=== PATIENT | female | born 1965 | race Caucasian/White ===

== ENCOUNTER 2017-11-09 10:00 | Outpatient (CLI) | payer MEDICARE, MEDICAID, SELFPAY | END 2017-11-09 10:01 | PROVIDERS: PCP Nurse Practitioner; Visit Provider Psychiatry & Neurology Neurology | DX: G43.009 Migraine without aura, not intractable, without status migrainosus (principal); G40.319 Generalized idiopathic epilepsy and epileptic syndromes, intractable, without status epilepticus; E11.9 Type 2 diabetes mellitus without complications; Z79.84 Long term (current) use of oral hypoglycemic drugs | CPT/HCPCS: 99214 ==

== ENCOUNTER → 2018-01-11 10:35 | Outpatient (BNVA) | payer MEDICARE, MEDICAID, SELFPAY | PROVIDERS: PCP Nurse Practitioner; Visit Provider Psychiatry & Neurology Neurology | DX: G43.009 Migraine without aura, not intractable, without status migrainosus (principal); G40.319 Generalized idiopathic epilepsy and epileptic syndromes, intractable, without status epilepticus; F44.5 Conversion disorder with seizures or convulsions; E11.9 Type 2 diabetes mellitus without complications; Z79.84 Long term (current) use of oral hypoglycemic drugs | CPT/HCPCS: 99214 ==

== ENCOUNTER 2018-01-16 16:22 | Emergency (ER) | payer MEDICARE, MEDICAID, SELFPAY ==
[2018-01-16] VITALS (18 sets, daily range): BP systolic 123–146; BP diastolic 73–89; PULSE 63–76; RESP 12–24; TEMP 36.4; O2SAT 96–100
--- NOTE | 2018-01-16 16:34 | ED.GENADUL_ITS ---
Discharge Plan Disposition Patient Disposition: HOME Condition: Stable Discharge Details Chief Complaint: Dizzy/Sync Clinical Impression: Dehydration Reason For Visit: ALCON Primary Care Provider: Ariane Fontanez ED Provider: Roverto Ulrich Home Meds and New Rx's Prescriptions: No Action docusate sodium [Colace] 100 mg capsule 100 mg PO TID RF: 0 polyethylene glycol 3350 [Miralax] 17 gram powder in packet 17 gm PO DAILY RF: 0 Atorvastatin Calcium 10 MG tablet 10 mg PO DAILY RF: 0 metformin 500 MG tablet 500 mg PO BID RF: 0 nabumetone 750 MG tablet 750 mg PO BID RF: 0 omeprazole 40 MG capsule,delayed release(DR/EC) 40 mg PO DAILY RF: 0 levothyroxine 100 MCG tablet 100 mcg PO DAILY RF: 0 doxepin 100 MG capsule 100 mg PO DAILY RF: 0 folic acid 1 MG tablet 1 mg PO DAILY RF: 0 conjugated estrogens [Premarin] 0.3 MG tablet 0.3 mg PO DAILY RF: 0 pramipexole [Mirapex ER] 0.375 MG tablet extended release 24 hr 0.375 mg PO DAILY RF: 0 lancets 1 EACH misc 1 ea Miscellaneous DIRECTED RF: 0 lamotrigine 150 MG tablet 150 mg PO BID Qty: 60 RF: 11 risperidone 1 MG tablet 1 mg PO DAILY RF: 0 prochlorperazine maleate 10 MG tablet 10 mg PO Q8H PRN Qty: 30 RF: 0 Discharge Instructions Instructions: Dehydration (ED) Discharge Data Discharge Physician: Roverto Ulrich Medical Decision Making 52 yo female with hx of seizures, psychogenic seizures, tbi, t2dm comes in with 2 weeks of feeling numbness of her entire head. Denies unilateral face, arm or leg weakness and has no sensation changes in the arms or legs. She has NIH of 0 here and symptoms are not typical of tia/cva so doubt this at this time. Saw neurology last week for similar symptoms and felt likely psychogenic at that time. Will check for electrolyte abnormalities and monitor. lab work unremarkable, does have some evidence of dehydration and is unsure if she has been drinking fluids. Will have her f/u with pcp within a week and return precautions given. Still no focal findings on neuro exam Differential Diagnosis migraines, psychogenic numbness, electrolyte abnormality ECG Data Attestation: I personally reviewed and interpreted this ECG (s) as follows: Prior ECG tracings: not available for review Interpretation: sinus rhythm, normal axis, rate of 64, pr 152, no acute st t wave ischemic findings HPI General Mode of arrival: EMS . Date/Time Provider Initiated Documentation: 01/16/18 16:34 . Limitations to Documentation: no limitations . Information obtained by: patient . History of Present Illness 52 year old F presents to the emergency department with the chief complaint of head numbness, described as moderate, with intensity rated at 4. and is localized to the head. Patient reports no radiation. Patient started experiencing this week(s) (2) and it has been constant. No relieving factors improve symptom(s), No exacerbating factors reported . Patient notes no other symptoms.. Patient did receive the following treatments prior to arrival, none Related Data Home Medications Medication Instructions Recorded Confirmed Atorvastatin Calcium 10 mg PO DAILY tab-cap 03/01/17 01/16/18 conjugated estrogens [Premarin] 0.3 mg PO DAILY tab-cap 03/01/17 01/16/18 doxepin 100 mg PO DAILY tab-cap 03/01/17 01/16/18 folic acid 1 mg PO DAILY 03/01/17 01/16/18 lancets ea 03/01/17 01/11/18 levothyroxine 100 mcg PO DAILY tab-cap 03/01/17 01/16/18 metformin 500 mg PO BID tab-cap 03/01/17 01/16/18 nabumetone 750 mg PO BID tab-cap 03/01/17 01/16/18 omeprazole 40 mg PO DAILY tab-cap 03/01/17 01/16/18 pramipexole [Mirapex Er] 0.375 mg PO DAILY tab-cap 03/01/17 01/11/18 lamotrigine 150 mg PO BID #60 tab-cap 04/06/17 01/16/18 risperidone 1 mg PO DAILY tab-cap 10/10/17 01/16/18 prochlorperazine maleate 10 mg PO Q8H PRN #30 tab-cap 11/09/17 01/16/18 docusate sodium 100 mg capsule 100 mg PO TID cap 01/11/18 01/16/18 polyethylene glycol 3350 17 gram 17 gm PO DAILY 01/11/18 01/16/18 oral powder packet Previous Rx's Medication Instructions Recorded lamotrigine 150 mg PO BID #60 tab-cap 04/06/17 prochlorperazine maleate 10 mg PO Q8H PRN #30 tab-cap 11/09/17 Allergies Allergy/AdvReac Type Severity Reaction Status Date / Time acetaminophen [From Vicodin] Allergy Unknown MENTAL Unverified 01/16/18 16:54 ISSUES codeine Allergy Unknown MENTAL Unverified 01/16/18 16:54 ISSUES hydrocodone bitartrate Allergy Unknown MENTAL Unverified 01/16/18 16:54 [From Vicodin] ISSUES Review of Systems Review of Systems All systems reviewed & are unremarkable except as noted in HPI and below Constitutional Denies chills, Denies fever(s) and Denies weakness Eyes Denies loss of vision ENT Denies change in voice Cardiovascular Denies chest pain and Denies dyspnea Respiratory Denies dyspnea Gastrointestinal Denies abdominal pain, Denies nausea and Denies vomiting Genitourinary Denies dysuria Musculoskeletal Denies joint swelling Integumentary/Breasts Denies rash Neurologic Denies loss of vision and Denies weakness Psychiatric Denies depression Endocrine Denies cold intolerance and Denies heat intolerance Allergic/Immunologic Denies urticaria PFSH Family History Father Brain cancer History of seizures as a child Mother Parkinsons Brother Epilepsy Social History household members: spouse and other details: MARY JO lives independently: No number of children: 0 current occupational status: disabled Smoking/Tobacco Use Status: Former Tobacco Use substance use type: does not use Exam Const General: no acute distress Orientation: alert HENMT Head: normal to inspection Ears: external ears normal General nose exam: external nose normal Mouth: moist mucous membranes Eyes General: appearance normal, both eyes and all related structures Neck Neck: normal visual inspection Resp Effort & Inspection: normal respiratory effort and able to speak in complete sentences Cardio Rate: regular rate Skin General skin exam: no rashes or lesions noted Neuro General: alert and oriented x3 Cranial Nerves: CN's II-XI intact bilaterally Cognition: normal cognition Speech: speech normal Gait: normal gait Motor: muscle tone normal throughout Sensory Exam: no sensory deficits noted Pupils: Normal pupillary reactivity/response: bilateral Extrem General: normal to inspection Psych Mental Status: mental status grossly normal
[2018-01-16 17:26] LABS: HCT 36.5 % (36.0-46.0); HGB 11.5 g/dL (12.0-15.5); Mean Corp. HGB Concentration 31.5 g/dL (32.0-36.0); Mean Corpuscular Hemoglobin 25.7 pg (27.0-33.0); Mean Corpuscular Volume 81.7 fL (80-95); Mean Platelet Volume 9.9 fL (8.0-11.0); Platelet Count 352 x1000/uL (130-400); RBC 4.47 m/cumm (4.00-5.20); RBC Distribution Width 17.2 % (11.7-14.6); White Blood Cell Count 6.24 k/cumm (4.4-10.8)
[2018-01-16 17:46] LABS: ALT 20 U/L (12-78); AST 15 U/L (15-37); Albumin 3.5 g/dL (3.4-5.0); Alkaline Phosphatase 115 U/L (46-116); Anion Gap 10.5 mmol/L (3-11); BUN 19 mg/dL (7-18); Bilirubin, Total 0.3 mg/dL (0.2-1.0); CO2 25.5 mmol/L (21.0-32.0); CREATININE 1.26 mg/dL (0.55-1.02); Calcium 9.1 mg/dL (8.5-10.1); Chloride 103 mmol/L (98-107); Estimated GFR 44.25 (mL/min/1.73m2); Glucose 108 mg/dL (70-100); Potassium 3.6 mmol/L (3.5-5.1); Sodium 139 mmol/L (136-145); Total Protein 7.9 g/dL (6.4-8.2)
--- NOTE | 2018-01-17 10:17 | CMPROGNOTE_ITS ---
Care Management Progress Note 01/17-Dr. Ulrich requested assistance with a PCP (Ariane Fontanez NP, [place]) this week for hand numbness. This [employer] reached out to Celina this morning and she has already scheduled an appt to see Ariane on Monday, 01/19. Celina has this CM's contact information if further assistance is needed.
== END 2018-01-16 18:04 | disposition home or self-care (01) ==
PROVIDERS: Emergency Provider Emergency Medicine; PCP Nurse Practitioner
DX: E86.0 Dehydration (principal); E11.9 Type 2 diabetes mellitus without complications; Z79.84 Long term (current) use of oral hypoglycemic drugs
CPT/HCPCS: 36415; 80053; 85027; 93005; 99284; 93010

== ENCOUNTER → 2018-02-26 10:20 | Outpatient (BNVA) | payer MEDICARE, MEDICAID, SELFPAY | PROVIDERS: PCP Nurse Practitioner; Visit Provider Psychiatry & Neurology Neurology | DX: G43.009 Migraine without aura, not intractable, without status migrainosus (principal); G40.319 Generalized idiopathic epilepsy and epileptic syndromes, intractable, without status epilepticus; F44.5 Conversion disorder with seizures or convulsions; E11.9 Type 2 diabetes mellitus without complications | CPT/HCPCS: 99214 ==

== ENCOUNTER → 2018-04-16 07:45 | Outpatient (BNVA) | payer MEDICARE, MEDICAID, SELFPAY | PROVIDERS: PCP Nurse Practitioner; Visit Provider Psychiatry & Neurology Neurology | DX: G43.009 Migraine without aura, not intractable, without status migrainosus (principal); G40.319 Generalized idiopathic epilepsy and epileptic syndromes, intractable, without status epilepticus; F44.5 Conversion disorder with seizures or convulsions; E11.9 Type 2 diabetes mellitus without complications | CPT/HCPCS: 99214 ==

== ENCOUNTER 2018-04-24 02:13 | Outpatient (CLI) | payer MEDICARE, MEDICAID, SELFPAY ==
--- NOTE | 2018-05-01 09:02 | PDOC.EEG_ITS ---
EEG: [facility] Department of Neurology LONG-TERM AMBULATORY EEG REPORT Date of Recordin04/24/18 at 13:32:36 to 04/27/18 at 07:29:14 Interpreting Physician: Dr. Jen Koch PCP/Referring Provider: Ariane Fontanez NP Reason for study: Ms. Coronel is a 52 year-old woman with a known history of generalized epilepsy disorder with more recent self-reported staring spells. Current Medications: Atorvastatin Calcium 10 mg PO DAILY tab-cap 03/01/17 conjugated estrogens [Premarin] 0.3 mg PO DAILY tab-cap 03/01/17 doxepin 100 mg PO DAILY tab-cap 03/01/17 folic acid 1 mg PO DAILY 03/01/17 lancets ea 03/01/17 levothyroxine 100 mcg PO DAILY tab-cap 03/01/17 nabumetone 750 mg PO BID tab-cap 03/01/17 omeprazole 40 mg PO DAILY tab-cap 03/01/17 pramipexole [Mirapex Er] 0.375 mg PO DAILY tab-cap 03/01/17 lamotrigine 150 mg PO BID #60 tab-cap 04/06/17 docusate sodium 100 mg capsule 100 mg PO TID cap 01/11/18 gabapentin 100 mg capsule 100 mg PO TID #90 cap 04/16/18 risperidone 1 mg tablet 1 mg PO .1 AM 2HS tab-cap 04/16/18 METHODS: An 18-channel digitized electroencephalogram was recorded in the ambulatory setting with video. The 10/20 international system of electrode placement was used and bipolar and referential electrode montages were recorded. In addition to EEG the patient was monitored for EKG and by video. Activation procedures of photic stimulation and hyperventilation were performed if applicable. The duration of the recording was ~64.5 hours. DESCRIPTION OF EEG: Waking background activity: During maximal wakefulness an 8-Hz posterior background rhythm was present which was well-modulated, symmetrical, reactive to eye opening, and of moderate voltage. Faster frequencies were present in the bilateral anterior head regions. There was a normal anterior-posterior voltage gradient. Drowsy and sleeping background activity: During drowsiness, there was attenuation of the posterior dominant background rhythm and vertex waves. Normal stage II and III sleep was present with symmetrical sleep spindles, K- complexes, and vertex waves with slowing of the background rhythm to delta/theta frequencies. REM sleep manifested by rapid lateral eye movements and faster background rhythms was recorded. Arousal was unremarkable. Interictal abnormalities: There were occasional, high frequency, generalized 1-4 second bursts of ~3 Hz spike-waves. There were generally frontally- predominant, but at times also demonstrated a posterior +/- right hemisphere predominance as well. These occasionally manifested by fragments of either a single generalized spike or a single generalized delta slow wave. Ictal findings: Event #1 on 04/24/18 at 17:13:00 -Clinical manifestations: Chest pain. -EEG findings: Preceding, there were frequent bursts of high-amplitude, generalized sharply-contoured delta activity. There were no obvious spike-wave discharges. Event #2 on 04/24/18 at 19:43:44 and 19:55:43 -Clinical manifestations: Chest pain. -EEG findings: No epileptiform or other abnormalities seen. Event #3 on 04/25/18 at 04:58:42 -Clinical manifestations: Chest pain. -EEG findings: She awakens from sleep at 04:57:54. No epileptiform or other abnormalities seen. Event #4 on 04/25/18 at 06:20 (per event diary, no button push) -Clinical manifestations: Left arm pain. -EEG findings: No epileptiform or other abnormalities seen. Event #5 on 04/25/18 at 13:51:26 -Clinical manifestations: No symptoms recorded in event diary. -EEG findings: Several bursts of typical interictal activity as described above. Event #6 on 04/25/18 at 20:38:24 -Clinical manifestations: Pain in arm and chest. -EEG findings: A single burst of typical interictal activity about 4 minutes p rior, otherwise no abnormalities. Event #7 on 04/26/18 at 01:15:09 -Clinical manifestations: No symptoms recorded in event diary. -EEG findings: No epileptiform or other abnormalities seen. Event #8 on 04/26/18 at 10:32:58 -Clinical manifestations: No symptoms recorded in event diary. -EEG findings: A single burst of typical interictal activity about 6 minutes prior, otherwise no abnormalities. Event #9 on 04/26/18 at 17:53:36 and 17:53:42 -Clinical manifestations: No symptoms recorded in event diary. -EEG findings: Several burst of generalized delta with a single 2 second burst of right-hemisphere predominant spike-waves in between the button pushes. Activating Procedures: Photic stimulation was aborted early x2 due to left face numbness. There was no posterior driving response. Hyperventilation was also aborted early due to chest pain. There was no slowing. EKG: EKG revealed normal sinus rhythm. INTERPRETATION: This long-term EEG is abnormal due to: #1. Occasional, high frequency, generalized 1-4 second bursts of ~3 Hz spike- waves #2. Mild slowing of the dominant background rhythm. #3. Multiple events captured as above, none of which consistently correlated with epileptiform activity. PRIOR EEG: -Ambulatory EEG (1999) x72 hours - normal. Described one event of going into a spell. -EEG (2005) - mild encephalopathy. -Video EEG (2005) - multiple subjective events consistent with psychogenic nonepileptic seizures. No description was provided. She had a single gener alized tonic-clonic seizure with focal sharps prior to the onset and, thus, was given a diagnosis of a primary generalized epilepsy based on these findings. -EEG (2006) - moderate encephalopathy. -Video EEG (2007) - she had a single event consistent with a psychogenic nonepileptic seizure and interictally she had noted bilateral independent posterior temporal sharp and slow waves that became more generalized in sleep. CLINICAL CORRELATION: This recording represents the interictal expression of a primary generalized epilepsy and indicates the patient is at increased risk for seizures. The background slowing is suggestive of a mild diffuse cerebral encephalopathy of broad differential including toxic-metabolic etiology. None of the events captured appeared to consistently correlate with epileptiform activity. Further, her complaint of staring spell was not captured. However, she may be experiencing some symptoms or awareness from her interictal activity which she is unable to verbalize well. Clinical correlation is advised. Jen Koch MD
== END 2018-04-24 02:33 ==
PROVIDERS: PCP Nurse Practitioner; Visit Provider Psychiatry & Neurology Neurology
DX: G40.824 Epileptic spasms, intractable, without status epilepticus (principal); R41.89 Other symptoms and signs involving cognitive functions and awareness; R94.01 Abnormal electroencephalogram [EEG]
CPT/HCPCS: 95951; 95953

== ENCOUNTER → 2018-05-10 11:22 | Outpatient (BNVA) | payer MEDICARE, MEDICAID, SELFPAY | PROVIDERS: PCP Nurse Practitioner; Visit Provider Psychiatry & Neurology Neurology | DX: G43.009 Migraine without aura, not intractable, without status migrainosus (principal); G40.319 Generalized idiopathic epilepsy and epileptic syndromes, intractable, without status epilepticus; F44.5 Conversion disorder with seizures or convulsions; E11.9 Type 2 diabetes mellitus without complications; R51 Headache | CPT/HCPCS: 99214; J1885; 96372 ==

== ENCOUNTER → 2018-05-30 09:14 | Outpatient (BNVA) | payer MEDICARE, MEDICAID, SELFPAY | PROVIDERS: PCP Nurse Practitioner; Visit Provider Psychiatry & Neurology Neurology | DX: G43.009 Migraine without aura, not intractable, without status migrainosus (principal); G40.319 Generalized idiopathic epilepsy and epileptic syndromes, intractable, without status epilepticus; F44.5 Conversion disorder with seizures or convulsions; E11.9 Type 2 diabetes mellitus without complications | CPT/HCPCS: 99214 ==

== ENCOUNTER → 2018-07-10 11:48 | Outpatient (BNVA) | payer MEDICARE, MEDICAID, SELFPAY | PROVIDERS: PCP Nurse Practitioner; Visit Provider Psychiatry & Neurology Neurology | DX: G43.009 Migraine without aura, not intractable, without status migrainosus (principal); G40.319 Generalized idiopathic epilepsy and epileptic syndromes, intractable, without status epilepticus; F44.5 Conversion disorder with seizures or convulsions; E11.9 Type 2 diabetes mellitus without complications | CPT/HCPCS: 99213 ==

== ENCOUNTER → 2018-09-03 11:02 | Outpatient (BNVA) | payer MEDICARE, MEDICAID, SELFPAY | PROVIDERS: PCP Nurse Practitioner; Visit Provider Psychiatry & Neurology Neurology | DX: G40.319 Generalized idiopathic epilepsy and epileptic syndromes, intractable, without status epilepticus (principal); G43.009 Migraine without aura, not intractable, without status migrainosus; F44.5 Conversion disorder with seizures or convulsions | CPT/HCPCS: 99213 ==

== ENCOUNTER → 2018-11-07 12:52 | Outpatient (BNVA) | payer MEDICARE, MEDICAID, SELFPAY | PROVIDERS: PCP Nurse Practitioner; Visit Provider Psychiatry & Neurology Neurology | DX: G43.009 Migraine without aura, not intractable, without status migrainosus (principal); G40.319 Generalized idiopathic epilepsy and epileptic syndromes, intractable, without status epilepticus; I10 Essential (primary) hypertension | CPT/HCPCS: 99213 ==

== ENCOUNTER → 2019-02-05 10:10 | Outpatient (BNVA) | payer MEDICARE, MEDICAID, SELFPAY | PROVIDERS: PCP Nurse Practitioner; Referring Provider Nurse Practitioner; Visit Provider Psychiatry & Neurology Neurology | DX: G43.009 Migraine without aura, not intractable, without status migrainosus (principal); I10 Essential (primary) hypertension | CPT/HCPCS: 99213 ==

== ENCOUNTER → 2019-02-28 10:08 | Outpatient (BNVA) | payer MEDICARE, MEDICAID, SELFPAY | PROVIDERS: PCP Nurse Practitioner; Referring Provider Nurse Practitioner; Visit Provider Psychiatry & Neurology Neurology | DX: G43.009 Migraine without aura, not intractable, without status migrainosus (principal); I10 Essential (primary) hypertension; G40.319 Generalized idiopathic epilepsy and epileptic syndromes, intractable, without status epilepticus | CPT/HCPCS: 99213 ==

== ENCOUNTER → 2019-04-02 08:36 | Outpatient (BNVA) | payer MEDICARE, MEDICAID, SELFPAY | PROVIDERS: PCP Nurse Practitioner; Referring Provider Nurse Practitioner; Visit Provider Psychiatry & Neurology Neurology | DX: G43.009 Migraine without aura, not intractable, without status migrainosus (principal); G40.319 Generalized idiopathic epilepsy and epileptic syndromes, intractable, without status epilepticus; F44.5 Conversion disorder with seizures or convulsions; Z87.820 Personal history of traumatic brain injury | CPT/HCPCS: 99213 ==

== ENCOUNTER → 2019-05-13 07:58 | Outpatient (BNVA) | payer MEDICARE, MEDICAID, SELFPAY | PROVIDERS: PCP Nurse Practitioner; Referring Provider Nurse Practitioner; Visit Provider Psychiatry & Neurology Neurology | DX: G43.009 Migraine without aura, not intractable, without status migrainosus (principal); G40.319 Generalized idiopathic epilepsy and epileptic syndromes, intractable, without status epilepticus | CPT/HCPCS: 99214 ==

== ENCOUNTER → 2019-09-02 14:25 | Outpatient (BNVA) | payer MEDICARE, MEDICAID, SELFPAY | PROVIDERS: PCP Nurse Practitioner; Referring Provider Nurse Practitioner; Visit Provider Psychiatry & Neurology Neurology | DX: G40.319 Generalized idiopathic epilepsy and epileptic syndromes, intractable, without status epilepticus (principal); G43.009 Migraine without aura, not intractable, without status migrainosus; G47.00 Insomnia, unspecified; I10 Essential (primary) hypertension | CPT/HCPCS: 99214 ==

== ENCOUNTER 2019-09-23 02:32 | Outpatient (CLI) | payer MEDICARE, MEDICAID, SELFPAY ==
--- NOTE | 2019-09-26 08:51 | PDOC.EEG ---
Neurology EEG EEG: [facility] Department of Neurology LONG-TERM AMBULATORY EEG REPORT Date of Recordin09/23/19 at 10:43:48 to 09/24/19 at 13:05:49 Interpreting Physician: Dr. Jen Koch PCP/Referring Provider: Ariane Fontanez NP Reason for study: Ms. Coronel is a 54 year-old woman with known epileptic and non-epileptic seizures, with recent increase in seizure activity. Current Medications: Home Medications Medication Instructions Recorded Confirmed Type Atorvastatin Calcium 10 mg PO DAILY tab-cap 03/01/17 09/02/19 History doxepin 100 mg PO DAILY tab-cap 03/01/17 09/02/19 History folic acid 1 mg PO DAILY 03/01/17 09/02/19 History lancets ea 03/01/17 09/02/19 History levothyroxine 100 mcg PO DAILY tab-cap 03/01/17 09/02/19 History omeprazole 40 mg PO DAILY tab-cap 03/01/17 09/02/19 History risperidone 2 mg tablet 2 mg PO QHS tab 05/30/18 09/02/19 History metformin 500 mg tablet 500 mg PO DAILY tab 07/10/18 09/02/19 History risperidone 1 mg tablet 1 mg PO .AM tab 07/10/18 09/02/19 History armodafinil 150 mg tablet 150 mg PO QAM 11/07/18 09/02/19 History rizatriptan 10 mg tablet 10 mg PO ONCE PRN #12 tab 02/05/19 09/02/19 Rx prochlorperazine maleate 5 mg 5 mg PO ONCE PRN tab 04/02/19 09/02/19 History tablet acetaminophen 650 mg 650 mg PO ONCE PRN tab 05/13/19 09/02/19 History tablet,extended release lamotrigine 150 mg tablet 150 mg PO BID #180 tab-cap 06/03/19 09/02/19 Rx ramelteon 8 mg tablet 8 mg PO QHS 09/02/19 09/02/19 History METHODS: An 18-channel digitized electroencephalogram was recorded in the ambulatory setting with video. The 10/20 international system of electrode placement was used and bipolar and referential electrode montages were recorded. In addition to EEG the patient was monitored for EKG and by video. Activation procedures of photic stimulation and hyperventilation were performed if applicable. The duration of the recording was 26 hours. DESCRIPTION OF EEG: Waking background activity: During maximal wakefulness an 8-Hz posterior background rhythm was present which was well-modulated, symmetrical, reactive to eye opening, and of moderate voltage. Faster frequencies were present in the bilateral anterior head regions. There was a normal anterior-posterior voltage gradient. Drowsy and sleeping background activity: During drowsiness, there was attenuation of the posterior dominant background rhythm and vertex waves. Normal stage II and III sleep was present with symmetrical sleep spindles, K-complexes, and vertex waves with slowing of the background rhythm to delta/theta frequencies. REM sleep manifested by rapid lateral eye movements and faster background rhythms was recorded. Arousal was unremarkable. Interictal abnormalities: Overall, mild generalized, non-rhythmic slowing seen throughout the study. There were frequent bursts of high-amplitude, 3 Hz generalized spike waves that occurred either singly (mainly when asleep) or in bursts up to 3 seconds in duration. These occasionally had a right-sided predominance and even rarely, appeared to have a right hemisphere onset. There were occasional focal, moderate-amplitude, independent spike-waves at Fp2, O2, T3, C3/P3, T4, ?Fp1, and ?O1. Ictal findings: Event #1 on 09/23/19 at 18:36:25 -Clinical manifestations: Right chest pain x25 minutes while sitting. -EEG findings: No change from baseline EEG. Event #2 on 09/23/19 at 21:26:28 -Clinical manifestations: Front of head felt funny all night. While sitting. -EEG findings: No change from baseline EEG. Event #3 on 09/24/19 at 08:56:13 -Clinical manifestations: Right chest pain x5-10 minutes while sitting. -EEG findings: No change from baseline EEG. Event #4 on 09/24/19 at 11:57:41 -Clinical manifestations: No reported clinical symptoms. -EEG findings: No change from baseline EEG. Activating Procedures: Photic stimulation was not performed per patient request. Hyperventilation was performed with moderate effort and produced mild physiological slowing of the background. During HV, she developed chest pain which resolved after 5minutes. EKG: EKG revealed normal sinus rhythm. INTERPRETATION: This long-term EEG is abnormal due to: #1. Frequent bursts of 3 Hz generalized spike waves that occurred either singly or in bursts up to 3 seconds in duration. These occasionally had a right-sided predominance and even rarely, appeared to have a right hemisphere onset. #2. Occasional multi-focal independent spike-waves at Fp2, O2, T3, C3/P3, T4, ?Fp1, and ?O1. #3. Mild generalized slowing and slowing of the PDR. #4. No typical events were captured. PRIOR EEG: -Ambulatory EEG (1999) x72 hours - normal. Described one event of going into a spell. -EEG (2005) - mild encephalopathy. -Video EEG (2005) - multiple subjective events consistent with psychogenic nonepileptic seizures. No description was provided. She had a single generalized tonic-clonic seizure with focal sharps prior to the onset and, thus, was given a diagnosis of a primary generalized epilepsy based on these findings. -EEG (2006) - moderate encephalopathy. -Video EEG (2007) - she had a single event consistent with a psychogenic nonepileptic seizure and interictally she had noted bilateral independent posterior temporal sharp and slow waves that became more generalized in sleep. -Amb EEG (Apr 2018 x64 hours): Occasional bursts of 3 Hz generalized spike waves lasting 1-4 seconds; 9 events captured with descriptions of chest and arm pain. One occurred at the same time as her interictal discharges, otherwise none had any other correlation. CLINICAL CORRELATION: This EEG has features of both focal and generalized features which is different than what was seen on previous EEGs. I was able to re-review her 2019 EEG which actually showed similar findings as today with both focal and generalized features. It is possible the focal features may be fragments of generalized discharges. It is also possible that her generalized discharges could be of focal onset with rapid spread. Finally, it's also possible she truly has both. The interictal activity does seem slightly more frequent compared to the 2019 study. No typical events or overt seizures were recorded. The background slowing is suggestive of a mild diffuse cerebral encephalopathy which is stable compared to previous EEG findings and consistent with patient's known developmental delay. Clinical correlation is advised. Jen Koch MD
== END 2019-09-23 02:52 ==
PROVIDERS: PCP Nurse Practitioner; Visit Provider Psychiatry & Neurology Neurology
DX: R41.89 Other symptoms and signs involving cognitive functions and awareness (principal); R94.01 Abnormal electroencephalogram [EEG]; G40.909 Epilepsy, unspecified, not intractable, without status epilepticus
CPT/HCPCS: 95714

== ENCOUNTER → 2019-09-26 14:38 | Outpatient (BNVA) | payer MEDICARE, MEDICAID, SELFPAY | PROVIDERS: PCP Nurse Practitioner; Referring Provider Nurse Practitioner; Visit Provider Psychiatry & Neurology Neurology | DX: G40.319 Generalized idiopathic epilepsy and epileptic syndromes, intractable, without status epilepticus (principal); G43.009 Migraine without aura, not intractable, without status migrainosus; I10 Essential (primary) hypertension | CPT/HCPCS: 99214 ==

== ENCOUNTER → 2020-01-07 14:48 | Outpatient (BNVA) | payer MEDICARE, MEDICAID, SELFPAY | PROVIDERS: PCP Nurse Practitioner; Referring Provider Nurse Practitioner; Visit Provider Psychiatry & Neurology Neurology | DX: G43.009 Migraine without aura, not intractable, without status migrainosus (principal); G40.319 Generalized idiopathic epilepsy and epileptic syndromes, intractable, without status epilepticus; G47.00 Insomnia, unspecified | CPT/HCPCS: 99213 ==

== ENCOUNTER → 2020-02-24 08:29 | Outpatient (BNVA) | payer MEDICARE, MEDICAID, SELFPAY | PROVIDERS: PCP Nurse Practitioner; Referring Provider Nurse Practitioner; Visit Provider Psychiatry & Neurology Neurology | DX: G43.009 Migraine without aura, not intractable, without status migrainosus (principal); G40.319 Generalized idiopathic epilepsy and epileptic syndromes, intractable, without status epilepticus; G47.00 Insomnia, unspecified | CPT/HCPCS: 99213; 99441 ==

== ENCOUNTER → 2020-04-27 10:44 | Outpatient (BNVA) | payer MEDICARE, MEDICAID, SELFPAY | PROVIDERS: PCP Nurse Practitioner; Referring Provider Nurse Practitioner; Visit Provider Psychiatry & Neurology Neurology | DX: G43.009 Migraine without aura, not intractable, without status migrainosus (principal); G40.319 Generalized idiopathic epilepsy and epileptic syndromes, intractable, without status epilepticus | CPT/HCPCS: 99214 ==

== ENCOUNTER → 2020-06-30 09:24 | Outpatient (BNVA) | payer MEDICARE, MEDICAID, SELFPAY | PROVIDERS: PCP Nurse Practitioner; Referring Provider Nurse Practitioner; Visit Provider Psychiatry & Neurology Neurology | DX: G43.009 Migraine without aura, not intractable, without status migrainosus (principal); G40.319 Generalized idiopathic epilepsy and epileptic syndromes, intractable, without status epilepticus | CPT/HCPCS: 99213 ==

== ENCOUNTER → 2020-08-31 12:56 | Outpatient (BNVA) | payer MEDICARE, MEDICAID, SELFPAY | PROVIDERS: PCP Nurse Practitioner; Referring Provider Nurse Practitioner; Visit Provider Psychiatry & Neurology Neurology | DX: G40.319 Generalized idiopathic epilepsy and epileptic syndromes, intractable, without status epilepticus (principal); F44.5 Conversion disorder with seizures or convulsions; G43.009 Migraine without aura, not intractable, without status migrainosus | CPT/HCPCS: 99214 ==

== ENCOUNTER → 2020-11-16 11:16 | Outpatient (BNVA) | payer MEDICARE, MEDICAID, SELFPAY | PROVIDERS: PCP Nurse Practitioner; Referring Provider Nurse Practitioner; Visit Provider Psychiatry & Neurology Neurology | DX: G40.309 Generalized idiopathic epilepsy and epileptic syndromes, not intractable, without status epilepticus (principal); G43.009 Migraine without aura, not intractable, without status migrainosus; G40.319 Generalized idiopathic epilepsy and epileptic syndromes, intractable, without status epilepticus | CPT/HCPCS: 99213 ==

== ENCOUNTER → 2021-01-05 11:08 | Outpatient (BNVA) | payer MEDICARE, MEDICAID, SELFPAY | PROVIDERS: PCP Nurse Practitioner; Referring Provider Nurse Practitioner; Visit Provider Psychiatry & Neurology Neurology | DX: G43.009 Migraine without aura, not intractable, without status migrainosus (principal); G40.319 Generalized idiopathic epilepsy and epileptic syndromes, intractable, without status epilepticus; R10.9 Unspecified abdominal pain; I10 Essential (primary) hypertension | CPT/HCPCS: 99213 ==

== ENCOUNTER → 2021-04-08 12:18 | Outpatient (BNVA) | payer MEDICARE, MEDICAID, SELFPAY | PROVIDERS: PCP Nurse Practitioner; Referring Provider Nurse Practitioner; Visit Provider Psychiatry & Neurology Neurology | DX: G43.009 Migraine without aura, not intractable, without status migrainosus (principal); G40.319 Generalized idiopathic epilepsy and epileptic syndromes, intractable, without status epilepticus; M54.50 Low back pain, unspecified | CPT/HCPCS: 99213 ==

== ENCOUNTER → 2021-07-12 09:39 | Outpatient (BNVA) | payer MEDICARE, MEDICAID, SELFPAY | PROVIDERS: PCP Nurse Practitioner; Referring Provider Nurse Practitioner; Visit Provider Psychiatry & Neurology Neurology | DX: G40.309 Generalized idiopathic epilepsy and epileptic syndromes, not intractable, without status epilepticus (principal); G43.009 Migraine without aura, not intractable, without status migrainosus; M54.50 Low back pain, unspecified | CPT/HCPCS: 99214 ==

== ENCOUNTER → 2021-08-19 09:31 | Outpatient (BNVA) | payer MEDICARE, MEDICAID, SELFPAY | PROVIDERS: PCP Nurse Practitioner; Referring Provider Nurse Practitioner; Visit Provider Psychiatry & Neurology Neurology | DX: G40.319 Generalized idiopathic epilepsy and epileptic syndromes, intractable, without status epilepticus (principal); G43.009 Migraine without aura, not intractable, without status migrainosus | CPT/HCPCS: 99214 ==

== ENCOUNTER → 2021-11-18 12:14 | Outpatient (BNVA) | payer MEDICARE, MEDICAID, SELFPAY | PROVIDERS: PCP Nurse Practitioner; Referring Provider Nurse Practitioner; Visit Provider Psychiatry & Neurology Neurology | DX: G47.33 Obstructive sleep apnea (adult) (pediatric) (principal); I10 Essential (primary) hypertension; G43.009 Migraine without aura, not intractable, without status migrainosus; G40.319 Generalized idiopathic epilepsy and epileptic syndromes, intractable, without status epilepticus | CPT/HCPCS: 99214 ==

== ENCOUNTER → 2022-01-31 09:55 | Outpatient (BNVA) | payer MEDICARE, MEDICAID, SELFPAY | PROVIDERS: PCP Nurse Practitioner; Referring Provider Nurse Practitioner; Visit Provider Psychiatry & Neurology Neurology | DX: G43.709 Chronic migraine without aura, not intractable, without status migrainosus (principal); G40.319 Generalized idiopathic epilepsy and epileptic syndromes, intractable, without status epilepticus; I10 Essential (primary) hypertension | CPT/HCPCS: 99214 ==

== ENCOUNTER → 2022-05-10 08:19 | Outpatient (BNVA) | payer MEDICARE, MEDICAID, SELFPAY | PROVIDERS: PCP Nurse Practitioner; Referring Provider Nurse Practitioner; Visit Provider Psychiatry & Neurology Neurology | DX: G40.309 Generalized idiopathic epilepsy and epileptic syndromes, not intractable, without status epilepticus (principal); G43.709 Chronic migraine without aura, not intractable, without status migrainosus; F32.A Depression, unspecified; G47.00 Insomnia, unspecified; G47.33 Obstructive sleep apnea (adult) (pediatric); I10 Essential (primary) hypertension | CPT/HCPCS: 99214 ==

== ENCOUNTER 2022-07-18 15:08 | Outpatient (CLI) | payer MEDICARE, MEDICAID, SELFPAY ==
--- NOTE | 2022-07-18 15:11 | DI.RAD_ITS ---
Exam(s) XR KNEE LT 3V AP,LAT,TOBI EXAM: XR KNEE LT 3V AP,LAT,TOBI CLINICAL HISTORY: L TKR pain. TECHNIQUE: 2D digital imaging was performed of the left knee. Three images were obtained. Merchant ,lateral and AP views were obtained. COMPARISON: No exams were available for comparison FINDINGS: BONES: No acute fracture is present. No bony destructive lesion is seen. JOINTS: There are postsurgical changes of a left total knee replacement. No lucencies are seen in or about the orthopedic hardware to suggest loosening or infection. No joint effusion is seen. SOFT TISSUE: Normal. IMPRESSION: Left total knee replacement. DATA REPOSITORY: RADIATION DOSE DELIVERED:
== END 2022-07-18 15:09 | disposition home or self-care (01) ==
LOC: DIORS 15:09
PROVIDERS: PCP Nurse Practitioner; Referring Provider Nurse Practitioner; Visit Provider Student in an Organized Health Care Education/Training Program
DX: M17.11 Unilateral primary osteoarthritis, right knee; M25.761 Osteophyte, right knee; Z96.652 Presence of left artificial knee joint; T84.84XA Pain due to internal orthopedic prosthetic devices, implants and grafts, initial encounter
CPT/HCPCS: 20610; 73562; 99213; J1040

== ENCOUNTER 2022-07-27 01:13 | Outpatient (CLI) | payer MEDICARE, MEDICAID, SELFPAY ==
--- NOTE | 2022-07-27 06:45 | DI.NM_ITS ---
Exam(s) NM BONE SCAN 3 PHASE EXAM: NM BONE SCAN 3 PHASE CLINICAL HISTORY: PAINful total knee, ?LOOSENING,[id number],[id number]. TECHNIQUE: Injected Dose: 25 mCi Tc-99m MDP Perfusion, blood pool and delayed images were performed of the knees. Delayed images were also perfo rmed of the whole body. COMPARISON: CR XR KNEE LT 3V AP,LAT,TOBI from 07/18/2022 FINDINGS: Perfusion: Hyperemia around the left knee Blood Pool: Abnormal increased activity around the left knee prosthesis. Delayed: Markedly increased activity surrounding the left knee prosthesis which is suspicious for loo sening. Whole body images show no other areas of suspicious activity. IMPRESSION: 1. Abnormal labeling surrounding the left knee prosthesis which could indicate loosening however infe ction could also be considered. DATA REPOSITORY:
[2022-07-27 09:06] LABS: C-Reactive Protein 1.65 mg/dL (0.0-0.3)
[2022-07-27 09:07] LABS: ESR 46 mm/hr (0-30)
== END 2022-07-27 01:33 ==
LOC: DI 01:13
PROVIDERS: PCP Nurse Practitioner; Visit Provider Student in an Organized Health Care Education/Training Program
DX: T84.84XA Pain due to internal orthopedic prosthetic devices, implants and grafts, initial encounter (principal); Z96.652 Presence of left artificial knee joint; R93.7 Abnormal findings on diagnostic imaging of other parts of musculoskeletal system
CPT/HCPCS: 85652; 78315; 86140

== ENCOUNTER → 2022-07-29 09:04 | Outpatient (BNVA) | payer MEDICARE, MEDICAID, SELFPAY | PROVIDERS: PCP Nurse Practitioner; Referring Provider Nurse Practitioner; Visit Provider Student in an Organized Health Care Education/Training Program | DX: Z47.1 Aftercare following joint replacement surgery (principal); T84.84XA Pain due to internal orthopedic prosthetic devices, implants and grafts, initial encounter; Z96.652 Presence of left artificial knee joint; R93.7 Abnormal findings on diagnostic imaging of other parts of musculoskeletal system | CPT/HCPCS: 20610 ==

== ENCOUNTER → 2022-08-09 09:36 | Outpatient (BNVA) | payer MEDICARE, MEDICAID, SELFPAY | PROVIDERS: PCP Nurse Practitioner; Visit Provider Psychiatry & Neurology Neurology | DX: G40.319 Generalized idiopathic epilepsy and epileptic syndromes, intractable, without status epilepticus (principal); G43.709 Chronic migraine without aura, not intractable, without status migrainosus; F39 Unspecified mood [affective] disorder; G47.00 Insomnia, unspecified; G20 Parkinson's disease; I10 Essential (primary) hypertension | CPT/HCPCS: 99214 ==

== ENCOUNTER 2022-08-17 10:13 | Inpatient (IN) | payer MEDICARE, MEDICAID, SELFPAY ==
[2022-08-17] VITALS (10 sets, daily range): BP systolic 110–147; BP diastolic 66–76; PULSE 62–76; RESP 13–24; TEMP 36.1–36.6; O2SAT 93–100; BMI 42.5
--- NOTE | 2022-08-17 | DI.RAD_ITS ---
Exam(s) XR KNEE LT 2V AP,LAT EXAM: XR KNEE LT 2V AP,LAT CLINICAL HISTORY: s/p revision L TKA. TECHNIQUE: 2D digital imaging was performed. Three views. Portable. COMPARISON: CR XR KNEE LT 3V AP,LAT,TOBI from 07/18/2022 FINDINGS: The patient is status post revision of the previously noted total knee prosthesis. The alignment fran ears satisfactory. There is some residual postsurgical air in the soft tissues. DATA REPOSITORY: RADIATION DOSE DELIVERED:
[2022-08-17] MEDS: Acetaminophen 500 MG TAB 1000 MG PO ×2 (10:56→20:29)
[2022-08-17] MEDS: Celecoxib 200 MG CAP 400 MG PO (10:57)
[2022-08-17] MEDS: Gabapentin 300 MG CAP PO ×2 (10:57→22:20)
[2022-08-17] MEDS: Lactated Ringers 1,000 ML 80 ML IV (11:06)
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
[2022-08-17] MEDS: ceFAZolin 2 GM/50 ML BAG IVPB (13:37)
--- NOTE | 2022-08-17 14:09 | W.ANESNERVE ---
Nerve Block Single Injection Procedure Date and Time Date Performed: 08/17/22 Procedure Start: 12:55 Location Where Procedure Performed Procedure Location: Day Surgery Unit Reason Performed: Postoperative Analgesia Requesting Provider: Franc Chapin Timeout Performed Timeout Performed: Yes Monitoring Used ECG, Blood Pressure and SpO2 Sterility Sterility: Hand Hygiene, Surgical Cap, Surgical Mask, Sterile Gloves and Chlorhexidine Sedation Given During Procedure Sedation Given (Indicate Dose Given): No Sedation given Patient Mental Status Patient Mental Status: Awake Nerve Block 1st Nerve Block: Laterality: Left Block Type: Adductor Canal Ultrasound Image Saved?: Yes Needle / Catheter Used: 100mm SonoPlex II Local Anesthetic Bolus (Indicate Dose Given): Lidocaine used for local infiltration of skin, Injected in 3-5ml increments after negative blood aspiration and Bupivacaine 0.25% Dose:: 15 ml Additives (Indicate Dose Given): Normal Saline (for hydrodissection) Ultrasound: Sterile probe cover and gel used Nerve Stimulator: Supplement to Ultrasound use and No twitch or parasthesia noted < 0.5 mA Paresthesia: None Procedure Tolerated: No Complications and Patient tolerated well Procedure Outcome: Successful Performed By: Patricio Stuart
--- NOTE | 2022-08-17 17:08 | W.PM.OP ---
Date of service: 08/17/22 Time of Service: 17:08 Operative Note Operative Note DATE OF PROCEDURE: 08/17/22 PRE-OP DIAGNOSIS: Loose Left Knee Replacement, Left Knee Arthrofibrosis POST-OP DIAGNOSIS: same PROCEDURE: Right Total Knee Replacement SURGEON: Franc Chapin DIRECTOR OF EXTENSION WORK: Paulo Yi ANESTHESIA TYPE: Spinal Refer to Anesthesia Record ESTIMATED BLOOD LOSS: 350 PATHOLOGY: none sent COMPLICATIONS: None Patient was transported to: PACU Patient's condition: stable Implants: TIBIA: - Depuy Attune Cementless Stem [id number] - Depuy Attune Partially Coated Sleeve, 39mm - Depuy Attune Revision Tibial Component, Size 4 FEMUR: - Depuy Attune Cementless Stem, [id number] - Depuy Attune Revision Femoral Component, Size 5 - Depuy Attune Posterior Augments, 4mm Laterally and 8mm Medially Depuy Attune CRS Poly, 5x12mm Indications: I have seen Celina in clinic for symptoms a painful and stiff knee replacement. Infection had been ruled out. She was having significant limitations in daily function and desired better function and less pain. I discussed the technical details of a revision knee replacement. I explained the risks of the procedure to include, but not limited to, bleeding, infection, pain, recurrent stiffness, fracture, damage to nerves and vessels, damage to muscles and tendons, loosening, need for repeat procedure, blood clot and cardiopulmonary demise. Despite these risks, Celina elected to proceed. Findings: There is dense synovitis and adhesions seen throughout the knee. This made exposure quite challenging. Even with a complete synovectomy there is continued density throughout the knee with adhesions between the quadriceps and the femur and overlying soft tissues. The tibia was completely loose with no cement adherent to the tibial tray. The femur had some signs of loosening over the distal aspect. A revision knee replacement was performed. Procedure Description: Celina was greeted in the preoperative holding area where the correct side was identified and marked. The consent was reviewed with the patient and signed. The history and physical was updated. All questions were answered. Preoperative mediacations were administered: Acetaminophen 1000mg, Celebrex 400mg, and Gabapentin 300mg. An adductor canal block was then administered by the anesthesia team in the PACU. Celina was taken back to the operating room. A spinal anesthestic was then administered. The patient was placed into the supine position on the operating room table. A nonsterile tourniquet was placed high onto the leg but only used for cementing. Posts were placed for positioning during the procedure. All bony prominences were well padded. Prophylactic antibiotics in the form of Cefazolin were administered. 1g of Tranxemic Acid was given intravenously within 30 minutes of incision. The left leg was then prepped with Chloraprep and draped in a standard fashion with impervious stockinette. A second prep with Chloraprep was performed prior to application of Iodine impregnated skin protection. A timeout to confirm correct identity, side and site, procedure, allergies, anesthesia, and medical concerns was performed. With the knee in some flexion, incision was made overlying the knee utilizing the previous incision. Full thickness skin flaps were raised once the extensor mechanism was encountered. These were raised medially and laterally. Any bleeding was controlled with electrocautery. There is significant adhesions between the extensor mechanism and the overlying skin and soft tissues. These flaps were fully released for visualization of the muscle manipulation of the soft tissues. Once the extensor mechanism was fully exposed, a medial parapatellar arthrotomy was performed in a flexed position. All bleeding from the arthrotomy and the geniculate arteries was coagulated. There were dense adhesions between the extensor mechanism and the retinaculum and the femur. Motion was still challenging even with the arthrotomy. I then performed a complete synovectomy utilizing 2 Loren and 2 Connor clamps. This was taken throughout the entirety of the knee. I then utilized a robison elevator and electrocautery to free up any adhesions from the quadriceps and the femur. The medial periosteal tissues were then released around the medial side of the knee towards the mid coronal plane. Once again there was dense adhesions and further synovectomy was performed in this area. The distal aspect of the deep patellar ligament was adherent to the proximal tibia and the implant as well with bony overgrowth. This was released as well as portion of the IT band from around the lateral tibial plateau and implant for better visualization. Additional soft tissue was removed from the periphery of the femoral component as well. I then remove the polyethylene with a rongeur. One-sided chisels were utilized to free up the attachment between the femoral component and the cement mantle. There is seem to be no significant adhesion over the distal aspect the femur and the posterior aspect. A bone tamp was then used to remove the femoral component. There was some bone loss over the lateral aspect of the medial?distal femur. Excess cement was then removed from the bony cut surface. Attention was then turned to the tibia. Utilizing a chisel I then began to free of the cement interface. However, there is no significant fusion between the cement and the tibia and the tibial component was grossly mobile. The tibia now subluxed forward the tibial component was removed. Utilizing a straight osteotome I created a cruciate margin and cement removed the cement with a rongeur. All excess cement was removed. Areas of bony overgrowth posteriorly and laterally and anteriorly were also removed with a rongeur. Any cement remnants were removed. I then began to prepare the revision component. Utilizing reamers on hand control the tibia was reamed for sleeve with 80 mm stem. This was stable at 14 mm. I then prepped for the sleeve. This was broached up to a size 39 mm sleeve where there is good axial and rotational control. A size 4 tibial tray was then assembled onto the sleeve and stem components and rotation was set and locked. Attention was then turned to the femur. Once again with reamers this was reamed for a 110 mm stem. This was taken to a 16mm size stem. A size 5 mm femur was then attached and stem. The gaps were assessed and there showed to be full extension at 12 mm. At 12 mm in flexion there was good stability. The rotation was then held and pinned in the place. Utilizing the femoral guide the posterior cuts were assessed. This suggested an 8 mm augment we need to medially and a 4 mm augment laterally due to increasing femoral size and also increasing the external rotation. These cuts were then performed. The posterior chamfer cut was also made followed by the anterior clean a couple of the femur as well as the anterior chamfer. The notch cutting guide was secured and the notch for the revision femoral component was also cut. The components were then trialed. This showed good balance of the collateral ligaments except for some opening in flexion about the medial side of the knee does not appear to be unstable and this was accepted. The femur was removed and the tibia was prepared and set on the back table. The cut surfaces were thoroughly irrigated with the pulse lavage. The tourniquet was inflated to 250 mmHg it stayed until fascial closure. The final components, except for the polyethylene were opened on the back table. The periosteal and capsular tissues, especially posteriorly, around the knee were then systematically injected with a periarticular cocktail consisting of 246mg of Ropivacaine, 0.5mg of Epinephrine, 0.08mg of Clonidine, and 30mg of Ketorolac, diluted to 100cc.. The knee was once again irrigated with a pulse lavage and dried. On the back table, with the implants opened and assembled, the cement was mixed. 2 batches of medium viscosity cement were prepared with vacuum assistance. After the cement was ready a small amount was placed on to the back side of the tibial component at the keel but not on to any cementless surfaces. Cement was also placed throughout the entire backside of the femoral component. Cement was manual pressurized and impregnated into the cut surface of the tibia. The tibial component was then inserted into the cut surface and impacted into position making sure to line up the sleeve on insertion. Excess cement was removed and the component was reimpacted. Again, excess cement was removed and our attention was then turned to the femur. The femoral cut surface was once again dried and cement was manually impacted into the cut surface. The femoral component was lined and impacted. Excess cement was removed. It was ensured to be down against the cut surface. The trial polyethylene was then inserted and the leg was brought out into full extension for the duration of the cement curing process, approximately 18min. During this process attention was turned to the gutters of the knee and for all interfaces for any excess cement. While the cement was hardening, the knee was irrigated with Surgiphor chlorhexadine solution. This was allowed to sit in the knee for 3 minutes and then it was thoroughly irrigated with saline. After the cement had finally cured, approximately 18min, the clamp was removed from the patella and the knee was taken through range of motion. A size 12mm polyethylene component provided the best range of motion and stability with less than 2mm gapping with medial and lateral stress and full extension without significant hyperextension. The patella was tracking with a no-thumbs technique. The trial poly was removed and once again the knee was checked for any loose, excess, or errant cement. The poly component was then inserted after cleaning and drying the tibial tray. The capsule was then reapproximated with a No. 2 Fiberwire at multiple locations. The capsule was finally closed with a No. 2 Stratafix, barbed suture. The tourniquet was then released and the arthrotomy appeared watertight without significant bleeding. Deep tissues were then reapproximated with 0 Vicryl and 2-0 Monocryl. The skin was closed with a running 3-0 Monocryl in a subcuticular fashion. This was reinforced with skin glue. A Mepilex silver dressing was applied along with a [id number] JANINE wrap. A CryoCuff was applied. Celina was transferred to the hospital bed without difficulty an suffering no apparent complication. Celina has a gaurded prognosis. Physical therapy will start today and without restrictions, weight-bearing as tolerated. Aspirin 81mg BID will be used for DVT prophylaxis.
--- NOTE | 2022-08-17 18:04 | PT.INNT ---
PT Notes Still in PACU. Okay to be seen tomorrow morning per Dr. Chapin.
--- NOTE | 2022-08-17 18:33 | W.ANESPOSTOP ---
Postoperative Evaluation Date, Time and Location Date Performed: 08/17/22 Time Performed: 17:40 Patient Location: PACU Vital Signs Most Recent Imported Vital Signs: Most Recent Vital Signs Temp Pulse Resp BP Pulse Ox 36.3 C L 67 19 136/71 96 08/17/22 17:40 08/17/22 17:40 08/17/22 17:40 08/17/22 17:40 08/17/22 17:40 Pain Score Most Recent Pain Score: Most Recent Pain Score Pain Level 0 08/17/22 17:40 Assessment Mental Status: Awake (Alert & Oriented to Patient Baseline) Airway and Respiratory Function: Patent airway with normal (patient baseline) respiratory exam Cardiovascular Function: Hemodynamically Stable Hydration Status: Adequately Hydrated Nausea & Vomiting: No Nausea or Vomiting Pain: Pt. Denies Any Pain Peripheral Nerve Block: Regional nerve block not resolved at time of post operative discharge
[2022-08-17] MEDS: lamoTRIgine 100 MG TAB 150 MG PO (20:28)
[2022-08-17] MEDS: Aspirin E.C. 81 MG TABEC PO (20:29)
[2022-08-17] MEDS: ceFAZolin 1 GM/50 ML BAG IVPB (20:30)
[2022-08-17] MEDS: risperiDONE 1 MG TAB 2 MG PO (22:19)
[2022-08-17] MEDS: Doxepin 50 MG CAP 100 MG PO (22:19)
[2022-08-17] MEDS: Pramipexole 0.25 MG TAB 0.375 MG PO (22:20)
[2022-08-17] MEDS: Atorvastatin 10 MG TAB PO (22:21)
[2022-08-18 03:20] VITALS: BP 118/65; PULSE 74; RESP 19; TEMP 36.2; O2SAT 95
[2022-08-18] MEDS: oxyCODONE 5 MG TAB PO ×4 (04:14→20:10)
[2022-08-18] MEDS: ceFAZolin 1 GM/50 ML BAG IVPB ×2 (04:15→11:24)
[2022-08-18] MEDS: Levothyroxine 100 MCG TAB PO (05:32)
[2022-08-18 07:28] VITALS: BP 105/70; PULSE 69; RESP 16; TEMP 35.9; O2SAT 94
[2022-08-18] MEDS: Folic Acid 1 MG TAB PO (07:44)
[2022-08-18] MEDS: metFORMIN 500 MG TAB PO (07:44)
[2022-08-18] MEDS: Cholecalciferol (Vitamin D3) 400 UNIT TAB PO (07:44)
[2022-08-18] MEDS: Aspirin E.C. 81 MG TABEC PO ×2 (07:44→20:11)
[2022-08-18] MEDS: acetaZOLAMIDE 250 MG TAB PO (07:44)
[2022-08-18] MEDS: Omeprazole 20 MG CAPCR 40 MG PO (07:44)
[2022-08-18] MEDS: Dexamethasone 4 MG TAB PO (07:44)
[2022-08-18] MEDS: Multivitamin TAB 1 TAB PO (07:45)
[2022-08-18] MEDS: lamoTRIgine 100 MG TAB 150 MG PO ×2 (07:45→20:11)
[2022-08-18] MEDS: Acetaminophen 500 MG TAB 1000 MG PO ×2 (07:45→20:12)
[2022-08-18] MEDS: Citalopram 20 MG TAB 40 MG PO (07:45)
[2022-08-18] MEDS: Insulin Aspart 300 UNITS/3 ML PEN SC ×2 (07:54→17:56)
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
[2022-08-18 10:58] VITALS: BP 107/72; PULSE 79; RESP 14; TEMP 35.9; O2SAT 96
[2022-08-18] MEDS: HYDROmorphone 2 MG/ML SYR 0.5 MG IVP (14:29)
[2022-08-18 14:58] VITALS: BP 102/72; PULSE 80; RESP 14; TEMP 36.6; O2SAT 89
--- NOTE | 2022-08-18 15:30 | PGE_ITS ---
Date of Service Date of service: 08/18/22 Time of Service: 12:40 Assessment and Plan Assessment and plan (1) Loose left total knee arthroplasty: Status: Acute (2) Painful total knee replacement, left: Status: Acute Assessment and plan: Celina is postop day #1 status post revision arthroplasty of the left knee for a loose and painful knee replacement with arthrofibrosis. She seems to be doing well without acute complications. She does have some amatory dysfunction from her longstanding issues with the knee as well as her seizure history and parkinsonism. Her pain seems to be controlled although she is having pain. She has no acute complications. At this point she may weight-bear as tolerated. We should continue physical therapy. Given her ambulatory dysfunction, pain concerns, multiple medical comorbidities, and complexity of surgery, long-term facility discharge is likely the best option. We will await further recommendations by physical therapy and work on placement. Continue with aspirin for DVT prophylaxis. Mobilize with nursing. Subjective Subjective Interval history since last seen: Celina reports to be doing well. She does have pain about the left knee but was able to mobilize with physical therapy. She complains of some pain anteriorly into the thigh in addition to the whole knee. She felt somewhat unstable on the left knee and that she cannot trust it. She was able to ambulate with physical therapy although they did mention episodes of buckling about the left knee. She has responded well to pain medications without significant nausea. She denies chest pain or shortness of breath. Exam Narrative Exam Narrative: female evaluation of the left leg shows clean dry and intact dressing. She is able to weakly perform straight leg raise although with some pain. Range of motion is approximately 10 to 75 degrees but she is reluctant to allow much more motion that due to pain. Ankle dorsiflexion and plantarflexion are intact. Sensation intact to light touch of the deep and superficial peroneal nerve and tibial nerve. Objective Last Vital Signs Temp 36.6 C 08/18/22 14:58 Pulse 80 08/18/22 14:58 Resp 14 08/18/22 14:58 BP 102/72 08/18/22 14:58 Pulse Ox 89 L 08/18/22 14:58 Time Spent with Patient Time Spent with Patient: 25-34 minutes Time was spent: obtaining and/or [facility], ordering medications,tests, procedures and counseling the patient
--- NOTE | 2022-08-18 17:12 | PTTR_ITS ---
Date of service: 08/18/22 Time of Service: 16:33 PT Notes Visit Reasons: Loose Left TKA Physical Therapy Inpatient Treatment Note Date: 08/18/2022 Precautions: Fall. Standard.? WBAT on the L LE with AD.? Seizure precautions in place. Subjective: Reports 6/10 pain in the L knee but is agreeable to getting out of bed this afternoon. Objective: General Observation: Supine in bed.? Cryocuff to left knee.? JANINE wraps to left LE.? TEDS to right leg and foot.? IV access through right UE. Mental Status: Alert and oriented as to person, place, time, and purpose. Speech sometimes not fully intelligible. Pain: 6/10 in L knee Vital Signs: WNL throughout Bed Mobility/Transfers: Supine to sit stand by assist Sit to stand contact guard assist, cues provided for using B hands to push off from edge of bed/wheelchair armrests Stand to sit contact guard assist, cues provided for using B hands to push off from edge of bed/wheelchair armrests Gait: Instructed patient with level surface ambulation of 100 feet requiring contact- guard assist.? Step to gait pattern.? Kelly decreased. Stride much improved. THERA EX: LAQ x 10 Ankle pumps x 10 Quads sets with 5 sh x 10 Balance: Static Sitting: Normal Dynamic Sitting: Normal Static Standing: Fair Dynamic Standing: Fair Assessment: Not as shaky as she was this morning. Performed better this afternoon with less pain report. Agreeable this time to sit on bedside chair for supper, patient was provided with a better fitting bedside recliner, chair alarm activated. Understands the importance of not putting any pillow under the left knee to avoid any issues with knee flexion contracture. Agreeable with the possibility of going to a SNF if needed. Plan of Care/Treatment Plan: 1-2x/day, 7 days/week x 1 week. Plan of care has been reviewed with the CHIP MIXING MACHINE OPERATOR providing the service under Physical Therapy direction. Premedicate for pain.? Ensure adequate rest as patient is seizure-prone. Initiate Physical Therapy intervention for pain management as needed, strengthening, bed mobility, transfers, gait, stairs, balance training, and use of assistive device. DISCHARGE RECOMMENDATIONS: [] ? Home with no services [] [] ? Home with services [specify] [] ? Home with outpatient PT [] [] ? SNF for continued rehabilitation [] [] ? [facility] Care [] [] ? SNF versus LTC based on ability to participate and progress [] [X]? PT vs SNF based on progress towards goals TREATMENT CODE/TIME: 51036 x 32 minutes beginning at 16:33 PM.
[2022-08-18 19:38] VITALS: BP 110/63; PULSE 79; RESP 20; TEMP 36.5; O2SAT 92
[2022-08-18] MEDS: Gabapentin 300 MG CAP PO (20:10)
[2022-08-18] MEDS: Zolpidem 5 MG TAB PO (20:10)
[2022-08-18] MEDS: Pramipexole 0.25 MG TAB 0.375 MG PO (20:11)
[2022-08-18] MEDS: Atorvastatin 10 MG TAB PO (20:12)
[2022-08-18] MEDS: Doxepin 50 MG CAP 100 MG PO (20:12)
[2022-08-18] MEDS: risperiDONE 1 MG TAB 2 MG PO (20:12)
[2022-08-18 22:59] VITALS: BP 125/69; PULSE 82; RESP 18; TEMP 36.6; O2SAT 92
[2022-08-19 03:25] VITALS: BP 115/67; PULSE 81; RESP 18; TEMP 36.7; O2SAT 90
[2022-08-19] MEDS: oxyCODONE 5 MG TAB PO ×2 (05:56→20:30)
[2022-08-19] MEDS: Levothyroxine 100 MCG TAB PO (05:56)
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
[2022-08-19] MEDS: acetaZOLAMIDE 250 MG TAB PO (07:51)
[2022-08-19] MEDS: Omeprazole 20 MG CAPCR 40 MG PO (07:51)
[2022-08-19] MEDS: Citalopram 20 MG TAB 40 MG PO (07:51)
[2022-08-19] MEDS: lamoTRIgine 100 MG TAB 150 MG PO ×2 (07:51→20:22)
[2022-08-19] MEDS: Multivitamin TAB 1 TAB PO (07:51)
[2022-08-19] MEDS: Acetaminophen 500 MG TAB 1000 MG PO ×3 (07:52→20:21)
[2022-08-19] MEDS: Dexamethasone 4 MG TAB PO (07:52)
[2022-08-19] MEDS: Folic Acid 1 MG TAB PO (07:52)
[2022-08-19] MEDS: Aspirin E.C. 81 MG TABEC PO ×2 (07:52→20:21)
[2022-08-19] MEDS: metFORMIN 500 MG TAB PO (07:52)
[2022-08-19] MEDS: Cholecalciferol (Vitamin D3) 400 UNIT TAB PO (07:52)
[2022-08-19] MEDS: Insulin Aspart 300 UNITS/3 ML PEN SC ×2 (07:58→11:48)
[2022-08-19 08:00] VITALS: BP 114/65; PULSE 87; RESP 18; TEMP 37.1; O2SAT 92
[2022-08-19 11:15] VITALS: BP 114/69; PULSE 59; RESP 18; TEMP 37.1; O2SAT 92
[2022-08-19] MEDS: Meclizine 12.5 MG TAB PO (11:45)
--- NOTE | 2022-08-19 13:21 | PGE_ITS ---
Date of Service Date of service: 08/19/22 Time of Service: 13:21 Assessment and Plan Assessment and plan (1) Loose left total knee arthroplasty: Status: Acute Assessment and plan: Celina is postop day #2 and she is mostly sleeping today. She had a spell of dizziness which was treated with meclizine and does not seem to complain of dizziness anymore at this time. I spoke with physical therapy and they are going to try to work with her later today and hopefully she is more able to participate with physical therapy this evening. Care management is still waiting for approval for a custodial facility for discharge as well. Hopefully, she will continue to be able to participate with physical therapy and transfer to a custodial facility soon. This case was discussed with Dr. Roman will be checking in with her over the weekend. Subjective Subjective Interval history since last seen: Celina is a 57-year-old female postop day #2 from a revision left total knee replacement performed on 08/17/2022. Today she was complaining of lightheadedness/dizziness when she tried to work with physical therapy this morning, and was given a one-time dose of meclizine. Since then she has been sleeping a lot and I am unable to wake her for much of a history today. She states that her knee is painful but is able to handle the pain with her current medication. She does not complain of dizziness. Exam Extrem Other: Brief limited exam of the left knee shows that the dressing is intact without signs of drainage around the incision. Due to her position and desire to sleep full range of motion is not examined. Gentle passive motion is intact in a limited fashion with minimal pain response. Objective Last Vital Signs Temp 98.8 F 08/19/22 11:15 Pulse 59 L 08/19/22 11:15 Resp 18 08/19/22 11:15 BP 114/69 08/19/22 11:15 Pulse Ox 92 08/19/22 11:15 Time Spent with Patient Time Spent with Patient: <25 minutes Time was spent: preparing to see the patient(eg.review tests), obtaining and/or reviewing separately otained hiistory, ordering medications,tests, procedures, referring, communicating with other health director of healthcare systems, indepentently interpreting results, counseling the patient and care coordination
--- NOTE | 2022-08-19 14:05 | PTTR_ITS ---
PT Notes Visit Reasons: Loose Left TKA Physical Therapy Inpatient Treatment Note Date: 08/19/2022 Precautions: Fall. Standard.? WBAT on the L LE with AD.? Seizure precautions in place. Subjective: Very drowsy. Reports 9/10 pain in the L kne, doubtful about being able to stand up.? Complained of increased pain in the L knee when she attempted to stand up from chair. Appeared very hesitant about moving. Reported being considerably dizzy with standing up. Nurse Amee aware. Symptoms appeared to be worse during another attempt at mobilization in the afternoon. Unable to stay awake through out morning and afternoon short sessions. Speech very hard to understand today. Nurse Amee aware. Objective: General Observation: Supine in bed.? Cryocuff to left knee.? JANINE wraps to left LE.? TEDS to right leg and foot.? IV access through right UE. Mental Status: Signifincantly drowsy. Speech more unintelligible today. Pain: 9/10 in L knee Vital Signs: BP in am 89/62 mmHg, in pm 111/65 O2 sat 93%, HR 85 bpm Bed Mobility/Transfers: Sit to stand moderate assist of 2 Stand to sit moderate assist of 2 Gait: Unable both in the morning and afternoon THERA EX: Unable to participate due to significant change in alertness level today Balance: Static Sitting: Fair Dynamic Sitting: Fair Static Standing: Poor Dynamic Standing: Poor Assessment: Considerable decline in ability to move due to change in level of alertness, dizziness, and pain level today. Orthopedic surgeon notified. Nurse made aware. Intake of Meclizine added to drowsiness. Attempted sit to stand several times this moriningg and in the afternoon but patient appeared to be more shaky and unstable, flopped abruptly onto chair once or twice. Deferred further treatment for safety reasons. Plan of Care/Treatment Plan: 1-2x/day, 7 days/week x 1 week. Plan of care has been reviewed with the [employer] providing the service under Physical Therapy direction. Premedicate for pain.? Ensure adequate rest as patient is seizure-prone. Initiate Physical Therapy intervention for pain management as needed, st rengthening, bed mobility, transfers, gait, stairs, balance training, and use of assistive device. DISCHARGE RECOMMENDATIONS: [] ? Home with no services [] [] ? Home with services [specify] [] ? Home with outpatient PT [] [X] ? SNF for continued rehabilitatio. Patient will benefit from [facility] facility placement for continued skilled physical therapy services in order to progress mobility level, strength, and balance in preparation for a safe discharge to home. [] ? Advanced Practice Provider Care [] [] ? SNF versus LTC based on ability to participate and progress [] TREATMENT CODE/TIME: Session 1--65683 x 20 minutes beginning at 9:25 AM. Session 2--[id number] x 24 minutes beginning at 13:40 PM.
--- NOTE | 2022-08-19 14:56 | PDOC.CMPRO ---
Date of service: 08/19/22 Time of Service: 14:56 Care Management Progress Note Progress Note Text Progress Note Text: S/O: Celina would like to discharge to SNF for STR, prior to returning home where she lives with her caregiver and . Anticipate, she will continue to work with PT through the weekend then discharge to SNF vs home with VNA services based on PT assessment. Jerad is reviewing. A: 57 year old female admitted to [facility] on 08/17/22 s/p left TK arthroplasty. P: Anticipate, Celina will discharge to SNF for STR vs home with [facility] PT, per PT recommendations. SNF referrals are pending at [place], [place], [facility], [facility], [facility], [facility], [place] and [place]. Jerad is reviewing. She will follow up with community providers and her discharge plan of care as prescribed.
[2022-08-19 19:35] VITALS: BP 127/71; PULSE 76; RESP 18; TEMP 36.3; O2SAT 93
[2022-08-19] MEDS: Normal Saline Flush 10 ML SYR (20:14)
[2022-08-19] MEDS: Atorvastatin 10 MG TAB PO (22:40)
[2022-08-19] MEDS: Doxepin 50 MG CAP 100 MG PO (22:40)
[2022-08-19] MEDS: Gabapentin 300 MG CAP PO (22:41)
[2022-08-19] MEDS: Pramipexole 0.25 MG TAB 0.375 MG PO (22:49)
[2022-08-19 22:50] VITALS: BP 121/63; PULSE 78; RESP 18; TEMP 36.1; O2SAT 92
[2022-08-19] MEDS: risperiDONE 1 MG TAB 2 MG PO (22:50)
[2022-08-20 03:10] VITALS: BP 105/65; PULSE 66; RESP 18; TEMP 36; O2SAT 96
[2022-08-20 05:50] VITALS: BP 101/63; PULSE 64; RESP 18; TEMP 36.1; O2SAT 95
[2022-08-20] MEDS: Levothyroxine 100 MCG TAB PO (06:00)
[2022-08-20] MEDS: acetaZOLAMIDE 250 MG TAB PO (08:26)
[2022-08-20] MEDS: metFORMIN 500 MG TAB PO (08:26)
[2022-08-20] MEDS: Multivitamin TAB 1 TAB PO (08:26)
[2022-08-20] MEDS: Acetaminophen 500 MG TAB 1000 MG PO ×3 (08:26→20:01)
[2022-08-20] MEDS: Aspirin E.C. 81 MG TABEC PO ×2 (08:26→20:00)
[2022-08-20] MEDS: Folic Acid 1 MG TAB PO (08:26)
[2022-08-20] MEDS: Cholecalciferol (Vitamin D3) 400 UNIT TAB PO (08:26)
[2022-08-20] MEDS: lamoTRIgine 100 MG TAB 150 MG PO ×2 (08:26→20:01)
[2022-08-20] MEDS: Citalopram 20 MG TAB 40 MG PO (08:26)
[2022-08-20] MEDS: Omeprazole 20 MG CAPCR 40 MG PO (08:27)
[2022-08-20] MEDS: HYDROmorphone 2 MG/ML SYR 0.5 MG IVP (09:08)
--- NOTE | 2022-08-20 09:34 | PT.INTREAT ---
PT Notes Visit Reasons: Loose Left TKA Inpatient Physical Therapy Treatment Note [facility] Date: 08/20/22 PRECAUTIONS:WBAT L LE SUBJECTIVE: Pt reports that she is experiencing a lot of discomfort today. OBJECTIVE: Sit-stand: Minx2 Stand-sit: CGAx2 GAIT Assistive Device: FWW Weight bearing: WBAT L LE Assist: CGAx2 Distance: Marching place and static standing to fatigue approx 2 min THEREX: SLR x 10 with assist, Q.S. x 5, seated hip abd x 10, heel slides x 10, ankle pumps x 10. Tried to assist with heel slides for ROM purposes to pt's tolerance. ASSESSMENT: Pt's speech was still difficult to understand and her alertness is still not 100%. Pt tolerated today's session physically better than yesterday. PLAN: Cont as per PT POC. 10:10-10:30 (2) TP TREATMENT CODE/TIME: []
--- NOTE | 2022-08-20 09:39 | PGE_ITS ---
Date of Service Date of service: 08/20/22 Time of Service: 09:45 Assessment and Plan Assessment and plan (1) Loose left total knee arthroplasty: Status: Acute Assessment and plan: 57-year-old female postop day #3 status post revision left total knee arthroplasty for loose and painful replacement with arthrofibrosis Subjectively okay. States she has mild bilateral knee pain with the left knee a little more painful than her baseline. Feels like medications are working. Mental status appears improved, more alert and awake, and similar to reported baseline. Objectively no overt signs of a problem including blood clot or infection. Appropriately answers questions and participates in a limited exam. Out of bed to chair. Dressing clean dry and intact. Tolerates passive short arc motion about the knee. Demonstrates active range of motion of all extremities. Grossly neurovascular intact left lower extremity. Able to weakly maintain straight leg raise, activate quadriceps, and perform knee extension. Foot and ankle range of motion and strength preserved. In addition to previous notes and plan, continue to focus on physical therapy rehabilitation and monitor mental status with plan for discharge/placement as soon as appropriate. Objective Last Vital Signs Temp 97.0 F L 08/20/22 05:50 Pulse 64 08/20/22 05:50 Resp 18 08/20/22 05:50 BP 101/63 08/20/22 05:50 Pulse Ox 95 08/20/22 05:50 Time Spent with Patient Time Spent with Patient: <25 minutes Time was spent: preparing to see the patient(eg.review tests), obtaining and/or reviewing separately otained hiistory, referring, communicating with other health progressive care unit registered nurse, indepentently interpreting results, counseling the patient and care coordination
[2022-08-20 11:15] VITALS: BP 132/74; PULSE 75; RESP 20; TEMP 36.3; O2SAT 92
[2022-08-20] MEDS: oxyCODONE 5 MG TAB PO ×2 (12:35→19:59)
[2022-08-20] MEDS: Insulin Aspart 300 UNITS/3 ML PEN SC ×2 (12:36→18:20)
--- NOTE | 2022-08-20 14:51 | RESPIRATORY ---
Pt has a home unit in which she uses at night, its an [id number] Auto-Set with settings of CPAP of 10cm H2O. The DME is unknown by patient and she uses an AirFit N30i size small with no Oxygen bleed-in.
[2022-08-20 15:44] VITALS: BP 121/79; PULSE 74; RESP 21; TEMP 36.3; O2SAT 94
[2022-08-20 19:11] VITALS: BP 122/72; PULSE 72; RESP 20; TEMP 36.5; O2SAT 94
[2022-08-20] MEDS: Doxepin 50 MG CAP 100 MG PO (21:35)
[2022-08-20] MEDS: Gabapentin 300 MG CAP PO (21:35)
[2022-08-20] MEDS: Atorvastatin 10 MG TAB PO (21:36)
[2022-08-20] MEDS: risperiDONE 1 MG TAB 2 MG PO (21:36)
[2022-08-20] MEDS: Pramipexole 0.25 MG TAB 0.375 MG PO (21:36)
[2022-08-21] VITALS (7 sets, daily range): BP systolic 109–143; BP diastolic 61–78; PULSE 69–79; RESP 15–22; TEMP 35.5–37; O2SAT 92–95
[2022-08-21] MEDS: Levothyroxine 100 MCG TAB PO (05:54)
[2022-08-21] MEDS: Cholecalciferol (Vitamin D3) 400 UNIT TAB PO (08:15)
[2022-08-21] MEDS: acetaZOLAMIDE 250 MG TAB PO (08:15)
[2022-08-21] MEDS: metFORMIN 500 MG TAB PO (08:16)
[2022-08-21] MEDS: Omeprazole 20 MG CAPCR 40 MG PO (08:16)
[2022-08-21] MEDS: Multivitamin TAB 1 TAB PO (08:16)
[2022-08-21] MEDS: lamoTRIgine 100 MG TAB 150 MG PO ×2 (08:16→20:44)
[2022-08-21] MEDS: Aspirin E.C. 81 MG TABEC PO ×2 (08:16→20:46)
[2022-08-21] MEDS: Folic Acid 1 MG TAB PO (08:16)
[2022-08-21] MEDS: Citalopram 20 MG TAB 40 MG PO (08:16)
[2022-08-21] MEDS: Acetaminophen 500 MG TAB 1000 MG PO ×3 (08:16→20:44)
[2022-08-21] MEDS: Insulin Aspart 300 UNITS/3 ML PEN SC ×2 (08:17→17:14)
--- NOTE | 2022-08-21 09:48 | PT.INTREAT ---
PT Notes Visit Reasons: Loose Left TKA Inpatient Physical Therapy Treatment Note [facility] Date: 08/21/22 PRECAUTIONS:WBAT L LE SUBJECTIVE: Pt reports pain in involved LE. OBJECTIVE: Sit-stand: CGAx2 Stand-sit: CGA GAIT Assistive Device: FWW Weight bearing: WBAT L LE Assist: CGAx1 with w/c follow Distance: Approx 50ft THEREX: LAQ x 10, SLR with assist x 5, Q.S. x 10, hip abd seated x 10, and heel slides x 10. Pt received AAROM into knee flexion while seated achieving approx 60 degrees. ASSESSMENT: Pt was more alert and oriented today and very motivated during her session. PLAN: Cont as per Pt POC. TREATMENT CODE/TIME: 9:15-9:45 (30) JUAN FRANCISCO HOOD
--- NOTE | 2022-08-21 14:06 | W.PM.PROGNOT ---
Date of Service Date of service: 08/21/22 Time of Service: 14:14 Assessment and Plan Assessment and plan (1) Loose left total knee arthroplasty: Status: Acute Assessment and plan: 57-year-old female postop day #4 status post revision left total knee arthroplasty for loose and painful replacement with arthrofibrosis Subjectively more awake, feels motivated, and happy with her progress. Denies any headache, chest pain, shortness of breath, nausea, or vomiting. She has left knee pain after weightbearing and transfers, which resolves with repositioning and resting slightly bent over pillow. Appropriately answers questions and participates in exam at what seems to be patient's baseline. Nursing staff reports improved alertness and better tolerance of weightbearing for transfers. Left knee dressing clean dry intact. Demonstrates good straight leg raise, strong foot and ankle range of motion, sensation grossly intact throughout. Moderate generalized knee edema and resolving ecchymosis under Ming bandage. Knee range of motion limited?maybe 5 degrees short of full extension, flexion about 60 degrees with PT, tolerates less flexion with me due to discomfort after recent transfer. Continue to focus on physical therapy rehabilitation, early range of motion progress limited by swelling, discomfort, and likely challenged by pre-existing stiffness. Discharge pending placement. Objective Last Vital Signs Temp 95.9 F L 08/21/22 11:35 Pulse 70 08/21/22 11:35 Resp 19 08/21/22 11:35 BP 143/73 H 08/21/22 11:35 Pulse Ox 95 08/21/22 11:35 Time Spent with Patient Time Spent with Patient: <25 minutes Time was spent: preparing to see the patient(eg.review tests), obtaining and/or reviewing separately otained hiistory, ordering medications,tests, procedures, referring, communicating with other health career resource specialist and counseling the patient
[2022-08-21] MEDS: oxyCODONE 5 MG TAB PO (14:18)
[2022-08-21] MEDS: Normal Saline Flush 10 ML SYR IVP (20:46)
[2022-08-21] MEDS: Doxepin 50 MG CAP 100 MG PO (22:24)
[2022-08-21] MEDS: risperiDONE 1 MG TAB 2 MG PO (22:24)
[2022-08-21] MEDS: Pramipexole 0.25 MG TAB 0.375 MG PO (22:24)
[2022-08-21] MEDS: Atorvastatin 10 MG TAB PO (22:26)
[2022-08-21] MEDS: Gabapentin 300 MG CAP PO (22:27)
[2022-08-22 03:26] VITALS: BP 106/63; RESP 15; TEMP 37; O2SAT 92
[2022-08-22] MEDS: Levothyroxine 100 MCG TAB PO (06:00)
[2022-08-22 07:47] VITALS: BP 132/79; PULSE 67; RESP 18; TEMP 36.5; O2SAT 94
[2022-08-22] MEDS: oxyCODONE 5 MG TAB PO ×2 (08:33→11:57)
[2022-08-22] MEDS: metFORMIN 500 MG TAB PO (08:33)
[2022-08-22] MEDS: acetaZOLAMIDE 250 MG TAB PO (08:33)
[2022-08-22] MEDS: Multivitamin TAB 1 TAB PO (08:34)
[2022-08-22] MEDS: Docusate Sodium 100 MG CAP PO (08:35)
[2022-08-22] MEDS: Citalopram 20 MG TAB 40 MG PO (08:35)
[2022-08-22] MEDS: Acetaminophen 500 MG TAB 1000 MG PO ×2 (08:36→13:35)
[2022-08-22] MEDS: lamoTRIgine 100 MG TAB 150 MG PO (08:36)
[2022-08-22] MEDS: Cholecalciferol (Vitamin D3) 400 UNIT TAB PO (08:36)
[2022-08-22] MEDS: Aspirin E.C. 81 MG TABEC PO (08:36)
[2022-08-22] MEDS: Folic Acid 1 MG TAB PO (08:36)
[2022-08-22] MEDS: Omeprazole 20 MG CAPCR 40 MG PO (08:36)
[2022-08-22] MEDS: Polyethylene Glycol 3350 17 GM PACKET PO (08:44)
[2022-08-22] MEDS: Normal Saline Flush 10 ML SYR IVP (08:44)
[2022-08-22 11:13] VITALS: BP 125/79; PULSE 71; RESP 18; TEMP 36.5; O2SAT 95
[2022-08-22] MEDS: Insulin Aspart 300 UNITS/3 ML PEN SC (11:58)
--- NOTE | 2022-08-22 14:24 | PHA.REVIEW2 ---
Pharmacy Admission Review - Admission Clinical Review (Last Reviewed 08/19/22 @ 06:46 by Franc Chapin MD) Loose left total knee arthroplasty (Acute) Painful total knee replacement, left (Acute) codeine Adverse Reaction (Unknown, Verified 08/17/22 10:44) MENTAL ISSUES hydrocodone bitartrate [From Vicodin] Adverse Reaction (Unknown, Verified 08/17/22 10:44) MENTAL ISSUES Resuscitation Status Full Code Height 5 ft 1 in Weight 102.172 kg - Renal Dosing Medications needing adjustments: Reviewed List of meds needing interventions: eCrCl 53 ml/min, current orders ok - Anticoagulation DVT Prophylaxis: Reviewed Medications: Aspirin (ASA BID -- ortho post-op) - Opiate Usage Evaluate Pain Scale/Pains Meds: Reviewed (hydromorphone IVP prn) Scheduled Bowel Reg ordered if on Opiates?: Yes (prn orders, dosed /) - Relevant Labs Electrolytes, C-Reactive P, ESR: Reviewed - DM Control DM Control: Finger Stick Blood Glucose 172 Finger Stick Blood Glucose 172 Finger Stick Blood Glucose 172 Finger Stick Blood Glucose 137 Finger Stick Blood Glucose 137 Finger Stick Blood Glucose 137 DM Control: Reviewed (aspart per SS (NIDDM)) - Cardiac Review BP, HR, EF%: Reviewed - Qtc Review QTc: N/A - IV to PO Switch IV Medications: Reviewed - Home Meds Home Med List reviewed: Reviewed
[2022-08-22 15:04] VITALS: BP 129/77; PULSE 74; RESP 18; TEMP 36.6; O2SAT 99
--- NOTE | 2022-08-22 15:18 | PDOC.CMDIS ---
Date of service: 08/22/22 Time of Service: 15:18 LACE Index Scoring Tool Questions: Length of Stay (in days): 4 - 6 Was the patient admitted via the E.D.?: No E.D. Visits: 0 Answers: Total Score: 4 Risk of Readmission: Low Risk Care Management Discharge Plan Reason for Hospitalization: Loose Left TKA Discharge Plan: Celina returned home with new orders for HH PT, OT. She was transported home via private vehicle by family. She will follow up with Ortho, her PCP, and her discharge plan of care. Patient/Family Education Needs: Review discharge instructions and limitations, discussion of self care needs including ask me three. Services Needed at Discharge: Home Health Care Services MH Services (Omit if N/A) Current MH Services: [employer]
--- NOTE | 2022-08-22 15:51 | PT.INTREAT ---
Date of service: 08/22/22 Time of Service: 09:44 PT Notes Visit Reasons: Loose Left TKA Inpatient Physical Therapy Treatment Note [facility] Date: 08/22/22 PRECAUTIONS: Fall, standard, activity as tolerated SUBJECTIVE: Patient agreeable to therapy, states she is doing better today than yesterday, states this is as good a time as any for therapy. Sitting up in recliner. OBJECTIVE: PAIN: significant BED MOBILITY/TRANSFERS Sit-stand: contact guard Stand-sit: contact guard Bed-Chair: contact guard Chair-bed: contact guard GAIT Assistive Device: FWW Weight bearing:full Assist: contact guard Distance: 80 feet Deviation: extremely short, shuffling steps, festinating gait pattern. Complains of significant pain which worsens with each step. THEREX: HEP established which includes the following: Access Code: [email or web address] URL: [email or web address] Date: 08/22/2022 Prepared by: Ann May Exercises - Standing Terminal Knee Extension with Resistance? - 1 x daily - 7 x weekly - 3 sets - 10 reps - Seated Knee Extension Stretch with Chair? - 1 x daily - 7 x weekly - 3 sets - 10 reps - Supine Quadricep Sets? - 1 x daily - 7 x weekly - 3 sets - 10 reps - Seated Knee Flexion Stretch? - 1 x daily - 7 x weekly - 3 sets - 10 reps - Seated Long Arc Quad? - 1 x daily - 7 x weekly - 3 sets - 10 reps - Seated Heel Slide? - 1 x daily - 7 x weekly - 3 sets - 10 reps Exercises reviewed with patient who demonstrates good understanding of each movement. MANUAL: hands on stretching techniques applied to patient tolerance into knee flexion and extension with traction ASSESSMENT: Patient tolerates therapy well in both the morning and the afternoon PLAN: continue increasing ROM and strength per plan of care TREATMENT CODE/TIME: mornin Gait 15 minutes, 34220 Manual 10 minutes beginning at 9:44. Afternoon 92972 Ther Ex 15 minutes, [id number] Manual 10 minutes beginning at 15:20.
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
== END 2022-08-22 16:14 | disposition home health service (06) | DRG 467 ==
LOC: PDS 10:14 → MS 17:56
PROVIDERS: Admitting Provider Student in an Organized Health Care Education/Training Program; PCP Nurse Practitioner; Visit Provider Student in an Organized Health Care Education/Training Program
PROC: 0SPD0JZ Removal of Synthetic Substitute from Left Knee Joint, Open Approach (ICD-10-PCS; CPT 27487; principal; 2022-08-17 13:30)
DX: T84.84XA Pain due to internal orthopedic prosthetic devices, implants and grafts, initial encounter (principal); Z68.41 Body mass index [BMI] 40.0-44.9, adult; T84.033A Mechanical loosening of internal left knee prosthetic joint, initial encounter; Z96.652 Presence of left artificial knee joint; G20 Parkinson's disease; M54.50 Low back pain, unspecified; G47.00 Insomnia, unspecified; F32.A Depression, unspecified; K21.9 Gastro-esophageal reflux disease without esophagitis; E78.5 Hyperlipidemia, unspecified; I10 Essential (primary) hypertension; G47.33 Obstructive sleep apnea (adult) (pediatric); M17.0 Bilateral primary osteoarthritis of knee; Z87.891 Personal history of nicotine dependence; H49.03 Third [oculomotor] nerve palsy, bilateral; H49.13 Fourth [trochlear] nerve palsy, bilateral; G51.0 Bell's palsy; R32 Unspecified urinary incontinence; G25.81 Restless legs syndrome; G89.29 Other chronic pain; F25.0 Schizoaffective disorder, bipolar type; E11.9 Type 2 diabetes mellitus without complications; G40.909 Epilepsy, unspecified, not intractable, without status epilepticus; E66.9 Obesity, unspecified; M24.662 Ankylosis, left knee
CPT/HCPCS: 27447; 76942; 97110; 97116; 97140; 97162; 97530; 73560; J0690; J1100; J1170; J2001; J2370; J2405; J2704; J3490; J8540

== ENCOUNTER 2022-09-01 12:25 | Outpatient (CLI) | payer MEDICARE, MEDICAID, SELFPAY ==
--- NOTE | 2022-09-01 11:07 | DI.RAD_ITS ---
Exam(s) XR KNEE LT 2V AP,LAT EXAM: XR KNEE LT 2V AP,LAT CLINICAL HISTORY: 1st post op revision L TKA. TECHNIQUE: 2D digital imaging was performed. COMPARISON: CR XR KNEE LT 3V AP,LAT,TOBI from 07/18/2022 CR XR KNEE LT 2V AP,LAT from 08/17/2022 FINDINGS: Two views There is satisfactory position alignment of the components of the recently revised left knee prosthes is Appearances stable-unchanged from 08/17/2022. There are 2 air bubbles seen in the anterior soft tiss ues above patella level appearing to be in the region of the quadriceps. IMPRESSION: Satisfactory stable position of the recently revised prosthesis (08/17/2022). Some mild soft tissue gas is noted anteriorly. DATA REPOSITORY: RADIATION DOSE DELIVERED:
== END 2022-09-01 12:26 | disposition home or self-care (01) ==
LOC: DIORS 12:25
PROVIDERS: PCP Nurse Practitioner; Referring Provider Nurse Practitioner; Visit Provider Physician Assistant
DX: Z96.652 Presence of left artificial knee joint (principal); Z47.1 Aftercare following joint replacement surgery; T84.033D Mechanical loosening of internal left knee prosthetic joint, subsequent encounter; T84.84XD Pain due to internal orthopedic prosthetic devices, implants and grafts, subsequent encounter
CPT/HCPCS: 73560

== ENCOUNTER → 2022-10-03 14:09 | Outpatient (BNVA) | payer MEDICARE, MEDICAID, SELFPAY | PROVIDERS: PCP Nurse Practitioner; Referring Provider Nurse Practitioner; Visit Provider Student in an Organized Health Care Education/Training Program | DX: Z47.1 Aftercare following joint replacement surgery (principal); T84.82XA Fibrosis due to internal orthopedic prosthetic devices, implants and grafts, initial encounter; Z96.652 Presence of left artificial knee joint ==

== ENCOUNTER 2022-10-12 11:05 | Day surgery (SDC) | payer MEDICARE, MEDICAID, SELFPAY ==
--- NOTE | 2022-10-12 11:32 | NUR.NOTE ---
1134: Kelly Jiménez CRNA in to speak to pt. about sips of coffee with cream and sugar she had at 1030. OSWALDO explained for pt safety she would need to be cancelled today and rescheduled another time. Pt. tearful, stating her knee hurts. [facility] called for pt. office called by day surgery and will call pt. tomorrow with reschedule date. business card given to pt. with note saying office will call her tomorrow with new date and phone number for pt. to call on monday if she has not heard from office. Cordless phone provided for pt. to call mother in law. Lunch provided. Pt. waiting for [facility]. 1225: Pt. taken via wheelchair by this nurse to RCT ride, pt. had personal belongings ( purse, bag with medication, walker and phone) with her.
== END 2022-10-12 11:06 | disposition home or self-care (01) ==
LOC: SUR 11:06
PROVIDERS: PCP Nurse Practitioner; Visit Provider Student in an Organized Health Care Education/Training Program
DX: Z53.09 Procedure and treatment not carried out because of other contraindication (principal)

== ENCOUNTER 2022-10-14 11:08 | Day surgery (SDC) | payer MEDICARE, MEDICAID, SELFPAY ==
[2022-10-14 11:36] VITALS: BP 132/65; PULSE 69; RESP 16; TEMP 35.9; O2SAT 99
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
[2022-10-14] MEDS: Lactated Ringers 1,000 ML 80 ML IV (12:18)
--- NOTE | 2022-10-14 12:33 | W.PM.DSUDISC ---
Date of service: 10/14/22 Time of Service: 12:34 Discharge Plan Disposition Patient Disposition: Home Condition: Good Discharge Details Reason For Visit: Left Knee Arthrofibrosis Attending Provider: Franc Chapin Primary Care Provider: Ariane Fontanez Home Meds and New Rx's Prescriptions: Continued zolpidem 5 mg tablet 2.5 - 5 mg PO QHS PRN Patient Comments: pt. states she took her meds based on how they are set up in her pill box risperidone 2 mg tablet 4 mg PO DAILY Rx Instructions: take in the evening buspirone 10 mg tablet 10 mg PO QHS amitriptyline 50 mg tablet 25 mg PO QHS lamotrigine 150 mg tablet 150 mg PO BID Qty: 180 3RF rizatriptan 10 mg tablet 10 mg PO ONCE PRN (Reason: migraine headache) Qty: 12 3RF Rx Instructions: take at onset of headache; ok to take second in 1 hour; no more than 2 in a 24 hour period levothyroxine 100 MCG tablet 100 mcg PO DAILY (DME) lancets 33 gauge misc 1 ea Miscellaneous DIRECTED folic acid 1 mg tablet 1 mg PO DAILY multivitamin Tablet 1 tab PO DAILY cholecalciferol (vitamin D3) 10 mcg (400 unit) capsule 10 mcg PO DAILY metformin 500 mg tablet 500 mg PO BID omeprazole 40 MG capsule,delayed release(DR/EC) 40 mg PO DAILY Qty: 30 0RF atorvastatin 10 mg tablet 10 mg PO DAILY Patient Comments: TAKE ONE TABLET BY MOUTH ONCE DAILY AT BEDTIME topiramate 100 mg tablet 100 mg PO BID Patient Comments: TAKE ONE TABLET BY MOUTH TWICE DAILY aspirin 81 mg Tablet PO acetaminophen 500 mg tablet 1,000 mg PO Q8H PRN (Reason: pain) Qty: 90 3RF Changed nabumetone 750 mg tablet 750 mg PO BID Qty: 60 2RF Rx Instructions: 750 mg orally; oxycodone 5 mg tablet 5 mg PO Q6H PRN MDD 20mg PRN (Reason: pain) Qty: 16 0RF Rx Instructions: Take one tablet up to every 12 hours as needed Discharge Instructions Additional Instructions: Knee Manipulation Discharge Instructions Activity: You should begin moving as soon as possible. You may work on flexion but also equally maintain extension. You may bear weight as tolerated, using crutches/walker only for support/comfort. You should apply ice to help with swelling and elevate when possible (especially in the first few days). Dressings: The bandaids may come down after 24 hours. You may shower and get the wound wet at that time. Medications: - Rarely does this require any stronger pain medications, but there was more Oxycodone called in. - Recommend to take up to 1000mg of Acetaminophen (Tylenol) every 8 hours and 750mg of Nabumatone twice a day. Follow-up: 10 days Referrals: Franc Chapin MD [ [facility] STAFF PHYSICIAN] - Equipment/Supplies: Walker Activity:: Activity as Tolerated Remove Dressings/Wound Care:: 24 hours Shower/Bathe:: 24 hours Diet:: As Tolerated Discharge Orders Discharge Orders: Discharge Order (Routine); Ordered 10/14/22 Ordered By: Franc Chapin DS: Diagnosis Discharge Diagnosis (1) Arthrofibrosis of total knee arthroplasty: Status: Acute
[2022-10-14] MEDS: Bupivacaine 0.25% Pres-Free 30 ML VIAL (12:43)
[2022-10-14 13:00] VITALS: BP 142/84; PULSE 82; RESP 16; TEMP 36.3; O2SAT 92
[2022-10-14 13:07] VITALS: BMI 42.0
--- NOTE | 2022-10-14 13:07 | W.ANESPOSTOP ---
Postoperative Evaluation Date, Time and Location Date Performed: 10/14/22 Time Performed: 13:08 Patient Location: Day Surgery Unit Vital Signs Most Recent Imported Vital Signs: Most Recent Vital Signs Temp Pulse Resp BP Pulse Ox 36.3 C L 82 16 142/84 H 92 10/14/22 13:00 10/14/22 13:00 10/14/22 13:00 10/14/22 13:00 10/14/22 13:00 Pain Score Most Recent Pain Score: Most Recent Pain Score Pain Level 4 10/14/22 13:00 Assessment Mental Status: Awake (Alert & Oriented to Patient Baseline) Airway and Respiratory Function: Patent airway with normal (patient baseline) respiratory exam Cardiovascular Function: Hemodynamically Stable Hydration Status: Adequately Hydrated Nausea & Vomiting: No Nausea or Vomiting Pain: Pain is tolerable per patient Peripheral Nerve Block: Patient did not receive a nerve block Postoperative Comments:: RN working on deep breathing with the patient, otherwise stable. Did express should not be discharged under 93%.
[2022-10-14 13:13] VITALS: PULSE 79; RESP 18; O2SAT 97
[2022-10-14] MEDS: Acetaminophen 325 MG TAB 650 MG PO (13:35)
[2022-10-14 13:44] VITALS: BP 145/87; PULSE 70; RESP 18; TEMP 36.3; O2SAT 97
--- NOTE | 2022-10-14 21:49 | ROE_ITS ---
Date of service: 10/14/22 Time of Service: 12:45 Operative Note Operative Note DATE OF PROCEDURE: 10/14/22 PRE-OP DIAGNOSIS: Left Knee Arthrofibrosis s/p Revision Knee Arthroplasty POST-OP DIAGNOSIS: same PROCEDURE: Left Knee Manipulation Under Anesthesia SURGEON: Franc Chapin ANESTHESIA TYPE: General:No Airway Refer to Anesthesia Record ESTIMATED BLOOD LOSS: 0 PATHOLOGY: none sent TOURNIQUET TIME: 0 COMPLICATIONS: None Patient was transported to: PACU Patient's condition: stable Indications: Celina is a 57 year old female who is s/p revision knee replacement. Despite diligent work with physical therapy there has been continued stiffness, partiallyi attibuted to her years of stifness prior to this most recent surgery. To assist with mobility, I offered a manipulation under anesthesia. I discussed the risks of the procedure to include bleeding, pain, recurrent stiffness, fracture. Despite these risks, she elects to proceed. Findings: Preoperative flexion = 70 Postoperative flexion = 95 Preoperative extension = 25 Postoperative extension = 15 Procedure Description: The patient was greeted in the preoperative holding area. Identity was confirmed and the correct side was identified and marked. The consent was reviewed the patient and signed. History and physical was updated. Celina was taken back to the operating room. The left side was identified as the correct side. A timeout was performed for safe surgery. A general anesthetic was administered. The knee was then prepped with ChloraPrep and an intra-articular injection of 10 cc of 0.5% bupivacaine was administered. Once a muscle relaxant was fully on board, manipulation was performed. Pre- manipulation range of motion was noted. A gentle manipulation was performed first into flexion using a very small lever arm and adding gentle and progressive pressure to the tibia. There is audible and palpable crepitus with improvement in range of motion. This was cycled and repeated multiple times. The leg was then brought into extension and gentle anterior posterior pressure was applied with a supported hand behind the proximal tibia and knee. This was brought back into flexion was once again manipulated with gentle and progressive pressure. Final range of motion numbers were recorded. A Band-Aid was applied to the injection site. She was awake from anesthesia and taken to the PACU in stable condition.
== END 2022-10-14 14:25 | disposition home or self-care (01) ==
PROVIDERS: PCP Nurse Practitioner; Visit Provider Student in an Organized Health Care Education/Training Program
PROC: (CPT 27570; principal; 2022-10-14 13:00)
DX: T84.82XA Fibrosis due to internal orthopedic prosthetic devices, implants and grafts, initial encounter (principal); Z96.652 Presence of left artificial knee joint; K21.9 Gastro-esophageal reflux disease without esophagitis; G40.319 Generalized idiopathic epilepsy and epileptic syndromes, intractable, without status epilepticus; G20 Parkinson's disease
CPT/HCPCS: 27570; J2001

== ENCOUNTER → 2022-10-27 14:28 | Outpatient (BNVA) | payer MEDICARE, MEDICAID, SELFPAY | PROVIDERS: PCP Nurse Practitioner; Referring Provider Nurse Practitioner | DX: Z47.1 Aftercare following joint replacement surgery (principal); T84.82XA Fibrosis due to internal orthopedic prosthetic devices, implants and grafts, initial encounter; Z96.652 Presence of left artificial knee joint ==

== ENCOUNTER → 2022-11-15 08:25 | Outpatient (BNVA) | payer MEDICARE, MEDICAID, SELFPAY | PROVIDERS: PCP Nurse Practitioner; Referring Provider Nurse Practitioner; Visit Provider Psychiatry & Neurology Neurology | DX: G40.319 Generalized idiopathic epilepsy and epileptic syndromes, intractable, without status epilepticus (principal); G43.009 Migraine without aura, not intractable, without status migrainosus; F39 Unspecified mood [affective] disorder; G47.00 Insomnia, unspecified; G47.33 Obstructive sleep apnea (adult) (pediatric); G20 Parkinson's disease | CPT/HCPCS: 99214 ==

== ENCOUNTER 2022-11-28 11:56 | Outpatient (CLI) | payer MEDICARE, MEDICAID, SELFPAY ==
--- NOTE | 2022-11-28 09:30 | DI.RAD_ITS ---
Exam(s) XR STANDING ALIGNMENT EXAM: XR STANDING ALIGNMENT CLINICAL HISTORY: eval R knee pain, OA, preTKA planning. TECHNIQUE: 2D digital imaging was performed. Standing AP views were performed from the pelvis throu gh the ankles. COMPARISON: CR XR KNEE LT 2V AP,LAT from 08/17/2022 CR XR KNEE LT 2V AP,LAT from 09/01/2022 FINDINGS: BONES: No acute fracture is present. No bony destructive lesion is seen. Leg length discrepancy: The right femoral head projects proximally 10 millimeters superior to the lef t. JOINTS: Knees: Left knee prosthesis. Moderate narrowing of the medial femoral tibial joint space of the right knee with mild varus angulation. Ankles: Prominent medial downsloping of the talus bilaterally The hip joints are unremarkable. SOFT TISSUE: Normal. IMPRESSION: Moderate degenerative changes medial femoral tibial joint space right knee.. 1 cm leg length discrepancy. DATA REPOSITORY: RADIATION DOSE DELIVERED:
== END 2022-11-28 11:57 | disposition home or self-care (01) ==
LOC: DIORS 11:58
PROVIDERS: PCP Nurse Practitioner; Referring Provider Nurse Practitioner; Visit Provider Student in an Organized Health Care Education/Training Program
DX: Z47.1 Aftercare following joint replacement surgery; T84.82XA Fibrosis due to internal orthopedic prosthetic devices, implants and grafts, initial encounter; Z96.652 Presence of left artificial knee joint
CPT/HCPCS: 77073

== ENCOUNTER → 2022-12-20 08:53 | Outpatient (BNVA) | payer MEDICARE, MEDICAID, SELFPAY | PROVIDERS: PCP Nurse Practitioner; Visit Provider Psychiatry & Neurology Neurology | DX: G43.009 Migraine without aura, not intractable, without status migrainosus (principal); F39 Unspecified mood [affective] disorder; G20.C Parkinsonism, unspecified | CPT/HCPCS: 99214 ==

== ENCOUNTER 2023-01-16 03:23 | Outpatient (CLI) | payer MEDICARE, MEDICAID, SELFPAY | END 2023-01-16 03:24 | disposition home or self-care (01) | LOC: LBO 03:23 | PROVIDERS: PCP Nurse Practitioner; Visit Provider Student in an Organized Health Care Education/Training Program | DX: Z01.818 Encounter for other preprocedural examination (principal); M17.11 Unilateral primary osteoarthritis, right knee ==

== ENCOUNTER 2023-02-01 11:20 | Day surgery (SDC) | payer MEDICARE, MEDICAID, SELFPAY | END 2023-02-01 11:21 | disposition home or self-care (01) | LOC: DSU 02-20 11:20 | PROVIDERS: Visit Provider Student in an Organized Health Care Education/Training Program | DX: M17.11 Unilateral primary osteoarthritis, right knee (principal); Z53.09 Procedure and treatment not carried out because of other contraindication ==

== ENCOUNTER 2023-03-09 12:42 | Outpatient (CLI) | payer MEDICARE, MEDICAID, SELFPAY ==
[2023-03-09 10:47] LABS: Abs Immature Grans 0.02 10^3/uL (0.0-0.06); Absolute Basophil Count 0.06 10^3/uL (0.0-0.2); Absolute Eosinophil Count 0.22 10^3/uL (0.0-0.7); Absolute Lymphocyte Count 2.41 10^3/uL (1.2-3.4); Absolute Monocyte Count 0.63 10^3/uL (0.1-0.8); Absolute Neutrophil Count 2.78 10^3/uL (1.2-6.7); Eosinophils % 3.6; HCT 37.4 % (36.0-46.0); HGB 11.6 g/dL (11.2-15.7); Immature Grans % 0.3; Lymphocytes % 39.4; MCH 25.5 pg (27.0-33.0); MCV 82 fL (80-95); MPV 10.3 fL (8.0-11.0); Monocytes % 10.3; Neutrophils % 45.4; Platelet Count 335 10^3/uL (130-400); RBC 4.55 10^6/uL (3.93-5.22); RDW 16.4 % (11.7-14.6); RDW-SD 49.1 fL; WBC 6.12 10^3/uL (4.4-10.8)
[2023-03-09 10:48] LABS: ESR 55 mm/hr (0-30)
[2023-03-09 11:01] LABS: C-Reactive Protein 0.45 mg/dL (0.0-0.3)
[2023-03-09 11:05] LABS: Anion Gap 14.6 mmol/L (3-11); BUN 19 mg/dL (7-18); CO2 21.4 mmol/L (21.0-32.0); CREATININE 1.3 mg/dL (0.55-1.02); Calcium 9.4 mg/dL (8.5-10.1); Chloride 104 mmol/L (98-107); Estimated GFR 47.37 (mL/min/1.73m2); Glucose 106 mg/dL (74-106); Potassium 3.5 mmol/L (3.5-5.1); Sodium 140 mmol/L (136-145)
== END 2023-03-09 12:43 | disposition home or self-care (01) ==
LOC: LBO 12:42
PROVIDERS: Physician Assistant; Visit Provider Student in an Organized Health Care Education/Training Program
DX: Z96.652 Presence of left artificial knee joint; M17.11 Unilateral primary osteoarthritis, right knee; Z01.818 Encounter for other preprocedural examination
CPT/HCPCS: 36415; 80048; 85027; 85652; 99213; 73560; 85025; 86140

== ENCOUNTER 2023-03-09 13:52 | Outpatient (CLI) | payer MEDICARE, MEDICAID, SELFPAY ==
--- NOTE | 2023-03-09 09:45 | DI.RAD_ITS ---
Exam(s) XR KNEE LT 2V AP,LAT EXAM: XR KNEE LT 2V AP,LAT CLINICAL HISTORY: knee pain s/p TKR. TECHNIQUE: 2D digital imaging was performed. Two images were obtained. AP and lateral views were ob tained. COMPARISON: CR XR KNEE LT 2V AP,LAT from 09/01/2022 CR XR STANDING ALIGNMENT from 11/28/2022 FINDINGS: BONES: There are stable post operative changes of a left total knee replacement present. No fracture or dislocation. JOINTS: The orthopedic hardware is in good position. No evidence of hardware loosening. SOFT TISSUE: Normal. IMPRESSION: Stable postoperative changes. DATA REPOSITORY: RADIATION DOSE DELIVERED:
== END 2023-03-09 13:53 | disposition home or self-care (01) ==
LOC: DIORS 13:52
PROVIDERS: Visit Provider Physician Assistant
DX: T84.84XA Pain due to internal orthopedic prosthetic devices, implants and grafts, initial encounter (principal); Z96.652 Presence of left artificial knee joint; Z47.1 Aftercare following joint replacement surgery
CPT/HCPCS: 99213; 73560

== ENCOUNTER 2023-03-22 06:56 | Inpatient (IN) | payer MEDICARE, MEDICAID, SELFPAY ==
[2023-03-22] VITALS (20 sets, daily range): BP systolic 95–193; BP diastolic 40–85; PULSE 57–76; RESP 16–22; TEMP 35.3–36.6; O2SAT 91–100; BMI 42.5
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
[2023-03-22] MEDS: Acetaminophen 500 MG TAB 1000 MG PO ×3 (07:56→19:06)
[2023-03-22] MEDS: Gabapentin 300 MG CAP PO ×2 (07:56→21:04)
[2023-03-22] MEDS: Celecoxib 200 MG CAP 400 MG PO (07:56)
[2023-03-22] MEDS: Lactated Ringers 1,000 ML 80 ML IV ×2 (07:57→10:55)
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
--- NOTE | 2023-03-22 08:46 | W.ANESNERVE ---
Nerve Block Single Injection Procedure Date and Time Date Performed: 03/22/23 Procedure Start: 08:33 Location Where Procedure Performed Procedure Location: Day Surgery Unit Reason Performed: Postoperative Analgesia Requesting Provider: Franc Chapin Timeout Performed Timeout Performed: Yes Monitoring Used ECG, Blood Pressure, SpO2 and See EMR for corresponding vital signs Sterility Sterility: Hand Hygiene, Surgical Cap, Surgical Mask, Sterile Gloves, Eye Protection and Chlorhexidine Sedation Given During Procedure Sedation Given (Indicate Dose Given): Versed IV Dose:: 2mg IVP Patient Mental Status Patient Mental Status: Sedate with meaningful communication Nerve Block 1st Nerve Block: Laterality: Right Block Type: Adductor Canal Ultrasound Image Saved?: Yes Needle / Catheter Used: 100mm SonoPlex II Local Anesthetic Bolus (Indicate Dose Given): Lidocaine used for local infiltration of skin, Injected in 3-5ml increments after negative blood aspiration and Ropivacaine 0.5% Dose:: 0.5%/25cc (125mg) Additives (Indicate Dose Given): Epinephrine to make 1:200,000 (5mcg/ml) Dose:: 125mcg (1:200,000) Ultrasound: Sterile probe cover and gel used Nerve Stimulator: Not Used Paresthesia: None Procedure Tolerated: No Complications and Patient tolerated well Procedure Outcome: Successful Performed By: Roverto Wilburn
[2023-03-22] MEDS: ceFAZolin 2 GM/50 ML BAG IVPB (09:48)
--- NOTE | 2023-03-22 11:42 | W.BRIEF ---
Date of service: 03/22/23 Time of Service: 09:45 Brief Operative Note Procedure/Pre & Post Op Diagnoses/Criminology Teacher: Operation Date: 03/22/23 09:40 Actual Procedures p Knee Total Arthroplasty, Cementless CR(Right) - Franc Chapin MD Pre-Op Diagnosis: osteoarthritis right knee Post-Op Diagnosis: osteoarthritis right knee Case Staff Physician Criminology Teacher: Paulo Yi Estimated Blood Loss Output, Estimated Blood Loss 150 Amount Specimen/Culture Specimen(s): None Culture(s): None Complications Complications: None
--- NOTE | 2023-03-22 13:20 | W.ANESPOSTOP ---
Postoperative Evaluation Date, Time and Location Date Performed: 03/22/23 Time Performed: 13:20 Patient Location: PACU Vital Signs Most Recent Imported Vital Signs: Most Recent Vital Signs Temp Pulse Resp BP Pulse Ox 36.5 C 61 17 123/59 L 100 03/22/23 13:05 03/22/23 13:05 03/22/23 13:05 03/22/23 13:05 03/22/23 13:05 Pain Score Most Recent Pain Score: Most Recent Pain Score Pain Level 0 03/22/23 13:05 Assessment Mental Status: Awake (Alert & Oriented to Patient Baseline) Airway and Respiratory Function: Patent airway with normal (patient baseline) respiratory exam Cardiovascular Function: Hemodynamically Stable Hydration Status: Adequately Hydrated Nausea & Vomiting: No Nausea or Vomiting Pain: Pt. Denies Any Pain Peripheral Nerve Block: Regional nerve block not resolved at time of post operative discharge
--- NOTE | 2023-03-22 14:03 | W.PM.OP ---
Date of service: 03/22/23 Time of Service: 09:45 Operative Note Operative Note DATE OF PROCEDURE: 03/22/23 PRE-OP DIAGNOSIS: Right knee Osteoarthritis POST-OP DIAGNOSIS: same PROCEDURE: Right Total Knee Replacement SURGEON: Franc Chapin [employer] SUPERVISOR: Gladys Yi ANESTHESIA TYPE: Spinal Refer to Anesthesia Record ESTIMATED BLOOD LOSS: 150 PATHOLOGY: none sent TOURNIQUET TIME: 0 COMPLICATIONS: None Patient was transported to: PACU Patient's condition: stable Implants: 1. Depuy Attune Cementless Cruciate Retaining Femoral Component, Size 4 2. Depuy Attune Cementless Fixed Bearing Tibial Component, Size 3 3. Depuy Attune 4x8 CR/FB Poly 4. Depuy Attune Patellar Component, Size 35 Indications: I have seen Celina in clinic for symptoms of knee arthritis, confirmed with radiographic findings. Celina has exhausted nonoperative methods and was having significant limitations in daily function and desired better function and less pain. I discussed the technical details of a knee replacement. I explained the risks of the procedure to include, but not limited to, bleeding, infection, pain, stiffness, fracture, damage to nerves and vessels, damage to muscles and tendons, loosening, need for repeat procedure, blood clot and cardiopulmonary demise. Despite these risks, she elected to proceed. Findings: There was notable arthritis throughout the knee involving the medial compartment Procedure Description: Celina was greeted in the preoperative holding area where the correct side was identified and marked. The consent was reviewed with the patient and signed. The history and physical was updated. All questions were answered. Preoperative medications were administered: Acetaminophen 1000mg, Celebrex 400mg, and Gabapentin 300mg. An adductor canal block was then administered by the anesthesia team in the PACU. Celina was taken back to the operating room. A spinal anesthestic was then administered. The patient was placed into the supine position on the operating room table. A nonsterile tourniquet was placed high onto the leg but only used for cementing. Posts were placed for positioning during the procedure. All bony prominences were well padded. Prophylactic antibiotics in the form of Cefazolin were administered. 1g of Tranxemic Acid was given intravenously within 30 minutes of incision. The right leg was then prepped with Chloraprep and draped in a standard fashion with impervious stockinette. A second prep with Chloraprep was performed prior to application of Iodine impregnated skin protection. A timeout to confirm correct identity, side and site, procedure, allergies, anesthesia, and medical concerns was performed. With the knee in some flexion, a midline incision was made overlying the knee. Full thickness skin flaps were raised once the extensor mechanism was encountered. These were raised medially and laterally. Any bleeding was controlled with electrocautery. Once the extensor mechanism was fully exposed, a medial parapatellar arthrotomy was performed in a flexed position. All bleeding from the arthrotomy and the geniculate arteries was coagulated. A medial subperiosteal peel was performed with electrocautery to the midcoronal plane. The fat pad was removed while keeping the patellar tendon protected. The anterior distal femur synovium was removed for later visualization. The ACL and PCL were resected and the anterior horn of the lateral meniscus was transected. The knee was then flexed with the patella everted. Using a step drill, and based on preoperative templating, the femoral canal was entered. This was done with a step drill without any difficulty. The intramedullary distal femoral cut guide was inserted, set to a 5 degree valgus cut and 9mm cut thickness. The distal femoral cut guide was then held in position and pinned. With the soft tissues protected, the distal cut was performed. This was passed over a few times to ensure a planar cut. I then turned attention to the tibia. The extramedullary guide was placed onto the leg. The distal aspect was slid medial to adjust for position of center of ankle and stay in line with shaft of the tibia. Approximately 3-5 degrees of posterior slope was kept in the proximal cutting guide. The center of the guide was aligned with the PCL. The stylus was used to assess cut thickness. The medial side, most involved side, was set for a 4mm cut. This was then held in position and pinned into place with 2 additional pins and a cross pin for stability. The medial and lateral collateral ligaments were protected and the cut was performed. With this completed, it was assessed and noted to be of appropriate dimensions. The guide was removed. A spacer block was inserted and the knee was brought into extension. The 8mm spacer block provided full extension, without hyperextension and with stability of both the medial and lateral collateral ligaments was assessed. The pins from the femur and the tibia were then removed. The distal femur was then sized. The anterior stylus was placed onto the lateral ridge of the anterior femur. This indicated a size 4 femur. The external rotation of the guide was adjusted to 3 degrees to match the epicondylar axis, perpendicular to Franklin?s line. The 4-in-1 cutting guide was the placed. The posterior medial femur cut was evaluated and appeared of good thickness. The spacer block was inserted underneath the cutting guide and stability was confirmed in 90 degrees of flexion. An pola wing was used to confirm appropriate position of the anterior cut to avoid notching. This cutting guide was ensured to be flush on the cut surface and then pinned into place with headed pins. While protecting the soft tissues, quad tendon, and collateral ligaments, the anterior and posterior cuts were performed with a saw. The central two pins were removed and the posterior and anterior chamfers were cut next. The notch-cutting guide was placed. This was pinned to lateralize the femoral component as much as possible while keeping it flush on the cut surface. This was then pinned into position. A reciprocating saw was used to make the notch cut. A rasp smoothed the cut surfaces. The medial and lateral menisci were removed. A trial femoral component was then inserted, impacted down to the cut surfaces, and the lug holes were drilled. A provisional trial tibial component was placed and the knee was brought through range of motion. There was noted to be excellent extension and flexion. There was no significant instability. The patella was tracking without thumbs. A size 8mm polyethylene component provided the best range of motion and stability with less than 2mm gapping with medial and lateral stress and full extension without significant hyperextension. The tibial cut surface was fully exposed. The tibia was then sized as a 4. The tibia had been previously marked during trialing to correspond to the center of the tibial component to help with rotation. The trial was aligned to this gladys, approximately rotated to the medial 1/3rd of the tibial tubercle. The trial was pinned into place. The tibia was prepared with a reamer and a keel punch and lug holes. The knee was then brought into extension and the patella was measured as 25mm. Using the patellar clamp and cut guide, this was resected to a flat surface with at least 13mm of thickness remaining. The size 35 patella fit the best. This was oriented and then clamped into position. The lugs were drilled. The trial components were removed. The final components were opened on the back table. The periosteal and capsular tissues, especially posteriorly, around the knee were then systematically injected with a periarticular cocktail consisting of 246mg of Ropivacaine, 0.5mg of Epinephrine, 0.08mg of Clonidine, and 30mg of Ketorolac, diluted to 100cc. On the back table, with the implants opened, the cement was mixed. One batch of high viscosity cement was prepared with vacuum assistance. After the cement was ready a small amount was placed on the cut surface of the patella and the patellar button was clamped into position and held. While the cement was hardening, the cementless knee components were placed. Starting with the tibial component, the tibia was subluxed anteriorly and the lug holes of the component were lined up. The tibia was then impacted with an impactor and mallet until the tibial component was in contact with the tibia. The final polyethylene component was inserted. Then, the femoral component was inserted. The lug holes were aligned and the component was impacted into position. The knee was irrigated with Irrisept Chlorhexadine solution. This was allowed to sit in the knee for 3 minutes and then it was irrigated out with saline. After the cement had finally cured, approximately 15min, the clamp was removed from the patella and the knee was taken through range of motion. The patella was tracking with a no-thumbs technique. The capsule was then reapproximated with a No. 1 Vicryl at multiple locations. The capsule was finally closed with a No. 2 Stratafix, barbed suture. The second dosing of 1g TXA was started. Deep tissues were then reapproximated with 0 Vicryl and 2-0 Vicryl. The skin was closed with a running 3-0 Monocryl in a subcuticular fashion. This was reinforced with skin glue. A Mepilex silver dressing was applied along with a [id number] JANINE wrap. A CryoCuff was applied. Celina was transferred to the hospital bed without difficulty an suffering no apparent complication. Celina has a good prognosis. Physical therapy will start today and without restrictions, weight-bearing as tolerated. Aspirin 81mg BID will be used for DVT prophylaxis.
--- NOTE | 2023-03-22 14:07 | NUR.NOTE ---
Pt arrived on unit on 13:13 via bed from PACU. SDS brought her belongings up to room. Pt made a phone call already on her personal phone. She is not having any pain, but she still has tingling in her legs and toes, anesthesia is aware.Nursing Note:
--- NOTE | 2023-03-22 14:23 | NUR.NOTE ---
Pt has started feeling her right leg now, no pain. Left leg still has tinglingursing Note:
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
[2023-03-22 15:25] LABS: Source Nasal/Nares
[2023-03-22] MEDS: Multivitamin TAB 1 TAB PO (15:34)
[2023-03-22] MEDS: Folic Acid 1 MG TAB PO (15:34)
[2023-03-22] MEDS: Aspirin E.C. 81 MG TABEC PO ×2 (15:34→19:05)
[2023-03-22] MEDS: metFORMIN 500 MG TAB PO (15:34)
[2023-03-22] MEDS: Dexamethasone 4 MG TAB PO (15:34)
[2023-03-22 16:03] LABS: COVID-19 PCR Negative (Negative)
[2023-03-22] MEDS: Insulin Aspart 300 UNITS/3 ML PEN SC (17:30)
[2023-03-22] MEDS: ceFAZolin 1 GM/50 ML BAG IVPB (17:43)
[2023-03-22] MEDS: lamoTRIgine 100 MG TAB 150 MG PO (19:05)
[2023-03-22] MEDS: Topiramate 100 MG TAB PO (19:05)
[2023-03-22] MEDS: Atorvastatin 10 MG TAB PO (19:06)
[2023-03-22] MEDS: Amitriptyline 50 MG TAB PO (21:04)
[2023-03-22] MEDS: busPIRone 5 MG TAB 10 MG PO (21:04)
[2023-03-23] VITALS (7 sets, daily range): BP systolic 97–179; BP diastolic 62–80; PULSE 66–80; RESP 16–18; TEMP 35.9–37.6; O2SAT 91–98
[2023-03-23] MEDS: ceFAZolin 1 GM/50 ML BAG IVPB ×2 (01:20→10:00)
[2023-03-23] MEDS: Levothyroxine 100 MCG TAB PO (05:14)
[2023-03-23] MEDS: Dexamethasone 4 MG TAB PO (07:52)
[2023-03-23] MEDS: Aspirin E.C. 81 MG TABEC PO ×2 (07:52→19:42)
[2023-03-23] MEDS: Multivitamin TAB 1 TAB PO (07:52)
[2023-03-23] MEDS: Topiramate 100 MG TAB PO ×2 (07:53→19:41)
[2023-03-23] MEDS: Acetaminophen 500 MG TAB 1000 MG PO ×3 (07:53→19:42)
[2023-03-23] MEDS: Cholecalciferol (Vitamin D3) 400 UNIT TAB PO (07:53)
[2023-03-23] MEDS: lamoTRIgine 100 MG TAB 150 MG PO ×2 (07:53→19:41)
[2023-03-23] MEDS: Folic Acid 1 MG TAB PO (07:53)
[2023-03-23] MEDS: metFORMIN 500 MG TAB PO (07:53)
--- NOTE | 2023-03-23 08:34 | W.PM.PROGNOT ---
Date of Service Date of service: 03/23/23 Time of Service: 08:34 Assessment and Plan Assessment and plan (1) History of total right knee replacement: Status: Acute Assessment and plan: Celina is postop day #1 status post right knee replacement. She is doing well. Her pain seems to be well-controlled. She is able to mobilize with physical therapy. She does so with some caution and is hesitant to move significantly on her own. Plan for custodial facility discharge. (2) Parkinsonism: Status: Acute Subjective Subjective Interval history since last seen: No acute concerns. Able to mobilize. Pain controlled. No chest pain or shortness of breath. Exam Extrem Other: RLE dressing c/d/i. +ADF/APF/EHL/FHL. SILT DP/SP/Tib. Objective Last Vital Signs Temp 36.6 C 03/23/23 08:27 Pulse 72 03/23/23 08:27 Resp 16 03/23/23 08:27 BP 113/70 03/23/23 08:27 Pulse Ox 97 03/23/23 08:27 Laboratory Results - last 24 hr 03/22/23 15:20 COVID-19 Source Nasal/Nares SARS-CoV-2 (PCR) Negative Time Spent with Patient Time Spent with Patient: <25 minutes Time was spent: obtaining and/or reviewing separately otained hiistory and counseling the patient
[2023-03-23] MEDS: oxyCODONE 5 MG TAB PO ×5 (08:56→22:23)
--- NOTE | 2023-03-23 10:34 | PTTR_ITS ---
Date of service: 03/23/23 Time of Service: 10:05 PT Notes Visit Reasons: R TKR Inpatient Physical Therapy Treatment Note [facility] Date: 03/23/2023 PRECAUTIONS: Fall, standard, activity as tolerated. WBAT RLE with AD. SUBJECTIVE: Patient reports significant pain, 5/10 at rest despite having received pain medication about an hour ago and having CryoCuff in place. Worsens with activity. OBJECTIVE: Patient sitting up in bedside recliner with footrest up. IV in place RUE. CryoCuff in place. Agreeable to therapy. ? PAIN: 5/10 at rest. 9/10 post therapy. QUENTIN Navarro notified. AFTERNOON: Patient reports 9/10 pain before therapy, although demonstrates less frequent s/s of pain during therapy. VITALS: monitored by nursing staff. ? ? BED MOBILITY/TRANSFERS? Rolling L/R: not assessed Supine-sit: not assessed ? Sit-supine: not assessed ? Sit-stand: CGA ? Stand-sit: CGA ? Bed-Chair: CGA ? Chair-bed: CGA ? Therapeutic Exercises ([id number]): Direct one-on-one instruction in therapeutic exercises to develop strength, endurance, range of motion and flexibility. ? Exercises: * seated heel slides - coaching provided that pain is normal and does not mean there is anything wrong with the knee. Breath coaching provided to reduce pain-anxiety spiral. * seated ankle pumps * seated toe curls Ambulation ? Assistive Device: FWW? Weight bearing: WBAT RLE with AD Assist: CGA with wheelchair follow ? Distance:? 40 feet, 50 feet?AFTERNOON: 200 feet with 2 seated rests at 40 and 90 feet.? Deviation: Step-to gait pattern. Kelly decreased. Step height decreased. Step length decreased. Verbal cues provided for limb advancement strategies, breathing techniques to reduce fall risk and minimize pain report. ? Provided skilled instruction in proper exercise performance Provided skilled manual cues to facilitate proper muscle recruitment and/or form. ASSESSMENT:? Patient c/o extreme pain throughout therapy, complaints do not appear to match s/s of pain. PLAN: Continue to premedicate for pain, continue global strengthening per plan of care until patient is medically cleared for discharge and obtains safe discharge plan. TREATMENT CODE/TIME: 28 minutes beginning at 10:05 and 18 minutes beginning at 14:25 for a total of 46 minutes today.
[2023-03-23] MEDS: Insulin Aspart 300 UNITS/3 ML PEN SC ×2 (12:27→17:10)
--- NOTE | 2023-03-23 13:32 | PHA.REVIEW2 ---
Pharmacy Admission Review Admission Clinical Review Admission Pharmacy Review: codeine Adverse Reaction (Unknown, Verified 03/21/23 11:20) MENTAL ISSUES hydrocodone bitartrate [From Vicodin] Adverse Reaction (Unknown, Verified 03/21/23 11:20) MENTAL ISSUES Resuscitation Status Full Code Height 5 ft 1 in Weight 107.501 kg Pharmacy Admission Review Renal Dosing Medications needing adjustments: Reviewed (CrCl 52.73 mL/min) Anticoagulation DVT Prophylaxis: Reviewed (TEDs and SCDS) Opiate Usage Evaluate Pain Scale/Pains Meds: Reviewed (Oxycodone PRN) Scheduled Bowel Reg ordered if on Opiates?: No (PRN Miralax/docusate) Relevant Labs Electrolytes, C-Reactive P, ESR: N/A (No labs currently) Cardiac Review Cardiac Review: Blood Pressure 143/79 Blood Pressure 113/70 Blood Pressure 97/63 BP, HR, EF%: Reviewed (BP 143/79, HR WNL, Ox 91) QTc Review QTc: N/A (No EKG in patients file) IV to PO Switch IV Medications: Reviewed (Has PRN order for IVP ondansetron which has not been administered. Could consider switching to PO) Home Meds Home Med List reviewed: Intervened Relevent Home Meds Not ordered & why?: Reached out to provider about following home meds: Amitriptyline: order was put in for 25mg HS, home med list is 50mg HS. Order was changed to 50mg Prochlorperazine: order was put in but patient had not picked up since October, order was canceled Rizatriptan: order was put in but patient had not picked up since May, order was canceled Zolpidem: order was put in and it was listed on home med list but no record of patient having ever picked up (verified with [facility]), order was canceled Provider aware that patient has not picked up nabumetone recently, but wanted them to continue therapy while inpatient Current Meds Current Medication Order Review: Reviewed
--- NOTE | 2023-03-23 15:56 | NUR.NOTE ---
Attempted to reassess pain after giving APAP and 10mg oxycodone, pt refused to answer. Nursing Note:
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
[2023-03-23] MEDS: Atorvastatin 10 MG TAB PO (19:42)
[2023-03-23] MEDS: Gabapentin 300 MG CAP PO (22:23)
[2023-03-23] MEDS: busPIRone 5 MG TAB 10 MG PO (22:23)
[2023-03-23] MEDS: Amitriptyline 50 MG TAB PO (22:24)
[2023-03-23] MEDS: risperiDONE 1 MG TAB 4 MG PO (22:24)
[2023-03-24] VITALS (7 sets, daily range): BP systolic 105–177; BP diastolic 69–80; PULSE 75–98; RESP 18–20; TEMP 36.4–37.8; O2SAT 93–95
[2023-03-24] MEDS: Levothyroxine 100 MCG TAB PO (06:19)
[2023-03-24] MEDS: oxyCODONE 5 MG TAB PO ×4 (06:24→23:28)
[2023-03-24] MEDS: Aspirin E.C. 81 MG TABEC PO ×2 (08:20→19:36)
[2023-03-24] MEDS: Cholecalciferol (Vitamin D3) 400 UNIT TAB PO (08:20)
[2023-03-24] MEDS: metFORMIN 500 MG TAB PO (08:21)
[2023-03-24] MEDS: Topiramate 100 MG TAB PO ×2 (08:21→19:35)
[2023-03-24] MEDS: Acetaminophen 500 MG TAB 1000 MG PO ×3 (08:21→19:36)
[2023-03-24] MEDS: Multivitamin TAB 1 TAB PO (08:21)
[2023-03-24] MEDS: Folic Acid 1 MG TAB PO (08:21)
[2023-03-24] MEDS: lamoTRIgine 100 MG TAB 150 MG PO ×2 (08:22→19:35)
--- NOTE | 2023-03-24 10:17 | PDOC.CMPRO ---
Date of service: 03/24/23 Time of Service: 10:18 Care Management Progress Note Progress Note Text Progress Note Text: S/O: Celina was sitting up in her chair when CM met with her. Celina was offered a short term rehab bed at [facility], with a planned admission scheduled for 03/25/23. DICK discussed this with Celina, and she is happy to be going to [facility]; it is the closest facility to her home. Celina stated that she was going to inform her family/friends. CM received a call from Kaity, Celina's mother in law; Celina stated that it is ok for DICK to update Kaity on her discharge plan. CM coordinated [facility] w/c van transportation for Monday at 11:30am (van 98) at the main entrance. CM will continue to follow. A: Celina is a 57 year old female admitted to [facility] on 03/22/23 for R total knee replacement. P: Celina will transfer to [facility] on 03/25/23. She will transport via [facility] w/c [employer], coordinated by DICK. She will follow up with her PCP and discharge plan of care. She is happy with her discharge plan. CM will continue to follow.
[2023-03-24] MEDS: Insulin Aspart 300 UNITS/3 ML PEN SC (12:24)
--- NOTE | 2023-03-24 13:46 | PTTR_ITS ---
Date of service: 03/24/23 Time of Service: 10:00 PT Notes Visit Reasons: R TKR Inpatient Physical Therapy Treatment Note [facility] Date: 03/24/2023 PRECAUTIONS: Fall, standard, activity as tolerated. WBAT RLE with AD. AFTERNOON: Airborne precautions pending lab results. SUBJECTIVE: Patient appears to be asleep when this clinician enters, wakes easily. Reports 10/10 pain in knee, despite receiving 10 mg oxycodone 45 minutes before therapy. OBJECTIVE: Supine in bed, agreeable to therapy. AFTERNOON: reports headache, knee pain, fever. Refuses therapy. RN supports holding therapy. ? PAIN: reports 10/10. Continues to report pain throughout session. VITALS: ? Pre-Treatment: [] ? Post-Treatment: BP 105/76, SaO2 93%, HR 78 bpm. Patient c/o dizziness. RN Laxmi and RN Myla alerted. ? BED MOBILITY/TRANSFERS? Rolling L/R: independent, requires extra time Supine-sit: independent, requires extra time ? Sit-supine: independent, requires extra time ? Sit-stand: independent, requires extra time ? Stand-sit: independent, requires extra time ? Bed-Chair: modified independent with fww, requires extra time ? Chair-bed: modified independent with fww, requires extra time Provided skilled cues and instruction on performance and technique throughout. ? Therapeutic Exercises ([id number]): Direct one-on-one instruction in therapeutic exercises to develop strength, endurance, range of motion and flexibility. ? Exercises: * seated heel slides * ankle pumps * toe curls Ambulation ? Assistive Device: fww ? Weight bearing: full Assist: SBA, wheelchair follow ? Distance:? 15 feet, seated rest, 30 feet, seated rest, 5 feet ? Deviation: extreme slow renato, much slower than yesterday. Shuffling, asymmetric gait pattern. C/o pain, feeling too hot, then reports dizziness and asks to ride the wheelchair back to her room. ? Provided skilled instruction in proper exercise performance Provided skilled manual cues to facilitate proper muscle recruitment and/or form. ASSESSMENT:? Patient demonstrates lower than average pain tolerance. Requires much encouragement to continue to mobilize her affected leg. PLAN: Continue global strengthening and specific knee mobilization and strengthening per plan of care until patient achieves safe discharge plan. TREATMENT CODE/TIME: 36 minutes beginning at 10:00
--- NOTE | 2023-03-24 14:34 | W.PM.PROGNOT ---
Date of Service Date of service: 03/24/23 Time of Service: 13:55 Assessment and Plan Assessment and plan (1) Diabetes mellitus: Status: Chronic Assessment and plan: Stable. Continue with Metformin and QAC sugar check (2) History of total right knee replacement: Status: Acute Assessment and plan: Doing well. Making some progress with pain and mobility. Still not independent with transfers and ambulation and would benefit from SNF. (3) Parkinsonism: Status: Acute Assessment and plan: Stable Subjective Subjective Interval history since last seen: Celina has done well. She is having some pain this afternoon but she did not have pain meds for a while now. No acute issues. Exam Narrative Exam Narrative: Sitting up in the chair. RLE dressing c/d/i. JANINE wrap removed. +ADF/APF/EHL/FHL. Some swelling about the leg and ecchymosis early seen around the knee. Objective Last Vital Signs Temp 36.7 C 03/24/23 07:38 Pulse 78 03/24/23 10:36 Resp 18 03/24/23 07:38 BP 105/71 03/24/23 10:36 Pulse Ox 95 03/24/23 07:38 Time Spent with Patient Time Spent with Patient: <25 minutes Time was spent: preparing to see the patient(eg.review tests), obtaining and/or reviewing separately otained hiistory and counseling the patient
[2023-03-24 16:08] LABS: Source Nasal/Nares
[2023-03-24 16:42] LABS: COVID-19 PCR Negative (Negative)
[2023-03-24] MEDS: Amitriptyline 50 MG TAB PO (19:35)
[2023-03-24] MEDS: Atorvastatin 10 MG TAB PO (19:36)
[2023-03-24] MEDS: risperiDONE 1 MG TAB 4 MG PO (19:36)
[2023-03-24] MEDS: Gabapentin 300 MG CAP PO (19:36)
[2023-03-24] MEDS: busPIRone 5 MG TAB 10 MG PO (19:36)
[2023-03-25 03:31] VITALS: BP 126/68; PULSE 88; RESP 19; TEMP 37; O2SAT 92
[2023-03-25] MEDS: Levothyroxine 100 MCG TAB PO (06:09)
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
[2023-03-25 08:28] VITALS: BP 146/77; PULSE 86; RESP 18; TEMP 36.6; O2SAT 96
[2023-03-25] MEDS: Insulin Aspart 300 UNITS/3 ML PEN SC (09:00)
[2023-03-25] MEDS: Folic Acid 1 MG TAB PO (09:01)
[2023-03-25] MEDS: metFORMIN 500 MG TAB PO (09:01)
[2023-03-25] MEDS: Polyethylene Glycol 3350 17 GM PACKET PO (09:01)
[2023-03-25] MEDS: lamoTRIgine 100 MG TAB 150 MG PO (09:01)
[2023-03-25] MEDS: Cholecalciferol (Vitamin D3) 400 UNIT TAB PO (09:01)
[2023-03-25] MEDS: Aspirin E.C. 81 MG TABEC PO (09:01)
[2023-03-25] MEDS: Docusate Sodium 100 MG CAP PO (09:01)
[2023-03-25] MEDS: Multivitamin TAB 1 TAB PO (09:01)
[2023-03-25] MEDS: Topiramate 100 MG TAB PO (09:01)
[2023-03-25] MEDS: Normal Saline Flush 10 ML SYR (09:02)
[2023-03-25] MEDS: Acetaminophen 500 MG TAB 1000 MG PO (09:02)
--- NOTE | 2023-03-25 10:35 | PDOC.CMDIS ---
LACE Index Scoring Tool Questions: Length of Stay (in days): 3 Was the patient admitted via the E.D.?: No Comorbidities: Diabetes w/o Complication E.D. Visits: 0 Answers: Total Score: 4 Risk of Readmission: Low Risk Care Management Discharge Plan Reason for Hospitalization: R Knee replacement Discharge Plan: Celina will transfer to [facility] for short term rehab, she will transport via [facility] w/c van, coordinated by CM. DC summary faxed upon discharge. Patient/Family Education Needs: Review discharge instructions, discuss Ask Me Three. Services Needed at Discharge: [facility] Facility and Transportation SDOH Health Related Social Needs: Health related social needs inadequate housing Health related social needs details unemployed and disabled and lives in [place], [place] with her and caregiver (Sabrina Health related social needs: inadequate housing(Z59.1) Health related social needs details: unemployed and disabled and lives in [place], [place] with her and caregiver (Sabrina Referrals and interventions: SNF, transport [facility], [facility] MH Services (Omit if N/A) Current MH Services: Internal [facility]
[2023-03-25] MEDS: oxyCODONE 5 MG TAB PO (11:09)
== END 2023-03-25 11:22 | disposition skilled nursing facility (03) | DRG 469 ==
LOC: PDS 06:56 → MS 13:19
PROVIDERS: Admitting Provider Student in an Organized Health Care Education/Training Program; Visit Provider Student in an Organized Health Care Education/Training Program
PROC: 0SRC0JA Replacement of Right Knee Joint with Synthetic Substitute, Uncemented, Open Approach (ICD-10-PCS; CPT 27447; principal; 2023-03-22 09:30)
DX: M17.11 Unilateral primary osteoarthritis, right knee (principal); G40.319 Generalized idiopathic epilepsy and epileptic syndromes, intractable, without status epilepticus; Z96.652 Presence of left artificial knee joint; G47.00 Insomnia, unspecified; E11.9 Type 2 diabetes mellitus without complications; G47.30 Sleep apnea, unspecified; K21.9 Gastro-esophageal reflux disease without esophagitis; E03.9 Hypothyroidism, unspecified; I10 Essential (primary) hypertension; F20.9 Schizophrenia, unspecified; F32.A Depression, unspecified; E78.5 Hyperlipidemia, unspecified; M54.50 Low back pain, unspecified; G43.009 Migraine without aura, not intractable, without status migrainosus; G20.C Parkinsonism, unspecified; R62.59 Other lack of expected normal physiological development in childhood; Z79.84 Long term (current) use of oral hypoglycemic drugs
CPT/HCPCS: 27447; 76942; 87635; 97110; 97162; 97530; C1776; J0171; J0690; J1100; J1815; J1885; J2001; J2250; J2371; J2401; J2405; J2704; J3490; J8540

== ENCOUNTER 2023-04-17 11:37 | Outpatient (CLI) | payer SELFPAY ==
--- NOTE | 2023-04-17 10:15 | DI.RAD_ITS ---
Exam(s) XR STANDING ALIGNMENT XR KNEE RT 1V EXAM: XR STANDING ALIGNMENT and XR knee RT 1 V CLINICAL HISTORY: s/p right TKA. TECHNIQUE: 2D digital imaging was performed. Five images were obtained. COMPARISON: CR XR STANDING ALIGNMENT from 11/28/2022 CR XR KNEE LT 2V AP,LAT from 03/09/2023 FINDINGS: BONES: The hips are well maintained. There is a stable old left knee replacement. Since the prior e xamination the patient has undergone a right total knee replacement. The orthopedic hardware appears in good position. No suspicious lucencies are seen around the orthopedic hardware. The ankles are well maintained.There is no significant leg length discrepancy. SOFT TISSUE: Normal. IMPRESSION: Stable bilateral total knee replacements. DATA REPOSITORY: RADIATION DOSE DELIVERED:
== END 2023-04-17 11:38 | disposition home or self-care (01) ==
LOC: DIORS 11:38
PROVIDERS: Visit Provider Student in an Organized Health Care Education/Training Program
DX: Z96.651 Presence of right artificial knee joint (principal); Z47.1 Aftercare following joint replacement surgery
CPT/HCPCS: 73560; 77073

== ENCOUNTER → 2023-05-09 09:22 | Outpatient (BNVA) | payer MEDICARE, MEDICAID, SELFPAY | PROVIDERS: Visit Provider Psychiatry & Neurology Neurology | DX: G43.009 Migraine without aura, not intractable, without status migrainosus (principal); G40.319 Generalized idiopathic epilepsy and epileptic syndromes, intractable, without status epilepticus; G20.C Parkinsonism, unspecified; G40.309 Generalized idiopathic epilepsy and epileptic syndromes, not intractable, without status epilepticus | CPT/HCPCS: 99213 ==

== ENCOUNTER → 2023-05-15 10:09 | Outpatient (BNVA) | payer MEDICARE, MEDICAID, SELFPAY | PROVIDERS: Visit Provider Student in an Organized Health Care Education/Training Program | DX: Z47.1 Aftercare following joint replacement surgery (principal); Z96.651 Presence of right artificial knee joint ==

== ENCOUNTER 2023-06-28 11:05 | Observation (INO) | payer MEDICARE, MEDICAID, SELFPAY ==
[2023-06-28] VITALS (19 sets, daily range): BP systolic 112–153; BP diastolic 62–95; PULSE 63–82; RESP 16–25; TEMP 36.2–37; O2SAT 92–98
--- NOTE | 2023-06-28 10:45 | RT.EKG_ITS ---
APPROVED REPORT Exam: Resting ECG Reason for Exam: Seizure Patient Location: E HR:77 bpm ECG Measurements Heart Rate 77 AXIS OH 163 P 45 QRSd 100 QRS -13 QT 390 T 68 QTc 442 Conclusion Sinus rhythm...normal P axis, V-rate 60- 99 Normal sinus rhythm at a rate of 77 with interventricular conduction delay and a QRS of 100 ms. Norm al axis. QTc and OH within normal limits. Low voltage limb leads. No prior for comparison.
--- NOTE | 2023-06-28 11:15 | DI.RAD_ITS ---
Exam(s) XR CHEST 2V PA LATERAL EXAM: XR CHEST 2V PA LATERAL CLINICAL HISTORY: weakness. TECHNIQUE: 2D digital imaging was performed. COMPARISON: No exams were available for comparison FINDINGS: 2 views: There is cardiomegaly. Mediastinum not widened. Mild increased markings in both lung thompson noted p robably exaggerated by portable technique. There are no confluent infiltrates. Platelike atelectasi s is noted in the right lung base. No obvious pleural effusions. IMPRESSION: Cardiomegaly. Platelike atelectasis in the right lung base.Recommend nonportable PA and lateral view s when clinically possible DATA REPOSITORY: RADIATION DOSE DELIVERED:
--- NOTE | 2023-06-28 11:15 | DI.CT_ITS ---
Exam(s) CT BRAIN NECK CTA EXAM: CT BRAIN NECK CTA CLINICAL HISTORY: confusion, slurred speech, seizure. TECHNIQUE: Imaging Protocol: Axial CT angiography was performed with multi-slice acquisition and mu lti-planar and/or 3D reconstructions. CONTRAST MATERIAL: Intravenous: Omnipaque 350 Contrast volume:structured data in ml COMPARISON: CT CT CERVICAL SPINE WO from 06/28/2023 FINDINGS: CTA Neck W: Aortic arch anatomy: The aortic arch anatomy is conventional and there is no significant stenosis at the origin of the great vessels off of the aortic arch. No intimal flap evident. Anterior circulation: Both common carotid arteries ascend with normal luminal diameters. At the level the carotid bulbs and proximal internal carotid arteries there is minimal plaque without hemodynamically significant stenosis evident. Posterior circulation: The right vertebral artery is dominant and ascends with normal luminal diameter of 3.3 mm. No intral uminal filling defect nor dissection and at the skull base the dominant right vertebral artery is a s ole contributor to the formation of the basilar artery. The left vertebral artery is a very thin vessel with 1 mm diameter. It is opacified to the skull bas e but does not contribute to the formation of the basilar artery. CTA Brain W: Anterior circulation: Both internal carotid arteries are patent in the skull base-carotid canals as well as within the cave rnous sinuses. The supraclinoid aspects of the ICAs are patent. Both A1 segments are patent as are the anterior cer ebral arteries and there is no evidence of aneurysm at the level of the anterior communicating artery . Both middle cerebral arteries are patent with no evidence of significant stenosis nor intraluminal th rombus. There also no aneurysms of these vessels. Posterior circulation: The basilar artery ascends as a thin vessel with 2 mm lumen diameter. Distally gives off superior ce rebellar arteries. P1 segments are thin and there are posterior communicating arteries on both sides of the [id number] which and significant flow into the posterior cerebral arteries on both side s.. There is no evidence of aneurysm at the tip of the basilar artery nor elsewhere in the [id number]-lv-[id number] is. CT BRAIN: There is no evidence of intracranial hemorrhage, mass effect, or shift of midline structures. There are no extra-axial fluid collections. Ventricles are not enlarged or shifted. There are no ring enh ancing lesions in the brain and no abnormal meningeal enhancement. IMPRESSION: 1. Patent carotid arteries in the neck. No hemodynamically significant stenosis. 2. Dominant right vertebral artery. The left vertebral artery is a thin vessel throughout its lengt h which ends at the skull base and does not contribute to the formation of the basilar artery. 3. Patent intracranial arteries. Basilar artery is a thin vessel. This appears to be developmental and indeed there are bilateral posterior communicating arteries on both sides the [id number] ad ding to the circulation of the bilateral posterior cerebral arteries. 4. No acute intracranial findings. No ring-enhancing lesions in brain and no abnormal meningeal enha ncement. 5. Clinically indicated follow-up MRI can be performed. Called by myself to ER provider. RADIATION DOSE DELIVERED: Total DLP DATA REPOSITORY: All CT scans at this facility are submitted to the National Radiology Data Registry (NRDR) Dose Index Registry (DIR) with the [employer] ([employer]). RADIATION OPTIMIZATION: All CT scans at this facility use at least one of these dose optimization te chniques: automated exposure control; mA and/or kV adjustment per patient size (includes targeted exa ms where dose is matched to clinical indication); or iterative reconstruction.
--- NOTE | 2023-06-28 11:15 | DI.CT_ITS ---
Exam(s) CT CERVICAL SPINE WO EXAM: CT CERVICAL SPINE WO CLINICAL HISTORY: pain post fall, confusion. TECHNIQUE: Imaging Protocol: Axial computed tomography images with coronal and sagittal reformatted images were created and reviewed COMPARISON: No exams were available for comparison FINDINGS: CERVICAL SPINE: There is no evidence of acute fracture. No listhesis. No significant prevertebral soft tissue swell ing. There is multilevel moderate disc space narrowing at all levels, most prominent at C3-4 level Mild facet arthropathy evident but no facet joint malalignment. No significant osseous lesions evident. IMPRESSION: No evidence of cervical spine fracture, malalignment, nor acute compromise of the cervical spinal can al. Multilevel chronic degenerative disc disease. Right vertebral artery is noted to be dominant. Left vertebral artery a thin vessel with 1 mm diamet er RADIATION DOSE DELIVERED: Total DLP DATA REPOSITORY: All CT scans at this facility are submitted to the National Radiology Data Registry (NRDR) Dose Index Registry (DIR) with the [employer] ([employer]). RADIATION OPTIMIZATION: All CT scans at this facility use at least one of these dose optimization te chniques: automated exposure control; mA and/or kV adjustment per patient size (includes targeted exa ms where dose is matched to clinical indication); or iterative reconstruction.
[2023-06-28 11:28] LABS: Abs Immature Grans 0.01 10^3/uL (0.0-0.06); Absolute Basophil Count 0.05 10^3/uL (0.0-0.2); Absolute Eosinophil Count 0.25 10^3/uL (0.0-0.7); Absolute Lymphocyte Count 1.71 10^3/uL (1.2-3.4); Absolute Monocyte Count 0.36 10^3/uL (0.1-0.8); Absolute Neutrophil Count 3.39 10^3/uL (1.2-6.7); BE (Venous) 6 mmol/L (-2-3); Basophils % 0.9; Eosinophils % 4.3; HCO3 (Venous) 31 mmol/L (23-28); HGB 12.3 g/dL (11.2-15.7); Immature Grans % 0.2; Lymphocytes % 29.6; MCH 27.2 pg (27.0-33.0); MCHC 31.5 % (32.0-36.0); MCV 86 fL (80-95); MPV 10.4 fL (8.0-11.0); Monocytes % 6.2; Neutrophils % 58.8; O2 Sat (Venous) 68 %; Platelet Count 369 10^3/uL (130-400); RBC 4.52 10^6/uL (3.93-5.22); RDW 14.7 % (11.7-14.6); RDW-SD 46.5 fL; TCO2 (Venous) 29 mmol/L (24-29); WBC 5.77 10^3/uL (4.4-10.8); pCO2 (Venous) 54 mmHg (41-51); pH (Venous) 7.37 (7.31-7.41); pO2 (Venous) 36 mmHg
[2023-06-28 11:29] LABS: Lactate 1.1 mmol/L (0.6-1.4)
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
[2023-06-28 11:49] LABS: Ammonia 14 umol/L (11-32)
[2023-06-28 11:55] LABS: Bilirubin Negative (Negative); Blood Negative (Negative); Clarity Clear (Clear); Glucose Negative (Negative); Ketones Negative (Negative); Leukocyte Esterase Negative (Negative); Nitrite Negative (Negative); Urobilinogen 0.2 mg/dL (Up to 0.2)
[2023-06-28 11:58] LABS: ALT 23 U/L (14-59); AST 19 U/L (15-37); Albumin 3.8 g/dL (3.4-5.0); Alkaline Phosphatase 133 U/L (46-116); Anion Gap 7.9 mmol/L (3-11); BUN 20 mg/dL (7-18); Bilirubin, Total 0.6 mg/dL (0.2-1.0); CO2 31.1 mmol/L (21.0-32.0); CREATININE 1.2 mg/dL (0.55-1.02); Calcium 9.5 mg/dL (8.5-10.1); Chloride 102 mmol/L (98-107); Creatine Kinase 232 U/L (26-192); Estimated GFR 51.82 (mL/min/1.73m2); Glucose 123 mg/dL (74-106); Magnesium 1.9 mg/dL (1.8-2.4); Potassium 4.3 mmol/L (3.5-5.1); Sodium 141 mmol/L (136-145); TSH (W/Ref FT4) 2.13 uIU/mL (0.36-3.74); Total Protein 8.6 g/dL (6.4-8.2); Troponin I < 50 ng/L (< or =60)
[2023-06-28 12:00] LABS: ETHANOL BLOOD < 3.0 mg/dL (<10)
[2023-06-28 12:06] LABS: Procalcitonin < 0.1 ng/mL
[2023-06-28 12:07] LABS: *AMPHETAMINES SCREEN URINE Negative (Negative); *BARBITURATES SCREEN URINE Negative (Negative); *BENZODIAZEPINES SCREEN URINE Negative (Negative); Cannabinoids THC Negative (Negative); Cocaine Screen,Urine Negative (Negative); METHADONE URINE SCREEN Negative (Negative); OPIATES URINE SCREEN Negative (Negative)
[2023-06-28 12:08] LABS: Tricyclic Antidepressants Positive (Negative)
[2023-06-28] MEDS: levETIRAcetam 1,000 MG in Normal Saline 100 ML 400 MG IVPB (12:22)
[2023-06-28] MEDS: Omnipaque 350 MG/ML 500 ML BTL-Imaging package IJ (12:23)
[2023-06-28] MEDS: Normal Saline - Diluent 50 ML VIAL IJ (12:24)
[2023-06-28 12:58] LABS: COVID-19 PCR Negative (Negative); Influenza A PCR Negative (Negative); Influenza B PCR Negative (Negative); RSV PCR Negative (Negative)
[2023-06-28 13:13] LABS: Source Nasopharynx
[2023-06-28] MEDS: ACETAMINOPHEN 1,000 MG/100 ML BTL 400 MG IVPB (13:49)
[2023-06-28 14:34] LABS: Troponin I < 50 ng/L (< or =60)
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
--- NOTE | 2023-06-28 16:15 | DI.MRI_ITS ---
Exam(s) MR BRAIN WO EXAM: MR BRAIN WO CLINICAL HISTORY: speech change TECHNIQUE: Multiplanar multisequence MRI of the brain was performed. COMPARISON: No exams were available for comparison FINDINGS: CEREBRAL PARENCHYMA: There is no evidence of intracranial hemorrhage, mass effect, or shift of midline structures. There are no extra-axial fluid collections. Ventricles are not enlarged or shifted. There is no significant focal signal abnormality in the cerebellar hemispheres nor within the carlito, m idbrain, and thalami. There is no abnormal signal abnormality in the periventricular white matter. There is no significant focal signal abnormality evident on diffusion imaging to suggest acute ischem ic event. PITUITARY GLAND: No mass nor parasellar abnormality. No obvious abnormality in the cavernous sinuses. FLOW VOIDS: The expected flow void are noted. No evidence of obvious aneurysm nor obvious vascular ma lformation. Posterior communicating arteries are noted on both sides of the [id number]. PARANASAL SINUSES: The visualized paranasal sinuses appear unremarkable. No obvious finding ORBITS: No obvious findings. IMPRESSION: No significant acute intracranial findings on this noninfused MRI scan of the brain. DATA REPOSITORY:
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
[2023-06-28] MEDS: Enoxaparin 40 MG/0.4 ML SYR SC (18:03)
[2023-06-28] MEDS: Acetaminophen 500 MG TAB 1000 MG PO (20:00)
[2023-06-28] MEDS: Amitriptyline 25 MG TAB 50 MG PO (20:01)
[2023-06-28] MEDS: risperiDONE 1 MG TAB 4 MG PO (20:02)
[2023-06-28] MEDS: Atorvastatin 10 MG TAB PO (20:03)
[2023-06-28] MEDS: Topiramate 100 MG TAB PO (20:04)
[2023-06-28] MEDS: busPIRone 5 MG TAB 10 MG PO (20:04)
[2023-06-28] MEDS: lamoTRIgine 100 MG TAB 150 MG PO (20:05)
[2023-06-28] MEDS: Normal Saline Flush 10 ML SYR IVP (20:06)
[2023-06-29] VITALS (7 sets, daily range): BP systolic 116–151; BP diastolic 58–79; PULSE 65–90; RESP 15–20; TEMP 35.7–36.7; O2SAT 93–95
[2023-06-29] MEDS: Acetaminophen 500 MG TAB 1000 MG PO ×3 (05:13→14:34)
[2023-06-29] MEDS: Levothyroxine 100 MCG TAB PO (05:57)
[2023-06-29 06:59] LABS: Abs Immature Grans 0.01 10^3/uL (0.0-0.06); Absolute Basophil Count 0.05 10^3/uL (0.0-0.2); Absolute Eosinophil Count 0.22 10^3/uL (0.0-0.7); Eosinophils % 4.3; HCT 34.9 % (36.0-46.0); HGB 10.9 g/dL (11.2-15.7); Immature Grans % 0.2; Lymphocytes % 39.4; MCH 26.9 pg (27.0-33.0); MCHC 31.2 % (32.0-36.0); MCV 86 fL (80-95); MPV 10.4 fL (8.0-11.0); Monocytes % 9.8; Neutrophils % 45.3; Platelet Count 337 10^3/uL (130-400); RBC 4.05 10^6/uL (3.93-5.22); RDW 14.9 % (11.7-14.6); RDW-SD 47.4 fL; WBC 5.08 10^3/uL (4.4-10.8)
[2023-06-29 07:23] LABS: ALT 21 U/L (14-59); AST 9 U/L (15-37); Albumin 3.3 g/dL (3.4-5.0); Alkaline Phosphatase 112 U/L (46-116); Anion Gap 7.4 mmol/L (3-11); BUN 24 mg/dL (7-18); Bilirubin, Total 0.5 mg/dL (0.2-1.0); CO2 30.6 mmol/L (21.0-32.0); CREATININE 1.2 mg/dL (0.55-1.02); Calcium 9.8 mg/dL (8.5-10.1); Chloride 103 mmol/L (98-107); Creatine Kinase 103 U/L (26-192); Estimated GFR 51.82 (mL/min/1.73m2); Glucose 134 mg/dL (74-106); Potassium 4.3 mmol/L (3.5-5.1); Sodium 141 mmol/L (136-145); Total Protein 7.4 g/dL (6.4-8.2)
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
[2023-06-29] MEDS: lamoTRIgine 100 MG TAB 150 MG PO ×2 (09:12→23:06)
[2023-06-29] MEDS: Normal Saline Flush 10 ML SYR IVP (09:12)
[2023-06-29] MEDS: Cholecalciferol (Vitamin D3) 400 UNIT TAB PO (09:14)
[2023-06-29] MEDS: Topiramate 100 MG TAB PO ×2 (09:15→23:05)
[2023-06-29] MEDS: Folic Acid 1 MG TAB PO (09:15)
[2023-06-29] MEDS: Multivitamin TAB 1 TAB PO (09:15)
[2023-06-29] MEDS: Rizatriptan 10 MG TAB PO (12:20)
--- NOTE | 2023-06-29 14:15 | PGE_ITS ---
Date of Service Date of service: 06/29/23 Time of Service: 14:15 Assessment and Plan Assessment and plan (1) Generalized idiopathic epilepsy and epileptic syndromes, intractable, without status epilepticus: Status: Acute Assessment and plan: Lamictall and Topomax have been resumed. Per CM HELLEN is in the process of switching her pharmacies from [facility] to [facility]. Patient had not picked up her meds since January even though she had an Rx for 90 days supply sent to [facility] in April. I will treate her migraine headache w/ imitrex and give her an antiemetic and laxatives. This may delay her discharge today as it is mid afternoon now. I will dc her patten as she should be able to void on her own. continue current antiseizure meds. Dr. Koch's neurology consultation apppreciated. MRI last night did not show any acute pathology. (2) Pseudoseizures: Status: Chronic (3) Migraine without aura and without status migrainosus, not intractable: Status: Acute (4) Parkinsonism: Status: Acute Qualifiers: Parkinsonism type: secondary Parkinsonism Secondary Parkinsonism type: neuroleptic-induced Qualified Code(s): G21.11 - Neuroleptic induced parkinsonism; T43.505A - Adverse effect of unspecified antipsychotics and neuroleptics, initial encounter (5) Constipation: Status: Acute Assessment and plan: will give stool softeners and laxatives. Qualifiers: Constipation type: slow transit constipation Qualified Code(s): K59.01 - Slow transit constipation Subjective Subjective Interval history since last seen: When asked how she is doing, she says terrible. She has a migraine headache (which she often gets) and nausea, although she has not had any vomiting. No abdominal pains. she has not had a BM. Exam Narrative Exam Narrative: Celina is sitting up in her chair, she does not appear to be in acute distress, watching TV, OCCASIONAL BABYSITTER is making her be for her while she sits in the chair Speech is more dysarthric at the moment but otherwise no focal CN deficits and no focal motor deficits Lungs: clear Heart: RRR (review of telemetry w/ ICU nurses this morning, patient rhythm re mained sinus overnight w/ rates of 60's to 90's, I will dc her telemetry) Abdomen: nondistended, soft, normal bowel sounds, nontender to deep palpation Patten catheter draining clear yellow urine Objective Last Vital Signs Temp 36.2 C L 06/29/23 11:43 Pulse 65 06/29/23 11:43 Resp 16 06/29/23 11:43 BP 126/72 06/29/23 11:43 Pulse Ox 94 06/29/23 11:43 Laboratory Results - last 24 hr 06/28/23 06/29/23 14:08 06:40 WBC 5.08 RBC 4.05 Hgb 10.9 L Hct 34.9 L MCV 86 MCH 26.9 L MCHC 31.2 L RDW 14.9 H Plt Count 337 MPV 10.4 Immature Gran % 0.2 Neutrophils % 45.3 Lymphocytes % 39.4 Monocytes % 9.8 Eosinophils % 4.3 Basophils % 1.0 Nucleated RBC % 0.0 Absolute Neutrophils 2.30 Absolute Lymphocytes 2.00 Absolute Monocytes 0.50 Absolute Eosinophils 0.22 Absolute Basophils 0.05 Sodium 141 Potassium 4.3 Chloride 103 Carbon Dioxide 30.6 Anion Gap 7.4 BUN 24 H Creatinine 1.2 H Est GFR (CKD-EPI 2020) 51.82 Glucose 134 H Calcium 9.8 Total Bilirubin 0.5 AST 9 L ALT 21 Alkaline Phosphatase 112 Creatine Kinase 103 Troponin I < 50 Total Protein 7.4 Albumin 3.3 L Time Spent with Patient Time Spent with Patient: 25-34 minutes Time was spent: preparing to see the patient(eg.review tests), ordering medications,tests, procedures, referring, communicating with other health customer care associate, indepentently interpreting results, counseling the patient and care coordination
[2023-06-29] MEDS: SUMAtriptan 6 MG/0.5 ML VIAL SC (14:32)
[2023-06-29] MEDS: Prochlorperazine 10 MG/2 ML VIAL 5 MG IVP (14:33)
--- NOTE | 2023-06-29 14:42 | PT.INTREAT ---
PT Notes Visit Reasons: Alteration in mental status, seizures Date: 06/29/2023 PRECAUTIONS: Fall. Standard. Activity as tolerated. SUBJECTIVE: Pt in recliner when approached for therapy this afternoon, pt reports she is having headache, nurse aware andis getting ready for med administration, pt agreed to participating with session. OBJECTIVE: ? IV line on the right antecubital, patten catheter? Therapeutic Activities 26669x: Direct one-on-one instruction in dynamic activities to improve functional performance. ?? BED MOBILITY/TRANSFERS? Rolling L/R: not performed Supine-sit: ?not performed ? Sit-supine: ? not performed? Sit-stand: ?CGA? Stand-sit: ??CGA ? Bed-Chair:? ?not performed ? Chair-bed: not performed Provided skilled cues and instruction on performance and technique throughout. Gait Training [id number]: Direct one-on-one instruction and skilled instruction in: Employing an assistive device Modified weight-bearing status Movement sequencing Turning and movement with proper form Provided verbal cues for equipment management and technique Provided instruction in gait pattern Patient education regarding pacing and breathing techniques to maximize activity tolerance? GAIT? Assistive Device: ?? ?FWW ? Weight bearing: FWB Assist: ? CGA? Distance:?? ?50', 100' ? Deviation: ? WBOS, Stoop forward posture, low step height, short step length, fast renato speed ? ASSESSMENT:?Pt provide with WC follow to allow for seated rest break in between distance. pt setup in recliner post session, PLAN: Continue with balance training, global strengthening and general conditioning for improved safety, mobility and activity tolerance until pt is ready for DC. TREATMENT CODE/TIME: [id number] 19mins (2:15-2:34pm)
[2023-06-29] MEDS: Senna TAB 1 TAB PO ×2 (15:07→23:05)
[2023-06-29] MEDS: Polyethylene Glycol 3350 17 GM PACKET PO (15:07)
--- NOTE | 2023-06-29 16:18 | CHAPLAIN ---
Kassandra was sitting up in a chair. She was soft spoken and sometimes difficult to hear. Kassandra said she didn't have family. She was looking to speak to a nurse to ask for an aspirin. I explained my role and offered support. The AUTOMOTIVE GLASS TECHNICIAN came in to see what Kassandra wanted.
[2023-06-29] MEDS: Enoxaparin 40 MG/0.4 ML SYR SC (18:00)
--- NOTE | 2023-06-29 21:12 | PDOC.EEG_ITS ---
Neurology EEG EEG: [facility] Department of Neurology INPATIENT EEG REPORT Date of Recordin06/29/23 Interpreting Physician: Dr. Jen Koch Reason for study: Ms. Coronel is admitted with likely breakthrough seizure. Current Medications: Current Medications Acetaminophen (Acetaminophen 500 Mg Tab) 1,000 mg PO Q6H PRN PRN PRN Reason: knee pain Last Admin: 06/29/23 09:20 Dose: 1,000 mg Al Hydrox/Mg Hydrox/Simethicone (Mylanta Suspension 30 Ml Cup) 30 ml PO Q2H PRN PRN Amitriptyline HCl (Amitriptyline 25 Mg Tab) 50 mg PO HS [facility] Last Admin: 06/28/23 20:01 Dose: 50 mg Atorvastatin Calcium (Atorvastatin 10 Mg Tab) 10 mg PO HS [facility] Last Admin: 06/28/23 20:03 Dose: 10 mg Buspirone HCl (Buspirone 5 Mg Tab) 10 mg PO HS [facility] Last Admin: 06/28/23 20:04 Dose: 10 mg Cholecalciferol (Cholecalciferol (Vitamin D3) 400 Unit Tab) 1 unit PO DAILY [facility] Last Admin: 06/29/23 09:14 Dose: 1 unit Dextrose (Glucose Oral Gel 15 Gm/37.5 Gm Tube) 0 gm PO DIRECTED PRN Dextrose/Water (Dextrose 50%-Water 25 Gm/50 Ml Syr) 0 gm IVP DIRECTED PRN Docusate Sodium (Docusate Sodium 100 Mg Cap) 100 mg PO TID [facility] Enoxaparin Sodium (Enoxaparin 40 Mg/0.4 Ml Syr) 40 mg SC Q24H [facility] Last Admin: 06/29/23 18:00 Dose: 40 mg Folic Acid (Folic Acid 1 Mg Tab) 1 mg PO DAILY [facility] Last Admin: 06/29/23 09:15 Dose: 1 mg Acetaminophen (Ofirmev) 1,000 mg in 100 mls @ 400 mls/hr IVPB Q8H PRN PRN Last Infusion: 06/28/23 14:00 Dose: Infused IV Miscellaneous Supplies (Iv Access) 1 each IV DIRECTED [facility] Insulin Aspart (Insulin Aspart 300 Units/3 Ml Pen) 0 units SC 0800,1200,1700,2200 [facility]; Protocol Last Admin: 06/29/23 17:09 Dose: Not Given Lamotrigine (Lamotrigine 100 Mg Tab) 150 mg PO BID [facility] Last Admin: 06/29/23 09:12 Dose: 150 mg Levothyroxine Sodium (Levothyroxine 100 Mcg Tab) 100 mcg PO DAILY@0600 [facility] Last Admin: 06/29/23 05:57 Dose: 100 mcg Magnesium Hydroxide (Milk Of Magnesia 30 Ml Cup) 30 ml PO DAILY PRN PRN Multivitamins (Multivitamin Tab) 1 tab PO DAILY [facility] Last Admin: 06/29/23 09:15 Dose: 1 tab Nabumetone (Nabumetone 750 Mg Tab) 750 mg PO BID [facility] Last Admin: 06/29/23 09:15 Dose: 750 mg Polyethylene Glycol (Polyethylene Glycol 3350 17 Gm Packet) 17 gm PO BID PRN PRN PRN Reason: Constipation Risperidone (Risperidone 1 Mg Tab) 4 mg PO HS [facility] Last Admin: 06/28/23 20:02 Dose: 4 mg Rizatriptan Benzoate (Rizatriptan 10 Mg Tab) 10 mg PO ONCE PRN PRN Reason: migraine headache Last Admin: 06/29/23 12:20 Dose: 10 mg Sennosides (Senna Tab) 1 tab PO HS [facility] Sodium Chloride (Normal Saline Flush 10 Ml Syr) 0 ml IVP PRN PRN Sodium Chloride (Normal Saline Flush 10 Ml Syr) 0 ml IVP BID [facility] Last Admin: 06/29/23 09:12 Dose: 10 ml Sodium Chloride (Normal Saline 10 Ml Vial) 0 ml IJ DIRECTED PRN Topiramate (Topiramate 100 Mg Tab) 100 mg PO BID [facility] Last Admin: 06/29/23 09:15 Dose: 100 mg METHODS: A 21 channel digitized electroencephalogram was performed in the [facility] Med/Surg Floor or ICU. The 10/20 international system of electrode placement was used and bipolar and referential electrode montages were recorded. In addition to EEG the patient was monitored for EKG and lateral/vertical eye movements. Activation procedures of photic stimulation and hyperventilation were performed if applicable. Video was used during activation procedures and during events where applicable. The duration of the recording was 30 minutes. DESCRIPTION OF EEG: The patient was noted to be awake, drowsy, and asleep during the recording. During maximal wakefulness a 7-8-Hz posterior background rhythm was present which was well-modulated, symmetrical, reactive to eye opening, and of moderate voltage. With eye opening the background activity changed to a low voltage mixture of alpha, beta, and occasional theta range frequencies. Faster frequencies were present in the bilateral anterior head regions. There was a normal anterior-posterior voltage gradient. During drowsiness, there was attenuation of the posterior dominant background rhythm and vertex waves. Stage II sleep was present with symmetrical sleep spindles, K-complexes, and vertex wa ves. During sleep, there were occasional bursts of high-amplitude generalized spike- waves. At times these were quite disorganized and not fully formed, but at other times were occurring in runs of 3Hz up to 3 seconds in duration. Activating Procedures: Photic stimulation was performed which produced no driving response at various flash frequencies. Hyperventilation was not performed. EKG: EKG revealed normal sinus rhythm. INTERPRETATION: This EEG is abnormal due: #1. Occasional bursts of high-amplitude generalized spike-waves, during sleep. #2. Mild slowing of the posterior dominant rhythm. PRIOR EEG: -Ambulatory EEG (1999) x72 hours - normal. Described one event of going into a spell. -EEG (2005) - mild encephalopathy. -MRI brain (04/19/05) - normal. -Video EEG (2005) - multiple subjective events consistent with psychogenic nonepileptic seizures. No description was provided. She had a single generalized tonic-clonic seizure with focal sharps prior to the onset and, thus, was given a diagnosis of a primary generalized epilepsy based on these findings. -EEG (2006) - moderate encephalopathy. -Video EEG (2007) - she had a single event consistent with a psychogenic nonepileptic seizure and interictally she had noted bilateral independent posterior temporal sharp and slow waves that became more generalized in sleep. -Amb EEG (Apr 2018 x64 hours): Occasional bursts of 3 Hz generalized spike waves lasting 1-4 seconds; 9 events captured with descriptions of chest and arm pain. One occurred at the same time as her interictal discharges, otherwise none had any other correlation. -Amb EEG (09/23/19-09/24/19): Mild encephalopathy. Frequent 3 Hz generalized spike wave bursts lasting 1-3 seconds; as well as multi-focal independent spike-waves at Fp2, O2, T3, C3/P3, T4, ?Fp1, and ?O1. 2 events CLINICAL CORRELATION: This EEG is consistent with the patient's pervious EEGs demonstrating the expression of a primary generalized epilepsy as well as mild slowing suggestive of a mild diffuse cerebral encephalopathy of broad differential including toxic- metabolic etiology. Jen Koch MD Date of service: 06/29/23
[2023-06-29] MEDS: Amitriptyline 25 MG TAB 50 MG PO (23:03)
[2023-06-29] MEDS: Docusate Sodium 100 MG CAP PO (23:04)
[2023-06-29] MEDS: busPIRone 5 MG TAB 10 MG PO (23:04)
[2023-06-29] MEDS: Atorvastatin 10 MG TAB PO (23:05)
[2023-06-29] MEDS: risperiDONE 1 MG TAB 4 MG PO (23:06)
[2023-06-30] MEDS: Normal Saline Flush 10 ML SYR IVP ×2 (01:49→09:15)
[2023-06-30] MEDS: Levothyroxine 100 MCG TAB PO (06:07)
[2023-06-30 07:52] VITALS: BP 112/64; PULSE 62; RESP 16; TEMP 36; O2SAT 90
[2023-06-30] MEDS: Multivitamin TAB 1 TAB PO (09:12)
[2023-06-30] MEDS: Docusate Sodium 100 MG CAP PO ×2 (09:12→14:36)
[2023-06-30] MEDS: Topiramate 100 MG TAB PO (09:12)
[2023-06-30] MEDS: lamoTRIgine 100 MG TAB 150 MG PO (09:13)
[2023-06-30] MEDS: Folic Acid 1 MG TAB PO (09:13)
[2023-06-30] MEDS: Cholecalciferol (Vitamin D3) 400 UNIT TAB PO (09:13)
--- NOTE | 2023-06-30 09:58 | PT.INTREAT ---
PT Notes Visit Reasons: Alteration in mental status, seizures Date: 06/30/2023 PRECAUTIONS: Fall. Standard. Activity as tolerated. SUBJECTIVE: Pt in recliner when approached for therapy this morning, pt reports still having headache, pt agreed to participating with session. OBJECTIVE: ? IV line on the right antecubital ? Therapeutic Activities [id number]: Direct one-on-one instruction in dynamic activities to improve functional performance. ?? BED MOBILITY/TRANSFERS? Rolling L/R: not performed Supine-sit: ?not performed ? Sit-supine: ? not performed? Sit-stand: ?CGA? Stand-sit: ??CGA ? Bed-Chair:? ?SBA ? Chair-bed: SBA Provided skilled cues and instruction on performance and technique throughout. Gait Training 84403: Direct one-on-one instruction and skilled instruction in: Employing an assistive device Modified weight-bearing status Movement sequencing Turning and movement with proper form Provided verbal cues for equipment management and technique Provided instruction in gait pattern Patient education regarding pacing and breathing techniques to maximize activity tolerance? GAIT? Assistive Device: ?? ?FWW ? Weight bearing: FWB Assist: ? SBA? Distance:?? ?50', 100' ? Deviation: ? WBOS, Stoop forward posture, low step height, short step length, fast renato speed ? ASSESSMENT:?Pt provide with WC follow to allow for seated rest break in between distance. pt setup in recliner post session. PLAN: Continue with balance training, global strengthening and general conditioning for improved safety, mobility and activity tolerance until pt is ready for DC. TREATMENT CODE/TIME: [id number] 25mins (9:30-9:55am)
[2023-06-30 11:20] VITALS: BP 107/71; PULSE 69; RESP 15; TEMP 35.9; O2SAT 93
--- NOTE | 2023-06-30 11:37 | CMDISCH_ITS ---
Date of service: 06/30/23 Time of Service: 11:37 LACE Index Scoring Tool Questions: Length of Stay (in days): 2 Was the patient admitted via the E.D.?: Yes Comorbidities: Diabetes w/o Complication E.D. Visits: 0 Answers: Total Score: 6 Risk of Readmission: Low Risk Care Management Discharge Plan Reason for Hospitalization: Alteration in mental status. seizures Discharge Plan: Celina will return home today with new orders for HH RN, PT. She will transport via [facility] private vehicle when ready. CM informed GEOSPATIAL SPECIALIST via phone that Celina is returning home, for services to be resumed. She will follow up with her PCP and discharge plan of care. Patient/Family Education Needs: Review discharge instructions and limitations, discussion of self care needs including ask me three. Services Needed at Discharge: Home Health Care Services (new HH RN, PT) and Transportation ([facility] private vehicle) SDOH Health Related Social Needs: Health related social needs risk of homeless, transpo insecurity Health related social needs details unemployed and dis abled and lives in [place], [place] with her and caregiver (Sabrina Health related social needs: housing instability, housed, with risk of homelessness(Z59.811) and transportation insecurity(Z59.82)
[2023-06-30] MEDS: Milk of Magnesia 30 ML CUP PO (14:35)
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
[2023-06-30 15:14] VITALS: BP 112/67; PULSE 69; RESP 15; TEMP 36.5; O2SAT 92
--- NOTE | 2023-06-30 16:03 | PTTR_ITS ---
PT Notes Visit Reasons: Alteration in mental status, seizures Physical Therapy Inpatient Treatment Note Date: 06/29/2022 Precautions: Fall. Standard. Activity as tolerated. Subjective: Denied headache, chest pain, and lightheadedness throughout session. Hopeful that she can have a bowel movement so she could go home. Objective: General Observation: Seated on bedside chair. No lines. Mental Status: Alert and oriented as to person, place, time, and purpose. Able to pay attention, focus, and respond appropriately. Pain: None reported Vital Signs: After walking 250 feet BP 149/84 mmHg, HR 83 bpm, O2 saturation 97% on RA Bed Mobility/Transfers: Minimal cueing provided for use of B hands as needed for support, movement sequence, Ad management, and and posture to reduce fall risk and minimize pain report Supine to sit with stand by assist with HOB at about 45 degrees Sit to stand with minimal assist Stand to sit with minimal assist Gait: Instructed patient with level surface ambulation of 250 feet requiring stand by assist using FWW. Step-to gait pattern. Kelly decreased. Step height decreased. Step length decreased. L foot Df decreased. Verbal cues provided for limb advancement strategies, AD management, and posture to reduce fall risk. Balance: Static Sitting: Normal Dynamic Sitting: Normal Static Standing: Fair Dynamic Standing: Fair Assessment: Kassandra now at baseline mobility level and may benefit from HH PT services to ensure a smooth transition back to home. Gait pattern much stable. No LOB. No SOB. DISCHARGE RECOMMENDATIONS: Minimal Home with no services [] [X] Home with HH PT services. Patient will benefit from home health PT services in order to progress mobility level using FWW, assess home safety, identify additional equipment needs, and establish a functional maintenance program that will increase ability of patient to remain at home. [] Home with outpatient PT [] [] SNF for continued rehabilitation [] [] Driver License Reviewing Officer Care [] [] SNF versus LTC based on ability to participate and progress [] TREATMENT CODE/TIME: 06355 x 20 minutes for 1 unit (15:20-15:40).
[2023-07-03 22:23] LABS: Topiramate <1.0 mcg/mL
== END 2023-06-30 16:42 | disposition home or self-care (01) ==
LOC: ER 13:50 → MS 16:23
PROVIDERS: Admitting Provider Internal Medicine; Emergency Provider Physician Assistant; PCP Family Medicine; Visit Provider Internal Medicine
DX: G40.319 Generalized idiopathic epilepsy and epileptic syndromes, intractable, without status epilepticus (principal); G21.11 Neuroleptic induced parkinsonism; T43.505A Adverse effect of unspecified antipsychotics and neuroleptics, initial encounter; K59.01 Slow transit constipation; F81.9 Developmental disorder of scholastic skills, unspecified; F32.A Depression, unspecified; F20.9 Schizophrenia, unspecified; I10 Essential (primary) hypertension; E78.5 Hyperlipidemia, unspecified; E03.9 Hypothyroidism, unspecified; G47.33 Obstructive sleep apnea (adult) (pediatric); K21.9 Gastro-esophageal reflux disease without esophagitis; E11.9 Type 2 diabetes mellitus without complications; Z96.653 Presence of artificial knee joint, bilateral; M54.50 Low back pain, unspecified; G47.00 Insomnia, unspecified; G43.009 Migraine without aura, not intractable, without status migrainosus; R01.1 Cardiac murmur, unspecified; Z91.148 Patient's other noncompliance with medication regimen for other reason; R47.1 Dysarthria and anarthria
CPT/HCPCS: 00123; 36415; 36416; 51702; 70496; 70498; 80053; 80307; 82550; 82805; 82962; 84145; 87040; 87637; 93005; 95819; 96365; 96372; 96375; 97116; 97162; 97530; 99223; 99285; J1650; 70551; 71046; 72125; 80201; 80320; 81003; 82140; 83605; 83735; 84443; 84484; 85025; 93010; 99222; 99231; 99239; G0378; J0131; J0780; J1815; J1953; J3030; J3490

== ENCOUNTER → 2023-06-29 06:57 | Outpatient (BNVA) | payer MEDICARE, MEDICAID, SELFPAY | PROVIDERS: PCP Family Medicine; Referring Provider Family Medicine; Visit Provider Psychiatry & Neurology Neurology ==

== ENCOUNTER → 2023-06-30 06:54 | Outpatient (BNVA) | payer MEDICARE, MEDICAID, SELFPAY | PROVIDERS: PCP Family Medicine; Referring Provider Family Medicine; Visit Provider Psychiatry & Neurology Neurology ==

== ENCOUNTER 2023-07-16 18:10 | Emergency (ER) | payer MEDICARE, MEDICAID, SELFPAY ==
[2023-07-16 18:07] VITALS: BP 142/62; PULSE 67; RESP 18; TEMP 36.6; O2SAT 96
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
--- NOTE | 2023-07-16 21:22 | W.TELEPSYCH ---
Date of service: 07/16/23 Time of Service: 21:22 Summary Note PSYCHIATRY CONSULT NOTE: INITIAL EVALUATION Name:?Kassandra Coronel :?1965 Location of the patient:?[facility] ED Consulting Array Clinician:?Lyndsay Olson Location of the clinician:?[employer] [employer], [place] SUMMARY 58-year-old female, with history of cognitive impairment, schizoaffective disorder, history of suicide attempt(s), poor self-care, history of psychiatric hospitalization, with no current excessive drug use, no history of violent behavior, arrived via EMS alerted by friend for suicidal ideation, psychosis, depression. Patient describes worsening mood and command auditory hallucinations to kill herself by slitting her throat. She also reports a decline in activities of daily living and recurrent falls at home. Patient is at elevated risk of danger to self, danger due to grave disability/poor self-care. Patient presently meets criteria for inpatient psychiatric hospitalization. Working Diagnoses:?F25.0 Schizoaffective disorder; bipolar type; G3184 Mild cognitive impairment; so stated Rule Out Diagnoses:? CPT Codes:?28255 - Psychiatric Diagnostic Evaluation with Medical Services PLAN Disposition:?Voluntary admission when medically stable. Re-consult psychiatry/screening if patient requests discharge. ? Observation level ? Psychiatric 1:1 needed??Continue psych 1:1 Work-up:? Pharmacological:? Continue risperidone 4 mg at bedtime Continue lamotrigine 150 mg twice daily Continue amitriptyline 50 mg at bedtime Continue topiramate 100 mg twice daily Discontinue buspirone 10 mg at bedtime Is patient psychotic? - Yes; Were antipsychotic medications started? - Yes Informed consent: Discussed risks and benefits of the above recommended psychiatric medications with patient, who demonstrated understanding and gave express informed consent to take the above medications as documented. Follow up needed while in the hospital??Q24h Other:? Dementia/Delirium: AVOID BENZODIAZEPINES, ANTICHOLINERGICS, ANTIHISTAMINES, AND OTHER SEDATING MEDICATIONS, which may PRECIPITATE and worsen delirium Please obtain baseline EKG to monitor for QTc prolongation, cardiac arrhythmias, and torsades de pointes. Would maintain potassium above 4.0 and magnesium above 2.0 If questions arise about the psychiatric care of this patient, please call the [facility]?to request a follow-up consult. ?Please do not contact me individually through the EMR chat as I am not?regularly logged on to?this system. The psychiatrist for the follow-up visit may be a different psychiatrist Discussed plan with onsite teamsite developer:?Yes - emergency medicine physician Dr. Erwin Black HISTORY Requested by:?Emergency medicine colleagues, Sources of information:?Patient, medical record History of Present Illness:? 58-year-old female, living alone, single, on disability, with history of cognitive impairment, schizoaffective disorder, history of suicide attempt(s), poor self-care, history of psychiatric hospitalization, with no current excessive drug use, no history of violent behavior, arrived via EMS alerted by friend for suicidal ideation, psychosis, depression. UDS negative, Alcohol undetectable. In the hospital, patient has been in behavioral control with no reported issues. Patient is a 58 year old female who resides in an apartment in [place] alone. She has a past psychiatric history significant for schizoaffective disorder, bipolar type, prior inpatient psychiatric hospitalizations, prior suicide attempt by intentional overdose, no history of non-suicidal self-injurious behavior, and no prior chemical dependency concerns. She has a past medical history significant for seizure disorder, Parkinson's disease, type II diabetes mellitus, recurrent falls at home, and hypertension. Patient presented to the emergency room via EMS after friend called 911 concerned the patient was going to slit her throat with the intent to . Psychiatry was consulted for evaluation and disposition. On psychiatric interview, patient reports she was having command auditory hallucinations to slit her throat in an attempt to end her life. She denies command auditory hallucinations to harm others. She describes the visual hallucinations as red ants all over her room and reports the visual hallucinations are distressing to her. She describes paranoia about people being out to harm her, that people are constantly watching her and reports that is the main reason she does not go outside. She describes worsening depressive symptoms, including profound sadness, hopelessness, worthlessness, and perceived sense of burdensomeness to others.. Collateral Contacted No-- patient meets criteria for inpatient hospitalization. PSYCHIATRIC REVIEW OF SYSTEMS (symptoms in past two weeks) Pertinent Positives:?depressed mood/hopelessness/insomnia/auditory hallucinations/visual hallucinations/command hallucinations/anxiety Pertinent Negatives:?no anhedonia/no irritability/no aggressive behavior/no agitation/no panic attacks/no impulsivity PSYCHIATRIC HISTORY Past Psychiatric Diagnoses/Problems:?cognitive impairment, schizoaffective disorder Psychiatric Treatment:?Hospitalizations:?psychiatric hospitalization, last hospitalized in 2013 ???Other Past treatment:?therapy, medication management ???Current treatment:?medication management, therapy, follows with outpatient psychiatrist last saw provider on Monday07/12/23 Dr. Payne and follows with therapist. Drug/Alcohol History ???Current excessive drug/alcohol use:?none ???Past excessive drug/alcohol use:?none ???Drug/alcohol use comment:?Treatment:?none ???Withdrawal symptoms:?none ???UDS results:?UDS negative ???BAL results:?undetectable ???Active withdrawal Protocol:? Stressors:?exacerbation of mental illness Trauma:?none Family Psychiatric History:?unknown HEALTH HISTORY Medical Problems:? Is patient linked with PCP??yes Psychiatric and other clinically relevant medications:?risperidone 4 mg at bedtime; lamotrigine 150 mg twice daily amitriptyline 50 mg at bedtime topiramate 100 mg twice daily buspirone 10 mg at bedtime Allergies/Adverse Medication Reactions:?codeine, hydrocodone, Vicodin Physical Findings:?no clinically significant abnormal lab values DEMOGRAPHICS/SOCIAL HISTORY Gender:?female Living Situation:?living alone Relationship Status:?single Education:?high school/GED Employment:?on disability Social Support Network:?supportive social network of family or friends Legal History:?none Special Considerations:?none RISK EVALUATION Suicidality/self-injury:?Yes prior suicide attempt(s) over 6 months ago, suicidal ideation Primary Suicide Screening (PSS-3) 1. In the past two weeks, have you felt down, depressed, or hopeless??YES 2. In the past two weeks, have you had thoughts of killing yourself??YES 3. In your lifetime, have you ever attempted to kill yourself??YES 3a. Within the past 6 months??NO ESS-6 Secondary Screen ( If #2 is yes or #3a is yes within the past 6 months, then complete secondary screen) 1. Positive on PSS-3 questions 2 & 3 ? active suicidal ideation with a past attempt??YES 2. Have you been thinking about how you might kill yourself??YES 3. Have you had some intention of acting on your thoughts??YES 4. Lifetime psychiatric hospitalization??YES 5. Has drinking or substance abuse ever been a problem for you??NO 6. Current irritability, agitation, or aggression??NO PSS-3/ESS-6 Secondary Screen Scoring:?Severe PSS-3/ESS-6 Scoring Interpretation Legend PSS-3 screen incomplete [Blank PSS-3 questions #2 OR #3a] PSS-3 screen unable to assess [Unable to Assess responses on PSS-3 questions #2 AND #3a] Mild [No current attempt AND No suicide plan or intent AND Score (0-2)] Moderate [No current attempt AND Active suicidal ideation with plan or intent (not both) OR Score (3-4)] Severe [Current attempt OR Suicide plan and intent OR Score (5-6)] HI/Violence/Property Destruction:?no history of violent/aggressive behavior Access to Firearms:?none Grave disability/Poor self-care:?yes poor self-care decline in activities of daily living Psychosis:?Yes Protective Factors:? High Utilization Criteria:?None Signs of Secondary Gain:?None MENTAL STATUS EXAM Appearance and Attire:?dressed in hospital attire Psychomotor agitation:?calm kinetics Attitude and behavior:?calm, cooperative Speech:?spontaneous, fluent, normal volume Mood:? Dysthymic Affect:?blunted and restricted Thought Process:?some loosening of associations, concrete in thought processes Thought content:?paranoid Perception:?did appear at times to be responding to internal stimuli Intelligence:? Low average Abstraction:? Poor reasoning Language:? No abnormality Orientation:? Oriented x 4 Sensorium:? Normal Knowledge:? Appropriate for education and socioeconomic status Memory:? Impaired to Executive function Insight:?poor insight Judgment:?poor judgment SUMMARY RISK ASSESSMENT Current Suicide Risk Elevated??PSS-3/ESS-6 Scoring: Severe? Current Violence Risk Elevated??No Issues with ability to care for self.?Yes, decline in activities of daily living SAFE-T Risk Factors Suicidal Behavior:? ? History of prior suicide attempts ??Aborted suicide attempt ? History of prior SI ??Self-injurious behavior Current/Past Psychiatric Disorders:? ?Mood disorders ? Psychotic Disorders ? History of inpatient hospitalization ??ADHD ??TBI ??PTSD ??Cluster B personality disorders ??Conduct disorders ??Medical comorbidity ??Recent onset of illness Current/Past Substance Use:? ??Active ETOH/Opiates/Other Substance abuse ??History of ETOH/Opiates/Other Substance abuse ??Active withdrawal or risk of withdrawal from ETOH/Opiate Zamudio Symptoms:? ??Anhedonia ??Impulsivity ? Hopelessness ? Anxiety/Panic ? Global insomnia (difficulty falling asleep, maintaining sleep, or falling back to sleep) ? Command Hallucinations Family History Risk Factors:? ??Suicide Attempts ??Psychiatric disorders requiring hospitalization ??Suicidal Behavior Precipitants/Stressors/Interpersonal/Triggers:? ??Events leading to humiliation, shame, or despair ??Family turmoil/chaos ??Chronic physical pain or other acute medical problems ??Perceived burden on others ??Ongoing medical illness ??History of physical or sexual abuse ??Legal problems ??Intoxication ??Social isolation ??Inadequate social support Treatment:? ? Medication management ? Therapy ??Satisfied with current treatment ??Recent discharge from a psychiatric hospital ??Recent change in provider or treatment ??Access to firearms/ammunition Protective Factors Internal:? ??Ability to cope with stress ??Identifies reasons for living ??Frustration tolerance ??Religion beliefs ??Fear of or the actual act of killing self External:? ??Cultural factors against suicide ??Beloved pets ??Engaged in work or school ??Spiritual and/or moral attitudes against suicide ? Supportive social network of family or friends ??Responsibility to children/others ??Positive therapeutic relationships Lyndsay Olson DO
--- NOTE | 2023-07-16 21:30 | DI.CT_ITS ---
Exam(s) CT HEAD WO EXAM: CT HEAD WO CLINICAL HISTORY: multiple falls at home. TECHNIQUE: Imaging Protocol: Axial computed tomography images with coronal and sagittal reformatted images were created and reviewed COMPARISON: CT CT BRAIN NECK CTA from 06/28/2023 FINDINGS: There are no skull fractures. There is no fluid in the visualized paranasal sinuses. There is no evidence of intracranial hemorrhage, mass effect, or shift of midline structures. There are no extra-axial fluid collections. The ventricles are not enlarged or shifted and there is no blo od within the ventricular system nor within the basal cisterns. IMPRESSION: No acute intracranial findings on this noninfused CT scan of the brain. RADIATION DOSE DELIVERED: 778.31mGy.cm Total DLP DATA REPOSITORY: All CT scans at this facility are submitted to the National Radiology Data Registry (NRDR) Dose Index Registry (DIR) with the [employer] (ACR). RADIATION OPTIMIZATION: All CT scans at this facility use at least one of these dose optimization te chniques: automated exposure control; mA and/or kV adjustment per patient size (includes targeted exa ms where dose is matched to clinical indication); or iterative reconstruction.
--- NOTE | 2023-07-16 21:30 | RT.EKG_ITS ---
APPROVED REPORT Exam: Resting ECG Reason for Exam: QT check Patient Location: E HR:69 bpm ECG Measurements Heart Rate 69 AXIS OR 163 P 33 QRSd 103 QRS -22 QT 401 T 71 QTc 426 Conclusion Sinus rhythm...normal P axis, V-rate 60- 99 Atrial premature complex...SV complex w/ short R-R interval Physician: no stemi
[2023-07-16 22:28] LABS: Abs Immature Grans 0.01 10^3/uL (0.0-0.06); Absolute Basophil Count 0.05 10^3/uL (0.0-0.2); Absolute Eosinophil Count 0.22 10^3/uL (0.0-0.7); Absolute Neutrophil Count 2.75 10^3/uL (1.2-6.7); Basophils % 0.8; Eosinophils % 3.5; HCT 35.4 % (36.0-46.0); HGB 11.5 g/dL (11.2-15.7); Immature Grans % 0.2; Lymphocytes % 43.3; MCH 27.4 pg (27.0-33.0); MCHC 32.5 % (32.0-36.0); MCV 85 fL (80-95); MPV 9.9 fL (8.0-11.0); Neutrophils % 44.2; Platelet Count 333 10^3/uL (130-400); RBC 4.19 10^6/uL (3.93-5.22); RDW 15.4 % (11.7-14.6); RDW-SD 47.4 fL; WBC 6.23 10^3/uL (4.4-10.8)
[2023-07-16 22:44] LABS: ALT 16 U/L (14-59); AST 11 U/L (15-37); Albumin 3.5 g/dL (3.4-5.0); Alkaline Phosphatase 104 U/L (46-116); Anion Gap 9.7 mmol/L (3-11); BUN 23 mg/dL (7-18); Bilirubin, Direct 0.1 mg/dL (0.0-0.2); Bilirubin, Total 0.4 mg/dL (0.2-1.0); CO2 28.3 mmol/L (21.0-32.0); CREATININE 1.3 mg/dL (0.55-1.02); Calcium 10.1 mg/dL (8.5-10.1); Chloride 105 mmol/L (98-107); Estimated GFR 47.08 (mL/min/1.73m2); Glucose 124 mg/dL (74-106); Potassium 3.5 mmol/L (3.5-5.1); Sodium 143 mmol/L (136-145); Total Protein 7.6 g/dL (6.4-8.2)
[2023-07-16 22:47] LABS: Ammonia 22 umol/L (11-32)
--- NOTE | 2023-07-16 22:48 | ED.PROG_ITS ---
Date of service: 07/16/23 Time of Service: 22:48 Medical Decision Making This patient was signed out to me. Please see previous notes for H&P and initial eval. In brief, 58yo F with hx of bipolar and schizophrenia, presenting with SI and AH, voluntary, medically cleared, home meds ordered, pending suellen- psych placement. Likely meets involuntary criteria should she no longer be willing to remain on an voluntary basis. Overnight no acute events. Signed out to oncoming physician; plan remains as above. Quality:SDOH Health Related Social Needs: Health related social needs risk of homeless, transpo insecurity Health related social needs details unemployed and dis abled and lives in [place], [place] with her and caregiver (Sabrina Sign Out Sign Out Data: Sign Out Comment: Patient voluntary until tries to leave. In-patient bed search for suellen/med psych. Polypharmacy, SI, Depression, ?Parkinsonian dementia onset PT/OT tomorrow ?Neuro consult Home meds reconciled and ordered routine. Last updated by Erwin Black PA at 07/16/23 22:38 Discharge Plan Discharge Details Chief Complaint: PsychEval Clinical Impression: Suicidal ideation, Depression, Polypharmacy Primary Care Provider: Catherine Cintron ED Provider: Ree Hansen Home Meds and New Rx's Prescriptions: No Action buspirone 10 mg tablet 10 mg PO QHS lamotrigine 150 mg tablet 150 mg PO BID Qty: 180 3RF rizatriptan 10 mg tablet 10 mg PO ONCE PRN (Reason: migraine headache) Qty: 12 3RF Rx Instructions: take at onset of headache; ok to take second in 1 hour; no more than 2 in a 24 hour period levothyroxine 100 MCG tablet 100 mcg PO DAILY (DME) lancets 33 gauge misc 1 ea Miscellaneous DIRECTED folic acid 1 mg tablet 1 mg PO DAILY multivitamin Tablet 1 tab PO DAILY cholecalciferol (vitamin D3) 10 mcg (400 unit) capsule 10 mcg PO DAILY metformin 500 mg tablet 500 mg PO DAILY atorvastatin 10 mg tablet 10 mg PO DAILY Patient Comments: TAKE ONE TABLET BY MOUTH ONCE DAILY AT BEDTIME amitriptyline 25 mg tablet 50 mg PO HS Patient Comments: 03/21/23 risperidone 4 mg tablet 4 mg PO HS acetaminophen 500 mg Tablet 1,000 mg PO TID Qty: 0 0RF polyethylene glycol 3350 17 gram Powder In Packet 17 g PO BID PRN PRN (Reason: Constipation) Qty: 0 0RF nabumetone 750 mg tablet 750 mg PO BID Qty: 60 2RF Rx Instructions: 750 mg orally; topiramate 100 mg tablet 100 mg PO BID Qty: 180 3RF
[2023-07-16] MEDS: risperiDONE 1 MG TAB 2 MG PO (22:53)
--- NOTE | 2023-07-16 22:53 | DI.VRAD_ITS ---
PROCEDURE INFORMATION: Exam: CT Head Without Contrast Exam date and time: 07/16/2023 10:19 PM Age: 58 years old Clinical indication: Other: Multiple falls at home TECHNIQUE: Imaging protocol: Computed tomography of the head without contrast. Radiation optimization: All CT scans at this facility use at least one of these dose optimization techniques: automated exposure control; mA and/or kV adjustment per patient size (includes targeted exams where dose is matched to clinical indication); or iterative reconstruction. COMPARISON: MR BRAIN WO 06/28/2023 3:52 PM FINDINGS: Brain: Normal. No hemorrhage. Unremarkable white matter. No mass effect. Cerebral ventricles: No ventriculomegaly. Paranasal sinuses: Visualized sinuses are unremarkable. No fluid levels. Mastoid air cells: Visualized mastoid air cells are well aerated. Orbital cavities: Post bilateral cataract surgery. Bones/joints: Unremarkable. No acute fracture. Soft tissues: Unremarkable. IMPRESSION: No intracranial posttraumatic changes. Dictated and Authenticated by: Agapito Kaur MD. Ordering:JOYCE Hood MD
--- NOTE | 2023-07-16 22:54 | PDOC.MHCN ---
Date of service: 07/16/23 Time of Service: 19:15 PHQ-9 Over the last 2 weeks, how often have you been bothered by any of the following problems? 1. Little interest or pleasure in doing things: several days 2. Feeling down, depressed, or hopeless: nearly every day 3. Trouble falling or staying asleep, or sleeping too much: nearly every day 4. Feeling tired or having little energy: nearly every day 5. Poor appetite or overeating: not at all 6. Feeling bad about yourself - or that you are a failure or have let yourself and your family down: several days 7. Trouble concentrating on things, such as reading the newspaper or watching television: nearly every day 8. Moving or speaking so slowly that other people could have noticed? - Or the opposite - being so fidgety or restless that you have been moving around a lot more than usual: nearly every day 9. Thoughts that you would be better off or of hurting yourself in some way: nearly every day Total score: 20 Source: Developed by Drs. Franck Lagos, Leora Cramer, Hector Palmer and colleagues, with an educational terence from [employer]. Suicide Severity Rate CSSRS Have you wished you were or wished you could go to sleep and not wake up?: Yes Have you actually had any thoughts of killing yourself?: Yes CSSRS2 Have you been thinking about how you might do this?: Yes Have you had these thoughts and had some intention of acting on them?: Yes Have you started to work out or worked out the details of how to kill yourself? 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 Intent: yes, has intent. Plan: yes,has a plan. History of suicide attempt: yes,history of suicide attempt reported. Details of previous suicide attempt: Reported during assessment 4 months ago, reported to MD different time frame. Risk: Does risk to harm exist?: yes. Access to means: No. Risk: High Risk Duty to warn indicated: No Asssessment/Mental Status Appearance: Disheveled Attitude: Cooperative Behavior: Psychomotor retardation Speech: Soft, Slow and Slurred Affect: Flat Mood: Depressed Thought process: Blocking Hallucinations: yes, Visual Delusions: No evidence Attention: Wandering Perception: Not impaired Orientation: Disoriented in Time Memory: Impaired in: (Poor historian ) Remote Insight: Fair Judgement: Fair (Client came in acknowledging needing support for MH showing fair Judgment ) Neurovegetative Symptoms Sleep: Increase Appetitie: No change Interests: Decrease Energy: Decrease Libido: Not applicable Substance Use: Do you use nicotine?: No Have you used substances in the last 7 days?: No Additional Issues: Medical Concerns: Yes Voluntarily presenting for services: Yes Impression Client is a 58- year-old female presenting at [facility] for crisis assessment via [facility] due to reports of suicidal ideation and visual hallucinations. Client presents orientated to person and place, disorientated to time. Client presents disheveled, thought blocking, cooperative, Speech rate and rhythm slow and slurred. Client reported SI being a 10.5 when asked on a Likert scale 0/10. Client endorsing depressive symptoms scoring a 20. Ct reported having visual hallucinations floating knifes and curtains reported trigger SI thoughts. Client identified feeling that ct cannot be safe at home. Client reported recent attempt via OD, however reported different timeframe with provider. Collateral was completed with Dr. Black, concerns with mental status, Dr. Black indicated possible onset of parkinsonian dementia.? Telepsych met with client it was reported belief of possible parkinsonian dementia, reported per records questions an element of polypharmacy. Client pursing voluntary placement at [facility], it was stated EE will be pursued if client tries to leave. Plan/Disposition Recommended Disposition: Hospitalization (Referral submitted to [facility]) facilities contacted. Plan: client awaiting voluntary placement at [facility], reported EE will be pursued if client is to try to leave. Person reported agreement to plan: Yes Facilities contacted if Applicable Other: Other ([facility]/ [facility]) accepted Information Sent to Accepting Facility: Referral (Referral submitted) Reports/communication Outcome discussed with: ED/Personnel
[2023-07-16] MEDS: Acetaminophen 500 MG TAB (22:55)
[2023-07-16 23:12] LABS: COVID-19 PCR Negative (Negative); Influenza A PCR Negative (Negative); Influenza B PCR Negative (Negative); RSV PCR Negative (Negative)
[2023-07-16 23:17] LABS: Source Nasopharynx
[2023-07-16 23:38] LABS: Bilirubin Negative (Negative); Blood Negative (Negative); Glucose Negative (Negative); Ketones Negative (Negative); Leukocyte Esterase Trace (Negative); Nitrite Negative (Negative); Specific Gravity >= 1.030 (1.005-1.025); Urobilinogen 0.2 mg/dL (Up to 0.2); pH 5.5 (5-8)
[2023-07-16 23:46] LABS: Bacteria Few HPF (Negative); Clarity Sl Cloudy (Clear); Crystals Negative HPF (Negative); Epithelial Cells Many HPF (Negative); Mucus Negative (Negative); RBC 0-2 HPF (0-2)
[2023-07-16 23:47] LABS: C & S Indicated? No/Sq. Contamination; Casts 0-2 Hyaline LPF (Negative)
[2023-07-17] MEDS: Acetaminophen 500 MG TAB 1000 MG PO ×3 (08:20→19:39)
[2023-07-17] MEDS: metFORMIN 500 MG TAB PO (08:21)
[2023-07-17] MEDS: Cholecalciferol (Vitamin D3) 400 UNIT TAB PO (08:21)
[2023-07-17] MEDS: Levothyroxine 100 MCG TAB PO (08:22)
[2023-07-17] MEDS: Topiramate 100 MG TAB PO ×2 (08:22→19:39)
[2023-07-17] MEDS: Multivitamin TAB 1 TAB PO (08:22)
[2023-07-17] MEDS: risperiDONE 1 MG TAB 2 MG PO ×2 (08:23→19:39)
[2023-07-17] MEDS: Folic Acid 1 MG TAB PO (08:23)
[2023-07-17] MEDS: lamoTRIgine 100 MG TAB 150 MG PO (08:24)
[2023-07-17 10:42] VITALS: BP 138/78; PULSE 65; RESP 18; TEMP 36.2; O2SAT 95
--- NOTE | 2023-07-17 13:22 | PDOC.CMPRO ---
Date of service: 07/17/23 Time of Service: 13:23 Care Management Progress Note Progress Note Text Progress Note Text: CM met with staff in the ED to huddle regarding Celina's plan of care. Per report, Celina presented to the ED after experiencing intrusive thoughts that tell her to end her life by cutting her throat with a knife. Celina is a [employer] client, and is well known to [facility]. She has an active safety plan which includes deep breathing and calling supports, as well as NK when she has these intrusive thoughts. She is currently living alone in [facility]. PT consult was recommended by provider; she was evaluated and found to be at her baseline mobility. MD and psychiatric consult agree that she is a low to moderate risk, as risks have previously been mitigated at her home (she only has butter knives in her home). Per [facility], she remains voluntary and is seeking inpatient psychiatric treatment. She reports not hearing voices today, but recalling what the voices were telling her to do yesterday. Referrals were sent to [facility] and [facility], both geriatric psychiatric facilities; she is being reviewed by both, and has a potential bed offer at [facility] for tomorrow, 07/18/23. CM will continue to follow.
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
--- NOTE | 2023-07-17 17:09 | ED.PROG_ITS ---
Date of service: 07/17/23 Time of Service: 17:09 Medical Decision Making Care was signed out by Dr. Hansen at start of the shift. Patient notably medically cleared. Plan at signout was to await for psychiatric treatment placement. Quality:SDOH Health Related Social Needs: Health related social needs risk of homeless, transpo insecurity Health related social needs details unemployed and dis abled and lives in [place], [place] with her and caregiver (Sabrina Sign Out Sign Out Data: Sign Out Comment: Patient voluntary until tries to leave. In-patient bed search for suellen/med psych. Polypharmacy, SI, Depression, ?Parkinsonian dementia onset PT/OT tomorrow ?Neuro consult Home meds reconciled and ordered routine. Last updated by Erwin Black PA at 07/16/23 22:38 Sign Out Comment: Depression, medically cleared, home meds in, TP saw. Pending suellen psych placement. Voluntary but likely meets EE criteria. PT/OT today. Last updated by Ree Hansen MD at 07/17/23 06:18 Discharge Plan Discharge Details Chief Complaint: PsychEval Clinical Impression: Suicidal ideation, Depression, Polypharmacy Primary Care Provider: Catherine Cintron ED Provider: Nigel Rubin Home Meds and New Rx's Prescriptions: No Action buspirone 10 mg tablet 10 mg PO QHS lamotrigine 150 mg tablet 150 mg PO BID Qty: 180 3RF rizatriptan 10 mg tablet 10 mg PO ONCE PRN (Reason: migraine headache) Qty: 12 3RF Rx Instructions: take at onset of headache; ok to take second in 1 hour; no more than 2 in a 24 hour period levothyroxine 100 MCG tablet 100 mcg PO DAILY (DME) lancets 33 gauge misc 1 ea Miscellaneous DIRECTED folic acid 1 mg tablet 1 mg PO DAILY multivitamin Tablet 1 tab PO DAILY cholecalciferol (vitamin D3) 10 mcg (400 unit) capsule 10 mcg PO DAILY metformin 500 mg tablet 500 mg PO DAILY atorvastatin 10 mg tablet 10 mg PO DAILY Patient Comments: TAKE ONE TABLET BY MOUTH ONCE DAILY AT BEDTIME amitriptyline 25 mg tablet 50 mg PO HS Patient Comments: 03/21/23 risperidone 4 mg tablet 4 mg PO HS acetaminophen 500 mg Tablet 1,000 mg PO TID Qty: 0 0RF polyethylene glycol 3350 17 gram Powder In Packet 17 g PO BID PRN PRN (Reason: Constipation) Qty: 0 0RF nabumetone 750 mg tablet 750 mg PO BID Qty: 60 2RF Rx Instructions: 750 mg orally; topiramate 100 mg tablet 100 mg PO BID Qty: 180 3RF
--- NOTE | 2023-07-17 18:03 | CMSP_ITS ---
Date of service: 07/17/23 Time of Service: 18:03 Care Management Safety Plan Status Status: Voluntary Reason for Wait Reason for Wait: Inpatient Admission Safety Plan Safety Plan: VOLUNTARY FOR INPATIENT PSYCHIATRIC STABILIZATION.? Patient is appropriate in all interactions since arriving at [facility]; Pt has demonstrated appropriate coping and communication skills, has articulated his or her needs and concerns and is fully engaged during staff interactions. Safety plan has been established with patient, and care team, to adhere to patient goals, identify restrictions based on behavioral status, address nutrition, and determine allowed personal belongings, tools for hygiene and personal care. Determine level of activity including ambulation, level of supervision, visitors, and determine privileges based on behaviors and level of engagement by pt. SAFETY PLAN: 1. Will remain on suicide precautions, in paper clothes 2. Will remain in Zone B under direct supervision of one-on-one staff at all times provided by [employer]; VIOLETA, HOME ECONOMICS EXTENSION WORKER working manager. 3. May have paper cups, plates, finger foods as well as a cardboard spoon with which to eat meals. 4. Follow [facility] Management of the Admitted Behavioral Health Patient policy. 5. Shower available in Zone B without restriction. 6. Personal belongings-soft items permitted at RN discretion. 7. Visitors- at RN discretion. 8. Activities: soft cart items approved per RN discretion. 9.? Bathroom available in Zone B without restriction. 10. Phone: incoming/outgoing calls limited to [facility] cordless phone at RN dis cretion. Due to VOLUNTARY status, if patient wishes to leave [facility], staff will contact [facility] Crisis Screener ([phone]) and Marketing Secretary ([phone]) as soon as possible. In the event of elopement, notify [facility] Police ([phone]). Patient is currently voluntarily at [facility] and seeking inpatient admission when a bed becomes available. [facility] Frontline Income Tax Advisor will continue seeking placement. Please contact the Marketing Secretary ([phone]) and [facility] Income Tax Advisor ([phone]) for any needed changes in the Safety Plan. Safety plan has been provided to interdepartmental care team.
--- NOTE | 2023-07-17 18:03 | PDOC.CMSAFE ---
Date of service: 07/17/23 Time of Service: 18:03 Care Management Safety Plan Status Status: Voluntary Reason for Wait Reason for Wait: Inpatient Admission Safety Plan Safety Plan: VOLUNTARY FOR INPATIENT PSYCHIATRIC STABILIZATION.? Patient is appropriate in all interactions since arriving at [facility]; Pt has demonstrated appropriate coping and communication skills, has articulated his or her needs and concerns and is fully engaged during staff interactions. Safety plan has been established with patient, and care team, to adhere to patient goals, identify restrictions based on behavioral status, address nutrition, and determine allowed personal belongings, tools for hygiene and personal care. Determine level of activity including ambulation, level of supervision, visitors, and determine privileges based on behaviors and level of engagement by pt. SAFETY PLAN: 1. Will remain on suicide precautions, in paper clothes 2. Will remain in Zone B under direct supervision of one-on-one staff at all times provided by [employer]; VIOLETA, PLATER HELPER vacuum filter operator. 3. May have paper cups, plates, finger foods as well as a cardboard spoon with which to eat meals. 4. Follow [facility] Management of the Admitted Behavioral Health Patient policy. 5. Shower available in Zone B without restriction. 6. Personal belongings-soft items permitted at RN discretion. 7. Visitors- at RN discretion. 8. Activities: soft cart items approved per RN discretion. 9.? Bathroom available in Zone B without restriction. 10. Phone: incoming/outgoing calls limited to [facility] cordless phone at RN discretion. Due to VOLUNTARY status, if patient wishes to leave [facility], staff will contact [facility] Crisis Screener ([phone]) and Ball Maker ([phone]) as soon as possible. In the event of elopement, notify [facility] Police ([phone]). Patient is currently voluntarily at [facility] and seeking inpatient admission when a bed becomes available. [facility] Frontline Wharf Worker will continue seeking placement. Please contact the Ball Maker ([phone]) and [facility] Wharf Worker ([phone]) for any needed changes in the Safety Plan. Safety plan has been provided to interdepartmental care team.
[2023-07-17] MEDS: Amitriptyline 50 MG TAB PO (19:38)
[2023-07-17] MEDS: Atorvastatin 10 MG TAB PO (19:38)
--- NOTE | 2023-07-17 23:30 | ED.PROG_ITS ---
Date of service: 07/17/23 Time of Service: 23:30 Medical Decision Making This patient was signed out to me. Please see previous notes for H&P and initial eval. In brief, 58yo F with hx of bipolar and schizophrenia, presenting with SI and AH, voluntary, medically cleared, home meds ordered, pending suellen- psych placement. Likely meets involuntary criteria should she no longer be willing to remain on an voluntary basis. Overnight appeared to be sleeping. No behavioral events. Did not wake for assessment. Signed out to oncoming physician; plan remains as above. Quality:SDOH Health Related Social Needs: Health related social needs risk of homeless, transpo insecurity Health related social needs details unemployed and dis abled and lives in [place], [place] with her and caregiver (Sabrina Sign Out Sign Out Data: Sign Out Comment: Patient voluntary until tries to leave. In-patient bed search for suellen/med psych. Polypharmacy, SI, Depression, ?Parkinsonian dementia onset PT/OT tomorrow ?Neuro consult Home meds reconciled and ordered routine. Last updated by Erwin Black PA at 07/16/23 22:38 Sign Out Comment: Depression, medically cleared, home meds in, TP saw. Pending suellen psych placement. Voluntary but likely meets EE criteria. PT/OT today. Last updated by Ree Hansen MD at 07/17/23 06:18 Sign Out Comment: Patient here voluntarily awaiting psychiatric treatment facility placement. Last updated by Nigel Rubin MD at 07/17/23 17:37 Sign Out Comment: voluntary psych, awaiting placement; no issues today Last updated by Mark Menezes MD at 07/17/23 22:58 Discharge Plan Discharge Details Chief Complaint: PsychEval Clinical Impression: Suicidal ideation, Depression, Polypharmacy Primary Care Provider: Catherine Cintron ED Provider: Ree Hansen Home Meds and New Rx's Prescriptions: No Action buspirone 10 mg tablet 10 mg PO QHS lamotrigine 150 mg tablet 150 mg PO BID Qty: 180 3RF rizatriptan 10 mg tablet 10 mg PO ONCE PRN (Reason: migraine headache) Qty: 12 3RF Rx Instructions: take at onset of headache; ok to take second in 1 hour; no more than 2 in a 24 hour period levothyroxine 100 MCG tablet 100 mcg PO DAILY (DME) lancets 33 gauge misc 1 ea Miscellaneous DIRECTED folic acid 1 mg tablet 1 mg PO DAILY multivitamin Tablet 1 tab PO DAILY cholecalciferol (vitamin D3) 10 mcg (400 unit) capsule 10 mcg PO DAILY metformin 500 mg tablet 500 mg PO DAILY atorvastatin 10 mg tablet 10 mg PO DAILY Patient Comments: TAKE ONE TABLET BY MOUTH ONCE DAILY AT BEDTIME amitriptyline 25 mg tablet 50 mg PO HS Patient Comments: 03/21/23 risperidone 4 mg tablet 4 mg PO HS acetaminophen 500 mg Tablet 1,000 mg PO TID Qty: 0 0RF polyethylene glycol 3350 17 gram Powder In Packet 17 g PO BID PRN PRN (Reason: Constipation) Qty: 0 0RF nabumetone 750 mg tablet 750 mg PO BID Qty: 60 2RF Rx Instructions: 750 mg orally; topiramate 100 mg tablet 100 mg PO BID Qty: 180 3RF
[2023-07-18] MEDS: Levothyroxine 100 MCG TAB PO (06:42)
[2023-07-18 07:09] VITALS: BP 122/79; PULSE 65; RESP 18; TEMP 35.8; O2SAT 96
[2023-07-18] MEDS: Acetaminophen 500 MG TAB 1000 MG PO ×2 (10:34→20:00)
[2023-07-18] MEDS: Cholecalciferol (Vitamin D3) 400 UNIT TAB PO (10:35)
[2023-07-18] MEDS: Folic Acid 1 MG TAB PO (10:36)
[2023-07-18] MEDS: lamoTRIgine 100 MG TAB 150 MG PO ×2 (10:37→20:02)
[2023-07-18] MEDS: Multivitamin TAB 1 TAB PO (10:38)
[2023-07-18] MEDS: metFORMIN 500 MG TAB PO (10:38)
[2023-07-18] MEDS: Topiramate 100 MG TAB PO ×2 (10:40→20:02)
[2023-07-18] MEDS: risperiDONE 1 MG TAB 2 MG PO ×2 (10:40→20:02)
--- NOTE | 2023-07-18 19:03 | CMSP_ITS ---
Date of service: 07/18/23 Time of Service: 19:03 Care Management Safety Plan Status Status: Voluntary Reason for Wait Reason for Wait: Inpatient Admission Safety Plan Safety Plan: VOLUNTARY FOR INPATIENT PSYCHIATRIC STABILIZATION.? Patient is appropriate in all interactions since arriving at [facility]; Pt has demonstrated appropriate coping and communication skills, has articulated his or her needs and concerns and is fully engaged during staff interactions. Safety plan has been established with patient, and care team, to adhere to patient goals, identify restrictions based on behavioral status, address nutrition, and determine allowed personal belongings, tools for hygiene and personal care. Determine level of activity including ambulation, level of supervision, visitors, and determine privileges based on behaviors and level of engagement by pt. SAFETY PLAN: 1. Will remain on suicide precautions, in paper clothes 2. Will remain in Zone B under direct supervision of one-on-one staff at all times provided by [employer]; VIOLETA, FINISHING TUNNEL OPERATOR sandblaster supervisor. 3. May have paper cups, plates, finger foods as well as a cardboard spoon with which to eat meals. 4. Follow [facility] Management of the Admitted Behavioral Health Patient policy. 5. Shower available in Zone B without restriction. 6. Personal belongings-soft items permitted at RN discretion. 7. Visitors- at RN discretion. 8. Activities: soft cart items approved per RN discretion. 9.? Bathroom available in Zone B without restriction. 10. Phone: incoming/outgoing calls limited to [facility] cordless phone at RN disc retion. Due to VOLUNTARY status, if patient wishes to leave [facility], staff will contact [facility] Crisis Screener ([phone]) and Sound Effects Supervisor ([phone]) as soon as possible. In the event of elopement, notify [facility] Police ([phone]). Patient is currently voluntarily at [facility] and seeking inpatient admission when a bed becomes available. [facility] Frontline Review Assistant will continue seeking placement. Please contact the Sound Effects Supervisor ([phone]) and [facility] Review Assistant ([phone]) for any needed changes in the Safety Plan. Safety plan has been provided to interdepartmental care team.
--- NOTE | 2023-07-18 19:03 | PDOC.CMSAFE ---
Date of service: 07/18/23 Time of Service: 19:03 Care Management Safety Plan Status Status: Voluntary Reason for Wait Reason for Wait: Inpatient Admission Safety Plan Safety Plan: VOLUNTARY FOR INPATIENT PSYCHIATRIC STABILIZATION.? Patient is appropriate in all interactions since arriving at [facility]; Pt has demonstrated appropriate coping and communication skills, has articulated his or her needs and concerns and is fully engaged during staff interactions. Safety plan has been established with patient, and care team, to adhere to patient goals, identify restrictions based on behavioral status, address nutrition, and determine allowed personal belongings, tools for hygiene and personal care. Determine level of activity including ambulation, level of supervision, visitors, and determine privileges based on behaviors and level of engagement by pt. SAFETY PLAN: 1. Will remain on suicide precautions, in paper clothes 2. Will remain in Zone B under direct supervision of one-on-one staff at all times provided by [employer]; VIOLETA, AUTOMOTIVE UPHOLSTERER call or contact centre coach. 3. May have paper cups, plates, finger foods as well as a cardboard spoon with which to eat meals. 4. Follow [facility] Management of the Admitted Behavioral Health Patient policy. 5. Shower available in Zone B without restriction. 6. Personal belongings-soft items permitted at RN discretion. 7. Visitors- at RN discretion. 8. Activities: soft cart items approved per RN discretion. 9.? Bathroom available in Zone B without restriction. 10. Phone: incoming/outgoing calls limited to [facility] cordless phone at RN discretion. Due to VOLUNTARY status, if patient wishes to leave [facility], staff will contact [facility] Crisis Screener ([phone]) and [employer] Hazmat Tanker Driver ([phone]) as soon as possible. In the event of elopement, notify [facility] Police ([phone]). Patient is currently voluntarily at [facility] and seeking inpatient admission when a bed becomes available. [facility] Frontline Gravity Meter Operator will continue seeking placement. Please contact the [employer] Hazmat Tanker Driver ([phone]) and [facility] Gravity Meter Operator ([phone]) for any needed changes in the Safety Plan. Safety plan has been provided to interdepartmental care team.
--- NOTE | 2023-07-18 19:04 | PDOC.CMPRO ---
Date of service: 07/18/23 Time of Service: 19:04 Care Management Progress Note Progress Note Text Progress Note Text: CM met with staff to huddled regarding Celina's plan of care. Per KEESHA Cardona, [facility] psychiatric facility is considering Celina for admission today, although they requested clarification on her insurance coverage. CM reviewed insurance coverage; she has MCR A&B as well as JULY. CM faxed demographics to [facility] as requested. She is still being reviewed at [facility]. No bed offer was made today by either facility. No changes to her safety plan at this time. CM will continue to follow.
[2023-07-18] MEDS: Amitriptyline 50 MG TAB PO (20:01)
[2023-07-18] MEDS: Atorvastatin 10 MG TAB PO (20:01)
--- NOTE | 2023-07-18 20:37 | PDOC.MHPN2 ---
Date of service: 07/17/23 Time of Service: 12:05 Mental Health Emergency Note Release [facility] release signed:: Yes Reason for Visit Per ESC Ariel's note from 07/16/23: Client presenting to [facility] for crisis assessment due to reporting suicidal ideation and depression and visual hallucination which client identifies as a trigger. client is a established at [facility] and enrolled in [employer]. This sign writer hand meets with the client in person at [facility] for re-assessment while awaiting for voluntary inpatient treatment. In the last 2 weeks has the pt presented for ES prior to today?: No Client Information Client is: [employer] Well Housed: Yes Additional Issues: Assaultive/Threatening Behavior: No Medical Concerns: No Client engaged in active self harm w/weapon: No Threatening to run away: No Child reported abuse/neglect: No Voluntarily presenting for services: Yes Domestic violence is a concern: No Extreme Psychosis or extreme behavior is present: No Impression Per report of ESC Ariel's note from last evening 07/16/23: Client is a 58- year-old female presenting at [facility] for crisis assessment via [facility] due to reports of suicidal ideation and visual hallucinations. Client presents orientated to person and place, disorientated to time. Client presents disheveled, thought blocking, cooperative, Speech rate and rhythm slow and slurred. Client reported SI being a 10.5 when asked on a Likert scale 0/10. Client endorsing depressive symptoms scoring a 20. Ct reported having visual hallucinations floating knifes and curtains reported trigger SI thoughts. Client identified feeling that ct cannot be safe at home. Today the client is sitting up in her hospital bed eating lunch when this sign writer hand arrived in person. The client reports to this sign writer hand that she is doing ok this afternoon. The client reports that she was brought to the hospital last night due to seeing floating knives in the curtains, which resulted in suicidal ideations. The client reports that she is still seeing the knives, however they are at a distance and denies suicidal ideations. The client reports that both her mood and appetite are good and reports that she did not sleep very well last night waking up frequently. Although the client seems to be improving the client is still awaiting at [facility] on voluntary status pending admission to an inpatient facility. Plan/Disposition Recommended Disposition: Hospitalization (Referrals have been faxed to [facility] and [facility]) No. Plan: Awaiting voluntary placement referral to Geriatric psych i.e., [facility]/ [facility]. Angel at [facility] reports possible admission for tomorrow and JOHN is reviewing the referral. Person reported agreement to plan: Yes Reports/communication Outcome discussed with: ED/Personnel (Verbal passover given to ED provider Dr. Rubin and charge nurse Ninoska)
--- NOTE | 2023-07-18 23:00 | ED.PROG_ITS ---
Date of service: 07/18/23 Time of Service: 23:00 Medical Decision Making Patient pending voluntary psychiatric placement for depression. No issues during shift. Quality:SDOH Health Related Social Needs: Health related social needs risk of homeless, transpo insecurity Health related social needs details unemployed and dis abled and lives in [place], [place] with her and caregiver (Sabrina Sign Out Sign Out Data: Sign Out Comment: Patient voluntary until tries to leave. In-patient bed search for [facility]/med psych. Polypharmacy, SI, Depression, ?Parkinsonian dementia onset PT/OT tomorrow ?Neuro consult Home meds reconciled and ordered routine. Last updated by Erwin Black PA at 07/16/23 22:38 Sign Out Comment: Depression, medically cleared, home meds in, TP saw. Pending [facility] psych placement. Voluntary but likely meets EE criteria. PT/OT today. Last updated by Ree Hansen MD at 07/17/23 06:18 Sign Out Comment: Patient here voluntarily awaiting psychiatric treatment facility placement. Last updated by Nigel Rubin MD at 07/17/23 17:37 Sign Out Comment: voluntary psych, awaiting placement; no issues today Last updated by Mark Menezes MD at 07/17/23 22:58 Sign Out Comment: Awaiting placement. No issues overnight. Last updated by Ree Hansen MD at 07/18/23 06:02 Sign Out Comment: Awaiting placement, patient stable, voluntary psychiatric admission. Last updated by Eriwn Templeton DO at 07/18/23 16:51 Sign Out Comment: pending Voluntary psych placement stable, medically cleared no issues during shift would likely need EE if she wants to leave Last updated by Jud Padron MD at 07/18/23 22:28 Discharge Plan Discharge Details Chief Complaint: PsychEval Clinical Impression: Suicidal ideation, Depression, Polypharmacy Primary Care Provider: Catherine Cintron ED Provider: Jud Padron Home Meds and New Rx's Prescriptions: No Action buspirone 10 mg tablet 10 mg PO QHS lamotrigine 150 mg tablet 150 mg PO BID Qty: 180 3RF rizatriptan 10 mg tablet 10 mg PO ONCE PRN (Reason: migraine headache) Qty: 12 3RF Rx Instructions: take at onset of headache; ok to take second in 1 hour; no more than 2 in a 24 hour period levothyroxine 100 MCG tablet 100 mcg PO DAILY (DME) lancets 33 gauge misc 1 ea Miscellaneous DIRECTED folic acid 1 mg tablet 1 mg PO DAILY multivitamin Tablet 1 tab PO DAILY cholecalciferol (vitamin D3) 10 mcg (400 unit) capsule 10 mcg PO DAILY metformin 500 mg tablet 500 mg PO DAILY atorvastatin 10 mg tablet 10 mg PO DAILY Patient Comments: TAKE ONE TABLET BY MOUTH ONCE DAILY AT BEDTIME amitriptyline 25 mg tablet 50 mg PO HS Patient Comments: 03/21/23 risperidone 4 mg tablet 4 mg PO HS acetaminophen 500 mg Tablet 1,000 mg PO TID Qty: 0 0RF polyethylene glycol 3350 17 gram Powder In Packet 17 g PO BID PRN PRN (Reason: Constipation) Qty: 0 0RF nabumetone 750 mg tablet 750 mg PO BID Qty: 60 2RF Rx Instructions: 750 mg orally; topiramate 100 mg tablet 100 mg PO BID Qty: 180 3RF
[2023-07-19 05:45] VITALS: BP 156/74; PULSE 79; RESP 18; TEMP 36; O2SAT 95
--- NOTE | 2023-07-19 06:14 | W.EDPROG ---
Date of service: 07/19/23 Time of Service: 06:14 Medical Decision Making Patient awoke this morning complaining of tingling on her face and feeling like she was going to have a seizure. She is on seizure medications. She has not been witnessed to have a seizure while here. Her screening laboratory studies and head CT on initial arrival were reviewed and are unremarkable. Neurologically she is nonfocal and is minimally cooperative with exam. Vital signs are normal. Will continue to monitor at this time, no change in current management pending psychiatric admission. Exam Narrative Exam Narrative: Const: Obese female in NAD. VS per triage. HEENT: NC/AT. Eyes: Normal conjunctiva and sclera. Neck: Supple. Trachea midline. Lungs: Normal respiratory effort. Lungs are clear. Cor: RRR with murmur. Good radial pulses. Neuro: A+O x 3. Speech is soft, patient mumbling. Cranial nerves II - XII grossly intact. No gross motor or sensory deficit. Extremely poor effort with exam, no attempt to smile or move lower extremities, symmetric weak handgrips. Sign Out Sign Out Data: Sign Out Comment: Patient voluntary until tries to leave. In-patient bed search for [facility]/med psych. Polypharmacy, SI, Depression, ?Parkinsonian dementia onset PT/OT tomorrow ?Neuro consult Home meds reconciled and ordered routine. Last updated by Erwin Black PA at 07/16/23 22:38 Sign Out Comment: Depression, medically cleared, home meds in, TP saw. Pending [facility] psych placement. Voluntary but likely meets EE criteria. PT/OT today. Last updated by Ree Hansen MD at 07/17/23 06:18 Sign Out Comment: Patient here voluntarily awaiting psychiatric treatment facility placement. Last updated by Nigel Rubin MD at 07/17/23 17:37 Sign Out Comment: voluntary psych, awaiting placement; no issues today Last updated by Mark Menezes MD at 07/17/23 22:58 Sign Out Comment: Awaiting placement. No issues overnight. Last updated by Ree Hansen MD at 07/18/23 06:02 Sign Out Comment: Awaiting placement, patient stable, voluntary psychiatric admission. Last updated by Erwin Templeton DO at 07/18/23 16:51 Sign Out Comment: pending Voluntary psych placement stable, medically cleared no issues during shift would likely need EE if she wants to leave Last updated by Jud Padron MD at 07/18/23 22:28 Discharge Plan Discharge Details Chief Complaint: PsychEval Clinical Impression: Suicidal ideation, Depression, Polypharmacy Primary Care Provider: Catherine Cintron ED Provider: Franck Scott [place] Meds and New Rx's Prescriptions: No Action buspirone 10 mg tablet 10 mg PO QHS lamotrigine 150 mg tablet 150 mg PO BID Qty: 180 3RF rizatriptan 10 mg tablet 10 mg PO ONCE PRN (Reason: migraine headache) Qty: 12 3RF Rx Instructions: take at onset of headache; ok to take second in 1 hour; no more than 2 in a 24 hour period levothyroxine 100 MCG tablet 100 mcg PO DAILY (DME) lancets 33 gauge misc 1 ea Miscellaneous DIRECTED folic acid 1 mg tablet 1 mg PO DAILY multivitamin Tablet 1 tab PO DAILY cholecalciferol (vitamin D3) 10 mcg (400 unit) capsule 10 mcg PO DAILY metformin 500 mg tablet 500 mg PO DAILY atorvastatin 10 mg tablet 10 mg PO DAILY Patient Comments: TAKE ONE TABLET BY MOUTH ONCE DAILY AT BEDTIME amitriptyline 25 mg tablet 50 mg PO HS Patient Comments: 03/21/23 risperidone 4 mg tablet 4 mg PO HS acetaminophen 500 mg Tablet 1,000 mg PO TID Qty: 0 0RF polyethylene glycol 3350 17 gram Powder In Packet 17 g PO BID PRN PRN (Reason: Constipation) Qty: 0 0RF nabumetone 750 mg tablet 750 mg PO BID Qty: 60 2RF Rx Instructions: 750 mg orally; topiramate 100 mg tablet 100 mg PO BID Qty: 180 3RF
[2023-07-19] MEDS: Levothyroxine 100 MCG TAB PO (06:18)
[2023-07-19] MEDS: Acetaminophen 500 MG TAB 1000 MG PO (08:11)
[2023-07-19] MEDS: Cholecalciferol (Vitamin D3) 400 UNIT TAB PO (08:12)
[2023-07-19] MEDS: metFORMIN 500 MG TAB PO (08:12)
[2023-07-19] MEDS: lamoTRIgine 100 MG TAB 150 MG PO (08:12)
[2023-07-19] MEDS: Folic Acid 1 MG TAB PO (08:12)
[2023-07-19] MEDS: risperiDONE 1 MG TAB 2 MG PO (08:13)
[2023-07-19] MEDS: Multivitamin TAB 1 TAB PO (08:13)
[2023-07-19] MEDS: Topiramate 100 MG TAB PO (08:14)
--- NOTE | 2023-07-19 12:28 | ED.PROG_ITS ---
Date of service: 07/19/23 Time of Service: 12:28 Medical Decision Making Patient was reassessed, she is back to her normal baseline. She feels well and would like to go home. She was seen by mental health, they agree on assessment patient is well and stable for discharge. They coordinated with family, all pa rties agree. Patient has been safety plan. Patient will be discharged home with continued outpatient resources. I have extensively reviewed the treatment plan and discharge instructions with the patient. I have addressed all patient concerns at this time. The patient was made aware of what symptoms to monitor for that would warrant a return to the emergency department. Discussed the plan with the patient, they demonstrate verbal understanding and agreement with our assessment and plan at this time. The documentation in this chart was dictated using [employer] dictation software. Please excuse any dictation errors. Quality:SDOH Health Related Social Needs: Health related social needs risk of homeless, transpo insecurity Health related social needs details unemployed and dis abled and lives in [place], [place] with her and caregiver (Sabrina Sign Out Sign Out Data: Sign Out Comment: Patient voluntary until tries to leave. In-patient bed search for [facility]/med psych. Polypharmacy, SI, Depression, ?Parkinsonian dementia onset PT/OT tomorrow ?Neuro consult Home meds reconciled and ordered routine. Last updated by Erwin Black PA at 07/16/23 22:38 Sign Out Comment: Depression, medically cleared, home meds in, TP saw. Pending [facility] psych placement. Voluntary but likely meets EE criteria. PT/OT today. Last updated by Ree Hansen MD at 07/17/23 06:18 Sign Out Comment: Patient here voluntarily awaiting psychiatric treatment facility placement. Last updated by Nigel Rubin MD at 07/17/23 17:37 Sign Out Comment: voluntary psych, awaiting placement; no issues today Last updated by Mark Menezes MD at 07/17/23 22:58 Sign Out Comment: Awaiting placement. No issues overnight. Last updated by Ree Hansen MD at 07/18/23 06:02 Sign Out Comment: Awaiting placement, patient stable, voluntary psychiatric admission. Last updated by Erwin Templeton DO at 07/18/23 16:51 Sign Out Comment: pending Voluntary psych placement stable, medically cleared no issues during shift would likely need EE if she wants to leave Last updated by Jud Padron MD at 07/18/23 22:28 Sign Out Comment: Patient currently waiting inpatient psychiatric bed voluntarily. Complaining of feeling like she was going to have a seizure. Evaluated earlier this morning and non-focal with normal mentation. Last updated by Franck Scott MD at 07/19/23 07:06 Discharge Plan Disposition Patient Disposition: Home Condition: Good Discharge Details Chief Complaint: PsychEval Clinical Impression: Suicidal ideation, Depression, Polypharmacy Primary Care Provider: Catherine Cintron ED Provider: Erwin Templeton Home Meds and New Rx's Prescriptions: No Action buspirone 10 mg tablet 10 mg PO QHS lamotrigine 150 mg tablet 150 mg PO BID Qty: 180 3RF rizatriptan 10 mg tablet 10 mg PO ONCE PRN (Reason: migraine headache) Qty: 12 3RF Rx Instructions: take at onset of headache; ok to take second in 1 hour; no more than 2 in a 24 hour period levothyroxine 100 MCG tablet 100 mcg PO DAILY (DME) lancets 33 gauge misc 1 ea Miscellaneous DIRECTED folic acid 1 mg tablet 1 mg PO DAILY multivitamin Tablet 1 tab PO DAILY cholecalciferol (vitamin D3) 10 mcg (400 unit) capsule 10 mcg PO DAILY metformin 500 mg tablet 500 mg PO DAILY atorvastatin 10 mg tablet 10 mg PO DAILY Patient Comments: TAKE ONE TABLET BY MOUTH ONCE DAILY AT BEDTIME amitriptyline 25 mg tablet 50 mg PO HS Patient Comments: 03/21/23 risperidone 4 mg tablet 4 mg PO HS acetaminophen 500 mg Tablet 1,000 mg PO TID Qty: 0 0RF polyethylene glycol 3350 17 gram Powder In Packet 17 g PO BID PRN PRN (Reason: Constipation) Qty: 0 0RF nabumetone 750 mg tablet 750 mg PO BID Qty: 60 2RF Rx Instructions: 750 mg orally; topiramate 100 mg tablet 100 mg PO BID Qty: 180 3RF Discharge Instructions Additional Instructions: Please follow-up closely with your mental health advocate. Please utilize your outpatient resources with your advocates. If you notice any worsening of your symptoms, or any new symptoms such as vomiting, diarrhea, fever, chills, shortness of breath, chest pain, numbness, weakness, or fainting , please return immediately to the emergency department for reevaluation. Please follow up with your primary care provider as soon as possible for reassessment and reevaluation. As always, it was a pleasure participating in your medical care today. Referrals: Catherine Cintron [Primary Care Provider] -
--- NOTE | 2023-07-19 13:40 | PDOC.CMDIS ---
Date of service: 07/19/23 Time of Service: 13:40 LACE Index Scoring Tool Questions: Length of Stay (in days): 3 Was the patient admitted via the E.D.?: Yes Comorbidities: Diabetes w/o Complication E.D. Visits: 1 Answers: Total Score: 8 Risk of Readmission: Low Risk Care Management Discharge Plan Reason for Hospitalization: Ary/med psych placement, Depression Discharge Plan: Celina was reassessed by [facility] who report she is back to her normal baseline, they have coordinated with her family and with Celina to create a safety plan for discharge. Per ED MD, Celina feels well and would like to go home. She was seen by mental health, they agree on assessment patient is well and stable for discharge. They coordinated with family, all parties agree. Kassandra will be discharged home with continued outpatient resources, she will follow up with [facility], her PCP, safety plan and transport via [facility]. Patient/Family Education Needs: Review patient rights, inpatient psychiatric procedures, discharge instructions. Services Needed at Discharge: Transportation SDOH Health Related Social Needs: Health related social needs risk of homeless, transpo insecurity Health related social needs details unemployed and disabled and lives in [place], [place] with her and caregiver (Sabrina Health related social needs: transportation insecurity(Z59.82) Health related social needs details: Transport, psychological stress and functioning, disability, risk of homelessness Referrals and interventions: [facility], [facility] Services (Omit if N/A) Current MH Services: [facility] Disposition Disposition: Community Discharge Transport via of: Private [facility]
== END 2023-07-19 13:12 | disposition home or self-care (01) ==
PROVIDERS: Physician Assistant; Emergency Provider Student in an Organized Health Care Education/Training Program; PCP Family Medicine
DX: R45.851 Suicidal ideations (principal); F32.A Depression, unspecified; Z79.899 Other long term (current) drug therapy
CPT/HCPCS: 00123; 80048; 80076; 87637; 93005; 97162; 99285; 70450; 81003; 81015; 82140; 85025; 93010; J3490

== ENCOUNTER 2023-08-25 20:54 | Emergency (ER) | payer MEDICARE, MEDICAID, SELFPAY ==
[2023-08-25 20:54] VITALS: BP 178/89; PULSE 75; RESP 14; TEMP 36.4; O2SAT 97
--- NOTE | 2023-08-25 20:57 | DI.CT_ITS ---
Exam(s) CT ABDOMEN PELVIS W EXAM: CT ABDOMEN PELVIS W CLINICAL HISTORY: LLQ abd Pain. TECHNIQUE: Imaging Protocol: Axial computed tomography images with coronal and sagittal reformatted images were created and reviewed CONTRAST MATERIAL: Intravenous: Omnipaque-350 100cc Oral: None COMPARISON: CT CT BRAIN NECK CTA from 06/28/2023 FINDINGS: VISUALIZED LUNG BASES: No nodules nor pleural effusions evident. ABDOMEN: There is no ascites. LIVER: There are no focal hepatic lesions evident. No dilated intrahepatic ducts. GALLBLADDER/BILIARY: Gallbladder surgically absent. CBD is not dilated. PANCREAS: No evidence of pancreatic mass nor dilatation of the pancreatic duct. SPLEEN: Spleen is not enlarged. No obvious intrasplenic lesions. Splenic and portal veins are paten t. ADRENALS: There are no significant adrenal masses. KIDNEYS:No cysts evident. No solid renal masses. No calculi nor hydronephrosis.. ABDOMINAL AORTA: Abdominal aorta is not enlarged. LYMPH NODES:There is no retroperitoneal nor paraaortic adenopathy. ABDOMINAL WALL: No evidence of significant anterior abdominal wall nor inguinal hernia. GI: There is no evidence of bowel obstruction, free air, nor abscess. PELVIS: GI: No evidence of appendicitis.No evidence of sigmoid diverticulitis. LYMPH NODES: There is no intrapelvic nor inguinal adenopathy. REPRODUCTIVE: Uterus is surgically absent. There are no abnormal adnexal masses nor free fluid in th e pelvis. URINARY BLADDER: Mild uniform thickening of the urinary bladder wall but this may be related to the u nder distension of the urinary bladder here. OSSEOUS: No fractures and no significant osseous lesions. IMPRESSION: 1. No significant acute findings in the abdomen and pelvis. 2. There has been prior cholecystectomy and hysterectomy. 3. No evidence of bowel obstruction. No ascites. RADIATION DOSE DELIVERED: 1,359.97mGy.cm Total DLP DATA REPOSITORY: All CT scans at this facility are submitted to the National Radiology Data Registry (NRDR) Dose Index Registry (DIR) with the [employer] ([employer]). RADIATION OPTIMIZATION: All CT scans at this facility use at least one of these dose optimization te chniques: automated exposure control; mA and/or kV adjustment per patient size (includes targeted exa ms where dose is matched to clinical indication); or iterative reconstruction.
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
[2023-08-25 21:27] LABS: Abs Immature Grans 0.01 10^3/uL (0.0-0.06); Absolute Basophil Count 0.05 10^3/uL (0.0-0.2); Absolute Eosinophil Count 0.22 10^3/uL (0.0-0.7); Absolute Lymphocyte Count 2.51 10^3/uL (1.2-3.4); Absolute Neutrophil Count 3.73 10^3/uL (1.2-6.7); Basophils % 0.7 %; Eosinophils % 3.1 %; HCT 36.5 % (36.0-46.0); HGB 11.6 g/dL (11.2-15.7); Immature Grans % 0.1 %; Lymphocytes % 35.8 %; MCH 27.6 pg (27.0-33.0); MCHC 31.8 % (32.0-36.0); MCV 87 fL (80-95); MPV 9.9 fL (8.0-11.0); Monocytes % 7.1 %; Neutrophils % 53.2 %; Platelet Count 315 10^3/uL (130-400); RDW 14.8 % (11.7-14.6); RDW-SD 47.4 fL; WBC 7.02 10^3/uL (4.4-10.8)
[2023-08-25 21:27] LABS: Bilirubin Negative (Negative); Blood Negative (Negative); Clarity Cloudy (Clear); Glucose Negative (Negative); Ketones Negative (Negative); Leukocyte Esterase Trace (Negative); Nitrite Negative (Negative); Urobilinogen 0.2 mg/dL (Up to 0.2)
[2023-08-25 21:34] LABS: Bacteria Rare HPF (Negative); Epithelial Cells Rare HPF (Negative); RBC Negative HPF (0-2); WBC 0-2 HPF (0-5)
[2023-08-25 21:35] LABS: C & S Indicated? No; Casts Negative LPF (Negative); Crystals Few Amorphous HPF (Negative); Mucus Negative (Negative)
[2023-08-25] MEDS: fentaNYL 100 MCG/2 ML VIAL 12.5 MCG IVP (21:37)
[2023-08-25 21:45] LABS: ALT 22 U/L (14-59); AST 12 U/L (15-37); Alkaline Phosphatase 104 U/L (46-116); Anion Gap 11.9 mmol/L (3-11); BUN 19 mg/dL (7-18); Bilirubin, Total 0.6 mg/dL (0.2-1.0); CO2 27.1 mmol/L (21.0-32.0); CREATININE 1.3 mg/dL (0.55-1.02); Calcium 9.7 mg/dL (8.5-10.1); Chloride 104 mmol/L (98-107); Estimated GFR 47.08 (mL/min/1.73m2); Glucose 123 mg/dL (74-106); Lipase 51 U/L (16-77); Magnesium 1.9 mg/dL (1.8-2.4); Potassium 3.5 mmol/L (3.5-5.1); Sodium 143 mmol/L (136-145); Total Protein 8.3 g/dL (6.4-8.2)
[2023-08-25] MEDS: Normal Saline - Diluent 50 ML VIAL IJ (22:09)
[2023-08-25] MEDS: Omnipaque 350 MG/ML 100 ML BTL IJ (22:09)
[2023-08-25] MEDS: Normal Saline 1,000 ML 1000 ML IV (22:31)
[2023-08-25] MEDS: ACETAMINOPHEN 1,000 MG/100 ML BTL 400 MG IVPB (22:32)
--- NOTE | 2023-08-25 22:57 | DI.VRAD_ITS ---
PROCEDURE INFORMATION: Exam: CT Abdomen And Pelvis With Contrast Exam date and time: 08/25/2023 10:08 PM Age: 58 years old Clinical indication: Abdominal pain; Other: Llq abd pain TECHNIQUE: Imaging protocol: Computed tomography of the abdomen and pelvis with contrast. Contrast material: OMNI 350; Contrast volume: 100 ml; Contrast route: INTRAVENOUS (IV); COMPARISON: CR XR CHEST 2V PA LATERAL 06/28/2023 12:15 PM FINDINGS: Liver: Normal. No mass. Gallbladder and bile ducts: Gallbladder is surgically absent. No biliary ductal dilation. Pancreas: Normal. No ductal dilation. Spleen: Normal. No splenomegaly. Adrenal glands: Normal. No mass. Kidneys and ureters: Normal. No hydronephrosis. Stomach and bowel: Unremarkable. No obstruction. No mucosal thickening. Appendix: The appendix is visualized and appears normal. Intraperitoneal space: Unremarkable. No free air. No significant fluid collection. Vasculature: Unremarkable. No abdominal aortic aneurysm. Lymph nodes: Unremarkable. No enlarged lymph nodes. Urinary bladder: Unremarkable as visualized. Reproductive: Uterus is surgically absent. No adnexal abnormality. Bones/joints: Moderate degenerative changes throughout the lower spine. No vertebral body compression or acute fracture. Soft tissues: Unremarkable. IMPRESSION: No acute abnormality Dictated and Authenticated by: Jm Sánchez MD. Ordering:TANISHA Peters MD
[2023-08-25 23:32] VITALS: BP 176/75; PULSE 71; RESP 16; TEMP 36.8; O2SAT 97
== END 2023-08-25 23:43 | disposition home or self-care (01) ==
PROVIDERS: Emergency Provider Registered Nurse Emergency; PCP Family Medicine
DX: R10.32 Left lower quadrant pain (principal)
CPT/HCPCS: 80053; 83690; 96361; 96374; 96375; 99285; 74177; 81003; 81015; 83735; 85025; 99283; J0131; J3010; J3490

== ENCOUNTER 2023-08-28 11:03 | Outpatient (CLI) | payer MEDICARE, MEDICAID, SELFPAY ==
--- NOTE | 2023-08-28 10:30 | DI.RAD_ITS ---
Exam(s) XR KNEE RT 2V AP,LAT EXAM: XR KNEE RT 2V AP,LAT CLINICAL HISTORY: F/U R TKA. TECHNIQUE: 2D digital imaging was performed. COMPARISON: CR XR KNEE RT 1V from 04/17/2023 FINDINGS: Two views. Stable position alignment of the components of the prosthesis. No fracture or loosening evident. IMPRESSION: Stable satisfactory appearance DATA REPOSITORY: RADIATION DOSE DELIVERED:
--- NOTE | 2023-08-28 11:00 | DI.RAD_ITS ---
Exam(s) XR KNEE LT 2V AP,LAT EXAM: XR KNEE LT 2V AP,LAT CLINICAL HISTORY: ANNUAL F/U L TKA. TECHNIQUE: 2D digital imaging was performed. COMPARISON: CR XR KNEE LT 2V AP,LAT from 03/09/2023 FINDINGS: Two views. The revision-type long stem prosthesis appears satisfactory with no fracture or loosening evident. P lease note that the entire stems of both can't bones are not completely included in the field of view , as was performed on 03/09/2023. If clinically indicated additional views can be performed to fully include the entire prosthesis. IMPRESSION: As above. Additional views may be required DATA REPOSITORY: RADIATION DOSE DELIVERED:
== END 2023-08-28 11:04 | disposition home or self-care (01) ==
PROVIDERS: Visit Provider Student in an Organized Health Care Education/Training Program
DX: T84.84XA Pain due to internal orthopedic prosthetic devices, implants and grafts, initial encounter (principal); Z96.652 Presence of left artificial knee joint; Z47.1 Aftercare following joint replacement surgery; Z96.651 Presence of right artificial knee joint
CPT/HCPCS: 99213; 73560

== ENCOUNTER 2023-09-02 22:47 | Emergency (ER) | payer MEDICARE, MEDICAID, SELFPAY ==
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
[2023-09-02 22:44] VITALS: BP 177/85; PULSE 70; RESP 16; TEMP 35.9; O2SAT 98
[2023-09-02 22:54] VITALS: BP 177/85; PULSE 69; O2SAT 98
[2023-09-02 22:55] VITALS: O2SAT 98
[2023-09-02 23:01] VITALS: BP 167/96; PULSE 68
[2023-09-02 23:18] LABS: Abs Immature Grans 0.02 10^3/uL (0.0-0.06); Absolute Basophil Count 0.07 10^3/uL (0.0-0.2); Absolute Eosinophil Count 0.22 10^3/uL (0.0-0.7); Absolute Lymphocyte Count 2.99 10^3/uL (1.2-3.4); Absolute Monocyte Count 0.65 10^3/uL (0.1-0.8); Absolute Neutrophil Count 3.63 10^3/uL (1.2-6.7); Basophils % 0.9 %; Eosinophils % 2.9 %; HCT 36.3 % (36.0-46.0); HGB 11.6 g/dL (11.2-15.7); Immature Grans % 0.3 %; Lymphocytes % 39.4 %; MCH 28.2 pg (27.0-33.0); MCV 88 fL (80-95); MPV 10.3 fL (8.0-11.0); Monocytes % 8.6 %; Neutrophils % 47.9 %; Platelet Count 334 10^3/uL (130-400); RBC 4.11 10^6/uL (3.93-5.22); RDW-SD 48.2 fL; WBC 7.58 10^3/uL (4.4-10.8)
[2023-09-02] MEDS: Lactated Ringers 1,000 ML 1000 ML IV (23:22)
[2023-09-02] MEDS: Ketorolac 15 MG/ML VIAL IVP (23:22)
[2023-09-02 23:23] VITALS: BP 177/85; PULSE 70; RESP 16; TEMP 35.9; O2SAT 98
[2023-09-02 23:33] LABS: Bilirubin Negative (Negative); Blood Negative (Negative); Clarity Clear (Clear); Glucose Negative (Negative); Ketones Negative (Negative); Leukocyte Esterase Negative (Negative); Nitrite Negative (Negative); Specific Gravity >= 1.030 (1.005-1.025); Urobilinogen 0.2 mg/dL (Up to 0.2)
[2023-09-02 23:33] LABS: ALT 17 U/L (14-59); AST 10 U/L (15-37); Alkaline Phosphatase 108 U/L (46-116); Anion Gap 11.7 mmol/L (3-11); BUN 17 mg/dL (7-18); Bilirubin, Total 0.7 mg/dL (0.2-1.0); CO2 26.3 mmol/L (21.0-32.0); CREATININE 1.3 mg/dL (0.55-1.02); Calcium 8.8 mg/dL (8.5-10.1); Chloride 105 mmol/L (98-107); Estimated GFR 47.08 (mL/min/1.73m2); Glucose 116 mg/dL (74-106); Lipase 88 U/L (16-77); Potassium 3.7 mmol/L (3.5-5.1); Sodium 143 mmol/L (136-145); Total Protein 8.3 g/dL (6.4-8.2)
[2023-09-03] MEDS: ACETAMINOPHEN 1,000 MG/100 ML BTL 400 MG IVPB (00:41)
--- NOTE | 2023-09-03 01:26 | DI.CT_ITS ---
Exam(s) CT RENAL COLIC WO EXAM: CT RENAL COLIC WO CLINICAL HISTORY: left groin pain. TECHNIQUE: Imaging Protocol: Axial computed tomography images with coronal and sagittal reformatted images were created and reviewed. COMPARISON: CT CT ABDOMEN PELVIS W from 08/25/2023 FINDINGS: ABDOMEN: Lung Bases: Normal where visualized. Liver: Normal density. No measurable mass. Gallbladder and biliary tract: Status post cholecystectomy. No biliary ductal dilatation. Pancreas: Normal density, no abnormal calcifications or inflammatory process. Spleen: Normal. Kidneys: Normal size, contour and axis.2 mm calcification in the lower pole of the left kidney. No m asses seen. Adrenal glands: No mass is seen. Lymph nodes: Within normal limits. Abdominal Aorta: Abdominal portion non-dilated. PELVIS: Bladder:There is diffuse thickening of the wall of the urinary bladder. Bowel: No obstruction or bowel wall thickening. Appendix is unremarkable. Peritoneal cavity: No ascites, collection or mesenteric inflammatory response. No free air. Reproductive organs: Status post hysterectomy. Bones: Within normal limits. Soft Tissues: Within normal limits. IMPRESSION: 1. Left nephrolithiasis. No hydronephrosis. 2. Diffuse thickening of the wall of the urinary bladder. This may be due to underdistention. Cysti tis cannot be excluded. Please correlate clinically. RADIATION DOSE DELIVERED: Total DLP DATA REPOSITORY: All CT scans at this facility are submitted to the National Radiology Data Registry (NRDR) Dose Index Registry (DIR) with the [employer] (ACR). RADIATION OPTIMIZATION: All CT scans at this facility use at least one of these dose optimization te chniques: automated exposure control; mA and/or kV adjustment per patient size (includes targeted exa ms where dose is matched to clinical indication); or iterative reconstruction.
[2023-09-03 01:44] VITALS: BP 161/84; PULSE 59; O2SAT 98
--- NOTE | 2023-09-03 02:13 | DI.VRAD_ITS ---
PROCEDURE INFORMATION: Exam: CT Abdomen And Pelvis Without Contrast Exam date and time: 09/03/2023 1:16 AM Age: 58 years old Clinical indication: Other: Left groin pain TECHNIQUE: Imaging protocol: Computed tomography of the abdomen and pelvis without contrast. COMPARISON: CT ABDOMEN PELVIS W 08/25/2023 10:08 PM FINDINGS: Liver: Grossly unremarkable unenhanced liver. Gallbladder and bile ducts: Prior cholecystectomy. No biliary dilatation. Pancreas: Grossly unremarkable unenhanced pancreas. Spleen: Grossly unremarkable unenhanced spleen. Adrenal glands: Normal appearing adrenal glands. Kidneys and ureters: Grossly unremarkable unenhanced kidneys. No radiopaque urinary tract stones, hydronephrosis, or evidence of recent stone passage. Stomach and bowel: No oral contrast. Stomach moderately distended with ingested material. No small bowel dilatation to suggest obstruction. Normal-appearing colon. No evidence of diverticulitis or colitis. Appendix: Normal appendix. Intraperitoneal space: No gross ascites or free air. Vasculature: Normal caliber abdominal aorta. Lymph nodes: No pathologically enlarged mesenteric, retroperitoneal, or pelvic sidewall lymph nodes. Urinary bladder: Urinary bladder partially decompressed but circumferentially thick-walled. Reproductive: Prior hysterectomy. Ovaries partially obscured but normal in size. Bones/joints: No acute fracture seen among the bones of the abdomen or pelvis. Spinal degenerative change with discogenic degeneration, endplate irregularities, anterior osteophytes, and facet arthrosis at several levels. Soft tissues: Diastasis recti. No significant ventral or inguinal hernia. IMPRESSION: 1. No radiopaque urinary tract stones, hydronephrosis, or evidence of recent stone passage. 2. Urinary bladder partially decompressed but circumferentially thick-walled. Acute cystitis could have this appearance although an artifactual appearance created by underdistention can also produce apparent bladder wall thickening. Clinical correlation is recommended. 3. No acute bowel pathology demonstrated. No significant inguinal hernia demonstrated. 4. No soft tissue inflammatory changes, fluid collection, or soft tissue gas seen in the left groin. Dictated and Authenticated by: Maurice Seo MD. Ordering:CRYSTAL Juárez MD
== END 2023-09-03 03:03 | disposition home or self-care (01) ==
PROVIDERS: Emergency Provider Emergency Medicine
DX: R10.32 Left lower quadrant pain (principal); R10.9 Unspecified abdominal pain; R03.0 Elevated blood-pressure reading, without diagnosis of hypertension
CPT/HCPCS: 80053; 83690; 96361; 96365; 96375; 99284; 74176; 81003; 85025; 99283; J0131; J1885

== ENCOUNTER → 2023-09-05 09:51 | Outpatient (BNVA) | payer MEDICARE, MEDICAID, SELFPAY | PROVIDERS: Visit Provider Psychiatry & Neurology Neurology | DX: G43.009 Migraine without aura, not intractable, without status migrainosus (principal); G40.319 Generalized idiopathic epilepsy and epileptic syndromes, intractable, without status epilepticus; G21.11 Neuroleptic induced parkinsonism; T43.505A Adverse effect of unspecified antipsychotics and neuroleptics, initial encounter | CPT/HCPCS: 99214 ==

== ENCOUNTER 2023-09-14 09:17 | Emergency (ER) | payer MEDICARE, MEDICAID, SELFPAY ==
[2023-09-14 09:16] VITALS: BP 180/86; PULSE 74; RESP 18; O2SAT 97
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
[2023-09-14 09:52] LABS: Abs Immature Grans 0.01 10^3/uL (0.0-0.06); Absolute Basophil Count 0.06 10^3/uL (0.0-0.2); Absolute Eosinophil Count 0.18 10^3/uL (0.0-0.7); Absolute Lymphocyte Count 1.47 10^3/uL (1.2-3.4); Absolute Monocyte Count 0.41 10^3/uL (0.1-0.8); Absolute Neutrophil Count 3.51 10^3/uL (1.2-6.7); Basophils % 1.1 %; Eosinophils % 3.2 %; HCT 35.1 % (36.0-46.0); HGB 11.3 g/dL (11.2-15.7); Immature Grans % 0.2 %; Lymphocytes % 26.1 %; MCH 28.3 pg (27.0-33.0); MCHC 32.2 % (32.0-36.0); MCV 88 fL (80-95); MPV 10.1 fL (8.0-11.0); Monocytes % 7.3 %; Neutrophils % 62.1 %; Platelet Count 300 10^3/uL (130-400); RDW 14.4 % (11.7-14.6); RDW-SD 46.2 fL; WBC 5.64 10^3/uL (4.4-10.8)
[2023-09-14 10:06] LABS: ALT 15 U/L (14-59); AST 12 U/L (15-37); Albumin 3.7 g/dL (3.4-5.0); Alkaline Phosphatase 101 U/L (46-116); Anion Gap 10.3 mmol/L (3-11); BUN 18 mg/dL (7-18); Bilirubin, Total 0.52 mg/dL (0.2-1.0); CO2 26.7 mmol/L (21.0-32.0); CREATININE 1.3 mg/dL (0.55-1.02); Calcium 9.2 mg/dL (8.5-10.1); Chloride 107 mmol/L (98-107); Estimated GFR 47.08 (mL/min/1.73m2); Glucose 120 mg/dL (74-106); Lipase 43 U/L (16-77); Magnesium 1.9 mg/dL (1.8-2.4); Potassium 3.4 mmol/L (3.5-5.1); Sodium 144 mmol/L (136-145); Total Protein 7.7 g/dL (6.4-8.2)
[2023-09-14 10:10] LABS: Bilirubin Negative (Negative); Blood Negative (Negative); Clarity Clear (Clear); Glucose Negative (Negative); Ketones Negative (Negative); Leukocyte Esterase Negative (Negative); Nitrite Negative (Negative); Urobilinogen 0.2 mg/dL (Up to 0.2)
--- NOTE | 2023-09-14 10:21 | NUR.NOTE ---
Nursing Note: Assisted patient with her morning meds. Meds were dropped off by Gutierrez. TATE Eden was ok with her taking her meds
[2023-09-14 10:51] VITALS: PULSE 63; RESP 18; O2SAT 96
[2023-09-14] MEDS: Acetaminophen 500 MG TAB 1000 MG PO (10:58)
[2023-09-14 11:48] VITALS: BP 143/54; PULSE 65; RESP 18; TEMP 36.3; O2SAT 95
[2023-09-14 13:01] VITALS: BP 162/75; PULSE 62; RESP 14; TEMP 36.2; O2SAT 97
--- NOTE | 2023-09-14 14:31 | DI.CT_ITS ---
Exam(s) CT LUMBAR SPINE RECONS CT RENAL COLIC WO EXAM: CT RENAL COLIC WO and CT reconstructions of the lumbar spine CLINICAL HISTORY: R flank pain. TECHNIQUE: Imaging Protocol: Axial computed tomography images with coronal and sagittal reformatted images were created and reviewed. COMPARISON: CT CT RENAL COLIC WO from 09/03/[address] LUMBAR SPINE RECONS from 09/14/2023 FINDINGS: ABDOMEN: Lung Bases: Normal where visualized. Liver: Normal density. No measurable mass. Gallbladder and biliary tract: Status post cholecystectomy. No biliary ductal dilatation. Pancreas: Normal density, no abnormal calcifications or inflammatory process. Spleen: Normal. Kidneys: Normal size, contour and axis.2 mm nonobstructing left lower pole calculus. No right nephro lithiasis or hydronephrosis. Adrenal glands: No mass is seen. Lymph nodes: Within normal limits. Abdominal Aorta: Abdominal portion non-dilated. PELVIS: Bladder:Symmetric distention, no gross wall thickening. Bowel: No obstruction or bowel wall thickening. There is a moderate amount of stool in the colon sugg esting constipation. No evidence of appendicitis. The stomach is incompletely distended limiting ev aluation. Peritoneal cavity: No ascites, collection or mesenteric inflammatory response. No free air. Reproductive organs: Status post hysterectomy. Bones: Within normal limits. No displaced rib fractures are present. Soft Tissues: Within normal limits. Lumbar spine recons: No acute fracture or subluxation is seen. There are degenerative changes seen t hroughout the lumbar spine. No destructive lesions are appreciated. There is a diffuse disc bulge a t L4-L5. Degenerative changes of the facets are present. These all contribute to cause moderately s evere central spinal canal stenosis. There is also moderately severe bilateral neural foraminal sten osis at this level. At L5-S1, there are degenerative changes of the facets and endplate osteophytes causing moderate bilateral neural foraminal stenosis right greater than left. IMPRESSION: 1. No evidence of right nephrolithiasis or hydronephrosis. 2. Left nephrolithiasis. No hydronephrosis. 3. No acute abdominal or pelvic process. 4. Degenerative changes seen at L4-5 resulting in central spinal canal and neural foraminal stenosis as described above. 5. Degenerative changes at L5-S1 causing bilateral neural foraminal stenosis. RADIATION DOSE DELIVERED: 1,229.44mGy.cm Total DLP DATA REPOSITORY: All CT scans at this facility are submitted to the National Radiology Data Registry (NRDR) Dose Index Registry (DIR) with the [employer] (A[employer]). RADIATION OPTIMIZATION: All CT scans at this facility use at least one of these dose optimization te chniques: automated exposure control; mA and/or kV adjustment per patient size (includes targeted exa ms where dose is matched to clinical indication); or iterative reconstruction.
[2023-09-14 14:48] VITALS: BP 154/76; PULSE 67; RESP 16; TEMP 36.3; O2SAT 96
[2023-09-14 16:19] VITALS: BP 164/82; PULSE 68; RESP 18; O2SAT 96
--- NOTE | 2023-09-14 18:33 | NUR.NOTE ---
Referral faxed to Dr Daljit ROMAN relocation counselor for telephone call, needs PCP, follow up spinal stenosis, URGENT. Nursing Note:
== END 2023-09-14 16:22 | disposition home or self-care (01) ==
PROVIDERS: Emergency Provider Physician Assistant
DX: M62.830 Muscle spasm of back (principal); M48.061 Spinal stenosis, lumbar region without neurogenic claudication; I10 Essential (primary) hypertension
CPT/HCPCS: 36415; 80053; 83690; 99284; 74176; 81003; 83735; 85025; 99283

== ENCOUNTER 2023-10-05 22:04 | Emergency (ER) | payer MEDICARE, MEDICAID, SELFPAY ==
[2023-10-05] VITALS (19 sets, daily range): BP systolic 119–151; BP diastolic 49–64; PULSE 59–86; RESP 16–25; TEMP 36.1; O2SAT 94–99
--- NOTE | 2023-10-05 21:45 | RT.EKG_ITS ---
APPROVED REPORT Exam: Resting ECG Reason for Exam: chest pain Patient Location: E HR:72 bpm ECG Measurements Heart Rate 72 AXIS AR 153 P 29 QRSd 88 QRS -7 QT 414 T 71 QTc 453 Conclusion Sinus rhythm...normal P axis, V-rate 60- [address] segment or T wave abnormalities to suggest occlusive UT
--- NOTE | 2023-10-05 22:00 | DI.RAD_ITS ---
Exam(s) XR CHEST 2V PA LATERAL EXAM: XR CHEST 2V PA LATERAL CLINICAL HISTORY: chest pain. TECHNIQUE: 2D digital imaging was performed. COMPARISON: CR XR CHEST 2V PA LATERAL from 06/28/[address] CHEST PE CTA from 10/05/2023 FINDINGS: 2 views: Heart size is upper normal. The mediastinum is not widened. Lungs are clear. No infiltrates nor pleural effusions. IMPRESSION: No acute pulmonary findings. DATA REPOSITORY: RADIATION DOSE DELIVERED:
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
[2023-10-05 22:17] LABS: Abs Immature Grans 0.02 10^3/uL (0.0-0.06); Absolute Basophil Count 0.06 10^3/uL (0.0-0.2); Absolute Eosinophil Count 0.17 10^3/uL (0.0-0.7); Absolute Lymphocyte Count 2.38 10^3/uL (1.2-3.4); Absolute Neutrophil Count 3.25 10^3/uL (1.2-6.7); Basophils % 0.9 %; Eosinophils % 2.7 %; HGB 11.3 g/dL (11.2-15.7); Immature Grans % 0.3 %; Lymphocytes % 37.3 %; MCH 28.3 pg (27.0-33.0); MCHC 32.3 % (32.0-36.0); MCV 88 fL (80-95); MPV 10.9 fL (8.0-11.0); Monocytes % 7.8 %; Platelet Count 257 10^3/uL (130-400); RDW 14.5 % (11.7-14.6); WBC 6.38 10^3/uL (4.4-10.8)
[2023-10-05] MEDS: Acetaminophen 500 MG TAB 1000 MG PO (22:29)
[2023-10-05] MEDS: Lidocaine 5% Patch 1 PATCH TP (22:29)
[2023-10-05 22:42] LABS: ALT 14 U/L (14-59); AST 8 U/L (15-37); Albumin 3.6 g/dL (3.4-5.0); Alkaline Phosphatase 92 U/L (46-116); Anion Gap 9.3 mmol/L (3-11); BUN 20 mg/dL (7-18); Bilirubin, Total 0.45 mg/dL (0.2-1.0); CO2 25.7 mmol/L (21.0-32.0); CREATININE 1.2 mg/dL (0.55-1.02); Calcium 8.6 mg/dL (8.5-10.1); Chloride 108 mmol/L (98-107); Estimated GFR 51.82 (mL/min/1.73m2); Glucose 116 mg/dL (74-106); Lipase 54 U/L (16-77); Potassium 3.4 mmol/L (3.5-5.1); Sodium 143 mmol/L (136-145); TSH (W/Ref FT4) 2.04 uIU/mL (0.36-3.74); Total Protein 7.5 g/dL (6.4-8.2); Troponin I < 50 ng/L (< or =60)
--- NOTE | 2023-10-05 22:45 | DI.CT_ITS ---
Exam(s) CT CHEST PE CTA EXAM: CT CHEST PE CTA x CLINICAL HISTORY: chest pain, elevated dimer. TECHNIQUE: Imaging Protocol: CT angiography of the chest was performed using pulmonary embolus osiel col. Multi planar reconstructions were performed. CONTRAST MATERIAL: Intravenous: Omnipaque 350 Contrast volume: 100 cc COMPARISON: CT CT LUMBAR SPINE RECONS from 09/14/2023 FINDINGS: CHEST: PULMONARY ARTERIES: There are no intraluminal filling defects to suggest acute pulmonary emboli. LUNGS: There are no infiltrates nor evidence of pulmonary infarction.. There are no pleural effusions . MEDIASTINUM: There is no hilar nor mediastinal adenopathy. Visualized thyroid unremarkable. CARDIAC: Heart size is upper normal. There is no pericardial effusion.Caliber of the thoracic aorta is within normal limits. No evidence of aortic dissection. There is no significant shift of the inte rventricular septum. PARTIALLY VISUALIZED UPPERMOST ABDOMEN: Gallbladder surgically absent. No adrenal masses. No spleno megaly. OSSEOUS: No significant osseous lesions.No fractures. IMPRESSION: 1. No evidence of acute pulmonary emboli. No evidence of pulmonary infarction.No pleural effusions. 2. No evidence of aortic dissection nor pericardial effusion. 3. No infiltrates nor ominous pulmonary nodules. RADIATION DOSE DELIVERED: Total DLP DATA REPOSITORY: All CT scans at this facility are submitted to the National Radiology Data Registry (NRDR) Dose Index Registry (DIR) with the [employer] (ACR). RADIATION OPTIMIZATION: All CT scans at this facility use at least one of these dose optimization te chniques: automated exposure control; mA and/or kV adjustment per patient size (includes targeted exa ms where dose is matched to clinical indication); or iterative reconstruction.
[2023-10-05 22:54] LABS: D-Dimer 1495 ng/mlFEU (<500)
[2023-10-05] MEDS: Potassium Chloride Liquid 20 MEQ PKT PO (22:57)
[2023-10-05] MEDS: Normal Saline - Diluent 50 ML VIAL IJ (23:17)
[2023-10-05] MEDS: Omnipaque 350 MG/ML 100 ML BTL IJ (23:17)
[2023-10-06] VITALS (39 sets, daily range): BP systolic 157–166; BP diastolic 60–77; PULSE 60–74; RESP 9–20; TEMP 36.5; O2SAT 94–100
--- NOTE | 2023-10-06 00:03 | DI.VRAD_ITS ---
PROCEDURE INFORMATION: Exam: XR Chest Exam date and time: 10/05/2023 10:32 PM Age: 58 years old Clinical indication: Pain; Right-sided TECHNIQUE: Imaging protocol: Radiologic exam of the chest. Views: 2 views. COMPARISON: CR XR CHEST 2V PA LATERAL 06/28/2023 12:15 PM FINDINGS: Lungs: Unremarkable. No consolidation. Pleural spaces: Unremarkable. No pleural effusion. No pneumothorax. Heart/Mediastinum: Unremarkable. No cardiomegaly. Bones/joints: Unremarkable. IMPRESSION: No acute findings. Dictated and Authenticated by: Hank Casas MD. Ordering:JEFFERSON Keenan MD
--- NOTE | 2023-10-06 00:16 | DI.VRAD_ITS ---
PROCEDURE INFORMATION: Exam: CTA Chest With Contrast Exam date and time: 10/05/2023 11:14 PM Age: 58 years old Clinical indication: Chest wall pain; Additional info: Chest pain, elevated dimer TECHNIQUE: Imaging protocol: Computed tomographic angiography of the chest with contrast. Exam focused on the arteries. 3D rendering (Not supervised by radiologist): MIP and/or 3D reconstructed images were created by the technologist. Contrast material: OMNI 350; Contrast volume: 100 ml; Contrast route: INTRAVENOUS (IV); COMPARISON: CR XR CHEST 2V PA LATERAL 10/05/2023 10:32 PM FINDINGS: Pulmonary arteries: Normal. No pulmonary emboli. Aorta: Unremarkable. No aortic aneurysm. No aortic dissection. Lungs: Unremarkable. No consolidation. No masses. Pleural spaces: Unremarkable. No pneumothorax. No pleural effusion. Heart: Unremarkable. No pericardial effusion. Esophagus: Unremarkable. Lymph nodes: Unremarkable. No enlarged lymph nodes. Bones/joints: Unremarkable. No acute fracture. Soft tissues: Unremarkable. IMPRESSION: No acute findings. Dictated and Authenticated by: Hank Casas MD. Ordering:JEFFERSON Keenan MD
[2023-10-06 01:19] LABS: Troponin I < 50 ng/L (< or =60)
[2023-10-06] MEDS: Ketorolac 15 MG/ML VIAL IVP (01:33)
[2023-10-06] MEDS: Acetaminophen 325 MG TAB 650 MG PO (04:53)
== END 2023-10-06 06:03 | disposition home or self-care (01) ==
PROVIDERS: Emergency Provider Student in an Organized Health Care Education/Training Program
DX: R07.9 Chest pain, unspecified (principal); R19.7 Diarrhea, unspecified; G40.909 Epilepsy, unspecified, not intractable, without status epilepticus; I10 Essential (primary) hypertension; E78.5 Hyperlipidemia, unspecified; E03.9 Hypothyroidism, unspecified; E11.9 Type 2 diabetes mellitus without complications; Z79.84 Long term (current) use of oral hypoglycemic drugs; G20.C Parkinsonism, unspecified; Z90.49 Acquired absence of other specified parts of digestive tract
CPT/HCPCS: 71275; 80053; 83690; 93005; 96374; 99285; 71046; 83735; 84443; 84484; 85025; 85379; 93010; 99284; J1885; J3490

== ENCOUNTER → 2023-10-16 01:25 | Outpatient (CLI) | payer MEDICARE, MEDICAID, SELFPAY ==
--- NOTE | 2023-10-16 07:15 | DI.MRI_ITS ---
Exam(s) MR LUMBAR SPINE WO EXAM: MR LUMBAR SPINE WO CLINICAL HISTORY: worseNING LOW BACK PAIN w/radiculopathy,SPINAL STENOSIS,M48.061. TECHNIQUE: Multiplanar multisequence MRI of the Lumbar spine was performed. COMPARISON: CR,XR XR CHEST 2V PA LATERAL from 10/05/2023 FINDINGS: Bones: The last intervertebral disc space is designated the L5/S1 level for the numbering purpose of this ex amination. The vertebral body heights are well maintained. Alignment: Unremarkable. The marrow signal characteristics are unremarkable. Cord: The conus tip ends at the T12 level. It is of normal size and signal intensity. T12-L1: Loss of disc height. Minimal endplate osteophytes. No focal disc herniation is present. No central spinal canal stenosis.No neural foraminal stenosis. L1-2:Mild loss of disc height. Small endplate osteophytes. No focal disc herniation is present. No central spinal canal stenosis.No neural foraminal stenosis. L2-3:Mild loss of disc height. Small endplate osteophytes. No focal disc herniation is present. No central spinal canal stenosis.No neural foraminal stenosis. L3-4: Minimal disc bulging.No focal disc herniation is present. No central spinal canal stenosis.No neural foraminal stenosis. L4-5:Minimal disc bulging. Mild facet degenerative changes. No focal disc herniation is present. F acet degenerative changes and ligamentous hypertrophy causing [id number] central canal stenosis .Mild bilateral neural foraminal stenosis. L5-S1: Loss of disc height. Small endplate osteophytes.No focal disc herniation is present. No cent ral spinal canal stenosis.No neural foraminal stenosis. The visualized SI joints and sacrum are unremarkable. Soft tissues: The paraspinal soft tissues are unremarkable. IMPRESSION: Combination of disc bulging and facet degenerative changes cause [id number] central canal steno sis at L4-5. There degenerative disc changes but no evidence of focal disc herniation.. DATA REPOSITORY:
== END ==
PROVIDERS: Visit Provider Nurse Practitioner Family
DX: M48.061 Spinal stenosis, lumbar region without neurogenic claudication (principal); M51.16 Intervertebral disc disorders with radiculopathy, lumbar region; M47.26 Other spondylosis with radiculopathy, lumbar region
CPT/HCPCS: 72148

== ENCOUNTER 2023-11-07 14:59 | Outpatient (CLI) | payer MEDICARE, MEDICAID, SELFPAY ==
--- NOTE | 2023-11-07 | DI.CT_ITS ---
Exam(s) CT ABDOMEN PELVIS W EXAM: CT ABDOMEN PELVIS W CLINICAL HISTORY: R LOWER QUAD PAIN, R10.31. TECHNIQUE: Imaging Protocol: Axial computed tomography images with coronal and sagittal reformatted images were created and reviewed CONTRAST MATERIAL: Intravenous: Omnipaque 350 Contrast volume:100 ml Oral: yes / COMPARISON: CT CT ABDOMEN PELVIS W from 08/25/[address] RENAL COLIC WO from 09/03/[address] CHEST PE CTA from 10/05/2023 FINDINGS: ABDOMEN and PELVIS: Lung Bases: No acute findings. Liver: Normal density. No suspicious mass. Gallbladder and biliary tract: Status post cholecystectomy. No biliary dilation. Pancreas: Normal density. No abnormal calcifications or inflammatory process. No evidence of mass. Spleen: Normal. Kidneys: Normal size, contour and axis. Tiny nonobstructing stone mid to lower pole left kidney unch anged from prior.. No obstructive uropathy. No suspicious masses seen. Adrenal glands: No masses seen. Vasculature: Abdominal aorta non-dilated. Soft tissues: Unremarkable. Bladder: No gross wall thickening. No calculi.No focal mass. Bowel: No obstruction. No bowel wall thickening. Increased stool in rectosigmoid. Appendix normal. Peritoneal cavity: No ascites. No focal collection. No mesenteric inflammatory response. Bones: Unremarkable for age. Reproductive organs: Status post hysterectomy. Lymph nodes: No pathologically enlarged lymph nodes. IMPRESSION:: No acute abnormality in the abdomen or pelvis. RADIATION DOSE DELIVERED: Total DLP DATA REPOSITORY: All CT scans at this facility are submitted to the National Radiology Data Registry (NRDR) Dose Index Registry (DIR) with the [employer] (ACR). RADIATION OPTIMIZATION: All CT scans at this facility use at least one of these dose optimization te chniques: automated exposure control; mA and/or kV adjustment per patient size (includes targeted exa ms where dose is matched to clinical indication); or iterative reconstruction.
[2023-11-07] MEDS: Normal Saline - Diluent 50 ML VIAL IJ (15:47)
[2023-11-07] MEDS: Omnipaque 350 MG/ML 100 ML BTL IJ (15:48)
== END 2023-11-07 15:19 ==
LOC: DI 11-15 14:59
PROVIDERS: PCP Nurse Practitioner Family; Visit Provider Nurse Practitioner Family
DX: R10.31 Right lower quadrant pain (principal)
CPT/HCPCS: 74177; J3490

== ENCOUNTER 2023-11-07 17:14 | Outpatient (REF) | payer MEDICARE, MEDICAID, SELFPAY ==
[2023-11-07 14:30] LABS: Abs Immature Grans 0.02 10^3/uL (0.0-0.06); Absolute Basophil Count 0.05 10^3/uL (0.0-0.2); Absolute Eosinophil Count 0.19 10^3/uL (0.0-0.7); Absolute Lymphocyte Count 1.89 10^3/uL (1.2-3.4); Absolute Monocyte Count 0.43 10^3/uL (0.1-0.8); Basophils % 0.8 %; Eosinophils % 2.9 %; HCT 39.7 % (36.0-46.0); HGB 12.7 g/dL (11.2-15.7); Immature Grans % 0.3 %; Lymphocytes % 28.7 %; MCH 28.9 pg (27.0-33.0); MCV 90 fL (80-95); MPV 10.7 fL (8.0-11.0); Monocytes % 6.5 %; Neutrophils % 60.8 %; Platelet Count 307 10^3/uL (130-400); RDW 13.4 % (11.7-14.6); RDW-SD 44.5 fL; WBC 6.58 10^3/uL (4.4-10.8)
[2023-11-07 14:53] LABS: ALT 17 U/L (14-59); AST 14 U/L (15-37); Albumin 3.9 g/dL (3.4-5.0); Alkaline Phosphatase 134 U/L (46-116); Anion Gap 10.1 mmol/L (3-11); BUN 15 mg/dL (7-18); Bilirubin, Total 0.34 mg/dL (0.2-1.0); C-Reactive Protein < 0.50 mg/dL (<or=0.5); CO2 25.9 mmol/L (21.0-32.0); CREATININE 1.3 mg/dL (0.55-1.02); Calcium 9.6 mg/dL (8.5-10.1); Chloride 105 mmol/L (98-107); Estimated GFR 47.08 (mL/min/1.73m2); Glucose 97 mg/dL (74-106); Sodium 141 mmol/L (136-145); Total Protein 8.3 g/dL (6.4-8.2)
== END 2023-11-07 17:15 | disposition home or self-care (01) ==
LOC: LBN 17:14
PROVIDERS: PCP Nurse Practitioner Family; Visit Provider Nurse Practitioner Family
DX: R10.31 Right lower quadrant pain (principal)
CPT/HCPCS: 80053; 85025; 86140

== ENCOUNTER 2023-11-16 18:59 | Outpatient (REF) | payer MEDICARE, MEDICAID, SELFPAY ==
[2023-11-16 12:38] LABS: Source Nasal/Nares
[2023-11-16 13:21] LABS: COVID-19 PCR Negative (Negative)
== END 2023-11-16 19:00 | disposition home or self-care (01) ==
LOC: LBN 18:59
PROVIDERS: PCP Nurse Practitioner Family; Visit Provider Physician Assistant Medical
DX: B34.9 Viral infection, unspecified (principal)
CPT/HCPCS: 87635

== ENCOUNTER → 2023-12-14 13:03 | Outpatient (BNVA) | payer MEDICARE, MEDICAID, SELFPAY | PROVIDERS: PCP Nurse Practitioner Family; Referring Provider Nurse Practitioner Family; Visit Provider Nurse Practitioner Family | DX: M79.675 Pain in left toe(s) (principal); L84 Corns and callosities | CPT/HCPCS: 99203 ==

== ENCOUNTER 2023-12-20 01:17 | Outpatient (CLI) | payer MEDICARE, MEDICAID, SELFPAY ==
--- NOTE | 2023-12-20 08:21 | DI.RAD_ITS ---
Exam(s) XR TOE LT THIRD EXAM: XR TOE LT THIRD CLINICAL HISTORY: growth on proximal interphalangeal joint,toe pain,m79.676. TECHNIQUE: 2D digital imaging was performed of the left toe. Three images were obtained. AP, obliq ue and lateral views were obtained. COMPARISON: There are no priors for comparison. FINDINGS: BONES: There is depression of the head of the proximal phalanx of the 3rd toe. There is narrowing of the PIP joint. No bony destructive lesion is seen. JOINTS: No dislocation present. SOFT TISSUE: No soft tissue calcifications or soft tissue gas is seen. IMPRESSION: Flattening of the head of the proximal phalanx of the 3rd toe. This is of uncertain acuity. Differe ntial considerations include acute/old fracture, avascular necrosis monkey other etiologies. MRI may be considered for further evaluation. DATA REPOSITORY: RADIATION DOSE DELIVERED:
== END 2023-12-20 01:37 ==
PROVIDERS: PCP Nurse Practitioner Family; Visit Provider Nurse Practitioner Family
DX: Z47.1 Aftercare following joint replacement surgery (principal); Z96.652 Presence of left artificial knee joint; M79.672 Pain in left foot
CPT/HCPCS: 73660

== ENCOUNTER 2023-12-20 14:15 | Emergency (ER) | payer MEDICARE, MEDICAID, SELFPAY ==
[2023-12-20 14:16] VITALS: BP 164/77; PULSE 71; RESP 18; TEMP 36.1; O2SAT 96
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
[2023-12-20] MEDS: Acetaminophen 500 MG TAB 1000 MG PO (14:36)
--- NOTE | 2023-12-20 14:54 | DI.RAD_ITS ---
Exam(s) XR KNEE RT 2V AP,LAT EXAM: XR KNEE RT 2V AP,LAT CLINICAL HISTORY: atraumatic pain. TECHNIQUE: 2D digital imaging was performed. Two images were obtained. AP and lateral views were ob tained. COMPARISON: CR XR KNEE LT 2V AP,LAT from 08/28/2023 FINDINGS: BONES: There are stable post operative changes of a right total knee replacement present. No fractur e or dislocation. JOINTS: The orthopedic hardware is in good position. No evidence of hardware loosening. SOFT TISSUE: Normal. IMPRESSION: Stable right total knee replacement. DATA REPOSITORY: RADIATION DOSE DELIVERED:
[2023-12-20 15:39] LABS: Abs Immature Grans 0.02 10^3/uL (0.0-0.06); Absolute Basophil Count 0.06 10^3/uL (0.0-0.2); Absolute Lymphocyte Count 1.83 10^3/uL (1.2-3.4); Absolute Monocyte Count 0.51 10^3/uL (0.1-0.8); Absolute Neutrophil Count 4.55 10^3/uL (1.2-6.7); Basophils % 0.8 %; Eosinophils % 1.4 %; HCT 39.6 % (36.0-46.0); HGB 12.8 g/dL (11.2-15.7); Immature Grans % 0.3 %; Lymphocytes % 25.9 %; MCH 28.6 pg (27.0-33.0); MCHC 32.3 % (32.0-36.0); MCV 89 fL (80-95); MPV 10.7 fL (8.0-11.0); Monocytes % 7.2 %; Neutrophils % 64.4 %; Platelet Count 287 10^3/uL (130-400); RBC 4.47 10^6/uL (3.93-5.22); RDW 13.2 % (11.7-14.6); RDW-SD 42.3 fL; WBC 7.07 10^3/uL (4.4-10.8)
[2023-12-20] MEDS: Ketorolac 15 MG/ML VIAL IVP (15:49)
[2023-12-20 15:52] LABS: ALT 15 U/L (14-59); AST 12 U/L (15-37); Albumin 3.6 g/dL (3.4-5.0); Alkaline Phosphatase 125 U/L (46-116); Anion Gap 8.4 mmol/L (3-11); BUN 12 mg/dL (7-18); Bilirubin, Total 0.19 mg/dL (0.2-1.0); CO2 27.6 mmol/L (21.0-32.0); CREATININE 1.3 mg/dL (0.55-1.02); Calcium 9.4 mg/dL (8.5-10.1); Chloride 104 mmol/L (98-107); Estimated GFR 47.08 (mL/min/1.73m2); Glucose 111 mg/dL (74-106); Potassium 3.5 mmol/L (3.5-5.1); Sodium 140 mmol/L (136-145); Total Protein 7.7 g/dL (6.4-8.2)
[2023-12-20 15:54] LABS: C-Reactive Protein < 0.50 mg/dL (<or=0.5)
[2023-12-20] MEDS: Lidocaine 5% Patch 1 PATCH TP (16:09)
== END 2023-12-20 17:29 | disposition home or self-care (01) ==
PROVIDERS: Emergency Provider Emergency Medicine; PCP Nurse Practitioner Family
DX: M25.561 Pain in right knee (principal); I10 Essential (primary) hypertension; E78.5 Hyperlipidemia, unspecified; E11.9 Type 2 diabetes mellitus without complications; G20.C Parkinsonism, unspecified; Z79.84 Long term (current) use of oral hypoglycemic drugs; Z87.891 Personal history of nicotine dependence; Z96.653 Presence of artificial knee joint, bilateral
CPT/HCPCS: 36415; 80053; 96374; 99284; 73560; 73660; 85025; 86140; J1885

== ENCOUNTER → 2023-12-25 13:19 | Outpatient (BNVA) | payer MEDICARE, MEDICAID, SELFPAY | PROVIDERS: PCP Nurse Practitioner Family; Referring Provider Nurse Practitioner Family; Visit Provider Student in an Organized Health Care Education/Training Program | DX: M70.51 Other bursitis of knee, right knee (principal) | CPT/HCPCS: 99213 ==

== ENCOUNTER 2023-12-27 00:55 | Outpatient (CLI) | payer MEDICARE, MEDICAID, SELFPAY ==
--- NOTE | 2023-12-27 | DI.RAD_ITS ---
Exam(s) XR SHOULDER RT COMPLETE 2+V EXAM: XR SHOULDER RT COMPLETE 2+V CLINICAL HISTORY: PAIN SHOULDER M25.519 RIGHT. TECHNIQUE: 2D digital imaging was performed. COMPARISON: CR,XR XR CHEST 2V PA LATERAL from 10/05/2023 FINDINGS: Five views No evidence of fracture or dislocation or soft tissue calcifications. The subacromial space is not d iminished. There are no obvious degenerative changes in the glenohumeral joint. AC joint appears un remarkable. Bone density normal. No osseous lesions. IMPRESSION: No significant radiographic findings in the right shoulder. DATA REPOSITORY: RADIATION DOSE DELIVERED:
== END 2023-12-27 01:15 ==
LOC: DI 00:55
PROVIDERS: PCP Nurse Practitioner Family; Visit Provider Family Medicine
DX: M25.511 Pain in right shoulder (principal)
CPT/HCPCS: 73030

== ENCOUNTER → 2024-01-02 09:37 | Outpatient (BNVA) | payer MEDICARE, MEDICAID, SELFPAY | PROVIDERS: PCP Nurse Practitioner Family; Visit Provider Psychiatry & Neurology Neurology | DX: G43.009 Migraine without aura, not intractable, without status migrainosus (principal); G40.319 Generalized idiopathic epilepsy and epileptic syndromes, intractable, without status epilepticus; G21.11 Neuroleptic induced parkinsonism; T43.505A Adverse effect of unspecified antipsychotics and neuroleptics, initial encounter | CPT/HCPCS: 99214 ==

== ENCOUNTER 2024-01-02 13:06 | Outpatient (CLI) | payer MEDICARE, MEDICAID, SELFPAY ==
--- NOTE | 2024-01-02 06:00 | DI.RAD_ITS ---
Exam(s) XR PAIN CLINIC LUMBAR SP 2V EXAM: XR PAIN CLINIC LUMBAR SP 2V CLINICAL HISTORY: DX: Lumbar Spondylosis TECHNIQUE: 2D and realtime digital imaging was performed. Radiologist not present. CONTRAST MATERIAL: None. COMPARISON: No exams were available for comparison FINDINGS: Fluoroscopy was provided for pain management therapy. Please refer to procedure report or details. Radiation Exposure Index: Ka,r=12.94 mGy IMPRESSION: As above. RADIATION DOSE DELIVERED:
--- NOTE | 2024-01-02 13:09 | PDOC.PAIN ---
Date of service: 01/02/24 Time of Service: 13:15 Pain Managment Procedure Note Procedure Note Procedure Note: Lumbar Medial Branch Block ? Location: Bilateral Medial Branches ? Levels: L3,4,5? (L4-5, L5-S1 FACET) ? Pre-procedure Diagnosis: M47.817 Spondylosis without myelopathy or radiculopathy, lumbosacral region M47.816 Spondylosis without myelopathy or radiculopathy, lumbar region ? Post-procedure Diagnosis:? The same as above ? Sedation: NONE? Estimated blood loss:? less than 2 cc ? Surgeon:? Greg Torres MD COMMENT: PRE PROCEDURE PAIN SCORE: 9/10 ? Procedure Detail:? The procedure and potential risks were explained to the patient and informed written consent was obtained. The patient was escorted to the procedure room and placed in the prone position. Pillows were utilized for proper positioning and comfort.? Time out was performed in procedure room with nursing staff confirming the patient's identity, procedure to be performed, allergies, and any blood thinning or anti-platelet medications. The patient's lower back was prepped with chlorhexidine and draped in a sterile fashion. Sterile technique was maintained throughout the procedure.? Sterile gloves were used, a face mask was worn, and new single dose vials of all medications were used with the top being swabbed with alcohol and given time to dry prior to withdrawal of medication.? A left AND right-sided oblique fluoroscopic view was obtained, with visualization of the: ?RIGHT and LEFT L3,4 and DORSAL RAMUS L5 AT SACRAL ALA ? junction of the transverse process and superior articular process. Lidocaine 1% was used to anesthetize the skin. A 22-gauge Quincke needle was advanced along the superior margin of the transverse process and lateral to the articular process.? It was directed inferiorly and medially so that the tip struck the junction of the base of the transverse process and the superior articular process. The needle was then walked over the low back pain. Will reassess aspect of the transverse process and advanced slightly along the course of the L3,4,5 medial branch nerves. Proper placement was verified in A/P, oblique and lateral views under fluoroscopy. At this location, following negative aspiration, 0.5cc 0.5% bupivacaine was injected.? The patient tolerated the procedure well and was transported to the recovery area for observation and discharge instructions. Permanent images saved and recorded. Follow-up:? The patient will return in 2 weeks for confirmatory LMBBs if they? meet the criteria from today's procedure lasting for at least 2 hours.? COMMENT:Pain went from 9/10 to 7/10. Before the patient left patient had greater than 20% pain relief. Patient has Modic changes at L5-S1 which might be the source of her pain.
[2024-01-02 13:17] VITALS: BP 118/68; PULSE 68; RESP 20; TEMP 36.7; O2SAT 100
[2024-01-02 13:45] VITALS: O2SAT 99
[2024-01-02 13:50] VITALS: O2SAT 99
[2024-01-02] MEDS: Nerve Block Tray 1 EACH MC (14:12)
[2024-01-02] MEDS: Bupivacaine 0.5% Pres-Free 10 ML VIAL IJ (14:12)
== END 2024-01-02 13:07 | disposition home or self-care (01) ==
LOC: PC 13:06
PROVIDERS: PCP Nurse Practitioner Family; Visit Provider Anesthesiology Pain Medicine
DX: M54.50 Low back pain, unspecified (principal); M47.817 Spondylosis without myelopathy or radiculopathy, lumbosacral region; M47.816 Spondylosis without myelopathy or radiculopathy, lumbar region
CPT/HCPCS: 00123; 64493; 64494; 72100; 99214; J0665

== ENCOUNTER 2024-01-09 21:47 | Outpatient (REF) | payer MEDICARE, MEDICAID, SELFPAY ==
[2024-01-09 23:15] LABS: Abs Immature Grans 0.01 10^3/uL (0.0-0.06); Absolute Basophil Count 0.05 10^3/uL (0.0-0.2); Absolute Eosinophil Count 0.14 10^3/uL (0.0-0.7); Absolute Lymphocyte Count 2.01 10^3/uL (1.2-3.4); Absolute Monocyte Count 0.47 10^3/uL (0.1-0.8); Absolute Neutrophil Count 2.97 10^3/uL (1.2-6.7); Basophils % 0.9 %; Eosinophils % 2.5 %; HCT 39.7 % (36.0-46.0); HGB 12.8 g/dL (11.2-15.7); Immature Grans % 0.2 %; Lymphocytes % 35.6 %; MCH 28.8 pg (27.0-33.0); MCHC 32.2 % (32.0-36.0); MCV 89 fL (80-95); MPV 11.6 fL (8.0-11.0); Monocytes % 8.3 %; Neutrophils % 52.5 %; Platelet Count 318 10^3/uL (130-400); RBC 4.44 10^6/uL (3.93-5.22); RDW 12.9 % (11.7-14.6); RDW-SD 42.4 fL; WBC 5.65 10^3/uL (4.4-10.8)
[2024-01-09 23:21] LABS: C-Reactive Protein < 0.50 mg/dL (<or=0.5)
[2024-01-11 09:47] LABS: Lyme Ab w Rflx to Lyme Confirm Positive (Negative)
[2024-01-11 11:14] LABS: Lyme IgG Ab Negative (Negative); Lyme IgM Ab Positive (Negative)
== END 2024-01-09 21:48 | disposition home or self-care (01) ==
LOC: LBN 21:47
PROVIDERS: PCP Nurse Practitioner Family; Visit Provider Nurse Practitioner Family
DX: M25.562 Pain in left knee (principal)
CPT/HCPCS: 86617; 85025; 86140; 86618

== ENCOUNTER → 2024-01-11 13:52 | Outpatient (BNVA) | payer MEDICARE, MEDICAID, SELFPAY | PROVIDERS: PCP Nurse Practitioner Family; Referring Provider Nurse Practitioner Family; Visit Provider Podiatrist | DX: M20.42 Other hammer toe(s) (acquired), left foot (principal); M79.672 Pain in left foot; M79.671 Pain in right foot | CPT/HCPCS: 99213 ==

== ENCOUNTER 2024-01-29 01:45 | Outpatient (CLI) | payer MEDICARE, MEDICAID, SELFPAY ==
--- NOTE | 2024-01-29 07:00 | DI.RAD_ITS ---
Exam(s) XR FOOT RT COMPLETE EXAM: XR FOOT RT COMPLETE CLINICAL HISTORY: Comparison views,rt foot pain, m79.671. TECHNIQUE: 2D digital imaging was performed. Three views. COMPARISON: CR XR TOE LT THIRD from 12/20/2023 FINDINGS: BONES: No acute fracture is present. No bony destructive lesion is seen. Small enthesophyte at Achil les insertion. JOINTS: No dislocation present. Spurring at dorsal aspect talus. Mild degenerative changes 1st MTP joint SOFT TISSUE: Normal. IMPRESSION: Mild degenerative changes. DATA REPOSITORY: RADIATION DOSE DELIVERED:
--- NOTE | 2024-01-29 07:00 | DI.RAD_ITS ---
Exam(s) XR FOOT LT COMPLETE EXAM: XR FOOT LT COMPLETE CLINICAL HISTORY: Lt second and fourth toe pain,hammertoe lt foot, m20.42. TECHNIQUE: 2D digital imaging was performed. Three views. COMPARISON: CR XR TOE LT THIRD from 12/20/2023 CR XR FOOT RT COMPLETE from 01/29/2024 FINDINGS: BONES: No acute fracture is present. Deformity at the head of the proximal phalanx of the 3rd toe ag ain noted. No bony destructive lesion is seen. Heel spurs. JOINTS: No dislocation present. Hammertoe deformities. Mild degenerative changes at tarsal metatar lorie joints. SOFT TISSUE: Normal. IMPRESSION: Degenerative changes and small heel spurs. DATA REPOSITORY: RADIATION DOSE DELIVERED:
== END 2024-01-29 02:05 ==
LOC: DI 01:45
PROVIDERS: PCP Nurse Practitioner Family; Visit Provider Podiatrist
DX: M20.42 Other hammer toe(s) (acquired), left foot (principal); M79.671 Pain in right foot
CPT/HCPCS: 73630

== ENCOUNTER → 2024-02-01 13:49 | Outpatient (BNVA) | payer MEDICARE, MEDICAID, SELFPAY | PROVIDERS: PCP Nurse Practitioner Family; Visit Provider Psychiatry & Neurology Neurology ==

== ENCOUNTER 2024-02-01 14:50 | Emergency (ER) | payer MEDICARE, MEDICAID, SELFPAY ==
[2024-02-01 14:54] VITALS: BP 180/77; PULSE 67; RESP 20; O2SAT 96
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
[2024-02-01 15:51] LABS: Abs Immature Grans 0.01 10^3/uL (0.0-0.06); Absolute Basophil Count 0.04 10^3/uL (0.0-0.2); Absolute Eosinophil Count 0.23 10^3/uL (0.0-0.7); Absolute Lymphocyte Count 1.85 10^3/uL (1.2-3.4); Absolute Monocyte Count 0.49 10^3/uL (0.1-0.8); Absolute Neutrophil Count 3.42 10^3/uL (1.2-6.7); Basophils % 0.7 %; Eosinophils % 3.8 %; HCT 38.1 % (36.0-46.0); HGB 11.9 g/dL (11.2-15.7); Immature Grans % 0.2 %; Lymphocytes % 30.6 %; MCH 28.5 pg (27.0-33.0); MCHC 31.2 % (32.0-36.0); MCV 91 fL (80-95); MPV 10.7 fL (8.0-11.0); Monocytes % 8.1 %; Neutrophils % 56.6 %; Platelet Count 258 10^3/uL (130-400); RBC 4.18 10^6/uL (3.93-5.22); RDW 13.5 % (11.7-14.6); RDW-SD 45.1 fL; WBC 6.04 10^3/uL (4.4-10.8)
[2024-02-01 15:54] LABS: *AMPHETAMINES SCREEN URINE Negative (Negative); *BARBITURATES SCREEN URINE Negative (Negative); *BENZODIAZEPINES SCREEN URINE Negative (Negative); Cannabinoids THC Negative (Negative); Cocaine Screen,Urine Negative (Negative); METHADONE URINE SCREEN Negative (Negative); OPIATES URINE SCREEN Negative (Negative); Tricyclic Antidepressants Negative (Negative)
[2024-02-01 16:16] LABS: ALT 17 U/L (14-59); AST 17 U/L (15-37); Albumin 3.5 g/dL (3.4-5.0); Alkaline Phosphatase 120 U/L (46-116); Anion Gap 8.7 mmol/L (3-11); BUN 13 mg/dL (7-18); CO2 26.3 mmol/L (21.0-32.0); CREATININE 1.2 mg/dL (0.55-1.02); Calcium 9.2 mg/dL (8.5-10.1); Chloride 110 mmol/L (98-107); Estimated GFR 51.82 (mL/min/1.73m2); Glucose 87 mg/dL (74-106); Potassium 3.8 mmol/L (3.5-5.1); Sodium 145 mmol/L (136-145); Total Protein 7.5 g/dL (6.4-8.2)
[2024-02-01 16:18] LABS: ETHANOL BLOOD < 3.0 mg/dL (<10)
[2024-02-01 16:25] LABS: Salicylate < 2.8 mg/dL (<2.8)
[2024-02-01 16:27] LABS: Acetaminophen < 2 ug/mL (10-30)
[2024-02-01] MEDS: Topiramate 100 MG TAB PO (20:36)
--- NOTE | 2024-02-02 08:07 | ED.PROG_ITS ---
Date of service: 02/02/24 Time of Service: 08:08 Medical Decision Making The patient was stable in the emergency room over the arc of this shift without any complaints or difficulties. Routine medications are written for. The plan for the patient is for discharge to a respite care bed this morning. Quality:SDOH Health Related Social Needs: Health related social needs transportation insecurity( Z59.82) Health related social needs details Transport, psychol ogical stress and functioning, disability, risk of homelessness Sign Out Sign Out Data: Sign Out Comment: voluntary pending placement might be able to go to care bed in the morning SI with plan to slit her throat Last updated by Jud Padron MD at 02/01/24 21:29 Discharge Plan Discharge Details Chief Complaint: PsychEval Primary Care Provider: Anna Dial ED Provider: Celso Yanez Home Meds and New Rx's Prescriptions: No Action buspirone 10 mg tablet 10 mg PO QHS doxycycline hyclate 100 mg capsule 100 mg PO BID Rx Instructions: x10 days rizatriptan 10 mg tablet See Rx Instructions PO .COMPLEX Rx Instructions: take 1 tab at onset of headache; if no relief may repeat 1 tab after at least 2 hrs; max = 3 tabs/24 hr PO ibuprofen 400 mg tablet 400 mg PO TID diclofenac sodium 1 % gel 2 g topical QID PRN (Reason: shoulder pain) Qty: 100 0RF Rx Instructions: apply to area of pain four times per day as needed lamotrigine 150 mg tablet 150 mg PO BID Qty: 180 3RF rizatriptan 10 mg tablet 10 mg PO ONCE PRN (Reason: migraine headache) Qty: 12 3RF Rx Instructions: take at onset of headache; ok to take second in 1 hour; no more than 2 in a 24 hour period acetaminophen 500 mg tablet 1,000 mg PO TID PRN risperidone 2 mg tablet 2 mg PO BID amoxicillin 500 mg capsule 2,000 mg PO ONCE PRN Rx Instructions: prior to dental work levothyroxine 100 MCG tablet 100 mcg PO DAILY (DME) lancets 33 gauge misc 1 ea Miscellaneous DIRECTED folic acid 1 mg tablet 1 mg PO DAILY metformin 500 mg tablet 500 mg PO DAILY simethicone 80 mg tablet,chewable See Rx Instructions .ROUTE .COMPLEX Qty: 28 0RF Dose Instruction: CHEW & SWALLOW 1 TABLET AT BEDTIME Rx Instructions: CHEW & SWALLOW 1 TABLET AT BEDTIME atorvastatin 10 mg tablet 10 mg PO DAILY Patient Comments: TAKE ONE TABLET BY MOUTH ONCE DAILY AT BEDTIME polyethylene glycol 3350 17 gram Powder In Packet 17 g PO BID PRN PRN (Reason: Constipation) Qty: 0 0RF topiramate 100 mg tablet 100 mg PO BID Qty: 180 3RF (DME) FreeStyle Lite Strips Strip MISCELLANEOUS Patient Comments: TEST BLOOD GLUCOSE TWICE DAILY (DME) blood-glucose meter [FreeStyle Lite Meter] Kit MISCELLANEOUS Patient Comments: TEST TWICE DAILY DIRECTED (DME) lancets [FreeStyle Lancets] 28 gauge misc MISCELLANEOUS Patient Comments: TEST TWICE DAILY
[2024-02-02] MEDS: metFORMIN 500 MG TAB PO (08:22)
[2024-02-02] MEDS: risperiDONE 1 MG TAB 2 MG PO (08:22)
[2024-02-02] MEDS: Atorvastatin 10 MG TAB PO (08:22)
[2024-02-02] MEDS: Topiramate 100 MG TAB PO (08:22)
[2024-02-02] MEDS: Levothyroxine 100 MCG TAB PO (08:22)
[2024-02-02] MEDS: lamoTRIgine 100 MG TAB 150 MG PO (08:23)
[2024-02-02 08:32] VITALS: BP 141/81; PULSE 70; RESP 18; TEMP 36.6; O2SAT 97
--- NOTE | 2024-02-02 12:37 | W.EDPROG ---
Date of service: 02/02/24 Time of Service: 12:40 Medical Decision Making Care was signed out by Dr. Abdi, please see his documentation regarding earlier ED course. Plan at signout was to await placement at care bed later today. Per nursing, patient stable for discharge to care bed. Care bed awaiting the patient at 1 PM. Patient agreeable with plan and feels that this would be a safe option. Usual and customary discharge instructions were reviewed with the patient. Lab Data Lab results reviewed: Yes I reviewed the patient's lab results. Labs: Laboratory Tests Range/Units 02/01/24 02/01/24 15:11 15:45 WBC (4.4-10.8) 10^3/uL 6.04 RBC (3.93-5.22) 10^6/uL 4.18 Hgb (11.2-15.7) g/dL 11.9 Hct (36.0-46.0) % 38.1 MCV (80-95) fL 91 MCH (27.0-33.0) pg 28.5 MCHC (32.0-36.0) % 31.2 L RDW (11.7-14.6) % 13.5 Plt Count (130-400) 10^3/uL 258 MPV (8.0-11.0) fL 10.7 Immature Gran % % 0.2 Neutrophils % % 56.6 Lymphocytes % % 30.6 Monocytes % % 8.1 Eosinophils % % 3.8 Basophils % % 0.7 Nucleated RBC % (0.0-0.3) % 0.0 Absolute Neutrophils (1.2-6.7) 10^3/uL 3.42 Absolute Lymphocytes (1.2-3.4) 10^3/uL 1.85 Absolute Monocytes (0.1-0.8) 10^3/uL 0.49 Absolute Eosinophils (0.0-0.7) 10^3/uL 0.23 Absolute Basophils (0.0-0.2) 10^3/uL 0.04 Sodium (136-145) mmol/L 145 Potassium (3.5-5.1) mmol/L 3.8 Chloride (98-107) mmol/L 110 H Carbon Dioxide (21.0-32.0) mmol/L 26.3 Anion Gap (3-11) mmol/L 8.7 BUN (7-18) mg/dL 13 Creatinine (0.55-1.02) mg/dL 1.2 H Est GFR (CKD-EPI 2020) (mL/min/1.73m2) 51.82 Glucose (74-106) mg/dL 87 Calcium (8.5-10.1) mg/dL 9.2 Total Bilirubin (0.2-1.0) mg/dL 0.20 AST (15-37) U/L 17 ALT (14-59) U/L 17 Alkaline Phosphatase (46-116) U/L 120 H Total Protein (6.4-8.2) g/dL 7.5 Albumin (3.4-5.0) g/dL 3.5 TSH (0.36-3.74) uIU/mL 2.20 Salicylates (<2.8) mg/dL < 2.8 Urine Opiates Screen (Negative) Negative Urine Methadone Screen (Negative) Negative Acetaminophen (10-30) ug/mL < 2 Ur Barbiturates Screen (Negative) Negative Ur Tricyclics Screen (Negative) Negative Ur Amphetamines Screen (Negative) Negative U Benzodiazepines Scrn (Negative) Negative Urine Cocaine Screen (Negative) Negative Ur THC Screen (Negative) Negative Ethyl Alcohol (<10) mg/dL < 3.0 Quality:SDOH Health Related Social Needs: Health related social needs transportation insecurity(Z59.82) Health related social needs details Transport, psychological stress and functioning, disability, risk of homelessness Sign Out Sign Out Data: Sign Out Comment: voluntary pending placement might be able to go to care bed in the morning SI with plan to slit her throat Last updated by Jud Padron MD at 02/01/24 21:29 Discharge Plan Disposition Patient Disposition: Home Condition: Stable Discharge Details Clinical Impression: Depression Primary Care Provider: Anna Dial ED Provider: Nigel Rubin Home Meds and New Rx's Prescriptions: Continued buspirone 10 mg tablet 10 mg PO QHS doxycycline hyclate 100 mg capsule 100 mg PO BID Rx Instructions: x10 days rizatriptan 10 mg tablet See Rx Instructions PO .COMPLEX Rx Instructions: take 1 tab at onset of headache; if no relief may repeat 1 tab after at least 2 hrs; max = 3 tabs/24 hr PO ibuprofen 400 mg tablet 400 mg PO TID diclofenac sodium 1 % gel 2 g topical QID PRN (Reason: shoulder pain) Qty: 100 0RF Rx Instructions: apply to area of pain four times per day as needed lamotrigine 150 mg tablet 150 mg PO BID Qty: 180 3RF rizatriptan 10 mg tablet 10 mg PO ONCE PRN (Reason: migraine headache) Qty: 12 3RF Rx Instructions: take at onset of headache; ok to take second in 1 hour; no more than 2 in a 24 hour period acetaminophen 500 mg tablet 1,000 mg PO TID PRN risperidone 2 mg tablet 2 mg PO BID amoxicillin 500 mg capsule 2,000 mg PO ONCE PRN Rx Instructions: prior to dental work levothyroxine 100 MCG tablet 100 mcg PO DAILY (DME) lancets 33 gauge misc 1 ea Miscellaneous DIRECTED folic acid 1 mg tablet 1 mg PO DAILY metformin 500 mg tablet 500 mg PO DAILY simethicone 80 mg tablet,chewable See Rx Instructions .ROUTE .COMPLEX Qty: 28 0RF Dose Instruction: CHEW & SWALLOW 1 TABLET AT BEDTIME Rx Instructions: CHEW & SWALLOW 1 TABLET AT BEDTIME atorvastatin 10 mg tablet 10 mg PO DAILY Patient Comments: TAKE ONE TABLET BY MOUTH ONCE DAILY AT BEDTIME polyethylene glycol 3350 17 gram Powder In Packet 17 g PO BID PRN PRN (Reason: Constipation) Qty: 0 0RF topiramate 100 mg tablet 100 mg PO BID Qty: 180 3RF (DME) FreeStyle Lite Strips Strip MISCELLANEOUS Patient Comments: TEST BLOOD GLUCOSE TWICE DAILY (DME) blood-glucose meter [FreeStyle Lite Meter] Kit MISCELLANEOUS Patient Comments: TEST TWICE DAILY DIRECTED (DME) lancets [FreeStyle Lancets] 28 gauge misc MISCELLANEOUS Patient Comments: TEST TWICE DAILY Discharge Instructions Instructions: Depression, Adult ED Additional Instructions: The plan at discharge today is to go to the care bed for temporary respite and to follow-up with [facility] human services. Please contact your primary care physician to arrange follow-up. Return to the ER immediately for any worsening or new concerning symptoms. Referrals: [facility] [Outside] Anna Dial APRN [Primary Care Provider] - Discharge Data Discharge Date/Time-TO BE ENTERED AT DEPARTURE: 02/02/24 13:09
[2024-02-06 13:20] LABS: Lamotrigine 7.3 mcg/mL (3.0-15.0)
== END 2024-02-02 13:09 | disposition home or self-care (01) ==
PROVIDERS: Emergency Medicine; Emergency Provider Student in an Organized Health Care Education/Training Program; PCP Nurse Practitioner Family
DX: R45.851 Suicidal ideations (principal); F32.A Depression, unspecified; G20.C Parkinsonism, unspecified; E78.5 Hyperlipidemia, unspecified; I10 Essential (primary) hypertension; Z87.891 Personal history of nicotine dependence
CPT/HCPCS: 00123; 80053; 80175; 80307; 87426; 99214; 99284; 80320; 80329; 84443; 85025

== ENCOUNTER 2024-02-03 16:44 | Emergency (ER) | payer MEDICARE, MEDICAID, SELFPAY ==
[2024-02-03 16:46] VITALS: BP 146/84; PULSE 72; RESP 20; TEMP 37.2; O2SAT 94
[2024-02-03 17:09] LABS: HGB 12.8 g/dL (11.2-15.7); MCH 28.8 pg (27.0-33.0); MCV 90 fL (80-95); MPV 10.3 fL (8.0-11.0); Platelet Count 288 10^3/uL (130-400); RBC 4.45 10^6/uL (3.93-5.22); RDW 13.2 % (11.7-14.6); RDW-SD 43.6 fL; WBC 7.12 10^3/uL (4.4-10.8)
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
== END 2024-02-03 17:33 | disposition home or self-care (01) ==
PROVIDERS: Emergency Provider Emergency Medicine; PCP Nurse Practitioner Family
DX: N93.9 Abnormal uterine and vaginal bleeding, unspecified (principal); G20.C Parkinsonism, unspecified; I10 Essential (primary) hypertension; E78.5 Hyperlipidemia, unspecified; E11.9 Type 2 diabetes mellitus without complications; Z87.891 Personal history of nicotine dependence
CPT/HCPCS: 36415; 85027; 99283

== ENCOUNTER 2024-02-06 08:27 | Outpatient (CLI) | payer MEDICARE, MEDICAID, SELFPAY ==
--- NOTE | 2024-02-06 08:30 | DI.RAD_ITS ---
Exam(s) XR PAIN CLINIC LUMBAR SP 2V EXAM: XR PAIN CLINIC LUMBAR SP 2V CLINICAL HISTORY: Dx: Lumbar Spondylosis TECHNIQUE: 2D and realtime digital imaging was performed. Radiologist not present. CONTRAST MATERIAL: None. COMPARISON: No exams were available for comparison FINDINGS: Fluoroscopy was provided for pain management therapy. Please refer to procedure report or details. Radiation Exposure Index: Ka,r=12.48 mGy IMPRESSION: As above. RADIATION DOSE DELIVERED:
[2024-02-06 08:40] VITALS: BP 110/57; PULSE 64; RESP 18; TEMP 36.7; O2SAT 98
--- NOTE | 2024-02-06 08:41 | PDOC.PAIN ---
Date of service: 02/06/24 Time of Service: 09:26 Pain Managment Procedure Note Procedure Note Procedure Note: Location: Bilateral Medial Branches ? Levels: L3,4,5? (L4-5, L5-S1 FACET) ? Pre-procedure Diagnosis: M47.817 Spondylosis without myelopathy or radiculopathy, lumbosacral region M47.816 Spondylosis without myelopathy or radiculopathy, lumbar region ? Post-procedure Diagnosis:? The same as above ? Sedation: NONE? Estimated blood loss:? less than 2 cc ? Surgeon:? Greg Torres MD COMMENT: Patient had? GREATER THAN 80 % relief after the first medial branch block for greater than the duration of the local anesthetic.? PRE PROCEDURE PAIN SCORE: 9/10 ? Procedure Detail:? The procedure and potential risks were explained to the patient and informed written consent was obtained. The patient was escorted to the procedure room and placed in the prone position. Pillows were utilized for proper positioning and comfort.? Time out was performed in procedure room with nursing staff confirming the patient's identity, procedure to be performed, allergies, and any blood thinning or anti-platelet medications. The patient's lower back was prepped with chlorhexidine and draped in a sterile fashion. Sterile technique was maintained throughout the procedure.? Sterile gloves were used, a face mask was worn, and new single dose vials of all medications were used with the top being swabbed with alcohol and given time to dry prior to withdrawal of medication.? A left and right-sided oblique fluoroscopic view was obtained, with visualization of the: ?RIGHT and LEFT L3,4 and DORSAL RAMUS L5 AT SACRAL ALA ? junction of the transverse process and superior articular process. Lidocaine 1% was used to anesthetize the skin. A 22-gauge Quincke needle was advanced along the superior margin of the transverse process and lateral to the articular process.? It was directed inferiorly and medially so that the tip struck the junction of the base of the transverse process and the superior articular process. The needle was then walked over the superior aspect of the transverse process and advanced slightly along the course of the L3,4,5 medial branch nerves. Proper placement was verified in A/P, oblique and lateral views under fluoroscopy. At this location, following negative aspiration, 0.5cc 2% lidocaine was injected.? The patient tolerated the procedure well and was transported to the recovery area for observation and discharge instructions. Permanent images saved and recorded. Follow-up:?? Will plan to proceed with lumbar medial branch RFA if the patient gets good relief from today's procedure lasting for at least 2 hours. COMMENT:Pain went from 9/10 to 0 /10. Before the patient left patient had 100% pain relief. Patient also had has Modic type II changes at L5-S1 depending on how she does would be a candidate for basivertebral nerve ablation
[2024-02-06 09:07] VITALS: O2SAT 97
[2024-02-06 09:10] VITALS: O2SAT 96
[2024-02-06 09:20] VITALS: O2SAT 97
[2024-02-06] MEDS: Lidocaine 2% Pres-Free 5 ML VIAL IJ (09:30)
[2024-02-06] MEDS: Nerve Block Tray 1 EACH MC (09:31)
== END 2024-02-06 08:28 | disposition home or self-care (01) ==
LOC: PC 08:28
PROVIDERS: PCP Nurse Practitioner Family; Visit Provider Anesthesiology Pain Medicine
DX: M54.50 Low back pain, unspecified (principal); M47.817 Spondylosis without myelopathy or radiculopathy, lumbosacral region; M47.816 Spondylosis without myelopathy or radiculopathy, lumbar region
CPT/HCPCS: 00123; 64493; 64494; 72100

== ENCOUNTER 2024-02-06 12:39 | Emergency (ER) | payer MEDICARE, MEDICAID, SELFPAY ==
[2024-02-06 12:38] VITALS: BP 122/86; PULSE 63; RESP 18; TEMP 36.8; O2SAT 99
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
[2024-02-06] MEDS: risperiDONE 1 MG TAB 2 MG PO (13:46)
[2024-02-06 13:47] LABS: Bilirubin Negative (Negative); Blood Negative (Negative); Clarity Clear (Clear); Glucose Negative (Negative); Ketones Negative (Negative); Leukocyte Esterase Negative (Negative); Nitrite Negative (Negative); Specific Gravity 1.025 (1.005-1.025); Urobilinogen 0.2 mg/dL (Up to 0.2); pH 5.5 (5-8)
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
[2024-02-06 16:20] LABS: Abs Immature Grans 0.01 10^3/uL (0.0-0.06); Absolute Basophil Count 0.05 10^3/uL (0.0-0.2); Absolute Eosinophil Count 0.25 10^3/uL (0.0-0.7); Absolute Lymphocyte Count 1.81 10^3/uL (1.2-3.4); Absolute Monocyte Count 0.47 10^3/uL (0.1-0.8); Absolute Neutrophil Count 3.38 10^3/uL (1.2-6.7); Basophils % 0.8 %; Eosinophils % 4.2 %; HGB 11.5 g/dL (11.2-15.7); Immature Grans % 0.2 %; Lymphocytes % 30.3 %; MCHC 31.9 % (32.0-36.0); MCV 91 fL (80-95); MPV 10.6 fL (8.0-11.0); Monocytes % 7.9 %; Neutrophils % 56.6 %; Platelet Count 265 10^3/uL (130-400); RBC 3.97 10^6/uL (3.93-5.22); RDW 13.3 % (11.7-14.6); RDW-SD 44.6 fL; WBC 5.97 10^3/uL (4.4-10.8)
[2024-02-06 16:32] LABS: Salicylate < 2.8 mg/dL (<2.8)
[2024-02-06 16:34] LABS: Acetaminophen < 2 ug/mL (10-30)
[2024-02-06 16:36] LABS: ALT 13 U/L (14-59); AST 12 U/L (15-37); Albumin 3.4 g/dL (3.4-5.0); Alkaline Phosphatase 120 U/L (46-116); Anion Gap 9.4 mmol/L (3-11); BUN 14 mg/dL (7-18); Bilirubin, Total 0.26 mg/dL (0.2-1.0); CO2 24.6 mmol/L (21.0-32.0); CREATININE 1.1 mg/dL (0.55-1.02); Calcium 9.3 mg/dL (8.5-10.1); Chloride 108 mmol/L (98-107); ETHANOL BLOOD < 3.0 mg/dL (<10); Estimated GFR 57.52 (mL/min/1.73m2); Glucose 106 mg/dL (74-106); Potassium 3.8 mmol/L (3.5-5.1); Sodium 142 mmol/L (136-145); TSH (W/Ref FT4) 3.17 uIU/mL (0.36-3.74); Total Protein 7.3 g/dL (6.4-8.2)
[2024-02-06] MEDS: metFORMIN C.R. 500 MG TABCR PO (17:50)
[2024-02-06] MEDS: risperiDONE 1 MG TAB 3 MG PO (20:03)
[2024-02-06] MEDS: Atorvastatin 10 MG TAB PO (20:03)
[2024-02-06] MEDS: Topiramate 100 MG TAB PO (20:03)
--- NOTE | 2024-02-07 06:39 | ED.PROG_ITS ---
Date of service: 02/06/24 Time of Service: 22:00 Medical Decision Making This patient was signed out to me. Please see previous notes for H&P and initial eval. In brief, 58yo F with schizophrenia presenting with SI and command hallucinations. Medically cleared, home meds ordered. Pending voluntary placement. Overnight appeared to be sleeping. Did not wake patient for assessment. Will be signed out to oncoming physician, plan remains as above. Quality:SDOH Health Related Social Needs: Health related social needs transportation insecurity( Z59.82) Health related social needs details Transport, psychol ogical stress and functioning, disability, risk of homelessness Sign Out Sign Out Data: Sign Out Comment: At the end of my shift, care transitioned to [facility], disposition pending. MH evaluated patient prior to arrival and recommend inpatient management of MH disorder, SI. Patient voluntary. Last updated by Annita Diaz PA at 02/06/24 17:40 Sign Out Comment: Voluntary, [facility] seeking placement, no acute events today- had all home meds this afternoon. history schizophrenia, SI. Last updated by Erwin Black PA at 02/06/24 21:32 Discharge Plan Discharge Details Chief Complaint: PsychEval Primary Care Provider: Anna Dial ED Provider: Ree Hansen Home Meds and New Rx's Prescriptions: No Action buspirone 10 mg tablet 10 mg PO QHS rizatriptan 10 mg tablet See Rx Instructions PO .COMPLEX Rx Instructions: take 1 tab at onset of headache; if no relief may repeat 1 tab after at least 2 hrs; max = 3 tabs/24 hr PO ibuprofen 400 mg tablet 400 mg PO TID diclofenac sodium 1 % gel 2 g topical QID PRN (Reason: shoulder pain) Qty: 100 0RF Rx Instructions: apply to area of pain four times per day as needed lamotrigine 150 mg tablet 150 mg PO BID Qty: 180 3RF rizatriptan 10 mg tablet 10 mg PO ONCE PRN (Reason: migraine headache) Qty: 12 3RF Rx Instructions: take at onset of headache; ok to take second in 1 hour; no more than 2 in a 24 hour period acetaminophen 500 mg tablet 1,000 mg PO TID PRN risperidone 2 mg tablet 2 mg PO BID amoxicillin 500 mg capsule 2,000 mg PO ONCE PRN Rx Instructions: prior to dental work levothyroxine 100 MCG tablet 100 mcg PO DAILY (DME) lancets 33 gauge misc 1 ea Miscellaneous DIRECTED folic acid 1 mg tablet 1 mg PO DAILY metformin 500 mg tablet 500 mg PO DAILY simethicone 80 mg tablet,chewable See Rx Instructions .ROUTE .COMPLEX Qty: 28 0RF Dose Instruction: CHEW & SWALLOW 1 TABLET AT BEDTIME Rx Instructions: CHEW & SWALLOW 1 TABLET AT BEDTIME atorvastatin 10 mg tablet 10 mg PO DAILY Patient Comments: TAKE ONE TABLET BY MOUTH ONCE DAILY AT BEDTIME polyethylene glycol 3350 17 gram Powder In Packet 17 g PO BID PRN PRN (Reason: Constipation) Qty: 0 0RF topiramate 100 mg tablet 100 mg PO BID Qty: 180 3RF (DME) FreeStyle Lite Strips Strip MISCELLANEOUS Patient Comments: TEST BLOOD GLUCOSE TWICE DAILY (DME) blood-glucose meter [FreeStyle Lite Meter] Kit MISCELLANEOUS Patient Comments: TEST TWICE DAILY DIRECTED (DME) lancets [FreeStyle Lancets] 28 gauge misc MISCELLANEOUS Patient Comments: TEST TWICE DAILY
--- NOTE | 2024-02-07 06:56 | ED.PROG_ITS ---
Date of service: 02/07/24 Time of Service: 07:00 Medical Decision Making In brief, this is a 58-year-old female patient with a past medical history significant for schizophrenia, diabetes, seizure disorder, who is boarding in our emergency department with command auditory hallucinations telling her to kill herself/cut her throat. She has been medically cleared, is voluntary. She reports that overnight she developed a mild headache and abdominal discomfort, was provided with Tylenol for symptomatic management of pain over my shift. Given the ongoing symptoms, which the patient endorses has not improved over the course of her time in the emergency department, I did place a telepsychiatry consult for medication management. They recommend increasing her risperidone dosing, 2 mg in the morning, 3 mg at night, which I have done. She does still meet criteria for inpatient psychiatric placement and remains voluntary. While under my care the patient remained hemodynamically appropriate, and she was transferred to the oncoming provider without incident. Jen Olsen MD Medical Records Medical records reviewed: Yes I reviewed the patient's medical records. Lab Data Lab results reviewed: Yes I reviewed the patient's lab results. Quality:SDOH Health Related Social Needs: Health related social needs transportation insecurity( Z59.82) Health related social needs details Transport, psychol ogical stress and functioning, disability, risk of homelessness Sign Out Sign Out Data: Sign Out Comment: At the end of my shift, care transitioned to [facility], disposition pending. MH evaluated patient prior to arrival and recommend inpatient management of MH disorder, SI. Patient voluntary. Last updated by Annita Diaz PA at 02/06/24 17:40 Sign Out Comment: Voluntary, [facility] seeking placement, no acute events today- had all home meds this afternoon. history schizophrenia, SI. Last updated by Erwin Black PA at 02/06/24 21:32 Discharge Plan Discharge Details Chief Complaint: PsychEval Primary Care Provider: Anna Dial ED Provider: Jen Olsen Home Meds and New Rx's Prescriptions: No Action buspirone 10 mg tablet 10 mg PO QHS rizatriptan 10 mg tablet See Rx Instructions PO .COMPLEX Rx Instructions: take 1 tab at onset of headache; if no relief may repeat 1 tab after at least 2 hrs; max = 3 tabs/24 hr PO ibuprofen 400 mg tablet 400 mg PO TID diclofenac sodium 1 % gel 2 g topical QID PRN (Reason: shoulder pain) Qty: 100 0RF Rx Instructions: apply to area of pain four times per day as needed lamotrigine 150 mg tablet 150 mg PO BID Qty: 180 3RF rizatriptan 10 mg tablet 10 mg PO ONCE PRN (Reason: migraine headache) Qty: 12 3RF Rx Instructions: take at onset of headache; ok to take second in 1 hour; no more than 2 in a 24 hour period acetaminophen 500 mg tablet 1,000 mg PO TID PRN risperidone 2 mg tablet 2 mg PO BID amoxicillin 500 mg capsule 2,000 mg PO ONCE PRN Rx Instructions: prior to dental work levothyroxine 100 MCG tablet 100 mcg PO DAILY (DME) lancets 33 gauge misc 1 ea Miscellaneous DIRECTED folic acid 1 mg tablet 1 mg PO DAILY metformin 500 mg tablet 500 mg PO DAILY simethicone 80 mg tablet,chewable See Rx Instructions .ROUTE .COMPLEX Qty: 28 0RF Dose Instruction: CHEW & SWALLOW 1 TABLET AT BEDTIME Rx Instructions: CHEW & SWALLOW 1 TABLET AT BEDTIME atorvastatin 10 mg tablet 10 mg PO DAILY Patient Comments: TAKE ONE TABLET BY MOUTH ONCE DAILY AT BEDTIME polyethylene glycol 3350 17 gram Powder In Packet 17 g PO BID PRN PRN (Reason: Constipation) Qty: 0 0RF topiramate 100 mg tablet 100 mg PO BID Qty: 180 3RF (DME) FreeStyle Lite Strips Strip MISCELLANEOUS Patient Comments: TEST BLOOD GLUCOSE TWICE DAILY (DME) blood-glucose meter [FreeStyle Lite Meter] Kit MISCELLANEOUS Patient Comments: TEST TWICE DAILY DIRECTED (DME) lancets [FreeStyle Lancets] 28 gauge misc MISCELLANEOUS Patient Comments: TEST TWICE DAILY
[2024-02-07] MEDS: Topiramate 100 MG TAB PO ×2 (09:01→20:00)
[2024-02-07] MEDS: lamoTRIgine 100 MG TAB PO (09:03)
[2024-02-07] MEDS: busPIRone 5 MG TAB 10 MG PO (09:03)
[2024-02-07] MEDS: risperiDONE 1 MG TAB 3 MG PO ×2 (09:03→19:59)
[2024-02-07] MEDS: Acetaminophen 500 MG TAB 1000 MG PO (09:04)
--- NOTE | 2024-02-07 11:11 | W.TELEPSYCH ---
Date of service: 02/07/24 Time of Service: 10:10 Summary Note PSYCHIATRY CONSULT NOTE: INITIAL EVALUATION Date/Time:?02/07/2024 11:05:43 AM Name:Desirae Coronel :?1965 Location of the patient:?[facility] ED Consulting Array Clinician:?Cass Flynn Location of the clinician:?[facility] 58-year-old female, with history of bipolar disorder, schizophrenia, remitted cannabis/alcohol use, history of suicide attempt(s), history of psychiatric hospitalization, with no current excessive drug use, no history of violent behavior, self-referred for suicidal ideation, command hallucinations. Pt presented to ED with report of voices telling her to cut her throat. She also endorsed visual disturbances, seeing knives falling. Pt had another recent ED visit on 01/31 with same concerns, was transferred to a crisis unit for stabilization but symptoms apparently continued to worsen so pt returned to the ED. This time, pt has been recommended for voluntary psychiatric admissions, currently awaiting placement. On exam, pt continues to endorse loud voices telling her to kill herself by cutting her throat. She also endorses independent suicidal ideations with same plan, and vague paranoid thoughts of someone out to get her. Pt has not been sleeping much, reports anhedonia, hopelessness, mostly has been just staying in bed. Pt presents as withdrawn, flat, and she reports intent to harm self when the voices are loud as they are currently. Pt is unable to contract for safety. Patient is at elevated risk of danger to self, danger due to grave disability/poor self-care. Patient presently meets criteria for inpatient psychiatric hospitalization. Working Diagnoses:? F25.0 Schizoaffective disorder, bipolar type; History of alcohol use, in remission CPT Codes:?08265 - Psychiatric Diagnostic Evaluation with Medical Services PLAN Disposition:?Voluntary admission when medically stable. Patient understands recommendation for psychiatric admission and consents. Re-consult psychiatry/screening if patient requests discharge. Observation level ? Psychiatric 1:1 needed??Continue psych 1:1 Pharmacological:? Recommend Risperdal dose of 2 mg qAM and 3 mg qHS. Pt was reportedly taking 2 mg BID at home, per ED attending this was increased to 3 mg BID in the ED but would recommend slower titration given pt's age and questionable history of Parkinsonism in the past. Monitor for signs of EPS, can utilize Cogentin 1 mg BID prn EPS symptoms. No further changes recommended at this time. Is patient psychotic? - Yes; Were antipsychotic medications started? - Yes Informed consent: Discussed risks and benefits of the above recommended psychiatric medications with patient, who demonstrated understanding and gave express informed consent to take the above medications as documented. Follow up needed while in the hospital??As needed for management of behavior or change in mental status, or if otherwise indicated Other:? If questions arise about the psychiatric care of this patient, please call the [facility]?to request a follow-up consult. ?Please do not contact me individually through the EMR chat as I am not?regularly logged on to?this system. The psychiatrist for the follow-up visit may be a different psychiatrist Discussed plan with onsite state farm agent team member:?Yes - Dr. Jen Olsen MD HISTORY This evaluation was conducted remotely with the assistance of onsite staff via HIPAA-compliant video call. Patient consented to proceed with the telehealth visit. Requested by: ED attending provider Sources of information:?Patient, medical record History of Present Illness:? 58-year-old female, living alone, , on disability, with history of bipolar disorder, schizophrenia, remitted cannabis/alcohol use, history of suicide attempt(s), history of psychiatric hospitalization, with no current excessive drug use, no history of violent behavior, self-referred for suicidal ideation, command hallucinations. Pt presented to ED with report of voices telling her to cut her throat. She also endorsed visual disturbances, seeing knives falling. Pt had another recent ED visit on 01/31 with same concerns, was transferred to a crisis unit for stabilization but symptoms apparently continued to worsen so pt returned to the ED. This time, pt has been recommended for voluntary psychiatric admissions, currently awaiting placement. UDS negative for negative on 02/01/24, Alcohol undetectable. In the hospital, patient has been in behavioral control with no reported issues. On psychiatric evaluation, patient is cooperative, able to give clear history. but is notably withdrawn with flat affect and often provides brief responses. Pt reports hearing voices telling her to kill self for about the past 2 weeks. She came to the ED last week for help with this, was sent to Care bed for crisis stabilization but states the voices kept increasing, returned to the ED yesterday because it was getting a lot worse. Pt states she has been seeing sheets over her head, seeing self getting raped, seeing knives coming at me. The voices tell her to cut her throat. Pt reports feeling extremely depressed and hopeless, not really sleeping since this started but has been eating adequately. Pt reports also having independent suicidal thoughts, with same plan of cutting throat. Pt denies homicidal thoughts or commands to harm others. In addition, pt reports, I feel like somebody's gonna come and get me. Denies any specific people trying to harm her, just someone out there. Pt was mostly staying in bed before she came to the ED. When asked if pt has intent to kill self she states, if the voices get too loud yes, like they were yesterday, too loud. That's why I came here. Reports voices are the same today. Pt denies any preparatory actions as yet. Pt remains agreeable to be transferred to inpatient psychiatry for stabilization. She is also agreeable to increase dose of Risperdal. Records indicate history of Parkinsonism, unclear whether this was medication-related. Upon inquiry, pt states she has never been diagnosed with Parkinson's and not aware of any such symptoms but states her mother had it. Collateral Contacted No-- patient meets criteria for inpatient hospitalization. PSYCHIATRIC REVIEW OF SYSTEMS (symptoms in past two weeks) Pertinent Positives:?depressed mood/anhedonia/hopelessness/command hallucinations/paranoia/insomnia Pertinent Negatives:?no irritability/no aggressive behavior/no agitation/no anxiety/no panic attacks/no poor appetite PSYCHIATRIC HISTORY Past Psychiatric Diagnoses/Problems:?bipolar disorder, schizophrenia Psychiatric Treatment:?Hospitalizations:?psychiatric hospitalization, most recent admission was years ago?Current treatment:?medication management, therapy; treatment adherent Drug/Alcohol History ???Current excessive drug/alcohol use:?none ???Past excessive drug/alcohol use:?cannabis, alcohol ???Drug/alcohol use comment:?reports being sober for years ???Treatment:?none ???Withdrawal symptoms:?none ???UDS results:?UDS negative ???BAL results:?undetectable Stressors:?exacerbation of mental illness, recently Trauma:?unspecified past trauma Family Psychiatric History:?father - unsure of diagnosis HEALTH HISTORY Medical Problems:? seizure disorder, hypertension, hyperlipidemia, hypothyroidism, GERD, DORYS, h/o non-epileptic seizures Is patient linked with PCP??yes Psychiatric and other clinically relevant medications:?Risperdal 2 mg BID, Lamictal 150 mg BID, Buspar 10 mg qHS, Topamax 100 mg BID Allergies/Adverse Medication Reactions:?Vicodin, Codeine Physical Findings:?TSH WNL DEMOGRAPHICS/SOCIAL HISTORY Gender:?female Living Situation:?living alone Relationship Status:?, for about 6-7 months Education:?high school/GED Employment:?on disability Social Support Network:?supportive social network of family or friends, therapist Legal History:?none Special Considerations:?none RISK EVALUATION Suicidality/self-injury:?Yes prior suicide attempt(s) over 6 months ago - reports one attempt years ago by overdose Primary Suicide Screening (PSS-3) 1. In the past two weeks, have you felt down, depressed, or hopeless??YES 2. In the past two weeks, have you had thoughts of killing yourself??YES 3. In your lifetime, have you ever attempted to kill yourself??YES 3a. Within the past 6 months??NO ESS-6 Secondary Screen ( If #2 is yes or #3a is yes within the past 6 months, then complete secondary screen) 1. Positive on PSS-3 questions 2 & 3 ? active suicidal ideation with a past attempt??YES 2. Have you been thinking about how you might kill yourself??YES 3. Have you had some intention of acting on your thoughts??YES 4. Lifetime psychiatric hospitalization??YES 5. Has drinking or substance abuse ever been a problem for you??YES 6. Current irritability, agitation, or aggression??NO PSS-3/ESS-6 Secondary Screen Scoring:?Severe PSS-3/ESS-6 Scoring Interpretation Legend PSS-3 screen incomplete [Blank PSS-3 questions #2 OR #3a] PSS-3 screen unable to assess [Unable to Assess responses on PSS-3 questions #2 AND #3a] Mild [No current attempt AND No suicide plan or intent AND Score (0-2)] Moderate [No current attempt AND Active suicidal ideation with plan or intent (not both) OR Score (3-4)] Severe [Current attempt OR Suicide plan and intent OR Score (5-6)] HI/Violence/Property Destruction:?no history of violent/aggressive behavior Access to Firearms:?none; wish I did though Grave disability/Poor self-care:?unknown Psychosis:?Yes Protective Factors:?none reported High Utilization Criteria: none known Signs of Secondary Gain:?none MENTAL STATUS EXAM Appearance and Attire:? Appears stated age, Fair grooming, Wearing paper scrubs Psychomotor agitation:? No abnormality Attitude and behavior:? Cooperative, but withdrawn, Poor eye contact (mostly downward gaze) Speech:? Increased latency, Brief responses Mood:? Depressed Affect:? Flat Thought Process:? Coherent, goal-directed Thought content:? Suicidal ideation, No homicidal ideation, Paranoia Perception:?Endorses command hallucinations to kill self; not responding to internal stimuli on exam Intelligence: average Abstraction:? [place] Language:? No abnormality Orientation:? Oriented x 4, Except reports date as Sensorium:? Normal Knowledge:? Appropriate for education and socioeconomic status Memory:? Intact Insight:?Limited Judgment:?Limited SUMMARY RISK ASSESSMENT Current Suicide Risk Elevated??PSS-3/ESS-6 Scoring: Severe? Current Violence Risk Elevated??No Issues with ability to care for self??Yes Cass Flynn, DO Psychiatrist, [facility]
--- NOTE | 2024-02-07 14:13 | CMSP_ITS ---
Date of service: 02/07/24 Time of Service: 14:13 Care Management Safety Plan Status Status: Voluntary Reason for Wait Reason for Wait: Inpatient Admission Safety Plan Safety Plan: VOLUNTARY FOR INPATIENT PSYCHIATRIC STABILIZATION.? Patient is appropriate in all interactions since arriving at [facility]; Pt has demonstrated appropriate coping and communication skills, has articulated his or her needs and concerns and is fully engaged during staff interactions. Safety plan has been established with patient, and care team, to adhere to patient goals, identify restrictions based on behavioral status, address nutrition, and determine allowed personal belongings, tools for hygiene and personal care. Determine level of activity including ambulation, level of superv ision, visitors, and determine privileges based on behaviors and level of engagement by pt. VOLUNTARY SAFETY PLAN: 1. Will remain on suicide precautions, in paper clothes 2. Will remain in Zone B under direct supervision of one-on-one staff at all times provided by [employer]; VIOLETA, RETOUCHER PHOTOENGRAVING sweater operator. 3. May have paper cups, plates, finger foods as well as a cardboard spoon with which to eat meals. 4. Follow [facility] Management of the Admitted Behavioral Health Patient policy. 5. Shower available in Zone B without restriction. 6. Personal belongings-soft items permitted at RN discretion. 7. Visitors- supportive visitors, at RN discretion. 8. Activities: soft cart items approved per RN discretion. 9.? Bathroom available in Zone B without restriction. 10. Phone: limited to [facility] cordless phone at RN discretion. Due to VOLUNTARY status, if patient wishes to leave [facility], staff will contact [facility] Crisis Screener ([phone]) and Rotary Shear Worker Helper ([phone]) as soon as possible. In the event of elopement, notify [facility] Police ([phone]). Patient is currently voluntarily at [facility] and seeking inpatient admission when a bed becomes available. [facility] Frontline Sports Complex Attendant will continue seeking placement. Please contact the Rotary Shear Worker Helper ([phone]) and [facility] Sports Complex Attendant ([phone]) for any needed changes in the Safety Plan. Safety plan has been provided to interdepartmental care team.
--- NOTE | 2024-02-07 14:13 | PDOC.CMSAFE ---
Date of service: 02/07/24 Time of Service: 14:13 Care Management Safety Plan Status Status: Voluntary Reason for Wait Reason for Wait: Inpatient Admission Safety Plan Safety Plan: VOLUNTARY FOR INPATIENT PSYCHIATRIC STABILIZATION.? Patient is appropriate in all interactions since arriving at [facility]; Pt has demonstrated appropriate coping and communication skills, has articulated his or her needs and concerns and is fully engaged during staff interactions. Safety plan has been established with patient, and care team, to adhere to patient goals, identify restrictions based on behavioral status, address nutrition, and determine allowed personal belongings, tools for hygiene and personal care. Determine level of activity including ambulation, level of supervision, visitors, and determine privileges based on behaviors and level of engagement by pt. VOLUNTARY SAFETY PLAN: 1. Will remain on suicide precautions, in paper clothes 2. Will remain in Zone B under direct supervision of one-on-one staff at all times provided by [employer]; VIOLETA, EXTERNAL RELATIONS MANAGER field support specialist. 3. May have paper cups, plates, finger foods as well as a cardboard spoon with which to eat meals. 4. Follow [facility] Management of the Admitted Behavioral Health Patient policy. 5. Shower available in Zone B without restriction. 6. Personal belongings-soft items permitted at RN discretion. 7. Visitors- supportive visitors, at RN discretion. 8. Activities: soft cart items approved per RN discretion. 9.? Bathroom available in Zone B without restriction. 10. Phone: limited to [facility] cordless phone at RN discretion. Due to VOLUNTARY status, if patient wishes to leave [facility], staff will contact [facility] Crisis Screener ([phone]) and Lasting Machine Operator ([phone]) as soon as possible. In the event of elopement, notify [facility] Police ([phone]). Patient is currently voluntarily at [facility] and seeking inpatient admission when a bed becomes available. [facility] Frontline Secondary Spanish Teacher will continue seeking placement. Please contact the Lasting Machine Operator ([phone]) and [facility] Secondary Spanish Teacher ([phone]) for any needed changes in the Safety Plan. Safety plan has been provided to interdepartmental care team.
--- NOTE | 2024-02-07 14:14 | CMPROGNOTE_ITS ---
Date of service: 02/07/24 Time of Service: 14:14 Care Management Progress Note Progress Note Text Progress Note Text: CM spoke to Vesta [facility], who stated that Celina continues to meet criteria for inpatient psychiatric admission; she is stating that she is experiencing command auditory hallucinations, and that they are worse than previous episodes. Vesta stated that referrals were sent to [facility] and [facility]. CM spoke to Robyn at [facility], who requested that additional information is sent for review. CM faxed the [facility] referral form along with requested documents. Robyn stated that if accepted, she may be able to transfer to [facility] tomorrow. Celina will need to provide verbal consent over the phone. Robyn expressed concern about Celina's exit plan, CM advised that she is well supported in the community with [employer] FLATBED TRUCK DRIVER, and that she was at the [facility] care bed prior to this ED visit. CM asked Vesta [facility] to inquire about her plan of care, once she is discharged from [facility]. Safety plan in place. CM will continue to follow. SDOH(Care Management) Screening Will the Patient Participate in the Screening?: Unable to obtain
--- NOTE | 2024-02-07 14:14 | PDOC.CMPRO ---
Date of service: 02/07/24 Time of Service: 14:14 Care Management Progress Note Progress Note Text Progress Note Text: CM spoke to Vesta [facility], who stated that Celina continues to meet criteria for inpatient psychiatric admission; she is stating that she is experiencing command auditory hallucinations, and that they are worse than previous episodes. Vesta stated that referrals were sent to [facility] and [facility]. CM spoke to Robyn at [facility], who requested that additional information is sent for review. CM faxed the [facility] referral form along with requested documents. Robyn stated that if accepted, she may be able to transfer to [facility] tomorrow. Celina will need to provide verbal consent over the phone. Robyn expressed concern about Celina's exit plan, CM advised that she is well supported in the community with HAND COPER, and that she was at the [facility] care bed prior to this ED visit. CM asked Vesta [facility] to inquire about her plan of care, once she is discharged from [facility]. Safety plan in place. CM will continue to follow. SDOH(Care Management) Screening Will the Patient Participate in the Screening?: Unable to obtain
--- NOTE | 2024-02-07 17:03 | ED.PROG_ITS ---
Date of service: 02/07/24 Time of Service: 17:03 Medical Decision Making Patient seeking voluntary placement for thoughts of self-harm. No reported issues on prior shift and currently calm and cooperative without new complaints. Will continue to monitor until safe disposition found. Quality:SDOH Health Related Social Needs: Health related social needs transportation insecurity( Z59.82) Health related social needs details Transport, psychol ogical stress and functioning, disability, risk of homelessness Sign Out Sign Out Data: Sign Out Comment: At the end of my shift, care transitioned to [facility], disposition pending. MH evaluated patient prior to arrival and recommend inpatient management of MH disorder, SI. Patient voluntary. Last updated by Annita Diaz PA at 02/06/24 17:40 Sign Out Comment: Voluntary, [facility] seeking placement, no acute events today- had all home meds this afternoon. history schizophrenia, SI. Last updated by Erwin Black PA at 02/06/24 21:32 Sign Out Comment: History of schizophrenia, command hallucinations telling her to kill herself, ongoing today. Remains voluntary. Telepsych consult, medications adjusted. Awaiting placement. Last updated by Jen Olsen MD at 02/07/24 15:31 Discharge Plan Discharge Details Chief Complaint: PsychEval Primary Care Provider: Anna Dial ED Provider: Roverto Ulrich Home Meds and New Rx's Prescriptions: No Action buspirone 10 mg tablet 10 mg PO QHS rizatriptan 10 mg tablet See Rx Instructions PO .COMPLEX Rx Instructions: take 1 tab at onset of headache; if no relief may repeat 1 tab after at least 2 hrs; max = 3 tabs/24 hr PO ibuprofen 400 mg tablet 400 mg PO TID diclofenac sodium 1 % gel 2 g topical QID PRN (Reason: shoulder pain) Qty: 100 0RF Rx Instructions: apply to area of pain four times per day as needed lamotrigine 150 mg tablet 150 mg PO BID Qty: 180 3RF rizatriptan 10 mg tablet 10 mg PO ONCE PRN (Reason: migraine headache) Qty: 12 3RF Rx Instructions: take at onset of headache; ok to take second in 1 hour; no more than 2 in a 24 hour period acetaminophen 500 mg tablet 1,000 mg PO TID PRN risperidone 2 mg tablet 2 mg PO BID amoxicillin 500 mg capsule 2,000 mg PO ONCE PRN Rx Instructions: prior to dental work levothyroxine 100 MCG tablet 100 mcg PO DAILY (DME) lancets 33 gauge misc 1 ea Miscellaneous DIRECTED folic acid 1 mg tablet 1 mg PO DAILY metformin 500 mg tablet 500 mg PO DAILY simethicone 80 mg tablet,chewable See Rx Instructions .ROUTE .COMPLEX Qty: 28 0RF Dose Instruction: CHEW & SWALLOW 1 TABLET AT BEDTIME Rx Instructions: CHEW & SWALLOW 1 TABLET AT BEDTIME atorvastatin 10 mg tablet 10 mg PO DAILY Patient Comments: TAKE ONE TABLET BY MOUTH ONCE DAILY AT BEDTIME polyethylene glycol 3350 17 gram Powder In Packet 17 g PO BID PRN PRN (Reason: Constipation) Qty: 0 0RF topiramate 100 mg tablet 100 mg PO BID Qty: 180 3RF (DME) FreeStyle Lite Strips Strip MISCELLANEOUS Patient Comments: TEST BLOOD GLUCOSE TWICE DAILY (DME) blood-glucose meter [FreeStyle Lite Meter] Kit MISCELLANEOUS Patient Comments: TEST TWICE DAILY DIRECTED (DME) lancets [FreeStyle Lancets] 28 gauge misc MISCELLANEOUS Patient Comments: TEST TWICE DAILY
[2024-02-07] MEDS: metFORMIN C.R. 500 MG TABCR PO (18:12)
[2024-02-07] MEDS: Atorvastatin 10 MG TAB PO (20:00)
[2024-02-07] MEDS: LORazepam 1 MG TAB PO (20:04)
--- NOTE | 2024-02-08 02:37 | NUR.NOTE ---
Addendum entered by Prema Dominguez 02/08/24 03:38: Patient asked for the side rails to be up for her safety so that she did not fall out of bed. Original Note: At 0230 patient pulled her other side rail up so that she can be able to turn from side to side. This caption writer [employer]PSO/dispensing optician asked her if she wants to have both side rails up and she said yes. I let her know if she changes her mind to please let me know. She agreed.
--- NOTE | 2024-02-08 06:08 | ED.PROG_ITS ---
Date of service: 02/07/24 Time of Service: 22:00 Medical Decision Making This patient was signed out to me. Please see previous notes for H&P and initial eval. In brief, 58yo F with hx schizophrenia presenting with SI, command hallucinations. Medically cleared, home meds ordered, telepsych consult for medication adjustments done. Pending voluntary inpatient placement. Overnight appeared to be sleeping restfully. Did not wake patient for assessment. Will be signed out to oncoming physician, plan remains as above. Quality:SDOH Health Related Social Needs: Health related social needs transportation insecurity( Z59.82) Health related social needs details Transport, psychol ogical stress and functioning, disability, risk of homelessness Sign Out Sign Out Data: Sign Out Comment: At the end of my shift, care transitioned to [facility], disposition pending. MH evaluated patient prior to arrival and recommend inpat ient management of MH disorder, SI. Patient voluntary. Last updated by Annita Diaz PA at 02/06/24 17:40 Sign Out Comment: Voluntary, [facility] seeking placement, no acute events today- had all home meds this afternoon. history schizophrenia, SI. Last updated by Erwin Black PA at 02/06/24 21:32 Sign Out Comment: History of schizophrenia, command hallucinations telling her to kill herself, ongoing today. Remains voluntary. Telepsych consult, medications adjusted. Awaiting placement. Last updated by Jen Olsen MD at 02/07/24 15:31 Sign Out Comment: history of schizophrenia seeking voluntary placement for SI, no issues during shift Last updated by Roverto Ulrich MD at 02/07/24 21:02 Discharge Plan Discharge Details Chief Complaint: PsychEval Primary Care Provider: Anna Dial ED Provider: Ree Hansen Home Meds and New Rx's Prescriptions: No Action buspirone 10 mg tablet 10 mg PO QHS rizatriptan 10 mg tablet See Rx Instructions PO .COMPLEX Rx Instructions: take 1 tab at onset of headache; if no relief may repeat 1 tab after at least 2 hrs; max = 3 tabs/24 hr PO ibuprofen 400 mg tablet 400 mg PO TID diclofenac sodium 1 % gel 2 g topical QID PRN (Reason: shoulder pain) Qty: 100 0RF Rx Instructions: apply to area of pain four times per day as needed lamotrigine 150 mg tablet 150 mg PO BID Qty: 180 3RF rizatriptan 10 mg tablet 10 mg PO ONCE PRN (Reason: migraine headache) Qty: 12 3RF Rx Instructions: take at onset of headache; ok to take second in 1 hour; no more than 2 in a 24 hour period acetaminophen 500 mg tablet 1,000 mg PO TID PRN risperidone 2 mg tablet 2 mg PO BID amoxicillin 500 mg capsule 2,000 mg PO ONCE PRN Rx Instructions: prior to dental work levothyroxine 100 MCG tablet 100 mcg PO DAILY (DME) lancets 33 gauge misc 1 ea Miscellaneous DIRECTED folic acid 1 mg tablet 1 mg PO DAILY metformin 500 mg tablet 500 mg PO DAILY simethicone 80 mg tablet,chewable See Rx Instructions .ROUTE .COMPLEX Qty: 28 0RF Dose Instruction: CHEW & SWALLOW 1 TABLET AT BEDTIME Rx Instructions: CHEW & SWALLOW 1 TABLET AT BEDTIME atorvastatin 10 mg tablet 10 mg PO DAILY Patient Comments: TAKE ONE TABLET BY MOUTH ONCE DAILY AT BEDTIME polyethylene glycol 3350 17 gram Powder In Packet 17 g PO BID PRN PRN (Reason: Constipation) Qty: 0 0RF topiramate 100 mg tablet 100 mg PO BID Qty: 180 3RF (DME) FreeStyle Lite Strips Strip MISCELLANEOUS Patient Comments: TEST BLOOD GLUCOSE TWICE DAILY (DME) blood-glucose meter [FreeStyle Lite Meter] Kit MISCELLANEOUS Patient Comments: TEST TWICE DAILY DIRECTED (DME) lancets [FreeStyle Lancets] 28 gauge misc MISCELLANEOUS Patient Comments: TEST TWICE DAILY
[2024-02-08] MEDS: lamoTRIgine 100 MG TAB PO (09:33)
[2024-02-08] MEDS: risperiDONE 1 MG TAB 2 MG PO (09:33)
[2024-02-08] MEDS: busPIRone 5 MG TAB 10 MG PO (09:33)
[2024-02-08] MEDS: Topiramate 100 MG TAB PO ×2 (09:33→20:58)
[2024-02-08] MEDS: Acetaminophen 325 MG TAB 650 MG PO (09:34)
[2024-02-08] MEDS: LORazepam 1 MG TAB PO (14:18)
--- NOTE | 2024-02-08 16:34 | ED.PROG_ITS ---
Date of service: 02/08/24 Time of Service: 16:34 Medical Decision Making Care was signed out this morning by Dr. Hansen. Please see her documentation and prior regarding initial ED presentation and course. Patient was noted to be medically cleared at time of signout and awaiting psychiatric treatment facility placement. I was notified by care management that patient has been accepted at [facility] with the plan for transfer tomorrow morning. Quality:SDOH Health Related Social Needs: Health related social needs transportation insecurity( Z59.82) Health related social needs details Transport, psychol ogical stress and functioning, disability, risk of homelessness Sign Out Sign Out Data: Sign Out Comment: At the end of my shift, care transitioned to [facility], disposition pending. MH evaluated patient prior to arrival and recommend inpatient management of MH disorder, SI. Patient voluntary. Last updated by Annita Diaz PA at 02/06/24 17:40 Sign Out Comment: Voluntary, [facility] seeking placement, no acute events today- had all home meds this afternoon. history schizophrenia, SI. Last updated by Erwin Black PA at 02/06/24 21:32 Sign Out Comment: History of schizophrenia, command hallucinations telling her to kill herself, ongoing today. Remains voluntary. Telepsych consult, medications adjusted. Awaiting placement. Last updated by Jen Olsen MD at 02/07/24 15:31 Sign Out Comment: history of schizophrenia seeking voluntary placement for SI, no issues during shift Last updated by Roverto Ulrich MD at 02/07/24 21:02 Sign Out Comment: 58yo F, schizophrenia, SI with command hallucinations. Pending voluntary placement. Last updated by Ree Hansen MD at 02/08/24 06:33 Discharge Plan Discharge Details Chief Complaint: PsychEval Primary Care Provider: Anna Dial ED Provider: Nigel Rubin Home Meds and New Rx's Prescriptions: No Action buspirone 10 mg tablet 10 mg PO QHS rizatriptan 10 mg tablet See Rx Instructions PO .COMPLEX Rx Instructions: take 1 tab at onset of headache; if no relief may repeat 1 tab after at least 2 hrs; max = 3 tabs/24 hr PO ibuprofen 400 mg tablet 400 mg PO TID diclofenac sodium 1 % gel 2 g topical QID PRN (Reason: shoulder pain) Qty: 100 0RF Rx Instructions: apply to area of pain four times per day as needed lamotrigine 150 mg tablet 150 mg PO BID Qty: 180 3RF rizatriptan 10 mg tablet 10 mg PO ONCE PRN (Reason: migraine headache) Qty: 12 3RF Rx Instructions: take at onset of headache; ok to take second in 1 hour; no more than 2 in a 24 hour period acetaminophen 500 mg tablet 1,000 mg PO TID PRN risperidone 2 mg tablet 2 mg PO BID amoxicillin 500 mg capsule 2,000 mg PO ONCE PRN Rx Instructions: prior to dental work levothyroxine 100 MCG tablet 100 mcg PO DAILY (DME) lancets 33 gauge misc 1 ea Miscellaneous DIRECTED folic acid 1 mg tablet 1 mg PO DAILY metformin 500 mg tablet 500 mg PO DAILY simethicone 80 mg tablet,chewable See Rx Instructions .ROUTE .COMPLEX Qty: 28 0RF Dose Instruction: CHEW & SWALLOW 1 TABLET AT BEDTIME Rx Instructions: CHEW & SWALLOW 1 TABLET AT BEDTIME atorvastatin 10 mg tablet 10 mg PO DAILY Patient Comments: TAKE ONE TABLET BY MOUTH ONCE DAILY AT BEDTIME polyethylene glycol 3350 17 gram Powder In Packet 17 g PO BID PRN PRN (Reason: Constipation) Qty: 0 0RF topiramate 100 mg tablet 100 mg PO BID Qty: 180 3RF (DME) FreeStyle Lite Strips Strip MISCELLANEOUS Patient Comments: TEST BLOOD GLUCOSE TWICE DAILY (DME) blood-glucose meter [FreeStyle Lite Meter] Kit MISCELLANEOUS Patient Comments: TEST TWICE DAILY DIRECTED (DME) lancets [FreeStyle Lancets] 28 gauge misc MISCELLANEOUS Patient Comments: TEST TWICE DAILY
--- NOTE | 2024-02-08 16:49 | W.EDPROG ---
Date of service: 02/08/24 Time of Service: 16:49 Medical Decision Making Patient seeking voluntary placement for thoughts of self-harm, currently without acute complaints and reportedly will likely go to rehab up tomorrow. Will continue to monitor until safe disposition found. Quality:SDOH Health Related Social Needs: Health related social needs transportation insecurity(Z59.82) Health related social needs details Transport, psychological stress and functioning, disability, risk of homelessness Sign Out Sign Out Data: Sign Out Comment: At the end of my shift, care transitioned to [facility], disposition pending. MH evaluated patient prior to arrival and recommend inpatient management of MH disorder, SI. Patient voluntary. Last updated by Annita Diaz PA at 02/06/24 17:40 Sign Out Comment: Voluntary, [facility] seeking placement, no acute events today- had all home meds this afternoon. history schizophrenia, SI. Last updated by Erwin Black PA at 02/06/24 21:32 Sign Out Comment: History of schizophrenia, command hallucinations telling her to kill herself, ongoing today. Remains voluntary. Telepsych consult, medications adjusted. Awaiting placement. Last updated by Jen Olsen MD at 02/07/24 15:31 Sign Out Comment: history of schizophrenia seeking voluntary placement for SI, no issues during shift Last updated by Roverto Ulrich MD at 02/07/24 21:02 Sign Out Comment: 58yo F, schizophrenia, SI with command hallucinations. Pending voluntary placement. Last updated by Ree Hansen MD at 02/08/24 06:33 Sign Out Comment: Patient did have some anxiety and nausea today. She was given Ativan 1 mg which improved her symptoms. Patient continues to hear voices that she notes are too loud. Per care management: Patient has been accepted by [facility] with plan for transfer in the morning. Dr. Cordero has not been performed. Last updated by Nigel Rubin MD at 02/08/24 16:43 Discharge Plan Discharge Details Chief Complaint: PsychEval Primary Care Provider: Anna Dial ED Provider: Roverto Ulrich Home Meds and New Rx's Prescriptions: No Action buspirone 10 mg tablet 10 mg PO QHS rizatriptan 10 mg tablet See Rx Instructions PO .COMPLEX Rx Instructions: take 1 tab at onset of headache; if no relief may repeat 1 tab after at least 2 hrs; max = 3 tabs/24 hr PO ibuprofen 400 mg tablet 400 mg PO TID diclofenac sodium 1 % gel 2 g topical QID PRN (Reason: shoulder pain) Qty: 100 0RF Rx Instructions: apply to area of pain four times per day as needed lamotrigine 150 mg tablet 150 mg PO BID Qty: 180 3RF rizatriptan 10 mg tablet 10 mg PO ONCE PRN (Reason: migraine headache) Qty: 12 3RF Rx Instructions: take at onset of headache; ok to take second in 1 hour; no more than 2 in a 24 hour period acetaminophen 500 mg tablet 1,000 mg PO TID PRN risperidone 2 mg tablet 2 mg PO BID amoxicillin 500 mg capsule 2,000 mg PO ONCE PRN Rx Instructions: prior to dental work levothyroxine 100 MCG tablet 100 mcg PO DAILY (DME) lancets 33 gauge misc 1 ea Miscellaneous DIRECTED folic acid 1 mg tablet 1 mg PO DAILY metformin 500 mg tablet 500 mg PO DAILY simethicone 80 mg tablet,chewable See Rx Instructions .ROUTE .COMPLEX Qty: 28 0RF Dose Instruction: CHEW & SWALLOW 1 TABLET AT BEDTIME Rx Instructions: CHEW & SWALLOW 1 TABLET AT BEDTIME atorvastatin 10 mg tablet 10 mg PO DAILY Patient Comments: TAKE ONE TABLET BY MOUTH ONCE DAILY AT BEDTIME polyethylene glycol 3350 17 gram Powder In Packet 17 g PO BID PRN PRN (Reason: Constipation) Qty: 0 0RF topiramate 100 mg tablet 100 mg PO BID Qty: 180 3RF (DME) FreeStyle Lite Strips Strip MISCELLANEOUS Patient Comments: TEST BLOOD GLUCOSE TWICE DAILY (DME) blood-glucose meter [FreeStyle Lite Meter] Kit MISCELLANEOUS Patient Comments: TEST TWICE DAILY DIRECTED (DME) lancets [FreeStyle Lancets] 28 gauge misc MISCELLANEOUS Patient Comments: TEST TWICE DAILY
--- NOTE | 2024-02-08 17:04 | CMSP_ITS ---
Date of service: 02/08/24 Time of Service: 17:04 Care Management Safety Plan Status Status: Voluntary Reason for Wait Reason for Wait: Inpatient Admission Safety Plan Safety Plan: VOLUNTARY FOR INPATIENT PSYCHIATRIC STABILIZATION.? Patient is appropriate in all interactions since arriving at [facility]; Pt has demonstrated appropriate coping and communication skills, has articulated his or her needs and concerns and is fully engaged during staff interactions. Safety plan has been established with patient, and care team, to adhere to patient goals, identify restrictions based on behavioral status, address nutrition, and determine allowed personal belongings, tools for hygiene and personal care. Determine level of activity including ambulation, level of superv ision, visitors, and determine privileges based on behaviors and level of engagement by pt. VOLUNTARY SAFETY PLAN: 1. Will remain on suicide precautions, in paper clothes 2. Will remain in Zone B under direct supervision of one-on-one staff at all times provided by [employer]; VIOLETA, AUTOMOBILE RENTAL AGENT pin ticket machine operator. 3. May have paper cups, plates, finger foods as well as a cardboard spoon with which to eat meals. 4. Follow [facility] Management of the Admitted Behavioral Health Patient policy. 5. Shower available in Zone B without restriction. 6. Personal belongings-soft items permitted at RN discretion. 7. Visitors- supportive visitors, at RN discretion. 8. Activities: soft cart items approved per RN discretion. 9.? Bathroom available in Zone B without restriction. 10. Phone: limited to [facility] cordless phone at RN discretion. Due to VOLUNTARY status, if patient wishes to leave [facility], staff will contact [facility] Crisis Screener ([phone]) and Rotary Adjuster ([phone]) as soon as possible. In the event of elopement, notify [facility] Police ([phone]). Patient is currently voluntarily at [facility] and seeking inpatient admission when a bed becomes available. [facility] Frontline Nozzle Tender will continue seeking placement. Please contact the Rotary Adjuster ([phone]) and [facility] Nozzle Tender ([phone]) for any needed changes in the Safety Plan. Safety plan has been provided to interdepartmental care team.
--- NOTE | 2024-02-08 17:04 | CMPROGNOTE_ITS ---
Date of service: 02/08/24 Time of Service: 17:04 Care Management Progress Note Progress Note Text Progress Note Text: Celina was lying in bed when CM met with her. CM discussed her plan of care, which is to be transferred to [facility] at [facility] tomorrow morning, 02/09/24 at 8am, by ARSLAN Boo. CM discussed the importance of Celina having a health care agent to help her make decisions, if she cannot make them herself, and CM supported her in filling out a [facility] appointment form. CM communicated at length with admissions at [facility] and [facility] and FLYING SHEAR OPERATOR throughout the day to develop a plan for Celina. Admissions at [facility] asked for an agreement letter to be signed, in the event that Celina cannot return home once she completes her psychiatric treatment. [facility] agreed to sign this letter, as they support her in the community through FLYING SHEAR OPERATOR. If she cannot return home at the time of discharge, she will either go to the [facility] carebed, or another crisis bed within the state of [place], which [facility] FLYING SHEAR OPERATOR will help support and coordinate. CM will continue to follow. SDOH(Care Management) Screening Will the Patient Participate in the Screening?: Unable to obtain
--- NOTE | 2024-02-08 17:04 | PDOC.CMSAFE ---
Date of service: 02/08/24 Time of Service: 17:04 Care Management Safety Plan Status Status: Voluntary Reason for Wait Reason for Wait: Inpatient Admission Safety Plan Safety Plan: VOLUNTARY FOR INPATIENT PSYCHIATRIC STABILIZATION.? Patient is appropriate in all interactions since arriving at [facility]; Pt has demonstrated appropriate coping and communication skills, has articulated his or her needs and concerns and is fully engaged during staff interactions. Safety plan has been established with patient, and care team, to adhere to patient goals, identify restrictions based on behavioral status, address nutrition, and determine allowed personal belongings, tools for hygiene and personal care. Determine level of activity including ambulation, level of supervision, visitors, and determine privileges based on behaviors and level of engagement by pt. VOLUNTARY SAFETY PLAN: 1. Will remain on suicide precautions, in paper clothes 2. Will remain in Zone B under direct supervision of one-on-one staff at all times provided by [employer]; VIOLETA, ELECTRICAL DEVELOPMENT ENGINEER credit administrator. 3. May have paper cups, plates, finger foods as well as a cardboard spoon with which to eat meals. 4. Follow [facility] Management of the Admitted Behavioral Health Patient policy. 5. Shower available in Zone B without restriction. 6. Personal belongings-soft items permitted at RN discretion. 7. Visitors- supportive visitors, at RN discretion. 8. Activities: soft cart items approved per RN discretion. 9.? Bathroom available in Zone B without restriction. 10. Phone: limited to [facility] cordless phone at RN discretion. Due to VOLUNTARY status, if patient wishes to leave [facility], staff will contact [facility] Crisis Screener ([phone]) and Crusher Feeder ([phone]) as soon as possible. In the event of elopement, notify [facility] Police ([phone]). Patient is currently voluntarily at [facility] and seeking inpatient admission when a bed becomes available. [facility] Frontline Smoking Pipe Repairer will continue seeking placement. Please contact the Crusher Feeder ([phone]) and [facility] Smoking Pipe Repairer ([phone]) for any needed changes in the Safety Plan. Safety plan has been provided to interdepartmental care team.
--- NOTE | 2024-02-08 17:04 | PDOC.CMPRO ---
Date of service: 02/08/24 Time of Service: 17:04 Care Management Progress Note Progress Note Text Progress Note Text: Celina was lying in bed when CM met with her. CM discussed her plan of care, which is to be transferred to [facility] at [facility] tomorrow morning, 02/09/24 at 8am, by ARSLAN Boo. CM discussed the importance of Celina having a health care agent to help her make decisions, if she cannot make them herself, and CM supported her in filling out a [facility] appointment form. CM communicated at length with admissions at [facility] and [facility] and SPANISH MEDICAL INTERPRETER throughout the day to develop a plan for Celina. Admissions at [facility] asked for an agreement letter to be signed, in the event that Celina cannot return home once she completes her psychiatric treatment. [facility] agreed to sign this letter, as they support her in the community through SPANISH MEDICAL INTERPRETER. If she cannot return home at the time of discharge, she will either go to the [facility] carebed, or another crisis bed within the state of [place], which [facility] SPANISH MEDICAL INTERPRETER will help support and coordinate. CM will continue to follow. SDOH(Care Management) Screening Will the Patient Participate in the Screening?: Unable to obtain
[2024-02-08 17:38] LABS: Source Nasal/Nares
[2024-02-08 18:10] LABS: COVID-19 PCR Negative (Negative)
[2024-02-08] MEDS: metFORMIN C.R. 500 MG TABCR PO (18:35)
[2024-02-08] MEDS: risperiDONE 1 MG TAB 3 MG PO (20:58)
[2024-02-08] MEDS: Atorvastatin 10 MG TAB PO (20:58)
[2024-02-09 00:30] VITALS: BP 110/70; PULSE 74; RESP 16; TEMP 36.3; O2SAT 95
[2024-02-09 00:35] VITALS: BP 123/79; PULSE 78
--- NOTE | 2024-02-09 00:58 | ED.PROG_ITS ---
Date of service: 02/09/24 Time of Service: 00:58 Medical Decision Making Patient woke up feeling weak and dizzy. She denies having any type of headache, chest pain, abdominal pain. She has been eating and drinking while here. She has been getting her daily medications and no new medications have been started or discontinued. Laboratory studies and urine at initial evaluation unremarkable. Vital signs tonight are normal. On exam she is awake and alert. Cranial nerves II through XII are intact. There is no nystagmus. Strength is symmetric and normal. She is able to ambulate about her room with her walker. Will check blood sugar. No evidence at this time of acute neurologic or cardiovascular event occurring. Will continue to monitor. Lab Data Lab results reviewed: Yes I reviewed the patient's lab results. Exam Narrative Exam Narrative: Const: WDWN female in NAD. VS per triage. HEENT: NC/AT. Normal facial exam. Neck: Supple. Trachea midline. Lungs: Normal respiratory effort. Cor: RRR. Good radial pulses. Neuro: A+O x 3. Normal speech. Ambulates with walker without difficulty. Cranial nerves II - XII grossly intact. No gross motor or sensory deficit. Sign Out Sign Out Data: Sign Out Comment: At the end of my shift, care transitioned to [facility], disposition pending. MH evaluated patient prior to arrival and recommend inpatient management of MH disorder, SI. Patient voluntary. Last updated by Annita Diaz PA at 02/06/24 17:40 Sign Out Comment: Voluntary, [facility] seeking placement, no acute events today- had all home meds this afternoon. history schizophrenia, SI. Last updated by Erwin Black PA at 02/06/24 21:32 Sign Out Comment: History of schizophrenia, command hallucinations telling her to kill herself, ongoing today. Remains voluntary. Telepsych consult, medications adjusted. Awaiting placement. Last updated by Jen Olsen MD at 02/07/24 15:31 Sign Out Comment: history of schizophrenia seeking voluntary placement for SI, no issues during shift Last updated by Roverto Ulrich MD at 02/07/24 21:02 Sign Out Comment: 58yo F, schizophrenia, SI with command hallucinations. Pending voluntary placement. Last updated by Ree Hansen MD at 11/21/24 06:33 Sign Out Comment: Patient did have some anxiety and nausea today. She was given Ativan 1 mg which improved her symptoms. Patient continues to hear voices that she notes are too loud. Per care management: Patient has been accepted by [facility] with plan for transfer in the morning. Dr. Cordero has not been performed. Last updated by Nigel Rubin MD at 02/08/24 16:43 Sign Out Comment: Voluntary for depression and thoughts of self-harm history of schizophrenia. Reportedly will be going to [facility] tomorrow. No doc to doc's been done at this point. Last updated by Roverto Ulrich MD at 02/08/24 21:42 Discharge Plan Discharge Details Chief Complaint: PsychEval Primary Care Provider: [facility] Prescriptions: No Action buspirone 10 mg tablet 10 mg PO QHS rizatriptan 10 mg tablet See Rx Instructions PO .COMPLEX Rx Instructions: take 1 tab at onset of headache; if no relief may repeat 1 tab after at least 2 hrs; max = 3 tabs/24 hr PO ibuprofen 400 mg tablet 400 mg PO TID diclofenac sodium 1 % gel 2 g topical QID PRN (Reason: shoulder pain) Qty: 100 0RF Rx Instructions: apply to area of pain four times per day as needed lamotrigine 150 mg tablet 150 mg PO BID Qty: 180 3RF rizatriptan 10 mg tablet 10 mg PO ONCE PRN (Reason: migraine headache) Qty: 12 3RF Rx Instructions: take at onset of headache; ok to take second in 1 hour; no more than 2 in a 24 hour period acetaminophen 500 mg tablet 1,000 mg PO TID PRN risperidone 2 mg tablet 2 mg PO BID amoxicillin 500 mg capsule 2,000 mg PO ONCE PRN Rx Instructions: prior to dental work levothyroxine 100 MCG tablet 100 mcg PO DAILY (DME) lancets 33 gauge misc 1 ea Miscellaneous DIRECTED folic acid 1 mg tablet 1 mg PO DAILY metformin 500 mg tablet 500 mg PO DAILY simethicone 80 mg tablet,chewable See Rx Instructions .ROUTE .COMPLEX Qty: 28 0RF Dose Instruction: CHEW & SWALLOW 1 TABLET AT BEDTIME Rx Instructions: CHEW & SWALLOW 1 TABLET AT BEDTIME atorvastatin 10 mg tablet 10 mg PO DAILY Patient Comments: TAKE ONE TABLET BY MOUTH ONCE DAILY AT BEDTIME polyethylene glycol 3350 17 gram Powder In Packet 17 g PO BID PRN PRN (Reason: Constipation) Qty: 0 0RF topiramate 100 mg tablet 100 mg PO BID Qty: 180 3RF (DME) FreeStyle Lite Strips Strip MISCELLANEOUS Patient Comments: TEST BLOOD GLUCOSE TWICE DAILY (DME) blood-glucose meter [FreeStyle Lite Meter] Kit MISCELLANEOUS Patient Comments: TEST TWICE DAILY DIRECTED (DME) lancets [FreeStyle Lancets] 28 gauge misc MISCELLANEOUS Patient Comments: TEST TWICE DAILY
[2024-02-09 07:06] VITALS: BP 110/72; PULSE 67; RESP 18; TEMP 36.4; O2SAT 95
--- NOTE | 2024-02-09 07:34 | NUR.NOTE ---
PT provided with breakfast trayNursing Note:
--- NOTE | 2024-02-09 07:54 | NUR.NOTE ---
Report given to daniel SAAVEDRA Nursing Note:
[2024-02-09] MEDS: busPIRone 5 MG TAB 10 MG PO (07:57)
[2024-02-09] MEDS: Topiramate 100 MG TAB PO (07:58)
[2024-02-09] MEDS: risperiDONE 1 MG TAB 2 MG PO (07:58)
[2024-02-09] MEDS: lamoTRIgine 100 MG TAB PO (07:59)
--- NOTE | 2024-02-09 08:20 | W.EDPROG ---
Date of service: 02/09/24 Time of Service: 08:21 Medical Decision Making Care was signed out to me by Dr. Scott. Patient stable overnight awaiting psychiatric transfer. Patient is been accepted to [facility]. Patient agrees to transfer. [facility] to transport the patient. Quality:SDOH Health Related Social Needs: Health related social needs transportation insecurity(Z59.82) Health related social needs details Transport, psychological stress and functioning, disability, risk of homelessness Sign Out Sign Out Data: Sign Out Comment: At the end of my shift, care transitioned to [facility], disposition pending. MH evaluated patient prior to arrival and recommend inpatient management of MH disorder, SI. Patient voluntary. Last updated by Annita Diaz PA at 02/06/24 17:40 Sign Out Comment: Voluntary, [facility] seeking placement, no acute events today- had all home meds this afternoon. history schizophrenia, SI. Last updated by Erwin Black PA at 02/06/24 21:32 Sign Out Comment: History of schizophrenia, command hallucinations telling her to kill herself, ongoing today. Remains voluntary. Telepsych consult, medications adjusted. Awaiting placement. Last updated by Jen Olsen MD at 02/07/24 15:31 Sign Out Comment: history of schizophrenia seeking voluntary placement for SI, no issues during shift Last updated by Roverto Ulrich MD at 02/07/24 21:02 Sign Out Comment: 58yo F, schizophrenia, SI with command hallucinations. Pending voluntary placement. Last updated by Ree Hansen MD at 02/08/24 06:33 Sign Out Comment: Patient did have some anxiety and nausea today. She was given Ativan 1 mg which improved her symptoms. Patient continues to hear voices that she notes are too loud. Per care management: Patient has been accepted by [facility] with plan for transfer in the morning. Dr. Cordero has not been performed. Last updated by Nigel Rubin MD at 02/08/24 16:43 Sign Out Comment: Voluntary for depression and thoughts of self-harm history of schizophrenia. Reportedly will be going to [facility] tomorrow. No doc to doc's been done at this point. Last updated by Roverto Ulrich MD at 02/08/24 21:42 Sign Out Comment: See my note from overnight. No further issues after my evaluation. Should be going to [facility] today. Last updated by Franck Scott MD at 02/09/24 07:04 Discharge Plan Disposition Patient Disposition: Psychiatric Hospital/Unit Specific Psychiatric Facility: Other Condition: Serious Discharge Details Chief Complaint: PsychEval Clinical Impression: Schizophrenia, Suicidal ideations Primary Care Provider: Anna [facility]ial ED Provider: Nigel Rubin [facility] Meds and New Rx's Prescriptions: No Action buspirone 10 mg tablet 10 mg PO QHS rizatriptan 10 mg tablet See Rx Instructions PO .COMPLEX Rx Instructions: take 1 tab at onset of headache; if no relief may repeat 1 tab after at least 2 hrs; max = 3 tabs/24 hr PO ibuprofen 400 mg tablet 400 mg PO TID diclofenac sodium 1 % gel 2 g topical QID PRN (Reason: shoulder pain) Qty: 100 0RF Rx Instructions: apply to area of pain four times per day as needed lamotrigine 150 mg tablet 150 mg PO BID Qty: 180 3RF rizatriptan 10 mg tablet 10 mg PO ONCE PRN (Reason: migraine headache) Qty: 12 3RF Rx Instructions: take at onset of headache; ok to take second in 1 hour; no more than 2 in a 24 hour period acetaminophen 500 mg tablet 1,000 mg PO TID PRN risperidone 2 mg tablet 2 mg PO BID amoxicillin 500 mg capsule 2,000 mg PO ONCE PRN Rx Instructions: prior to dental work levothyroxine 100 MCG tablet 100 mcg PO DAILY (DME) lancets 33 gauge misc 1 ea Miscellaneous DIRECTED folic acid 1 mg tablet 1 mg PO DAILY metformin 500 mg tablet 500 mg PO DAILY simethicone 80 mg tablet,chewable See Rx Instructions .ROUTE .COMPLEX Qty: 28 0RF Dose Instruction: CHEW & SWALLOW 1 TABLET AT BEDTIME Rx Instructions: CHEW & SWALLOW 1 TABLET AT BEDTIME atorvastatin 10 mg tablet 10 mg PO DAILY Patient Comments: TAKE ONE TABLET BY MOUTH ONCE DAILY AT BEDTIME polyethylene glycol 3350 17 gram Powder In Packet 17 g PO BID PRN PRN (Reason: Constipation) Qty: 0 0RF topiramate 100 mg tablet 100 mg PO BID Qty: 180 3RF (DME) FreeStyle Lite Strips Strip MISCELLANEOUS Patient Comments: TEST BLOOD GLUCOSE TWICE DAILY (DME) blood-glucose meter [FreeStyle Lite Meter] Kit MISCELLANEOUS Patient Comments: TEST TWICE DAILY DIRECTED (DME) lancets [FreeStyle Lancets] 28 gauge misc MISCELLANEOUS Patient Comments: TEST TWICE DAILY
== END 2024-02-09 08:09 ==
PROVIDERS: Emergency Medicine; Physician Assistant; Emergency Provider Student in an Organized Health Care Education/Training Program; PCP Nurse Practitioner Family
DX: R45.851 Suicidal ideations (principal); F20.9 Schizophrenia, unspecified; E11.9 Type 2 diabetes mellitus without complications
CPT/HCPCS: 00123; 36416; 64493; 64494; 72100; 80053; 82962; 87635; 99285; 80320; 80329; 81003; 84443; 85025

== ENCOUNTER 2024-03-26 19:36 | Observation (INO) | payer MEDICARE, MEDICAID, SELFPAY ==
[2024-03-26] VITALS (33 sets, daily range): BP systolic 121–176; BP diastolic 54–101; PULSE 57–72; RESP 12–21; TEMP 36.9; O2SAT 94–99
--- NOTE | 2024-03-26 19:30 | DI.CT_ITS ---
Exam(s) CT BRAIN NECK CTA EXAM: CT BRAIN NECK CTA CLINICAL HISTORY: altered mentation. TECHNIQUE: Imaging Protocol: Axial CT angiography was performed with multi-slice acquisition and mu lti-planar and/or 3D reconstructions. CONTRAST MATERIAL: Intravenous: Omnipaque 350 contrast volume:70 mL COMPARISON: CT CT BRAIN NECK CTA from 06/28/[address] HEAD WO from 07/16/2023 FINDINGS: CT Head W/O and W: Ventricles and Extra axial spaces: Normal in size and morphology for the patient's age. Hemorrhage: None. Cerebral parenchyma: No evidence of an acute territorial infarct. No mass effect is identified. Midline shift: None. Brainstem/Cerebellum: Normal. Calvarium: Normal. Visualized Paranasal sinuses/Mastoids: There is mild mucosal thickening in the visualized paranasal s inuses. No air-fluid levels are present. Soft Tissues: Unremarkable. Enhancement: Unremarkable. CTA Neck W: Common Carotid: Right: No dissection, occlusion or significant stenosis. Left: No dissection, occlusion or significant stenosis. External Carotid: Right: No occlusion or significant stenosis. Left: No occlusion or significant stenosis. Internal Carotid: Right: No dissection, occlusion or significant stenosis. Left: No dissection, occlusion or significant stenosis. Vertebral Artery: Right: No dissection, occlusion or significant stenosis. Left: No dissection, occlusion or significant stenosis. 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 This is a normal variant. Lung Apices: No focal consolidating infiltrates. Bones: Within normal limits for the patient's age. Soft Tissues: Normal. Thyroid gland: Unremarkable. CTA Brain W: Internal Carotid Arteries: No evidence of an aneurysm, occlusion or significant stenosis. Anterior Cerebral Arteries: Right: No aneurysm, occlusion or significant stenosis. Left: No aneurysm, occlusion or significant stenosis. Middle Cerebral Arteries: Right: No aneurysm, occlusion or significant stenosis. Left: No aneurysm, occlusion or significant stenosis. Posterior Cerebral Arteries: Both posterior cerebral arteries arise from the posterior communicating arteries which is a normal variant. Right: No aneurysm, occlusion or significant stenosis. Left: No aneurysm, occlusion or significant stenosis. Vertebral Arteries: Right: No aneurysm, occlusion or significant stenosis. Left: No aneurysm, occlusion or significant stenosis. Basilar Artery: No aneurysm, occlusion or significant stenosis. IMPRESSION: 1. No large vessel occlusion or significant stenosis on the CT angiography of the head. 2. No acute intracranial process. 3. Mild paranasal chronic sinusitis. 4. No occlusion or significant stenosis on the CT angiography of the neck. RADIATION DOSE DELIVERED: 2,222.52mGy.cm Total DLP DATA REPOSITORY: All CT scans at this facility are submitted to the National Radiology Data Registry (NRDR) Dose Index Registry (DIR) with the [employer] ([employer]). RADIATION OPTIMIZATION: All CT scans at this facility use at least one of these dose optimization te chniques: automated exposure control; mA and/or kV adjustment per patient size (includes targeted exa ms where dose is matched to clinical indication); or iterative reconstruction.
--- NOTE | 2024-03-26 19:30 | DI.RAD_ITS ---
Exam(s) XR CHEST 1V IN DI DEPT EXAM: XR CHEST 1V IN DI DEPT CLINICAL HISTORY: unreliable, mild hypoxia TECHNIQUE: 2D digital imaging was performed of the chest. Two images were obtained. AP views were obtained. COMPARISON: CR,XR XR CHEST 2V PA LATERAL from 10/05/2023 FINDINGS: MEDIASTINUM: Normal. HEART: Heart size is at the upper limits of normal on this AP projection. PULMONARY VASCULATURE: Normal. LUNGS: Clear. PLEURAL SPACE: No pleural effusion or pneumothorax. BONE:Within normal limits for the patient's age. OTHER FINDINGS:Normal. IMPRESSION: No acute pulmonary findings. No focal consolidating infiltrates. DATA REPOSITORY: RADIATION DOSE DELIVERED:
--- NOTE | 2024-03-26 19:30 | RT.EKG_ITS ---
APPROVED REPORT Exam: Resting ECG Reason for Exam: baseline/screening Patient Location: E HR:61 bpm ECG Measurements Heart Rate 61 AXIS ME 170 P 33 QRSd 100 QRS -19 QT 418 T 50 QTc 421 Conclusion Sinus rhythm...normal P axis, V-rate 60- [address] segment or T wave abnormalities to suggest occlusive MD
[2024-03-26 20:02] LABS: Abs Immature Grans 0.02 10^3/uL (0.0-0.06); Absolute Basophil Count 0.04 10^3/uL (0.0-0.2); Absolute Eosinophil Count 0.21 10^3/uL (0.0-0.7); Absolute Lymphocyte Count 1.87 10^3/uL (1.2-3.4); Absolute Monocyte Count 0.37 10^3/uL (0.1-0.8); Absolute Neutrophil Count 2.31 10^3/uL (1.2-6.7); Basophils % 0.8 %; Eosinophils % 4.4 %; HCT 41.2 % (36.0-46.0); HGB 13.2 g/dL (11.2-15.7); Immature Grans % 0.4 %; Lymphocytes % 38.8 %; MCH 28.5 pg (27.0-33.0); MCV 89 fL (80-95); MPV 10.1 fL (8.0-11.0); Monocytes % 7.7 %; Neutrophils % 47.9 %; Platelet Count 347 10^3/uL (130-400); RBC 4.63 10^6/uL (3.93-5.22); RDW 13.2 % (11.7-14.6); RDW-SD 42.7 fL; WBC 4.82 10^3/uL (4.4-10.8)
[2024-03-26 20:06] LABS: BE (Venous) -1 mmol/L (-2-3); HCO3 (Venous) 24 mmol/L (23-28); Lactate 0.8 mmol/L (0.6-1.4); O2 Sat (Venous) 99 %; TCO2 (Venous) 22 mmol/L (24-29); pCO2 (Venous) 44 mmHg (41-51); pH (Venous) 7.35 (7.31-7.41); pO2 (Venous) 104 mmHg
--- NOTE | 2024-03-26 20:21 | NUR.NOTE ---
Nursing Note: pt arrived with prefilled/premade blister pack of her medication. simethicone 80mg, donepezil 10mg, olanzapine 25mg, atrovastatin 10mg, topiramate 100mg, lamotrigine 150mg, gabapentin 100mg
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
[2024-03-26 20:30] LABS: Ammonia < 10 umol/L (11-32)
[2024-03-26 20:36] LABS: ALT 33 U/L (14-59); AST 33 U/L (15-37); Albumin 3.6 g/dL (3.4-5.0); Alkaline Phosphatase 137 U/L (46-116); Anion Gap 5.5 mmol/L (3-11); BUN 16 mg/dL (7-18); Bilirubin, Direct 0.1 mg/dL (0.0-0.2); Bilirubin, Total 0.25 mg/dL (0.2-1.0); CO2 29.5 mmol/L (21.0-32.0); CREATININE 1.2 mg/dL (0.55-1.02); Calcium 9.4 mg/dL (8.5-10.1); Chloride 111 mmol/L (98-107); Creatine Kinase 33 U/L (26-192); Estimated GFR 51.82 (mL/min/1.73m2); Glucose 102 mg/dL (74-106); Lipase 58 U/L (<78); Potassium 3.7 mmol/L (3.5-5.1); Sodium 146 mmol/L (136-145); TSH (W/Ref FT4) 1.76 uIU/mL (0.36-3.74); Total Protein 7.9 g/dL (6.4-8.2); Troponin I 6 ng/L (<or=51)
[2024-03-26 20:38] LABS: ETHANOL BLOOD < 3.0 mg/dL (<10)
[2024-03-26 21:16] LABS: Bilirubin Negative (Negative); Blood Negative (Negative); Clarity Clear (Clear); Glucose Negative (Negative); Ketones Negative (Negative); Leukocyte Esterase Trace (Negative); Nitrite Negative (Negative); Specific Gravity 1.025 (1.005-1.025); Urobilinogen 0.2 mg/dL (Up to 0.2)
[2024-03-26] MEDS: Omnipaque 350 MG/ML 100 ML BTL IJ (21:20)
[2024-03-26] MEDS: Normal Saline - Diluent 50 ML VIAL IJ (21:21)
[2024-03-26 21:25] LABS: Bacteria Few HPF (Negative); C & S Indicated? No; Casts Negative LPF (Negative); Crystals Negative HPF (Negative); Epithelial Cells Few HPF (Negative); Mucus Trace (Negative); RBC 0-2 HPF (0-2)
[2024-03-26] MEDS: Normal Saline Flush 10 ML SYR IVP (21:25)
[2024-03-26 21:26] LABS: *AMPHETAMINES SCREEN URINE Negative (Negative); *BARBITURATES SCREEN URINE Negative (Negative); *BENZODIAZEPINES SCREEN URINE Negative (Negative); Cannabinoids THC Negative (Negative); Cocaine Screen,Urine Negative (Negative); METHADONE URINE SCREEN Negative (Negative); OPIATES URINE SCREEN Negative (Negative)
[2024-03-26 21:27] LABS: Tricyclic Antidepressants Negative (Negative)
--- NOTE | 2024-03-26 22:51 | DI.VRAD_ITS ---
PROCEDURE INFORMATION: Exam: XR Chest Exam date and time: 03/26/2024 9:40 PM Age: 58 years old Clinical indication: Other: Unreliable, mild hypoxia TECHNIQUE: Imaging protocol: Radiologic exam of the chest. Views: 1 view. COMPARISON: CT CHEST PE CTA 10/05/2023 11:14 PM FINDINGS: Lungs: Low lung volumes. No gross pulmonary infiltrates. Question slight interstitial prominence bilaterally, possibly mild interstitial edema Pleural spaces: No pleural effusion. No pneumothorax. Heart/Mediastinum: Question mild cardiomegaly and central vascular congestion. No tracheal/mediastinal shift. Bones/joints: No acute osseous abnormalities are identified. IMPRESSION: Question mild cardiomegaly and central vascular congestion and slight interstitial prominence suspicious for mild CHF and interstitial edema. No gross pulmonary infiltrates. Dictated and Authenticated by: Davin Foote MD. Ordering:JOYCE Hood MD
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
--- NOTE | 2024-03-26 23:04 | DI.VRAD_ITS ---
PROCEDURE INFORMATION: Exam: CTA Head Without And With Contrast, Arteriography Exam date and time: 03/26/2024 9:25 PM Age: 58 years old Clinical indication: Other: Altered mentation TECHNIQUE: Imaging protocol: Computed tomographic angiography of the head without and with contrast. Exam focused on the arteries. 3D rendering (Not supervised by radiologist): MIP and/or 3D reconstructed images were created by the technologist. Contrast material: OMNIPAQUE 350; Contrast volume: 70 ml; Contrast route: INTRAVENOUS (IV); COMPARISON: CT BRAIN NECK CTA 06/28/2023 12:01 PM FINDINGS: ANTERIOR CIRCULATION: Right internal carotid artery: Right ICA petrous, cavernous, and supraclinoid segments are unremarkable. Right middle cerebral artery: Unremarkable. No occlusion or significant stenosis. No aneurysm. Right anterior cerebral artery: Unremarkable. No occlusion or significant stenosis. No aneurysm. The anterior communicating artery is unremarkable. Left internal carotid artery: Left ICA petrous, cavernous, and supraclinoid segments are unremarkable. Left middle cerebral artery: Unremarkable. No occlusion or significant stenosis. No aneurysm. Left anterior cerebral artery: Unremarkable. No occlusion or significant stenosis. No aneurysm. POSTERIOR CIRCULATION: Right vertebral artery: Right vertebral artery is dominant. No occlusion or significant stenosis. No aneurysm. Left vertebral artery: Variant very small/hypoplastic left vertebral artery terminating in PICA. No occlusion or significant stenosis. No aneurysm. Basilar artery: Unremarkable. No occlusion or significant stenosis. No aneurysm. Right posterior cerebral artery: Normal variant persistent origin with hypoplastic right P1 segment. No occlusion or significant stenosis. No aneurysm. Left posterior cerebral artery: Normal variant persistent origin with hypoplastic left P1 segment. No occlusion or significant stenosis. No aneurysm. Veins: The dural venous sinuses and major cortical veins enhance appropriately without evidence of thrombosis. HEAD: Brain: Moderate generalized cerebral/cerebellar atrophy. The IACs are grossly normal. No extra-axial fluid collections. No evidence of acute intracranial hemorrhage. Cerebral/cerebellar johnson-white matter differentiation is well maintained. No intracranial mass lesions. No midline shift or herniation. No enhancing brain lesions or vascular malformations are identified. Cerebral ventricles: Mild compensatory ventriculomegaly secondary to central atrophy. Pituitary gland and sella: The sella is grossly normal. Bones: No acute osseous findings. Orbital cavities: No acute intraorbital findings. Prior bilateral ocular cataract surgery. Paranasal sinuses: Mucosal thickening in the bilateral maxillary, sphenoid, and ethmoid sinuses consistent with chronic sinusitis. No fluid levels. Mastoid air cells: Visualized mastoid air cells are clear. Soft tissues: No acute soft tissue findings. IMPRESSION: 1. No evidence of large vessel occlusion or significant stenosis. No evidence of arterial dissection or aneurysm/pseudoaneurysm. 2. No acute intracranial process. No intracranial hemorrhage or mass effect. 3. Mild chronic sinusitis. PROCEDURE INFORMATION: Exam: CTA Neck Without And With Contrast Exam date and time: 03/26/2024 9:25 PM Age: 58 years old Clinical indication: Other: Altered mentation TECHNIQUE: Imaging protocol: Computed tomographic angiography of the neck without and with contrast. Exam focused on the cervical segments of the vasculature. 3D rendering (Not supervised by radiologist): MIP and/or 3D reconstructed images were created by the technologist. Contrast material: OMNIPAQUE 350; Contrast volume: 70 ml; Contrast route: INTRAVENOUS (IV); COMPARISON: CT BRAIN NECK CTA 06/28/2023 12:01 PM FINDINGS: Right common carotid artery: Mild proximal tortuosity. No stenosis. No dissection or occlusion. Right internal carotid artery: Normal. No stenosis. No dissection or occlusion. Right external carotid artery: Normal. No stenosis. No dissection or occlusion. Left common carotid artery: Mild tortuosity. No stenosis. No dissection or occlusion. Left internal carotid artery: Mild tortuosity. No stenosis. No dissection or occlusion. Left external carotid artery: Normal. No stenosis. No dissection or occlusion. Right vertebral artery: Right vertebral artery is dominant. No stenosis. No dissection or occlusion. Left vertebral artery: Very small/hypoplastic left vertebral artery, anatomic variant. No stenosis. No dissection or occlusion. Brachiocephalic artery: The brachiocephalic artery is unremarkable. Right subclavian artery: The right subclavian artery is unremarkable. Left subclavian artery: The left subclavian artery demonstrates mild calcific plaque without stenosis. Aorta: The visualized aortic arch demonstrates mild ectasia and calcific plaque without evidence of dissection or gross aneurysm. Thyroid: The thyroid gland is moderately atrophic. Correlate clinically for evidence of hypothyroidism. Soft tissues: No significant soft tissue swelling or hematoma. Bones/joints: No acute osseous abnormalities are identified. Moderate multilevel cervical disc degenerative narrowing with mild-moderate marginal spurring. Moderate canal stenosis C3-C4 through C5-C6. Moderate bilateral foraminal stenosis C3-C4 and C4-C5. Lungs: Minor subsegmental atelectasis in the upper lung thompson. IMPRESSION: 1. No evidence of arterial occlusion, significant stenosis, dissection, or aneurysm/pseudoaneurysm. 2. Nonemergent findings detailed above. REFERENCES: NASCET CRITERIA. The degree of stenosis in the cervical segment of the internal carotid artery is based on NASCET criteria. Normal is no stenosis. Mild is less than 50% stenosis. Moderate is 50-69% stenosis. Severe is 70% to 99% stenosis. Total occlusion is no detectable patent lumen. Dictated and Authenticated by: Davin Foote MD. Ordering:JOYCE Hood MD
[2024-03-26 23:55] LABS: NT-proBNP 212 pg/mL (<300)
[2024-03-27] VITALS (12 sets, daily range): BP systolic 122–141; BP diastolic 58–76; PULSE 53–66; RESP 15–20; TEMP 36.4–36.9; O2SAT 93–100
[2024-03-27] MEDS: DEXTROSE 5%-0.45% SALINE 1,000 ML 100 ML IV (02:18)
[2024-03-27] MEDS: Normal Saline Flush 10 ML SYR IVP ×3 (02:19→19:36)
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
[2024-03-27] MEDS: Acetaminophen 500 MG TAB 1000 MG PO (03:58)
[2024-03-27] MEDS: Levothyroxine 100 MCG TAB PO (05:38)
[2024-03-27 07:05] LABS: HCT 36.1 % (36.0-46.0); HGB 11.6 g/dL (11.2-15.7); MCH 28.7 pg (27.0-33.0); MCHC 32.1 % (32.0-36.0); MCV 89 fL (80-95); MPV 10.3 fL (8.0-11.0); Platelet Count 303 10^3/uL (130-400); RBC 4.04 10^6/uL (3.93-5.22); RDW 13.2 % (11.7-14.6); RDW-SD 43.1 fL; WBC 4.06 10^3/uL (4.4-10.8)
[2024-03-27 07:54] LABS: ALT 39 U/L (14-59); AST 34 U/L (15-37); Albumin 3.3 g/dL (3.4-5.0); Alkaline Phosphatase 117 U/L (46-116); BUN 15 mg/dL (7-18); Bilirubin, Total 0.25 mg/dL (0.2-1.0); CREATININE 1.2 mg/dL (0.55-1.02); Calcium 8.9 mg/dL (8.5-10.1); Chloride 110 mmol/L (98-107); Estimated GFR 51.82 (mL/min/1.73m2); Glucose 118 mg/dL (74-106); Magnesium 1.9 mg/dL (1.8-2.4); Potassium 3.3 mmol/L (3.5-5.1); Sodium 147 mmol/L (136-145); Total Protein 7.1 g/dL (6.4-8.2)
[2024-03-27] MEDS: Donepezil 5 MG TAB 10 MG PO (09:13)
[2024-03-27] MEDS: Atorvastatin 10 MG TAB PO (09:13)
[2024-03-27] MEDS: lamoTRIgine 100 MG TAB 150 MG PO ×2 (09:13→19:35)
[2024-03-27] MEDS: Folic Acid 1 MG TAB PO (09:13)
[2024-03-27] MEDS: Enoxaparin 40 MG/0.4 ML SYR SC (09:15)
[2024-03-27] MEDS: Nystatin POWDER 60 GM JAR TP ×2 (09:15→21:47)
--- NOTE | 2024-03-27 10:14 | W.PM.PROGNOT ---
Date of Service Date of service: 03/27/24 Time of Service: 11:57 Assessment and Plan Assessment and plan (1) Encephalopathy: Start date: 03/26/24 Status: Acute Assessment and plan: This is a 58-year-old lady who now lives alone with pre-packaged medications but still may be mis-taking her medical regimen for schizophrenia and appeared to have presentation with encephalopathy Still displaying signs of encephalopathy versus behavioral components, confused regarding her name but can remember other caregivers names and make phone calls. Continue telemetry Continue to hold sedating medications Lamictal, gabapentin, olanzapine, topiramate levels: pending Continue Lamictal due to history of seizure disorder in the past. NA at 147 from 142: Will continue hypotonic IV fluid Echocardiogram showed LVEF at 55 without hypokinesis Recent admit at [facility] on 02/15 after being at [facility], with onset unclear--Getting records from this hospital stay Home meds from [facility] provided and to be compared with above records Also considering that patient might take all her meds at once despite bubble pack delivery daily (2) Schizophrenia: Assessment and plan: As above Psych meds initially held with improved mental status and behavioral component to actions most likely will resume olanzapine at a lower dose-pending confirmation of the 25 mg ordered from last inpatient stay at [facility] . (3) Acute dehydration: Start date: 04/02/24 Status: Acute Assessment and plan: Sodium still 147 will continue NS at 100 cc an hour overnight Echo completed with LVH at 65 without hypokinesis BMP in the morning (4) Diabetes mellitus: Status: Chronic Assessment and plan: Continue glucometer measurements before meals and at bedtime with sensitive sliding scale coverage of insulin Hold metformin. (5) Hypothyroidism: Assessment and plan: Normal TSH on admission. Continue home dose regimen of levothyroxine. (6) Parkinsonism: Assessment and plan: On donezepil home dose most likely given for secondary effect of antipsychotic drugs in the setting of treatment of schizophrenia. (7) Hyperlipidemia: Assessment and plan: Continue home statin therapy. (8) DORYS on CPAP: Assessment and plan: Continue CPAP with home settings. rEic may need to bring in her home machine but patient I will discharge in a.m. most likely (9) Seizure disorder: Status: Chronic Assessment and plan: Continue home dose of Lamictal Level is pending (10) On deep vein thrombosis (DVT) prophylaxis: Status: Acute Assessment and plan: On low molecular weight heparin (11) Discharge planning issues: Status: Acute Assessment and plan: PT consult for safe discharge completed: -Poor engagement: Patient reports I do not know to all questions except when asked about the FWW in her room and about pain - As per discussion was able to obey commands when made aware of the end of PT eval- walk with FWW w/o difficulty and sat in chair - recommendation SNF VS home with HH Most likely need to go home in a.m. with new home health PT OT Discussed with Dr. Coles Subjective Subjective Patient reports: no new complaints, tolerating liquids well, tolerating a regular diet, voiding w/o difficulty and nausea; denies diarrhea, vomiting, shortness of breath or fever Exam Narrative Exam Narrative: Constitutional The patient is sitting in chair without acute distress, lethargic and apathetic HENMT: Head is atraumatic, normocephalic, no lymphadenopathy. Facial structures with normal appearance Eyes:Poor eye contact,mostly intact ROM Neuro:alert and desoriented oriented to self, person, place time and situation, but knows that she takes daily Rx w bubble wrap. No neurological focal defici Resp: Unlabored breathing, clear lung bilaterally Cardio: regular rhythm, S1, S2,bilateral radial and dorsalis pedis pulses are positive GI: Abdomen is not distended, soft and non tender, bowel sounds are present : Negative Costovertebral angle tenderness Integumentary: No skin lesions or rash on exposed skin Extremities: strength 5/5 to bilateral lower and upper extremities Psych: RASS 0, depressed mood and flat affect. Objective Last Vital Signs Temp 36.7 C 03/27/24 08:09 Pulse 59 L 03/27/24 08:09 Resp 16 03/27/24 08:09 BP 139/75 03/27/24 08:09 Pulse Ox 97 03/27/24 08:25 Laboratory Results - last 24 hr 03/26/24 03/26/24 03/26/24 19:45 20:02 21:04 WBC 4.82 RBC 4.63 Hgb 13.2 Hct 41.2 MCV 89 MCH 28.5 MCHC 32.0 RDW 13.2 Plt Count 347 MPV 10.1 Immature Gran % 0.4 Neutrophils % 47.9 Lymphocytes % 38.8 Monocytes % 7.7 Eosinophils % 4.4 Basophils % 0.8 Nucleated RBC % 0.0 Absolute Neutrophils 2.31 Absolute Lymphocytes 1.87 Absolute Monocytes 0.37 Absolute Eosinophils 0.21 Absolute Basophils 0.04 VBG pH 7.35 VBG pCO2 44 VBG pO2 104 VBG HCO3 24 VBG Total CO2 22 L VBG O2 Saturation 99 VBG Base Excess -1 VBG Lactate 0.8 Sodium 146 H Potassium 3.7 Chloride 111 H Carbon Dioxide 29.5 Anion Gap 5.5 BUN 16 Creatinine 1.2 H Est GFR (CKD-EPI 2020) 51.82 Glucose 102 Calcium 9.4 Magnesium 2.0 Total Bilirubin 0.25 Conjugated Bilirubin 0.1 AST 33 ALT 33 Alkaline Phosphatase 137 H Ammonia Cancelled < 10 L Creatine Kinase 33 Troponin I 6 NT-Pro-B Natriuret Pep 212 Total Protein 7.9 Albumin 3.6 Lipase 58 TSH 1.76 Urine Color Yellow Urine Clarity Clear Urine pH 6.0 Ur Specific [place] 1.025 Urine Protein Negative Urine Ketones Negative Urine Blood Negative Urine Nitrite Negative Urine Bilirubin Negative Urine Urobilinogen 0.2 Ur Leukocyte Esterase Trace H Urine RBC 0-2 Urine WBC 3-5 Ur Epithelial Cells Few Urine Crystals Negative Urine Bacteria Few Urine Casts Negative Urine Mucus Trace Ur Culture Indicated? No Urine Glucose Negative Urine Opiates Screen Negative Urine Methadone Screen Negative Ur Barbiturates Screen Negative Ur Tricyclics Screen Negative Ur Amphetamines Screen Negative U Benzodiazepines Scrn Negative Urine Cocaine Screen Negative Ur THC Screen Negative Ethyl Alcohol < 3.0 03/27/24 06:20 WBC 4.06 L RBC 4.04 Hgb 11.6 Hct 36.1 MCV 89 MCH 28.7 MCHC 32.1 RDW 13.2 Plt Count 303 MPV 10.3 Immature Gran % Neutrophils % Lymphocytes % Monocytes % Eosinophils % Basophils % Nucleated RBC % Absolute Neutrophils Absolute Lymphocytes Absolute Monocytes Absolute Eosinophils Absolute Basophils VBG pH VBG pCO2 VBG pO2 VBG HCO3 VBG Total CO2 VBG O2 Saturation VBG Base Excess VBG Lactate Sodium 147 H Potassium 3.3 L Chloride 110 H Carbon Dioxide 27.0 Anion Gap 10.0 BUN 15 Creatinine 1.2 H Est GFR (CKD-EPI 2020) 51.82 Glucose 118 H Calcium 8.9 Magnesium 1.9 Total Bilirubin 0.25 Conjugated Bilirubin AST 34 ALT 39 Alkaline Phosphatase 117 H Ammonia Creatine Kinase Troponin I NT-Pro-B Natriuret Pep Total Protein 7.1 Albumin 3.3 L Lipase TSH Urine Color Urine Clarity Urine pH Ur Specific [place] Urine Protein Urine Ketones Urine Blood Urine Nitrite Urine Bilirubin Urine Urobilinogen Ur Leukocyte Esterase Urine RBC Urine WBC Ur Epithelial Cells Urine Crystals Urine Bacteria Urine Casts Urine Mucus Ur Culture Indicated? Urine Glucose Urine Opiates Screen Urine Methadone Screen Ur Barbiturates Screen Ur Tricyclics Screen Ur Amphetamines Screen U Benzodiazepines Scrn Urine Cocaine Screen Ur THC Screen Ethyl Alcohol Time Spent with Patient Time Spent with Patient: >50 minutes Time was spent: preparing to see the patient(eg.review tests), obtaining and/or reviewing separately otained hiistory, ordering medications,tests, procedures, referring, communicating with other health weekend caregiver, indepentently interpreting results, counseling the patient and care coordination
--- NOTE | 2024-03-27 11:12 | PHA.REVIEW2 ---
Pharmacy Admission Review Admission Clinical Review Admission Pharmacy Review: Acute dehydration (Acute) Encephalopathy (Acute) codeine Adverse Reaction (Unknown, Verified 03/26/24 19:45) MENTAL ISSUES hydrocodone bitartrate (From Vicodin) Adverse Reaction (Unknown, Verified 03/26/24 19:45) MENTAL ISSUES Resuscitation Status Full Code Height 5 ft 6 in Weight 97.4 kg Comments Comments/Follow Ups: Watch for addition of home meds that are currently being held due to sedation, blood culture pending Pharmacy Admission Review Renal Dosing Renal Dosing: BUN 15 mg/dL (7-18) 03/27/24 06:20 Creatinine 1.2 mg/dL (0.55-1.02) H 03/27/24 06:20 Medications needing adjustments: Reviewed (CrCl 58.65 mL/min) List of meds needing interventions: Current medications are okay Anticoagulation Anticoagulation: Hgb 11.6 g/dL (11.2-15.7) 03/27/24 06:20 Hct 36.1 % (36.0-46.0) 03/27/24 06:20 Plt Count 303 10^3/uL (130-400) 03/27/24 06:20 Creatinine 1.2 mg/dL (0.55-1.02) H 03/27/24 06:20 DVT Prophylaxis: Reviewed Medications: Enoxaparin (40mg daily) Relevant Labs Relevant Labs: Sodium 147 mmol/L (136-145) H 03/27/24 06:20 Potassium 3.3 mmol/L (3.5-5.1) L 03/27/24 06:20 Chloride 110 mmol/L (98-107) H 03/27/24 06:20 Magnesium 1.9 mg/dL (1.8-2.4) 03/27/24 06:20 Electrolytes, C-Reactive P, ESR: Reviewed (Na 147. K 3.3) DM Control DM Control: Glucose 118 mg/dL (74-106) H 03/27/24 06:20 Finger Stick Blood Glucose 121 0910 Finger Stick Blood Glucose 121 0812 Finger Stick Blood Glucose 121 0812 DM Control: Reviewed Insulin Dosing, Diabetic Medication: Has order for SS insulin Cardiac Review Cardiac Review: Troponin I 6 ng/L (<or=51) 03/26/24 19:45 NT-Pro-B Natriuret Pep 212 pg/mL (<300) 03/26/24 19:45 BP, HR, EF%: Reviewed (BP WNL, HR 53 - has ranged from low 50s to 60s today) QTc Review QTc: Reviewed (421 from 03/26/24) IV to PO Switch IV Medications: Reviewed Home Meds Home Med List reviewed: Reviewed Relevent Home Meds Not ordered & why?: amoxicillin (pre-dental procedures), vitamin D3, diclofenac gel (PRN), gabapentin (on hold per H+P), metformin (on hold - has order for SS insulin), olanzapine (on hold per H+P), ondansetron (PRN) and topiramate (on hold per H+P) Current Meds Current Medication Order Review: Intervened Comments: Added 2nd PRN to APAP order per pharmacy protocol Discontinued duplicate orders Changed simethicone order from 1mg daily to 80mg daily - most likely was put in thinking it was 1 tablet not 1mg Comments Comments/Follow Ups: Watch for addition of home meds that are currently being held due to sedation, blood culture pending
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
[2024-03-27] MEDS: Potassium Chloride 20 MEQ TABCR 40 MEQ PO ×2 (15:04→19:35)
[2024-03-27] MEDS: SODIUM CHLORIDE 0.45% 1,000 ML 100 ML IV (15:54)
[2024-03-27] MEDS: Simethicone 80 MG CHEW PO (19:35)
[2024-03-27] MEDS: OLANZapine 5 MG TAB PO (19:35)
[2024-03-28] MEDS: SODIUM CHLORIDE 0.45% 1,000 ML 100 ML IV (03:03)
[2024-03-28 04:10] VITALS: BP 143/68; PULSE 61; RESP 15; TEMP 36.4; O2SAT 92
[2024-03-28 06:13] LABS: HCT 37.5 % (36.0-46.0); HGB 12.2 g/dL (11.2-15.7); MCH 28.7 pg (27.0-33.0); MCHC 32.5 % (32.0-36.0); MCV 88 fL (80-95); MPV 10.1 fL (8.0-11.0); Platelet Count 316 10^3/uL (130-400); RBC 4.25 10^6/uL (3.93-5.22); RDW-SD 41.7 fL; WBC 4.62 10^3/uL (4.4-10.8)
[2024-03-28 06:23] VITALS: BP 157/78; PULSE 63; RESP 15; TEMP 36.6; O2SAT 93
[2024-03-28] MEDS: Levothyroxine 100 MCG TAB PO (06:32)
[2024-03-28 06:43] LABS: ALT 32 U/L (14-59); AST 23 U/L (15-37); Albumin 3.4 g/dL (3.4-5.0); Alkaline Phosphatase 122 U/L (46-116); Anion Gap 7.2 mmol/L (3-11); BUN 13 mg/dL (7-18); Bilirubin, Total 0.25 mg/dL (0.2-1.0); CO2 27.8 mmol/L (21.0-32.0); CREATININE 1.1 mg/dL (0.55-1.02); Calcium 9.3 mg/dL (8.5-10.1); Chloride 110 mmol/L (98-107); Estimated GFR 57.52 (mL/min/1.73m2); Glucose 114 mg/dL (74-106); Potassium 4.1 mmol/L (3.5-5.1); Sodium 145 mmol/L (136-145); Total Protein 7.3 g/dL (6.4-8.2)
[2024-03-28] MEDS: Potassium Chloride 20 MEQ TABCR 40 MEQ PO (08:21)
[2024-03-28] MEDS: Donepezil 5 MG TAB 10 MG PO (08:21)
[2024-03-28] MEDS: Enoxaparin 40 MG/0.4 ML SYR SC (08:21)
[2024-03-28] MEDS: Folic Acid 1 MG TAB PO (08:21)
[2024-03-28] MEDS: Benzonatate 200 MG CAP PO (08:21)
[2024-03-28] MEDS: lamoTRIgine 100 MG TAB 150 MG PO (08:21)
[2024-03-28] MEDS: Atorvastatin 10 MG TAB PO (08:21)
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
--- NOTE | 2024-03-28 10:52 | PDOC.HHF2F ---
Home Health Referral Home Health Orders Clinical synopsis of why skilled professionals are needed: This 58-year-old female patient with past medical history of schizophrenia, DORYS on CPAP at home, personality disorder, mild intellectual disability, major depression with psychosis and posttraumatic stress disorder with recent hospitalization at [facility] with discharge on 03/08/2024 presented on 03/26/2024 in the ED at [facility] for evaluation of extreme lethargy. The patient was brought via EMS most likely called by landlord due to observation of increased lethargy. On arrival to the ED the patient did not know where she was but was making efforts to respond to command appropriately. The patient was also able to convey physiologically need to urinate. The patient needed oxygen at 2 L by nasal cannula due to mild hypoxia at 91%. Workup in the ED was significant for sodium level at 146, creatinine at 1.2 around baseline, ALK of 137, ammonia and CPK were negative. UA showed trace leuk esterase with normal WBC and no bacteria nor nitrate. Justice was consulted and patient admitted to the medical surgical floor for evaluation management of encephalopathy, dehydration. During the stay sedating medicine were held except for Lamictal due to history of seizures; previous level in January 2024 was 7.3. Levels for gabapentin, olanzapine, Lamictal, and topiramate were ordered and pending. She was able to walk with PT yesterday, still stated that she could not remember her name but could call her BAG HANGER case finisher independently in the room. This patient appeared less lethargic and back to baseline. This morning she was answering to her name, following commands, reporting waking up on the hour overnight to void. Medical records from [facility] were obtained to confirm discharge and ongoing meds. Olanzapine was restarted at low-dose for the night and well tolerated- home dose to be resumed. Psych consult was ordered on 03/27/2024 and was not completed overnight. Hypernatremia and dehydration resolved. The patient will be discharged home today and has an appointment at 1330 with her [facility] human services provider. The patient will require home health PT and OT and will continue to have bubble pack meds delivered by [facility]. Gabapentin is on hold to be adjusted by PCP when level is back. Follow-up appointment booked for 15:30 with PCP Anna Dial on 03/29/2024. Discussed with Dr. Coles. Physical Therapist: Check all that apply Increase strength & endurance for safe mobility at home: Ordered To design/establish home maintenance program: Ordered Fall reduction therapy program for patient with history of frequent falls: Ordered Home safety evaluation and teaching/gait training including stair management (if applicable): Ordered Occupational Therapist: Evaluate and treat for patient unable to perform ADL/IADL/self-care: Ordered Upper extremity strengthening, range and motion: Ordered Home Bound Status Requires the aid of supportive device (check all that apply): Walker Describe why leaving home would require a considerable and taxing effort: Side effects from pain medication (sedation/drowsiness) (antipsychotic Rx) Encounter Date and Reason: I certify that a FTF encounter for this patient was performed on March 28, 2024 and that such encounter was related to the primary reason the patient requires home health services. The encounter was conducted in the following manner: By me as the certifying physician, RESIDENTIAL PROPERTY TAX APPRAISER, PA or By an inpatient physician, RESIDENTIAL PROPERTY TAX APPRAISER or PA during an inpatient stay who communicated findings to me, Certification And Authentication I certify that I composed the above information based on my clinical judgment relating to this patient's medical condition and, if applicable, clinical findings communicated to me by the NPP or inpatient physician who performed the FTF encounter. Name of Provider that will be monitoring home health services: Anna Dial
[2024-03-28 11:38] VITALS: BP 140/76; PULSE 65; RESP 16; TEMP 36.9; O2SAT 97
--- NOTE | 2024-03-28 12:38 | PT.INTREAT ---
PT Notes Visit Reasons: Calex / Confusion Inpatient Physical Therapy Treatment Note [facility] Date: 03/28/2024 PRECAUTIONS:Fall risk, standard, IV access RUE SUBJECTIVE: Pt reports she is feeling better but is not feeling ready to go home OBJECTIVE:Pt alert eyes open throughout session IV Fluids infusing . ? PAIN: reported pain in her abdomen VITALS: monitored by Nursing ? Therapeutic Activities ([id number]): Direct one-on-one instruction in dynamic activities to improve functional performance. ?? Provided skilled cues and instruction on performance and technique throughout. Transfers SBA with FWW chair , commode and w/c Ambulation with FWW 35 feet x 2 with SBA small spaces simulating mobility within home ASSESSMENT:? Pt more alert today. Able to answer all questions appropriately and able to recall that she came in with a cane via the ambulance. Pt with no reports of lightheadedness today. She demonstrates improve foot clearance and step length. PLAN: 1-2x/day, 7 days/week x 1 week.or medically appropriate for discharge Plan of care has been reviewed with the SCHEDULE SUPERVISOR providing the service under Physical Therapy direction. Initiate Physical Therapy intervention for strengthening, bed mobility, transfers, gait, stairs, balance training, use of assistive device. TREATMENT CODE/TIME:78349 x 28 mins for 2 units/ [id number] DISCHARGE RECOMMENDATION: Home with PT
[2024-03-29 12:44] LABS: Lamotrigine 9.6 mcg/mL (3.0-15.0)
[2024-03-29 21:59] LABS: Gabapentin 3.5 mcg/mL (2.0-20.0)
[2024-03-29 22:02] LABS: Topiramate 9.2 mcg/mL
== END 2024-03-28 12:40 | disposition home health service (06) ==
LOC: ER 03-27 00:05 → MS 03-27 00:37
PROVIDERS: Admitting Provider Family Medicine; Emergency Provider Physician Assistant; PCP Nurse Practitioner Family; Visit Provider Family Medicine
DX: G93.40 Encephalopathy, unspecified (principal); E86.0 Dehydration; E87.0 Hyperosmolality and hypernatremia; E11.9 Type 2 diabetes mellitus without complications; E03.9 Hypothyroidism, unspecified; G21.11 Neuroleptic induced parkinsonism; T43.505A Adverse effect of unspecified antipsychotics and neuroleptics, initial encounter; E78.2 Mixed hyperlipidemia; G47.33 Obstructive sleep apnea (adult) (pediatric); Z79.899 Other long term (current) drug therapy; F20.9 Schizophrenia, unspecified; G40.319 Generalized idiopathic epilepsy and epileptic syndromes, intractable, without status epilepticus; F60.89 Other specific personality disorders; F43.10 Post-traumatic stress disorder, unspecified
CPT/HCPCS: 00123; 36415; 70496; 70498; 80048; 80053; 80076; 80171; 80175; 80307; 82550; 82805; 82962; 83690; 85027; 87040; 93005; 96372; 97162; 97530; 99285; J1650; 71045; 80201; 80320; 81003; 81015; 82140; 82542; 83605; 83735; 83880; 84443; 84484; 85025; 87086; 93010; 93306; 99223; 99233; 99239; G0378; J1815; J3490

== ENCOUNTER 2024-03-29 16:34 | Emergency (ER) | payer MEDICARE, MEDICAID, SELFPAY ==
[2024-03-29 16:35] VITALS: BP 149/63; PULSE 70; RESP 16; TEMP 37.2; O2SAT 97
[2024-03-29 17:03] LABS: Abs Immature Grans 0.01 10^3/uL (0.0-0.06); Absolute Basophil Count 0.04 10^3/uL (0.0-0.2); Absolute Eosinophil Count 0.09 10^3/uL (0.0-0.7); Absolute Lymphocyte Count 1.73 10^3/uL (1.2-3.4); Absolute Monocyte Count 0.55 10^3/uL (0.1-0.8); Absolute Neutrophil Count 3.12 10^3/uL (1.2-6.7); Basophils % 0.7 %; Eosinophils % 1.6 %; HCT 42.4 % (36.0-46.0); HGB 13.7 g/dL (11.2-15.7); Immature Grans % 0.2 %; Lymphocytes % 31.2 %; MCH 28.2 pg (27.0-33.0); MCHC 32.3 % (32.0-36.0); MCV 87 fL (80-95); MPV 10.2 fL (8.0-11.0); Monocytes % 9.9 %; Neutrophils % 56.4 %; Platelet Count 359 10^3/uL (130-400); RBC 4.85 10^6/uL (3.93-5.22); RDW 13.2 % (11.7-14.6); WBC 5.54 10^3/uL (4.4-10.8)
[2024-03-29 17:28] LABS: ALT 36 U/L (14-59); AST 29 U/L (15-37); Albumin 3.7 g/dL (3.4-5.0); Alkaline Phosphatase 133 U/L (46-116); BUN 14 mg/dL (7-18); Bilirubin, Total 0.34 mg/dL (0.2-1.0); CREATININE 1.1 mg/dL (0.55-1.02); Calcium 9.6 mg/dL (8.5-10.1); Chloride 108 mmol/L (98-107); Estimated GFR 57.52 (mL/min/1.73m2); Glucose 104 mg/dL (74-106); Potassium 4.2 mmol/L (3.5-5.1); Sodium 145 mmol/L (136-145); TSH (W/Ref FT4) 2.06 uIU/mL (0.36-3.74)
[2024-03-29 17:29] LABS: ETHANOL BLOOD < 3.0 mg/dL (<10)
[2024-03-29 17:38] LABS: Bilirubin Negative (Negative); Blood Negative (Negative); Clarity Clear (Clear); Glucose Negative (Negative); Ketones Negative (Negative); Leukocyte Esterase Negative (Negative); Nitrite Negative (Negative); Specific Gravity 1.025 (1.005-1.025); Urobilinogen 0.2 mg/dL (Up to 0.2)
[2024-03-29 17:53] LABS: *AMPHETAMINES SCREEN URINE Negative (Negative); *BARBITURATES SCREEN URINE Negative (Negative); *BENZODIAZEPINES SCREEN URINE Negative (Negative); Cannabinoids THC Negative (Negative); Cocaine Screen,Urine Negative (Negative); METHADONE URINE SCREEN Negative (Negative); OPIATES URINE SCREEN Negative (Negative)
[2024-03-29 17:54] LABS: Tricyclic Antidepressants Negative (Negative)
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
[2024-03-29 21:57] VITALS: BP 132/70; PULSE 75; RESP 16; O2SAT 92
--- NOTE | 2024-03-29 22:02 | PSYCO_ITS ---
Date of service: 03/29/24 Time of Service: 22:02 Summary Note PSYCHIATRY CONSULT NOTE: INITIAL EVALUATION Date/Time:?03/29/2024 10:03:02 PM Name:Desirae Coronel :?1965 Location of the patient:?[facility] ED Consulting Array Clinician:?Chele Bingham Location of the clinician:?[place] Length of Consult:?60 minutes SUMMARY 58-year-old female, with no history of violent behavior, with unknown history of psychiatric illness, unknown current excessive drug use, unknown history of self-harming/suicidal behavior, unknown history of psychiatric hospitalization, for altered mental status. This is a 58-year-old female that was recently admitted on 03/26/24 due to concerns for lethargy, potentially related medications; blood levels for the medications were ordered with no pending results. The patient was discharged on 03/28/24 with reports of improved mentation and following commands. At present the patient does not appear to recall where she is, and does not recall being in the hospital for the last few days. The patient reports SI and AVH that are distressing as well reporting difficulty caring self. At present the patient's mentation is concerning as she is not able to recall details or information. This could be secondary to her psychiatric illness, however, given her acute presentation and inability to provide information recommend the patient be held and reevaluated once the patient is able to engage in conversation or if collateral information from the patient's assistant case manager is gathered. It does appear that the patient does need additional support and would not be safe to be home alone.Patient is at elevated risk of danger due to grave disability/poor self-care. Patient possibly meets criteria for inpatient psychiatric hospitalization. Working Diagnoses:? F20.9 Schizophrenia, unspecified Rule Out Diagnoses:? CPT Codes:?02077 - Psychiatric Diagnostic Evaluation with Medical Services PLAN Disposition:?Hold for collateral and/or further assessment Observation level ? Psychiatric 1:1 needed??Continue psych 1:1 OR Close observation per hospital protocol Work-up:? Pharmacological:? * aripiprazole 10 mg PO daily for psychosis * Recommendation for the patient to be continued on: lamotrigine 150 mg tablet BID donepezil 10 mg tablet PO DAILY olanzapine 5 mg PH QHS (may need to be reevaluated as this can also exacerbate her current cognitive issues. Hold: topiramate 100 mg tablet PO BID ( possible contributing to some of the current cognitive difficulties olanzapine 20 mg tablet PO HS (could worsen possible encephalopathic presentation) olanzapine 5 mg tablet PO HS * Is patient psychotic? - Yes; Were antipsychotic medications started? - No; Reason: Appear to be chronic * Informed consent: Patient is unable to understand risks benefits of or consent to above recommended psychiatric medications in their current mental state. No surrogate decision maker is available. Without recommended medication patient will likely deteriorate further and possibly place themselves or others at risk. Patient is not legally compelled to take recommended medication at this time. Follow up needed while in the hospital??As needed for management of behavior or change in mental status Other:? * Dementia/Delirium: AVOID BENZODIAZEPINES, ANTICHOLINERGICS, ANTIHISTAMINES, AND OTHER SEDATING MEDICATIONS, which may PRECIPITATE and worsen delirium * If questions arise about the psychiatric care of this patient, please call the [facility]?to request a follow-up consult. ?Please do not contact me individually through the EMR chat as I am not?regularly logged on to?this system. The psychiatrist for the follow-up visit may be a different psychiatri st Discussed plan with onsite steam oven operator:?Yes - Erwin YBARRA HISTORY This evaluation was conducted remotely with the assistance of onsite staff via HIPAA-compliant video call. Patient consented to proceed with the telehealth visit. Requested by:?TATE Bronson Sources of information:?Patient, medical record History of Present Illness:?58-year-old female, living alone, unknown relationship status, unknown employment status, with no history of violent behavior, with unknown history of psychiatric illness, unknown current excessive drug use, unknown history of self-harming/suicidal behavior, unknown history of psychiatric hospitalization, for altered mental status. UDS negative, Alcohol undetectable. In the hospital, patient has been in behavioral control with no reported issues. Review of historical information provided the following information: This 58-year-old female patient with past medical history of schizophrenia, DORYS on CPAP at home, personality disorder, mild intellectual disability, major depression with psychosis and posttraumatic stress disorder with recent hospitalization at [facility] with discharge on 03/08/2024 presented on 03/26/2024 in the ED at [facility] for evaluation of extreme lethargy. The patient was brought via EMS most likely called by kimberly due to observation of increased lethargy. On arrival to the ED the patient did not know where she was but was making efforts to respond to command appropriately. The patient was also able to convey physiologically need to urinate. The patient needed oxygen at 2 L by nasal cannula due to mild hypoxia at 91%. Workup in the ED was significant for sodium level at 146, creatinine at 1.2 around baseline, ALK of 137, ammonia and CPK were negative. UA showed trace leuk esterase with normal WBC and no bacteria nor nitrate. Justice was consulted and patient admitted to the medical surgical floor for evaluation management of encephalopathy, dehydration. During the stay sedating medicine were held except for Lamictal due to history of seizures; previous level in January 2024 was 7.3. Levels for gabapentin, olanzapine, Lamictal, and topiramate were ordered and pending. She was able to walk with PT yesterday, still stated that she could not remember her name but could call her [employer] assistant case manager independently in the room. This patient appeared less lethargic and back to baseline. This morning she was answering to her name, following commands, reporting waking up on the hour overnight to void. Medical records from [facility] were obtained to confirm discharge and ongoing meds. Olanzapine was restarted at low-dose for the night and well tolerated- home dose to be resumed. Psych consult was ordered on 03/27/2024 and was not completed overnight. Hypernatremia and dehydration resolved. The patient will be discharged home today and has an appointment at 1330 with her [facility] human services provider. The patient will require home health PT and OT and will continue to have bubble pack meds delivered by [facility]. Gabapentin is on hold to be adjusted by PCP when level is back. This was the patient discharge summary dated 03/28/2024 The patient reports that she does not know where she is or what year. The patient reports feeling down and scared and does not know what is going. The patient reports these 2 month these symptoms have been going on. The patient reports auditory and visual hallucination of dogs and cats growling and sometimes wanting to bite her. The patient also reports knives and other weapons that are pointed at her. She reports there are two dogs (Dobermans) that are on her bed growling her and wanting to bite her. She reports also a curtain around her head and unable to get of of the curtain and reports that it is not able to keep her safe.. Collateral ContactedNo-- none available. Patient unable to recall any collateral contacts.. PSYCHIATRIC REVIEW OF SYSTEMS (symptoms in past two weeks) Pertinent Positives:?depressed mood/anhedonia/hopelessness/hypersomnia/poor appetite/auditory hallucinations/visual hallucinations/anxiety/nightmares/mood swings/reports some feelings of happiness Pertinent Negatives:?no homicidal ideation/no irritability/no aggressive behavior/no agitation PSYCHIATRIC HISTORY Past Psychiatric Diagnoses/Problems:?unable to assess Psychiatric Treatment:?Hospitalizations:?unknown past psychiatric hospitalizations ???Other Past treatment:?unable to assess ???Current treatment:?unknown current psychiatric treatment Drug/Alcohol History ???Current excessive drug/alcohol use:?unknown ???Past excessive drug/alcohol use:?unknown ???Drug/alcohol use comment:?Treatment:?unknown ???Withdrawal symptoms:?unknown ???UDS results:?UDS negative ???BAL results:?undetectable ???Active withdrawal Protocol:? Stressors:?medical comorbidity Trauma:?unknown Family Psychiatric History:?unknown HEALTH HISTORY Medical Problems:? seizure disorder, diabetes, hyperlipidemia, hypothyroidism Is patient linked with PCP??unable to assess Psychiatric and other clinically relevant medications:?Per Most Recent Admission/Discharge on 03/28/2024 lamotrigine 150 mg tablet BID ondansetron HCl 4 mg tablet PO Q6H PRN (Reason: nausea and vomiting) levothyroxine 100 MCG tablet PO DAILY donepezil 10 mg tablet PO DAILY topiramate 100 mg tablet PO BID olanzapine 20 mg tablet PO HS olanzapine 5 mg tablet PO HS Allergies/Adverse Medication Reactions:?Hydrocodone Bitratrate Codeine Physical Findings:?no clinically significant changes in vital signs DEMOGRAPHICS/SOCIAL HISTORY Gender:?female Living Situation:?living alone Relationship Status:?unknown Education:?unknown Employment:?unknown Social Support Network:?unknown Legal History:?none Special Considerations:? RISK EVALUATION Suicidality/self-injury:?unable to assess Primary Suicide Screening (PSS-3) 1. In the past two weeks, have you felt down, depressed, or hopeless??YES 2. In the past two weeks, have you had thoughts of killing yourself??NO 3. In your lifetime, have you ever attempted to kill yourself??Unable to assess 3a. Within the past 6 months??Unable to assess ESS-6 Secondary Screen ( If #2 is yes or #3a is yes within the past 6 months, then complete secondary screen) 1. Positive on PSS-3 questions 2 & 3 ? active suicidal ideation with a past attempt??Screen not applicable 2. Have you been thinking about how you might kill yourself??Screen not applicable 3. Have you had some intention of acting on your thoughts??Screen not applicable 4. Lifetime psychiatric hospitalization??Screen not applicable 5. Has drinking or substance abuse ever been a problem for you??Screen not applicable 6. Current irritability, agitation, or aggression??Screen not applicable PSS-3/ESS-6 Secondary Screen Scoring:?PSS-3 screen unable to assess PSS-3/ESS-6 Scoring Interpretation Legend PSS-3 screen incomplete [Blank PSS-3 questions #2 OR #3a] PSS-3 screen unable to assess [Unable to Assess responses on PSS-3 questions #2 AND #3a] Mild [No current attempt AND No suicide plan or intent AND Score (0-2)] Moderate [No current attempt AND Active suicidal ideation with plan or intent (not both) OR Score (3-4)] Severe [Current attempt OR Suicide plan and intent OR Score (5-6)] HI/Violence/Property Destruction:?no history of violent/aggressive behavior Access to Firearms:?unknown; Does not believe so Grave disability/Poor self-care:?no difficulty with showering/ changing clothes Psychosis:?Yes Protective Factors:?None reported High Utilization Criteria:?None Signs of Secondary Gain:?None MENTAL STATUS EXAM Appearance and Attire:? Poor eye contact, Disheveled, Obese Psychomotor agitation:? Psychomotor retardation Attitude and behavior:? Cooperative Speech:? Soft Mood:? Depressed Affect:? Restricted Thought Process:? Vague Thought content:? Suicidal ideation Perception:? Auditory hallucinations, Visual hallucinations Intelligence:?unable to assess Abstraction:?unable to assess Language:?unable to assess Orientation:? Disoriented to person, Disoriented to place, Disoriented to time, Disoriented to situation Sensorium:?unable to assess Knowledge:?unable to assess Memory:?unable to assess Insight:?unable to assess Judgment:?unable to assess SUMMARY RISK ASSESSMENT Current Suicide Risk Elevated??PSS-3/ESS-6 Scoring: PSS-3 screen unable to assess? Current Violence Risk Elevated??No Issues with ability to care for self.?Yes SAFE-T Risk Factors Suicidal Behavior:? ??History of prior suicide attempts ??Aborted suicide attempt ??History of prior SI ??Self-injurious behavior Current/Past Psychiatric Disorders:? ?Mood disorders ??Psychotic Disorders ??History of inpatient hospitalization ??ADHD ??TBI ??PTSD ??Cluster B personality disorders ??Conduct disorders ? Medical comorbidity ??Recent onset of illness Current/Past Substance Use:? ??Active ETOH/Opiates/Other Substance abuse ??History of ETOH/Opiates/Other Substance abuse ??Active withdrawal or risk of withdrawal from ETOH/Opiate Zamudio Symptoms:? ? Anhedonia ??Impulsivity ? Hopelessness ? Anxiety/Panic ??Global insomnia (difficulty falling asleep, maintaining sleep, or falling back to sleep) ??Command Hallucinations Family History Risk Factors:? ??Suicide Attempts ??Psychiatric disorders requiring hospitalization ??Suicidal Behavior Precipitants/Stressors/Interpersonal/Triggers:? ??Events leading to humiliation, shame, or despair ??Family turmoil/chaos ??Chronic physical pain or other acute medical problems ??Perceived burden on others ??Ongoing medical illness ??History of physical or sexual abuse ??Legal problems ??Intoxication ??Social isolation ??Inadequate social support Treatment:? ??Medication management ??Therapy ??Satisfied with current treatment ??Recent discharge from a psychiatric hospital ??Recent change in provider or treatment ??Access to firearms/ammunition Protective Factors Internal:? ??Ability to cope with stress ??Identifies reasons for living ??Frustration tolerance ??Faith beliefs ??Fear of or the actual act of killing self External:? ??Cultural factors against suicide ??Beloved pets ??Engaged in work or school ??Spiritual and/or moral attitudes against suicide ??Supportive social network of family or friends ??Responsibility to children/others ??Positive therapeutic relationships Chele Bingham, DO Psychiatrist, [facility]
--- NOTE | 2024-03-30 00:44 | ED.PROG_ITS ---
Date of service: 03/30/24 Time of Service: 00:44 Medical Decision Making The case was signed out to me by my colleague Erwin Black. Please refer to his HPI, physical exam, assessment and plan. At time of signout we are awaiting evaluation by mental health, and rediscussion with hospitalist team. Mental h ealth states that the patient does state to them that she wants to harm herself, but is not able to say how she would harm herself and states that she does not know how to harm herself. Patient is not catatonic, but she certainly does appear intellectually diminished at this time. Previous concern was for polypharmacy which I do agree this may be the case. Telepsych recommends HOLD topamax, hold the 20mg olanzapine dose (keep the 5mg). We will hold these meds. Case management evaluation is not available until Monday per documentation? We will keep the patient in zone B for the time being, start her scheduled medications, have mental health reassess has the patient will hopefully cantu more clear avoidance as her medications metabolized. Patient will need outpatient resources help, patient will require robust outpatient support services as she demonstrated clear failure with a last outpatient attempt. Patient will be signed out to my colleague for reassessment and next steps with care management. Quality:SDOH Health Related Social Needs: Health related social needs details Transport, psychol ogical stress and functioning, disability, risk of homelessness Discharge Plan Discharge Details Chief Complaint: PsychEval Primary Care Provider: Anna Dial ED Provider: Erwin Templeton Home Meds and New Rx's Prescriptions: No Action diclofenac sodium 1 % gel 2 g topical QID PRN (Reason: shoulder pain) Qty: 100 0RF Rx Instructions: apply to area of pain four times per day as needed lamotrigine 150 mg tablet 150 mg PO BID Qty: 180 3RF acetaminophen 500 mg tablet 1,000 mg PO TID PRN amoxicillin 500 mg capsule 2,000 mg PO ONCE PRN Rx Instructions: prior to dental work ondansetron HCl 4 mg tablet 4 mg PO Q6H PRN (Reason: nausea and vomiting) Qty: 10 0RF levothyroxine 100 MCG tablet 100 mcg PO DAILY (DME) lancets 33 gauge misc 1 ea Miscellaneous DIRECTED folic acid 1 mg tablet 1 mg PO DAILY metformin 500 mg tablet 500 mg PO DAILY cholecalciferol (vitamin D3) 50 mcg (2,000 unit) capsule 50 mcg PO DAILY donepezil 10 mg tablet 10 mg PO DAILY gabapentin 100 mg capsule 100 mg PO TID simethicone 80 mg tablet,chewable See Rx Instructions .ROUTE .COMPLEX Qty: 28 3RF Dose Instruction: CHEW & SWALLOW 1 TABLET AT BEDTIME Rx Instructions: CHEW & SWALLOW 1 TABLET AT BEDTIME atorvastatin 10 mg tablet 10 mg PO DAILY Patient Comments: TAKE ONE TABLET BY MOUTH ONCE DAILY AT BEDTIME polyethylene glycol 3350 17 gram Powder In Packet 17 g PO BID PRN PRN (Reason: Constipation) Qty: 0 0RF topiramate 100 mg tablet 100 mg PO BID Qty: 180 3RF (DME) FreeStyle Lite Strips Strip MISCELLANEOUS Patient Comments: TEST BLOOD GLUCOSE TWICE DAILY (DME) blood-glucose meter [FreeStyle Lite Meter] Kit MISCELLANEOUS Patient Comments: TEST TWICE DAILY DIRECTED (DME) lancets [FreeStyle Lancets] 28 gauge misc MISCELLANEOUS Patient Comments: TEST TWICE DAILY olanzapine 20 mg tablet 20 mg PO HS olanzapine 5 mg tablet 5 mg PO HS
[2024-03-30] MEDS: Acetaminophen 500 MG TAB 1000 MG PO (03:45)
[2024-03-30 07:33] VITALS: BP 125/83; PULSE 72; RESP 15; TEMP 35.8; O2SAT 97
[2024-03-30] MEDS: Levothyroxine 100 MCG TAB PO (07:44)
--- NOTE | 2024-03-30 08:15 | ED.PROG_ITS ---
Date of service: 03/30/24 Time of Service: 08:15 Medical Decision Making Patient signed out to me pending possible mental health transfer for catatonia and vague thoughts of self-harm and also care management evaluation. No issues reported on prior shift and currently with no new acute complaints. Will contin ue to monitor until safe disposition found Quality:SDOH Health Related Social Needs: Health related social needs details Transport, psychol ogical stress and functioning, disability, risk of homelessness Discharge Plan Discharge Details Chief Complaint: PsychEval Clinical Impression: Thoughts of self harm Primary Care Provider: Anna Dial ED Provider: Roverto Ulrich Home Meds and New Rx's Prescriptions: No Action diclofenac sodium 1 % gel 2 g topical QID PRN (Reason: shoulder pain) Qty: 100 0RF Rx Instructions: apply to area of pain four times per day as needed lamotrigine 150 mg tablet 150 mg PO BID Qty: 180 3RF acetaminophen 500 mg tablet 1,000 mg PO TID PRN amoxicillin 500 mg capsule 2,000 mg PO ONCE PRN Rx Instructions: prior to dental work ondansetron HCl 4 mg tablet 4 mg PO Q6H PRN (Reason: nausea and vomiting) Qty: 10 0RF levothyroxine 100 MCG tablet 100 mcg PO DAILY (DME) lancets 33 gauge misc 1 ea Miscellaneous DIRECTED folic acid 1 mg tablet 1 mg PO DAILY metformin 500 mg tablet 500 mg PO DAILY cholecalciferol (vitamin D3) 50 mcg (2,000 unit) capsule 50 mcg PO DAILY donepezil 10 mg tablet 10 mg PO DAILY gabapentin 100 mg capsule 100 mg PO TID simethicone 80 mg tablet,chewable See Rx Instructions .ROUTE .COMPLEX Qty: 28 3RF Dose Instruction: CHEW & SWALLOW 1 TABLET AT BEDTIME Rx Instructions: CHEW & SWALLOW 1 TABLET AT BEDTIME atorvastatin 10 mg tablet 10 mg PO DAILY Patient Comments: TAKE ONE TABLET BY MOUTH ONCE DAILY AT BEDTIME polyethylene glycol 3350 17 gram Powder In Packet 17 g PO BID PRN PRN (Reason: Constipation) Qty: 0 0RF topiramate 100 mg tablet 100 mg PO BID Qty: 180 3RF (DME) FreeStyle Lite Strips Strip MISCELLANEOUS Patient Comments: TEST BLOOD GLUCOSE TWICE DAILY (DME) blood-glucose meter [FreeStyle Lite Meter] Kit MISCELLANEOUS Patient Comments: TEST TWICE DAILY DIRECTED (DME) lancets [FreeStyle Lancets] 28 gauge misc MISCELLANEOUS Patient Comments: TEST TWICE DAILY olanzapine 20 mg tablet 20 mg PO HS olanzapine 5 mg tablet 5 mg PO HS
[2024-03-30] MEDS: Diclofenac 1% Gel 100 GM TUBE TP ×2 (08:23→20:27)
[2024-03-30] MEDS: Folic Acid 1 MG TAB PO (08:28)
[2024-03-30] MEDS: lamoTRIgine 100 MG TAB 150 MG PO ×2 (08:28→20:26)
[2024-03-30] MEDS: metFORMIN 500 MG TAB PO (08:29)
--- NOTE | 2024-03-30 10:09 | CMSP_ITS ---
Date of service: 03/30/24 Time of Service: 10:09 Care Management Safety Plan Status Status: Voluntary Reason for Wait Reason for Wait: Assessment/Screening Safety Plan Safety Plan: VOLUNTARY FOR INPATIENT PSYCHIATRIC STABILIZATION.? Patient is appropriate in all interactions since arriving at [facility]; Pt has demonstrated appropriate coping and communication skills, has articulated his or her needs and concerns and is fully engaged during staff interactions. Client is connected with DDS and EXPERIMENTAL ROCKET SLED MECHANIC. Due to concerns of self harm this safety plan has been established with patient, and care team, to adhere to patient goals, identify restrictions based on behavioral status, address nutrition, and determine allowed personal belongings, tools for hygiene and personal care. Determine level of activity including ambulation, level of supervision, visitors, and determine privileges based on behaviors and level of engagement by pt. VOLUNTARY SAFETY PLAN: 1. Will remain on suicide precautions, in paper clothes 2. Will remain in Zone B under direct supervision of one-on-one staff at all times provided by [employer]; VIOLETA, [employer] clinic coordinator. 3. May have paper cups, plates, finger foods as well as a cardboard spoon with which to eat meals. 4. Follow [facility] Management of the Admitted Behavioral Health Patient policy. 5. Shower available in Zone B without restriction. 6. Personal belongings-soft items permitted at RN discretion. 7. Visitors- supportive visitors, at RN discretion. 8. Activities: soft cart items approved per RN discretion. 9.? Bathroom available in Zone B without restriction. 10. Phone: limited to [facility] cordless phone at RN discretion. Due to VOLUNTARY status, if patient wishes to leave [facility], staff will contact [facility] Crisis Screener ([phone]) and Web Master ([phone]) as soon as possible. In the event of elopement, notify [facility] Police ([phone]). Patient is currently voluntarily at [facility] and seeking inpatient admission when a bed becomes available. [facility] Frontline Certified Art Therapist will continue seeking placement. Please contact the Web Master ([phone]) and [facility] Certified Art Therapist ([phone]) for any needed changes in the Safety Plan. Safety plan has been provided to interdepartmental care team.
--- NOTE | 2024-03-30 10:09 | PDOC.CMSAFE ---
Date of service: 03/30/24 Time of Service: 10:09 Care Management Safety Plan Status Status: Voluntary Reason for Wait Reason for Wait: Assessment/Screening Safety Plan Safety Plan: VOLUNTARY FOR INPATIENT PSYCHIATRIC STABILIZATION.? Patient is appropriate in all interactions since arriving at [facility]; Pt has demonstrated appropriate coping and communication skills, has articulated his or her needs and concerns and is fully engaged during staff interactions. Client is connected with DDS and MANUFACTURING APPLICATIONS ENGINEER. Due to concerns of self harm this safety plan has been established with patient, and care team, to adhere to patient goals, identify restrictions based on behavioral status, address nutrition, and determine allowed personal belongings, tools for hygiene and personal care. Determine level of activity including ambulation, level of supervision, visitors, and determine privileges based on behaviors and level of engagement by pt. VOLUNTARY SAFETY PLAN: 1. Will remain on suicide precautions, in paper clothes 2. Will remain in Zone B under direct supervision of one-on-one staff at all times provided by [employer]; VIOLETA, SHUTTLELESS LOOM WEAVER assistant professor of radiology. 3. May have paper cups, plates, finger foods as well as a cardboard spoon with which to eat meals. 4. Follow [facility] Management of the Admitted Behavioral Health Patient policy. 5. Shower available in Zone B without restriction. 6. Personal belongings-soft items permitted at RN discretion. 7. Visitors- supportive visitors, at RN discretion. 8. Activities: soft cart items approved per RN discretion. 9.? Bathroom available in Zone B without restriction. 10. Phone: limited to [facility] cordless phone at RN discretion. Due to VOLUNTARY status, if patient wishes to leave [facility], staff will contact [facility] Crisis Screener ([phone]) and Mink Rancher ([phone]) as soon as possible. In the event of elopement, notify [facility] Police ([phone]). Patient is currently voluntarily at [facility] and seeking inpatient admission when a bed becomes available. [facility] Frontline [place] Patrol Lieutenant will continue seeking placement. Please contact the Mink Rancher ([phone]) and [facility] Beach Patrol Lieutenant ([phone]) for any needed changes in the Safety Plan. Safety plan has been provided to interdepartmental care team.
--- NOTE | 2024-03-30 16:18 | W.EDPROG ---
Date of service: 03/30/24 Time of Service: 16:35 Medical Decision Making This is a 58-year-old female patient with a past medical history significant for diabetes, migraine, epilepsy, who is boarding in our emergency department voluntarily for thoughts of self-harm. Prior to my taking over her care she was medically cleared, and has been resting comfortably. She has met with the transition social worker and we are awaiting final dispo meds were ordered and she has not required any additional medications for restraint or sedation. The patient was signed out to the oncoming provider prior to final disposition. Remained hemodynamically appropriate, calm, cooperative, and comfortable while under my care. Jen Olsen MD Medical Records Medical records reviewed: Yes I reviewed the patient's medical records. Lab Data Lab results reviewed: Yes I reviewed the patient's lab results. Quality:SDOH Health Related Social Needs: Health related social needs details Transport, psychological stress and functioning, disability, risk of homelessness Discharge Plan Discharge Details Chief Complaint: PsychEval Clinical Impression: Thoughts of self harm Primary Care Provider: Anna Dial ED Provider: Jen Olsen Home Meds and New Rx's Prescriptions: No Action diclofenac sodium 1 % gel 2 g topical QID PRN (Reason: shoulder pain) Qty: 100 0RF Rx Instructions: apply to area of pain four times per day as needed lamotrigine 150 mg tablet 150 mg PO BID Qty: 180 3RF acetaminophen 500 mg tablet 1,000 mg PO TID PRN amoxicillin 500 mg capsule 2,000 mg PO ONCE PRN Rx Instructions: prior to dental work ondansetron HCl 4 mg tablet 4 mg PO Q6H PRN (Reason: nausea and vomiting) Qty: 10 0RF levothyroxine 100 MCG tablet 100 mcg PO DAILY (DME) lancets 33 gauge misc 1 ea Miscellaneous DIRECTED folic acid 1 mg tablet 1 mg PO DAILY metformin 500 mg tablet 500 mg PO DAILY cholecalciferol (vitamin D3) 50 mcg (2,000 unit) capsule 50 mcg PO DAILY donepezil 10 mg tablet 10 mg PO DAILY gabapentin 100 mg capsule 100 mg PO TID simethicone 80 mg tablet,chewable See Rx Instructions .ROUTE .COMPLEX Qty: 28 3RF Dose Instruction: CHEW & SWALLOW 1 TABLET AT BEDTIME Rx Instructions: CHEW & SWALLOW 1 TABLET AT BEDTIME atorvastatin 10 mg tablet 10 mg PO DAILY Patient Comments: TAKE ONE TABLET BY MOUTH ONCE DAILY AT BEDTIME polyethylene glycol 3350 17 gram Powder In Packet 17 g PO BID PRN PRN (Reason: Constipation) Qty: 0 0RF topiramate 100 mg tablet 100 mg PO BID Qty: 180 3RF (DME) FreeStyle Lite Strips Strip MISCELLANEOUS Patient Comments: TEST BLOOD GLUCOSE TWICE DAILY (DME) blood-glucose meter [FreeStyle Lite Meter] Kit MISCELLANEOUS Patient Comments: TEST TWICE DAILY DIRECTED (DME) lancets [FreeStyle Lancets] 28 gauge misc MISCELLANEOUS Patient Comments: TEST TWICE DAILY olanzapine 20 mg tablet 20 mg PO HS olanzapine 5 mg tablet 5 mg PO HS
[2024-03-30] MEDS: OLANZapine 5 MG TAB PO (20:26)
[2024-03-30] MEDS: Atorvastatin 10 MG TAB PO (20:27)
[2024-03-30] MEDS: Donepezil 5 MG TAB 10 MG PO (20:28)
[2024-03-31] MEDS: Ondansetron O.D.T. 4 MG TABEF PO (00:06)
--- NOTE | 2024-03-31 01:23 | ED.PROG_ITS ---
Date of service: 03/31/24 Time of Service: 01:23 Medical Decision Making Patient remained stable throughout shift. She was seen and assessed by mental health advocate Dulce, plan is for her to go to a care bed tomorrow in the afternoon. Patient will be signed out pending placement. Quality:SDOH Health Related Social Needs: Health related social needs details Transport, psychol ogical stress and functioning, disability, risk of homelessness Discharge Plan Discharge Details Chief Complaint: PsychEval Clinical Impression: Thoughts of self harm Primary Care Provider: Anna Dial ED Provider: Erwin Templeton Home Meds and New Rx's Prescriptions: No Action diclofenac sodium 1 % gel 2 g topical QID PRN (Reason: shoulder pain) Qty: 100 0RF Rx Instructions: apply to area of pain four times per day as needed lamotrigine 150 mg tablet 150 mg PO BID Qty: 180 3RF acetaminophen 500 mg tablet 1,000 mg PO TID PRN amoxicillin 500 mg capsule 2,000 mg PO ONCE PRN Rx Instructions: prior to dental work ondansetron HCl 4 mg tablet 4 mg PO Q6H PRN (Reason: nausea and vomiting) Qty: 10 0RF levothyroxine 100 MCG tablet 100 mcg PO DAILY (DME) lancets 33 gauge misc 1 ea Miscellaneous DIRECTED folic acid 1 mg tablet 1 mg PO DAILY metformin 500 mg tablet 500 mg PO DAILY cholecalciferol (vitamin D3) 50 mcg (2,000 unit) capsule 50 mcg PO DAILY donepezil 10 mg tablet 10 mg PO DAILY gabapentin 100 mg capsule 100 mg PO TID simethicone 80 mg tablet,chewable See Rx Instructions .ROUTE .COMPLEX Qty: 28 3RF Dose Instruction: CHEW & SWALLOW 1 TABLET AT BEDTIME Rx Instructions: CHEW & SWALLOW 1 TABLET AT BEDTIME atorvastatin 10 mg tablet 10 mg PO DAILY Patient Comments: TAKE ONE TABLET BY MOUTH ONCE DAILY AT BEDTIME polyethylene glycol 3350 17 gram Powder In Packet 17 g PO BID PRN PRN (Reason: Constipation) Qty: 0 0RF topiramate 100 mg tablet 100 mg PO BID Qty: 180 3RF (DME) FreeStyle Lite Strips Strip MISCELLANEOUS Patient Comments: TEST BLOOD GLUCOSE TWICE DAILY (DME) blood-glucose meter [FreeStyle Lite Meter] Kit MISCELLANEOUS Patient Comments: TEST TWICE DAILY DIRECTED (DME) lancets [FreeStyle Lancets] 28 gauge misc MISCELLANEOUS Patient Comments: TEST TWICE DAILY olanzapine 20 mg tablet 20 mg PO HS olanzapine 5 mg tablet 5 mg PO HS
--- NOTE | 2024-03-31 07:25 | ED.PROG_ITS ---
Date of service: 03/31/24 Time of Service: 07:25 Medical Decision Making Current taking) care plan for chronic self-harm with failure to care for self while at home. No issues reported on prior shift and currently with no new acute complaints will continue to monitor until safe disposition found Quality:SDOH Health Related Social Needs: Health related social needs details Transport, psychol ogical stress and functioning, disability, risk of homelessness Discharge Plan Discharge Details Chief Complaint: PsychEval Clinical Impression: Thoughts of self harm Primary Care Provider: Anna Dial ED Provider: Roverto Ulrich [place] Meds and New Rx's Prescriptions: No Action diclofenac sodium 1 % gel 2 g topical QID PRN (Reason: shoulder pain) Qty: 100 0RF Rx Instructions: apply to area of pain four times per day as needed lamotrigine 150 mg tablet 150 mg PO BID Qty: 180 3RF acetaminophen 500 mg tablet 1,000 mg PO TID PRN amoxicillin 500 mg capsule 2,000 mg PO ONCE PRN Rx Instructions: prior to dental work ondansetron HCl 4 mg tablet 4 mg PO Q6H PRN (Reason: nausea and vomiting) Qty: 10 0RF levothyroxine 100 MCG tablet 100 mcg PO DAILY (DME) lancets 33 gauge misc 1 ea Miscellaneous DIRECTED folic acid 1 mg tablet 1 mg PO DAILY metformin 500 mg tablet 500 mg PO DAILY cholecalciferol (vitamin D3) 50 mcg (2,000 unit) capsule 50 mcg PO DAILY donepezil 10 mg tablet 10 mg PO DAILY gabapentin 100 mg capsule 100 mg PO TID simethicone 80 mg tablet,chewable See Rx Instructions .ROUTE .COMPLEX Qty: 28 3RF Dose Instruction: CHEW & SWALLOW 1 TABLET AT BEDTIME Rx Instructions: CHEW & SWALLOW 1 TABLET AT BEDTIME atorvastatin 10 mg tablet 10 mg PO DAILY Patient Comments: TAKE ONE TABLET BY MOUTH ONCE DAILY AT BEDTIME polyethylene glycol 3350 17 gram Powder In Packet 17 g PO BID PRN PRN (Reason: Constipation) Qty: 0 0RF topiramate 100 mg tablet 100 mg PO BID Qty: 180 3RF (DME) FreeStyle Lite Strips Strip MISCELLANEOUS Patient Comments: TEST BLOOD GLUCOSE TWICE DAILY (DME) blood-glucose meter [FreeStyle Lite Meter] Kit MISCELLANEOUS Patient Comments: TEST TWICE DAILY DIRECTED (DME) lancets [FreeStyle Lancets] 28 gauge misc MISCELLANEOUS Patient Comments: TEST TWICE DAILY olanzapine 20 mg tablet 20 mg PO HS olanzapine 5 mg tablet 5 mg PO HS
[2024-03-31 09:53] VITALS: BP 131/86; PULSE 67; RESP 16; TEMP 35.4; O2SAT 99
[2024-03-31] MEDS: metFORMIN 500 MG TAB PO (09:56)
[2024-03-31] MEDS: Folic Acid 1 MG TAB PO (09:56)
[2024-03-31] MEDS: Levothyroxine 100 MCG TAB PO (09:56)
[2024-03-31] MEDS: lamoTRIgine 100 MG TAB 150 MG PO (09:56)
--- NOTE | 2024-03-31 11:42 | CMSP_ITS ---
Date of service: 03/31/24 Time of Service: 11:43 Care Management Safety Plan Status Status: Voluntary Reason for Wait Reason for Wait: Inpatient Admission (DDS/LAUNDRY BAG PUNCH OPERATOR client admitted to [facility] with chronic self-harm with failure to care for self, while at home. ) Safety Plan Safety Plan: VOLUNTARY FOR INPATIENT PSYCHIATRIC STABILIZATION.? Patient is appropriate in al l interactions since arriving at [facility]; Pt has demonstrated appropriate coping and communication skills, has articulated his or her needs and concerns and is fully engaged during staff interactions. Celina is a DDS client with LAUNDRY BAG PUNCH OPERATOR/[facility] services in the community who frequently presents to the ER. Celina is admitted to [facility] with chronic self-harm with failure to care for self while at home. Celina is being screened by [facility] per protocol and will remain at [facility] until a safety plan can be established. Discharge to [facility] Care Bed is being considered with resumption of LAUNDRY BAG PUNCH OPERATOR support .CM will continue to follow. Due to concerns of self harm this safety plan has been established with patient, and care team, to adhere to patient goals, identify restrictions based on behavi oral status, address nutrition, and determine allowed personal belongings, tools for hygiene and personal care. Determine level of activity including ambulation, level of supervision, visitors, and determine privileges based on behaviors and level of engagement by pt. VOLUNTARY SAFETY PLAN: 1. Will remain on suicide precautions, in paper clothes 2. Will remain in [facility] under direct supervision of one-on-one staff at all times provided by [employer]; VIOLETA, INSPECTOR WATCH ASSEMBLY predatory animal trapper. 3. May have paper cups, plates, finger foods as well as a cardboard spoon with which to eat meals. 4. Follow [facility] Management of the Admitted Behavioral Health Patient policy. 5. Shower available in [facility] without restriction. 6. Personal belongings-soft items permitted at RN discretion. 7. Visitors- supportive visitors, at RN discretion. 8. Activities: soft cart items approved per RN discretion. 9.? Bathroom available in [facility] without restriction. 10. Phone: limited to [facility] cordless phone at RN discretion. Due to VOLUNTARY status, if patient wishes to leave [facility], staff will contact [facility] Crisis Screener ([phone]) and Freight Caller ([phone]) as soon as possible. In the event of elopement, notify [facility] Police ([phone]). Patient is currently voluntarily at [facility] and seeking inpatient admission when a bed becomes available. [facility] Frontline Vp Care Management will continue seeking placement. Please contact the Freight Caller ([phone]) and [facility] Vp Care Management ([phone]) for any needed changes in the Safety Plan. Safety plan has been provided to interdepartmental care team.
--- NOTE | 2024-03-31 11:42 | PDOC.CMSAFE ---
Date of service: 03/31/24 Time of Service: 11:43 Care Management Safety Plan Status Status: Voluntary Reason for Wait Reason for Wait: Inpatient Admission (DDS/CATTLE SORTER client admitted to [facility] with chronic self-harm with failure to care for self, while at home. ) Safety Plan Safety Plan: VOLUNTARY FOR INPATIENT PSYCHIATRIC STABILIZATION.? Patient is appropriate in all interactions since arriving at [facility]; Pt has demonstrated appropriate coping and communication skills, has articulated his or her needs and concerns and is fully engaged during staff interactions. Celina is a DDS client with CATTLE SORTER/[facility] services in the community who frequently presents to the ER. Celina is admitted to [facility] with chronic self-harm with failure to care for self while at home. Celina is being screened by [facility] per protocol and will remain at [facility] until a safety plan can be established. Discharge to [facility] Care Bed is being considered with resumption of CATTLE SORTER support .CM will continue to follow. Due to concerns of self harm this safety plan has been established with patient, and care team, to adhere to patient goals, identify restrictions based on behavioral status, address nutrition, and determine allowed personal belongings, tools for hygiene and personal care. Determine level of activity including ambulation, level of supervision, visitors, and determine privileges based on behaviors and level of engagement by pt. VOLUNTARY SAFETY PLAN: 1. Will remain on suicide precautions, in paper clothes 2. Will remain in [facility] under direct supervision of one-on-one staff at all times provided by [employer]; VIOLETA, CLIENT RELATIONSHIP CONSULTANT script editor. 3. May have paper cups, plates, finger foods as well as a cardboard spoon with which to eat meals. 4. Follow [facility] Management of the Admitted Behavioral Health Patient policy. 5. Shower available in Zone without restriction. 6. Personal belongings-soft items permitted at RN discretion. 7. Visitors- supportive visitors, at RN discretion. 8. Activities: soft cart items approved per RN discretion. 9.? Bathroom available in Zone without restriction. 10. Phone: limited to [facility] cordless phone at RN discretion. Due to VOLUNTARY status, if patient wishes to leave [facility], staff will contact [facility] Crisis Screener ([phone]) and Rn Anesthetist ([phone]) as soon as possible. In the event of elopement, notify [facility] Police ([phone]). Patient is currently voluntarily at [facility] and seeking inpatient admission when a bed becomes available. [facility] Frontline Excavating Supervisor will continue seeking placement. Please contact the Rn Anesthetist ([phone]) and [facility] Excavating Supervisor ([phone]) for any needed changes in the Safety Plan. Safety plan has been provided to interdepartmental care team.
--- NOTE | 2024-03-31 12:41 | PDOC.CMDIS ---
Date of service: 03/31/24 Time of Service: 12:42 LACE Index Scoring Tool Questions: Length of Stay (in days): 2 Was the patient admitted via the E.D.?: Yes Comorbidities: Diabetes w/o Complication E.D. Visits: 9 Answers: Total Score: 10 Risk of Readmission: High Risk Care Management Discharge Plan Reason for Hospitalization: Psych Eval Discharge Plan: Celina is medically cleared and will discharge to the Carebed where she will be supported by NK and WAREHOUSE TRAINER. Transportation is provided by [facility]. Resume community services and supports. Patient/Family Education Needs: Review discharge instructions and plan to follow up with community supports. Discuss ask me three. SDOH Health Related Social Needs: Health related social needs details Transport, psychological stress and functioning, disability, risk of homelessness
--- NOTE | 2024-03-31 14:36 | PDOC.CMDIS ---
Date of service: 03/31/24 Time of Service: 14:36 LACE Index Scoring Tool Questions: Length of Stay (in days): 2 Was the patient admitted via the E.D.?: Yes Comorbidities: Diabetes w/o Complication E.D. Visits: 12 Answers: Total Score: 10 Risk of Readmission: High Risk Care Management Discharge Plan Reason for Hospitalization: Psych Eval Discharge Plan: Discharge to the Care Bed, they are providing transportation. SDOH Health Related Social Needs: Health related social needs details Transport, psychological stress and functioning, disability, risk of homelessness
--- NOTE | 2024-03-31 19:53 | PDOC.MHCN ---
Date of service: 03/30/24 Time of Service: 19:53 Mental Health Emergency Note Release [facility] release signed:: Yes Reason for Visit In the last 2 weeks has the pt presented for ES prior to today?: Yes, presented at [facility] ED Client Information Client is: PROGRAM AIDE Well Housed: Yes Non Suicidal Self Injury Current: No History: No Safety Risk/Harm to Self or Others Current Ideation to Harm Self or Others: Yes to self. Intent: no, has no intent. Plan: no.does not have a plan. History of suicide attempt: No history of suicide attempt reported Risk: Does risk to harm exist?: No Risk: Moderate Risk Duty to warn indicated: No Asssessment/Mental Status Appearance: Unremarkable Attitude: Guarded Behavior: Unremarkable Speech: Soft and Slow Affect: Flat Mood: Other (unable to assess) Thought process: Poverty of content Hallucinations: yes, Visual and Auditory Delusions: No Perception: Not impaired Orientation: Disoriented in Time, Place and Person Memory: Intact Insight: Poor Judgement: Poor Neurovegetative Symptoms Sleep: No change Appetitie: Disordered (off and on) Substance Use: Do you use nicotine?: No Have you used substances in the last 7 days?: No Additional Issues: Assaultive/Threatening Behavior: No Medical Concerns: No Client engaged in active self harm w/weapon: No Threatening to run away: No Child reported abuse/neglect: No Voluntarily presenting for services: Yes Domestic violence is a concern: No Extreme Psychosis or extreme behavior is present: Yes Impression The client is a 58-year-old, female who lives independently in an apartment in [place]. The client is part of the PROGRAM AIDE program and receives services to include case management and community support as well as Med Management through that program. Previous attempts are not known at this time as the client cannot identify in detail per her report. The client is amendable to going to the care bed if that is an option. The client presents sitting in her bed with a tv playing. The client does not make eye contact holds her head low and talks in a very lethargic manner with soft speech. The client reports on and off appetite and reports her sleep is okay however has increased. The plan endorses auditorium visual hallucinations of dogs barking and growling and knives being thrown at her trying to stab her. Resources Reosurces reviewed and given:: Crisis Bed Plan/Disposition Recommended Disposition: Crisis bed, facility contacted. Status of Crisis Bed acceptance: Transfer pending/bed availability. Plan: The client was referred to [facility] care bed for admission which could happen tomorrow March 31 after 3:00 PM due to staffing issues. This clinician spoke with Care furniture and bedding inspector, Fiordaliza who will meet with the client with this clinician on March 31 to discuss admission and expectations. The client will discharge on MondayApril 01 to her PROGRAM AIDE team to come up with a plan of action moving forward. A CARE Bed referral is the least restrictive means in this situation for resources. Person reported agreement to plan: Yes Reports/communication Outcome discussed with: ED/Personnel
== END 2024-03-31 17:20 | disposition home or self-care (01) ==
PROVIDERS: Physician Assistant; Emergency Provider Emergency Medicine; PCP Nurse Practitioner Family
DX: R45.88 Nonsuicidal self-harm (principal); F32.9 Major depressive disorder, single episode, unspecified; F32.A Depression, unspecified; G20.C Parkinsonism, unspecified; I10 Essential (primary) hypertension; E78.5 Hyperlipidemia, unspecified; E11.9 Type 2 diabetes mellitus without complications; R62.59 Other lack of expected normal physiological development in childhood; Z79.84 Long term (current) use of oral hypoglycemic drugs
CPT/HCPCS: 00123; 80053; 80307; 82962; 99285; 80320; 81003; 84443; 85025

== ENCOUNTER → 2024-04-17 10:42 | Outpatient (BNVA) | payer MEDICARE, MEDICAID, SELFPAY | PROVIDERS: PCP Nurse Practitioner Family; Visit Provider Psychiatry & Neurology Neurology | DX: G43.009 Migraine without aura, not intractable, without status migrainosus (principal); G40.319 Generalized idiopathic epilepsy and epileptic syndromes, intractable, without status epilepticus; G21.11 Neuroleptic induced parkinsonism; T43.505A Adverse effect of unspecified antipsychotics and neuroleptics, initial encounter | CPT/HCPCS: 99214 ==

== ENCOUNTER → 2024-04-22 12:59 | Outpatient (BNVA) | payer MEDICARE, MEDICAID, SELFPAY | PROVIDERS: PCP Nurse Practitioner Family; Visit Provider Student in an Organized Health Care Education/Training Program | DX: M76.31 Iliotibial band syndrome, right leg (principal); Z96.651 Presence of right artificial knee joint | CPT/HCPCS: 99213 ==

== ENCOUNTER 2024-04-23 18:33 | Emergency (ER) | payer MEDICARE, MEDICAID, SELFPAY ==
[2024-04-23] VITALS (26 sets, daily range): BP systolic 151–175; BP diastolic 81–101; PULSE 62–76; RESP 14–23; TEMP 36.6–36.9; O2SAT 95–98
--- NOTE | 2024-04-23 18:30 | DI.CT_ITS ---
Exam(s) CT HEAD WO EXAM: CT HEAD WO CLINICAL HISTORY: AMS. TECHNIQUE: Imaging Protocol: Axial computed tomography images with coronal and sagittal reformatted images were created and reviewed COMPARISON: CT CT BRAIN NECK CTA from 03/26/2024 FINDINGS: Ventricles and Extra axial spaces: Normal in size and morphology for the patient's age. Hemorrhage: None. Cerebral parenchyma: No evidence of acute infarct or mass. Midline shift: None. Brainstem/Cerebellum: Normal. Calvarium: Normal. Visualized Paranasal sinuses:Clear. Mastoids: Clear. Soft Tissues: Unremarkable. ORBITS: Unremarkable. PITUITARY: Not enlarged. IMPRESSION: No acute intracranial process. RADIATION DOSE DELIVERED: 889.26mGy.cm Total DLP DATA REPOSITORY: All CT scans at this facility are submitted to the National Radiology Data Registry (NRDR) Dose Index Registry (DIR) with the [employer] (ACR). RADIATION OPTIMIZATION: All CT scans at this facility use at least one of these dose optimization te chniques: automated exposure control; mA and/or kV adjustment per patient size (includes targeted exa ms where dose is matched to clinical indication); or iterative reconstruction.
--- NOTE | 2024-04-23 18:30 | RT.EKG_ITS ---
APPROVED REPORT Exam: Resting ECG Reason for Exam: [facility] Patient Location: E HR:63 bpm ECG Measurements Heart Rate 63 AXIS NM 155 P 32 QRSd 94 QRS -10 QT 401 T 39 QTc 410 Conclusion Sinus rhythm...normal P axis, V-rate 60- 99 Normal Electrocardiogram There are no significant changes compared to prior EKG performed on 03/26/2024 at 19:49.
[2024-04-23 18:52] LABS: Abs Immature Grans 0.01 10^3/uL (0.0-0.06); Absolute Basophil Count 0.05 10^3/uL (0.0-0.2); Absolute Eosinophil Count 0.13 10^3/uL (0.0-0.7); Absolute Lymphocyte Count 2.03 10^3/uL (1.2-3.4); Absolute Monocyte Count 0.44 10^3/uL (0.1-0.8); Absolute Neutrophil Count 3.11 10^3/uL (1.2-6.7); Basophils % 0.9 %; Eosinophils % 2.3 %; HGB 13.2 g/dL (11.2-15.7); Immature Grans % 0.2 %; Lymphocytes % 35.2 %; MCH 28.8 pg (27.0-33.0); MCHC 32.2 % (32.0-36.0); MCV 89 fL (80-95); MPV 10.3 fL (8.0-11.0); Monocytes % 7.6 %; Neutrophils % 53.8 %; Platelet Count 286 10^3/uL (130-400); RBC 4.59 10^6/uL (3.93-5.22); RDW 13.6 % (11.7-14.6); RDW-SD 44.5 fL; WBC 5.77 10^3/uL (4.4-10.8)
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
[2024-04-23 19:05] LABS: Albumin 3.9 g/dL (3.4-5.0); Magnesium 1.9 mg/dL (1.8-2.4); Sodium 145 mmol/L (136-145)
[2024-04-23 19:17] LABS: ALT 30 U/L (14-59); AST 19 U/L (15-37); Alkaline Phosphatase 120 U/L (46-116); Anion Gap 8.3 mmol/L (3-11); BUN 24 mg/dL (7-18); Bilirubin, Total 0.24 mg/dL (0.2-1.0); CO2 28.7 mmol/L (21.0-32.0); CREATININE 1.1 mg/dL (0.55-1.02); Calcium 9.8 mg/dL (8.5-10.1); Chloride 108 mmol/L (98-107); Estimated GFR 57.52 (mL/min/1.73m2); Glucose 99 mg/dL (74-106); Potassium 4.1 mmol/L (3.5-5.1); Total Protein 8.2 g/dL (6.4-8.2)
--- NOTE | 2024-04-23 20:17 | DI.VRAD_ITS ---
PROCEDURE INFORMATION: Exam: CT Head Without Contrast Exam date and time: 04/23/2024 7:16 PM Age: 58 years old Clinical indication: Other: AMS TECHNIQUE: Imaging protocol: Computed tomography of the head without contrast. COMPARISON: CT BRAIN NECK CTA 03/26/2024 9:25 PM FINDINGS: Brain: Normal. No hemorrhage. Unremarkable white matter. No mass effect. Cerebral ventricles: No ventriculomegaly. Paranasal sinuses: Visualized sinuses are unremarkable. No fluid levels. Mastoid air cells: Visualized mastoid air cells are well aerated. Bones: Unremarkable. No acute fracture. Soft tissues: Unremarkable. IMPRESSION: No acute intracranial abnormality. Dictated and Authenticated by: Patricio Daniels MD. Orderin Tyler Juárez MD
[2024-04-23 21:02] LABS: Bilirubin Negative (Negative); Blood Negative (Negative); Clarity Clear (Clear); Glucose Negative (Negative); Ketones Negative (Negative); Leukocyte Esterase Small (Negative); Nitrite Negative (Negative); Specific Gravity 1.025 (1.005-1.025); Urobilinogen 0.2 mg/dL (Up to 0.2); pH 6.5 (5-8)
[2024-04-23 21:07] LABS: Bacteria Negative HPF (Negative); C & S Indicated? No/Sq. Contamination; Casts Negative LPF (Negative); Crystals Negative HPF (Negative); Epithelial Cells Many HPF (Negative); Mucus Negative (Negative); RBC Negative HPF (0-2); WBC 0-2 HPF (0-5)
[2024-04-23] MEDS: Acetaminophen 500 MG TAB 1000 MG PO (21:33)
== END 2024-04-23 22:15 | disposition home or self-care (01) ==
PROVIDERS: Emergency Provider Emergency Medicine; PCP Nurse Practitioner Family
DX: M25.561 Pain in right knee (principal); R41.82 Altered mental status, unspecified
CPT/HCPCS: 36415; 80053; 93005; 99285; 70450; 81003; 81015; 83735; 85025; 93010; 99284

== ENCOUNTER 2024-04-30 17:02 | Emergency (ER) | payer MEDICARE, MEDICAID, SELFPAY ==
[2024-04-30 17:11] VITALS: BP 131/84; PULSE 61; RESP 16; TEMP 36.3; O2SAT 95
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
[2024-04-30 18:25] VITALS: BP 168/69; PULSE 75
[2024-04-30 19:14] VITALS: BP 145/65; PULSE 65; RESP 20; TEMP 36.6; O2SAT 96
--- NOTE | 2024-05-01 10:22 | NUR.NOTE ---
Access chart to get the discharge diagnosis for [facility] requisition billing. Nursing Note:
--- NOTE | 2024-05-08 16:05 | NUR.NOTE ---
Access chart to print the provider note for [facility] billing purposes. Nursing Note:
== END 2024-04-30 19:14 | disposition home or self-care (01) ==
PROVIDERS: Emergency Provider Registered Nurse Emergency; PCP Nurse Practitioner Family
DX: S93.401A Sprain of unspecified ligament of right ankle, initial encounter (principal); E11.9 Type 2 diabetes mellitus without complications; G20.C Parkinsonism, unspecified; I10 Essential (primary) hypertension; E78.5 Hyperlipidemia, unspecified; E03.9 Hypothyroidism, unspecified; Z87.891 Personal history of nicotine dependence
CPT/HCPCS: 99283; 73610

== ENCOUNTER 2024-05-17 00:17 | Outpatient (CLI) | payer MEDICARE, MEDICAID, SELFPAY ==
--- NOTE | 2024-05-17 07:00 | DI.RAD_ITS ---
Exam(s) XR ANKLE RT COMPLETE XR FOOT RT COMPLETE EXAM: XR FOOT RT COMPLETE and XR ankle RT complete CLINICAL HISTORY: pain in foot/ankle after fall- persistent,M79.671. TECHNIQUE: 2D digital imaging was performed of the right ankle and foot. Seven images were obtained . AP, oblique and lateral views were obtained. COMPARISON: CR XR FOOT RT COMPLETE from 01/29/2024 CR XR FOOT LT COMPLETE from 01/29/2024 CR XR ANKLE RT COMPLETE from 04/30/2024 FINDINGS: BONES: No acute fracture is present. No bony destructive lesion is seen. There is a well corticated o sseous density at the tip of the medial malleolus which is chronic. There is an enthesophyte at the posterior calcaneus. There is no periosteal reaction present suggesting healing fracture. There is an old osseous density lateral to the proximal phalanx of the 5th toe which is unchanged. This is ch ronic. JOINTS: No dislocation present. SOFT TISSUE: Normal. IMPRESSION: No evidence of an acute or healing fracture or dislocation. DATA REPOSITORY: RADIATION DOSE DELIVERED:
== END 2024-05-17 00:37 ==
LOC: DI 00:17
PROVIDERS: PCP Nurse Practitioner Family; Visit Provider Nurse Practitioner Family
DX: S93.401A Sprain of unspecified ligament of right ankle, initial encounter (principal); M79.671 Pain in right foot; X58.XXXA Exposure to other specified factors, initial encounter
CPT/HCPCS: 73610; 73630

== ENCOUNTER 2024-05-27 10:54 | Emergency (ER) | payer MEDICARE, MEDICAID, SELFPAY ==
[2024-05-27] VITALS (24 sets, daily range): BP systolic 144–170; BP diastolic 68–84; PULSE 55–77; RESP 15–23; TEMP 36.6; O2SAT 96–100
--- NOTE | 2024-05-27 10:45 | RT.EKG_ITS ---
APPROVED REPORT Exam: Resting ECG Reason for Exam: reproducible chest pain Patient Location: E HR:56 bpm ECG Measurements Heart Rate 56 AXIS WI 152 P 21 QRSd 97 QRS -14 QT 419 T 43 QTc 405 Conclusion Sinus bradycardia...rate< 60 Low voltage, precordial leads...precordial leads <1.0mV
--- NOTE | 2024-05-27 12:00 | DI.RAD_ITS ---
Exam(s) XR CHEST 2V PA LATERAL EXAM: XR CHEST 2V PA LATERAL CLINICAL HISTORY: left chest pain TECHNIQUE: 2D digital imaging was performed of the chest. Two images were obtained. PA and lateral views were obtained. COMPARISON: CR,XR XR CHEST 2V PA LATERAL from 10/05/2023 FINDINGS: There is poor inspiration. MEDIASTINUM: Normal. HEART: Normal. PULMONARY VASCULATURE: Normal. LUNGS: Clear. PLEURAL SPACE: No pleural effusion or pneumothorax. BONE:Within normal limits for the patient's age. OTHER FINDINGS:Normal. IMPRESSION: No acute pulmonary findings. DATA REPOSITORY: RADIATION DOSE DELIVERED:
[2024-05-27 12:19] LABS: Abs Immature Grans 0.01 10^3/uL (0.0-0.06); Absolute Basophil Count 0.05 10^3/uL (0.0-0.2); Absolute Eosinophil Count 0.12 10^3/uL (0.0-0.7); Absolute Lymphocyte Count 1.97 10^3/uL (1.2-3.4); Absolute Monocyte Count 0.34 10^3/uL (0.1-0.8); Absolute Neutrophil Count 2.68 10^3/uL (1.2-6.7); Eosinophils % 2.3 %; HCT 41.1 % (36.0-46.0); HGB 13.2 g/dL (11.2-15.7); Immature Grans % 0.2 %; Lymphocytes % 38.1 %; MCH 29.3 pg (27.0-33.0); MCHC 32.1 % (32.0-36.0); MCV 91 fL (80-95); Monocytes % 6.6 %; Neutrophils % 51.8 %; Platelet Count 290 10^3/uL (130-400); RBC 4.51 10^6/uL (3.93-5.22); RDW 13.7 % (11.7-14.6); RDW-SD 46.2 fL; WBC 5.17 10^3/uL (4.4-10.8)
[2024-05-27 12:39] LABS: ALT 22 U/L (14-59); AST 16 U/L (15-37); Alkaline Phosphatase 130 U/L (46-116); Anion Gap 8.6 mmol/L (3-11); BUN 17 mg/dL (7-18); Bilirubin, Total 0.2 mg/dL (0.2-1.0); CO2 28.4 mmol/L (21.0-32.0); CREATININE 1.2 mg/dL (0.55-1.02); Calcium 9.5 mg/dL (8.5-10.1); Chloride 107 mmol/L (98-107); Glucose 102 mg/dL (74-106); Magnesium 2.1 mg/dL (1.8-2.4); Potassium 4.1 mmol/L (3.5-5.1); Sodium 144 mmol/L (136-145); Total Protein 8.4 g/dL (6.4-8.2); Troponin I 8 ng/L (<or=51)
[2024-05-27] MEDS: Lidocaine 5% Patch 1 PATCH TP (13:27)
[2024-05-27] MEDS: Acetaminophen 500 MG TAB 1000 MG PO (13:27)
[2024-05-27 13:37] LABS: Troponin I 12 ng/L (<or=51)
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
== END 2024-05-27 14:14 | disposition home or self-care (01) ==
PROVIDERS: Emergency Medicine; Emergency Provider Physician Assistant; PCP Nurse Practitioner Family
DX: R07.89 Other chest pain (principal); R01.1 Cardiac murmur, unspecified; E11.9 Type 2 diabetes mellitus without complications; G20.C Parkinsonism, unspecified; E03.9 Hypothyroidism, unspecified; E78.5 Hyperlipidemia, unspecified; I10 Essential (primary) hypertension; Z79.84 Long term (current) use of oral hypoglycemic drugs; Z87.891 Personal history of nicotine dependence
CPT/HCPCS: 80053; 93005; 99285; 71046; 83735; 84484; 85025; 93010; 99284

== ENCOUNTER 2024-05-28 13:09 | Emergency (ER) | payer MEDICARE, MEDICAID, SELFPAY ==
[2024-05-28 13:11] VITALS: BP 141/84; PULSE 60; RESP 18; O2SAT 98
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
[2024-05-28 16:29] VITALS: PULSE 63; RESP 18; O2SAT 95
== END 2024-05-28 16:29 | disposition home or self-care (01) ==
PROVIDERS: Emergency Provider Emergency Medicine; PCP Nurse Practitioner Family
DX: R45.851 Suicidal ideations (principal); E11.9 Type 2 diabetes mellitus without complications; G40.909 Epilepsy, unspecified, not intractable, without status epilepticus; G20.C Parkinsonism, unspecified; E03.9 Hypothyroidism, unspecified; E78.5 Hyperlipidemia, unspecified; I10 Essential (primary) hypertension; Z79.84 Long term (current) use of oral hypoglycemic drugs; Z87.891 Personal history of nicotine dependence
CPT/HCPCS: 36415; 99284

== ENCOUNTER 2024-06-04 12:53 | Emergency (ER) | payer MEDICARE, MEDICAID, SELFPAY ==
--- NOTE | 2024-06-04 12:30 | RT.EKG_ITS ---
APPROVED REPORT Exam: Resting ECG Reason for Exam: chest pain Patient Location: E HR:60 bpm ECG Measurements Heart Rate 60 AXIS WV 140 P 13 QRSd 89 QRS -19 QT 403 T 51 QTc 405 Conclusion Sinus rhythm...normal P axis, V-rate 60- 99 Low voltage, precordial leads...precordial leads <1.0mV No STEMI
[2024-06-04 12:47] VITALS: BP 129/83; PULSE 63; RESP 20; TEMP 36.6; O2SAT 94
--- NOTE | 2024-06-04 13:15 | DI.RAD_ITS ---
Exam(s) XR CHEST 2V PA LATERAL EXAM: XR CHEST 2V PA LATERAL CLINICAL HISTORY: Chest pain TECHNIQUE: 2D digital imaging was performed of the chest. Two images were obtained. PA and lateral views were obtained. COMPARISON: CR XR CHEST 2V PA LATERAL from 05/27/2024 FINDINGS: MEDIASTINUM: Normal. HEART: Normal. PULMONARY VASCULATURE: Normal. LUNGS: Clear. PLEURAL SPACE: No pleural effusion or pneumothorax. BONE:Within normal limits for the patient's age. OTHER FINDINGS:Normal. IMPRESSION: No acute pulmonary findings. DATA REPOSITORY: RADIATION DOSE DELIVERED:
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
[2024-06-04 14:11] LABS: Abs Immature Grans 0.01 10^3/uL (0.0-0.06); Absolute Basophil Count 0.04 10^3/uL (0.0-0.2); Absolute Eosinophil Count 0.09 10^3/uL (0.0-0.7); Absolute Lymphocyte Count 1.77 10^3/uL (1.2-3.4); Absolute Monocyte Count 0.41 10^3/uL (0.1-0.8); Absolute Neutrophil Count 2.93 10^3/uL (1.2-6.7); Basophils % 0.8 %; Eosinophils % 1.7 %; HCT 42.2 % (36.0-46.0); HGB 13.5 g/dL (11.2-15.7); Immature Grans % 0.2 %; Lymphocytes % 33.7 %; MCH 28.9 pg (27.0-33.0); MCV 90 fL (80-95); Monocytes % 7.8 %; Neutrophils % 55.8 %; Platelet Count 291 10^3/uL (130-400); RBC 4.67 10^6/uL (3.93-5.22); RDW 13.9 % (11.7-14.6); RDW-SD 45.6 fL; WBC 5.25 10^3/uL (4.4-10.8)
[2024-06-04 14:36] LABS: Prothrombin Time 10.4 sec (9.1-11.1)
[2024-06-04 14:41] LABS: D-Dimer 915 ng/mlFEU (<500)
[2024-06-04 14:44] LABS: ALT 32 U/L (14-59); AST 23 U/L (15-37); Albumin 3.8 g/dL (3.4-5.0); Alkaline Phosphatase 119 U/L (46-116); Anion Gap 6.8 mmol/L (3-11); BUN 21 mg/dL (7-18); Bilirubin, Total 0.2 mg/dL (0.2-1.0); CO2 30.2 mmol/L (21.0-32.0); CREATININE 1.1 mg/dL (0.55-1.02); Calcium 10.3 mg/dL (8.5-10.1); Chloride 107 mmol/L (98-107); Estimated GFR 57.17 (mL/min/1.73m2); Glucose 119 mg/dL (74-106); NT-proBNP 128 pg/mL (<300); Potassium 4.3 mmol/L (3.5-5.1); Sodium 144 mmol/L (136-145); Troponin I 5 ng/L (<or=51)
[2024-06-04] MEDS: Ketorolac 15 MG/ML VIAL IVP (15:05)
[2024-06-04] MEDS: Normal Saline Flush 10 ML SYR IVP (15:06)
[2024-06-04 15:30] VITALS: BP 129/83; PULSE 63; RESP 20; TEMP 36.6; O2SAT 94
== END 2024-06-04 15:58 | disposition home or self-care (01) ==
PROVIDERS: Emergency Provider Registered Nurse Emergency; PCP Nurse Practitioner Family
DX: M94.0 Chondrocostal junction syndrome [Tietze] (principal); E11.9 Type 2 diabetes mellitus without complications; E78.5 Hyperlipidemia, unspecified; E03.9 Hypothyroidism, unspecified; I10 Essential (primary) hypertension; G40.909 Epilepsy, unspecified, not intractable, without status epilepticus; G20.C Parkinsonism, unspecified; A69.20 Lyme disease, unspecified; Z79.84 Long term (current) use of oral hypoglycemic drugs; Z87.891 Personal history of nicotine dependence
CPT/HCPCS: 80053; 87426; 93005; 96374; 99285; 71046; 83880; 84484; 85025; 85379; 85610; 93010; 99284; J1885

== ENCOUNTER 2024-06-11 12:00 | Outpatient (CLI) | payer MEDICARE, MEDICAID, SELFPAY ==
[2024-06-11] VITALS (14 sets, daily range): BP systolic 129–158; BP diastolic 66–84; PULSE 57–68; RESP 13–23; TEMP 36.6; O2SAT 89–100
--- NOTE | 2024-06-11 12:45 | PDOC.PAIN_ITS ---
Date of service: 06/11/24 Time of Service: 13:44 Pain Managment Procedure Note Procedure Note Procedure Note: Lumbar Medial Branch COOLED Radiofrequency Ablation COMMENT: Patient had greater than 80 % relief after 2 medial branch blocks. ? Location: Bilateral L3, and L4 medial Branches and dorsal ramus of L5 (L4-5, and L5-S1 joints) ? Pre-procedure Diagnosis: M47.817 Spondylosis without myelopathy or radiculopathy, lumbosacral region ? Post-procedure Diagnosis:? The same as above ? Sedation:?Intravenous line started 1mg of intravenous midazolam and fentanyl 25 mcg?were administered. An independent trained observer monitored t he patient for the duration of the procedure.? Estimated blood loss:? less than 3 cc ? Surgeon: Greg Torres MD ? Procedure Detail:? The procedure and potential risks were explained to the patient and informed written consent was obtained. The patient was escorted to the procedure room and placed in the prone position. Pillows were utilized for proper positioning and comfort. Time out was performed in the procedure room with nursing staff confirming the patient's identity, procedure to be performed, allergies, and any blood thinning or anti-platelet medications. The patient's lower back was prepped with ChloraPrep and draped in a sterile fashion.? Sterile technique was maintained throughout the procedure.? Sterile gloves were used, a face mask was worn, and new single dose vials of all medications were used with the top being swabbed with alcohol and given time to dry prior to withdrawal of medication. A left AND right-sided oblique fluoroscopic view was obtained, with visualization of the L4 junction of the transverse process and superior articular process. 2% lidocaine was used to anesthetize the skin. With fluoroscopic guidance, an 17 gauge 150mm 4mm active tip RF cannula was advanced to the superior margin of the transverse process and lateral to the superior articular process.? It was directed inferiorly and medially so that the tip struck the junction of the base of the transverse process and the superior articular process. The needle was then slightly advanced along the course of the L3 medial branch nerve. Proper placement was verified with oblique, AP, and lateral fluoroscopic views. Sensory tested with good response less than 1V. Motor testing was performed and was negative at 2V except for expected multifidus activation. A similar procedure was also performed at the ipsilateral L4 medial branch nerves and the dorsal ramus of L5 with negative motor testing at 2V except for expected multifidus activation. One cc of 2% lidocaine was injected through each needle tip to anesthetize the medial branch nerves.? After waiting for the local anesthetic to take effect, each nerve was then ablated at 60 degrees Celsius for 150 seconds.This was repeated on the opposite side at the same levels. ? The patient was monitored for any severe pain or radicular pain during the ablation and reported none. The patient tolerated the procedure well, and was discharged in stable condition.? Permanent images were saved and recorded. PAIN: PRE PROCEDURE 12/27 POST PROCEDURE 08/27 Plan: F/U PRN COMMENT: Repeat prn if 6 months relief of 50% Coding Conscious Sedation used for procedure: Yes CPT Codes: Single Facet Joint, Lumbar/Sacral cool - 62665Q (58491A64~G) bilateral Single Facet Joint, Lumbar/Sacral cool each add'l - 26620O (70700H50~G) LT - LEFT SIDE, RT - RIGHT SIDE Moderate sedation; First 15 min - 58551 (16699) Moderate sedation; add. 15 increments - 14194 (07728) Additional Codes: Date of Service (39879) Date of service: 06/11/24
[2024-06-11] MEDS: fentaNYL 100 MCG/2 ML VIAL IVP (13:00)
[2024-06-11] MEDS: Midazolam 2 MG/2 ML VIAL IVP (13:15)
[2024-06-11] MEDS: Nerve Block Tray 1 EACH MC (13:39)
[2024-06-11] MEDS: Lidocaine 2% Multi-Dose 20 ML VIAL IJ (13:39)
--- NOTE | 2024-06-11 13:39 | DI.RAD_ITS ---
Exam(s) XR PAIN CLINIC LUMBAR SP 2V EXAM: XR PAIN CLINIC LUMBAR SP 2V CLINICAL HISTORY: Dx: Lumbar Spondylosis. TECHNIQUE: Fluoroscopy was provided for the referring physician for guidance with performing pain cl inic injection procedure. COMPARISON: No exams were available for comparison FINDINGS: Please see procedure note for details. Fluoro time: 53.1 seconds RADIATION DOSE DELIVERED: gurmeet Barnett=33.05 mGy
== END 2024-06-11 12:01 | disposition home or self-care (01) ==
LOC: PC 12:01
PROVIDERS: PCP Nurse Practitioner Family; Visit Provider Anesthesiology Pain Medicine
DX: M47.817 Spondylosis without myelopathy or radiculopathy, lumbosacral region (principal); M54.50 Low back pain, unspecified
CPT/HCPCS: 64635; 64636; 72100; J2003; J2250; J3010

== ENCOUNTER → 2024-06-17 10:39 | Outpatient (BNVA) | payer MEDICARE, MEDICAID, SELFPAY | PROVIDERS: PCP Nurse Practitioner Family; Visit Provider Psychiatry & Neurology Neurology | DX: G43.009 Migraine without aura, not intractable, without status migrainosus (principal); G40.319 Generalized idiopathic epilepsy and epileptic syndromes, intractable, without status epilepticus; G21.11 Neuroleptic induced parkinsonism; T43.505A Adverse effect of unspecified antipsychotics and neuroleptics, initial encounter; R20.2 Paresthesia of skin | CPT/HCPCS: 99214 ==

== ENCOUNTER 2024-06-22 22:47 | Emergency (ER) | payer MEDICARE, MEDICAID, SELFPAY ==
[2024-06-22 22:46] VITALS: BP 173/74; PULSE 64; RESP 18; TEMP 36.4; O2SAT 94
--- NOTE | 2024-06-22 23:00 | DI.RAD_ITS ---
Exam(s) XR LUMBAR SPINE AP, LAT EXAM: XR LUMBAR SPINE AP, LAT CLINICAL HISTORY: pain, fell earlier in week. TECHNIQUE: 2D digital imaging was performed of the lumbar spine. Three images were obtained. AP, l ateral and L5-S1 spot views were obtained. COMPARISON: CT CT ABDOMEN PELVIS W from 11/07/2023 FINDINGS: BONES: No fracture or destructive lesion. There are endplate osteophytes at several levels of the lum bar spine. Degenerative changes of the facets are seen at L4-5 and L5-S1. DISKS: There is disc space narrowing at L5-S1, L1-L2 and T12-L1. ALIGNMENT: Lumbar spinal alignment is within normal limits. No spondylolysis or spondylolisthesis. SOFT TISSUE: There are surgical clips seen in the right upper quadrant of the abdomen consistent with the patient's prior cholecystectomy. IMPRESSION: No acute fracture or subluxation. DATA REPOSITORY: RADIATION DOSE DELIVERED:
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
[2024-06-22] MEDS: Ketorolac 30 MG/ML VIAL IM (23:20)
[2024-06-23] VITALS (88 sets, daily range): BP systolic 133–188; BP diastolic 60–92; PULSE 50–85; O2SAT 91–98
--- NOTE | 2024-06-23 00:10 | DI.VRAD_ITS ---
PROCEDURE INFORMATION: Exam: XR Lumbosacral Spine Exam date and time: 06/22/2024 11:29 PM Age: 59 years old Clinical indication: Injury or trauma; Fall; Blunt trauma (contusions or hematomas) and other: Pain, fell earlier in week TECHNIQUE: Imaging protocol: Radiologic exam of the lumbosacral spine. Views: 2 or 3 views. COMPARISON: OT XR PAIN CLINIC LUMBAR SP 2V 02/06/2024 9:17 AM FINDINGS: Bones/joints: No lumbar spine fracture or focal subluxation. Severe L5-S1 disc space narrowing. Lower lumbar spine facet hypertrophic changes present. Lung Soft tissues: Unremarkable. IMPRESSION: No lumbar spine fracture or focal subluxation. Dictated and Authenticated by: Abdirizak Urbina MD. Orderin Tyler Juárez MD
== END 2024-06-23 09:12 | disposition home or self-care (01) ==
PROVIDERS: Emergency Provider Emergency Medicine; PCP Nurse Practitioner Family
DX: M54.50 Low back pain, unspecified (principal); E11.9 Type 2 diabetes mellitus without complications; I10 Essential (primary) hypertension; E03.9 Hypothyroidism, unspecified; G40.909 Epilepsy, unspecified, not intractable, without status epilepticus; G20.C Parkinsonism, unspecified; Z79.84 Long term (current) use of oral hypoglycemic drugs; Z87.891 Personal history of nicotine dependence
CPT/HCPCS: 96372; 99284; 72100; 99283; J1885

== ENCOUNTER 2024-07-03 02:16 | Outpatient (CLI) | payer MEDICARE, MEDICAID, SELFPAY ==
[2024-07-03 15:20] LABS: Vitamin B12 662 pg/mL (193-986)
== END 2024-07-03 02:17 | disposition home or self-care (01) ==
LOC: LBO 02:16
PROVIDERS: PCP Nurse Practitioner Family; Referring Provider Nurse Practitioner Family; Visit Provider Nurse Practitioner Family
DX: R20.2 Paresthesia of skin (principal)
CPT/HCPCS: 36415; 82607

== ENCOUNTER → 2024-07-23 13:14 | Outpatient (BNVA) | payer MEDICARE, MEDICAID, SELFPAY | PROVIDERS: PCP Nurse Practitioner Family; Referring Provider Nurse Practitioner Family; Visit Provider Podiatrist | DX: M20.42 Other hammer toe(s) (acquired), left foot (principal); M79.672 Pain in left foot; E11.9 Type 2 diabetes mellitus without complications | CPT/HCPCS: 99213 ==

== ENCOUNTER → 2024-08-14 09:33 | Outpatient (BNVA) | payer MEDICARE, MEDICAID, SELFPAY | PROVIDERS: PCP Nurse Practitioner Family; Visit Provider Psychiatry & Neurology Neurology | DX: G43.009 Migraine without aura, not intractable, without status migrainosus (principal); G40.319 Generalized idiopathic epilepsy and epileptic syndromes, intractable, without status epilepticus; G21.11 Neuroleptic induced parkinsonism; T43.505A Adverse effect of unspecified antipsychotics and neuroleptics, initial encounter; R20.2 Paresthesia of skin | CPT/HCPCS: 99214 ==

== ENCOUNTER 2024-09-12 00:49 | Outpatient (CLI) | payer MEDICARE, MEDICAID, SELFPAY ==
--- NOTE | 2024-09-12 10:08 | DI.RAD_ITS ---
Exam(s) XR THUMB RT EXAM: XR THUMB RT CLINICAL HISTORY: pain in right thumb,M79.644. TECHNIQUE: 2D digital imaging was performed. Three views. COMPARISON: No exams were available for comparison FINDINGS: BONES: No acute fracture is present. No bony destructive lesion is seen. JOINTS: No dislocation present. Mild narrowing of the interphalangeal joint of the thumb and mild periarticular spurring. Minimal degenerative changes are seen at the metacarpophalangeal joint. SOFT TISSUE: Normal. IMPRESSION: Mild degenerative changes. DATA REPOSITORY: RADIATION DOSE DELIVERED:
== END 2024-09-12 01:09 ==
LOC: DI 00:49
PROVIDERS: PCP Nurse Practitioner Family; Visit Provider Nurse Practitioner Family
DX: M79.644 Pain in right finger(s) (principal)
CPT/HCPCS: 73140

== ENCOUNTER 2024-10-21 03:01 | Outpatient (CLI) | payer MEDICARE, MEDICAID, SELFPAY ==
[2024-10-21 12:12] LABS: Calculated LDL 73 mg/dL (<100); Cholesterol 148 mg/dL (<200); HDL Cholesterol 48 mg/dL (>or=50); Triglyceride 138 mg/dL (<150)
== END 2024-10-21 03:02 | disposition home or self-care (01) ==
LOC: LBO 03:02
PROVIDERS: PCP Nurse Practitioner Family; Referring Provider Nurse Practitioner Family; Visit Provider Nurse Practitioner Family
DX: E78.2 Mixed hyperlipidemia (principal)
CPT/HCPCS: 36415; 80061

== ENCOUNTER 2024-10-23 01:42 | Outpatient (CLI) | payer MEDICARE, MEDICAID, SELFPAY ==
--- NOTE | 2024-10-23 06:57 | DI.MAMMO_ITS ---
Exam(s) MAMMO SCREENING EXAM: MAMMO SCREENING CLINICAL HISTORY: screening,z12.39 TECHNIQUE: Bilateral full field digital CC and MLO mammographic images were obtained with 3D tomosynthesis and utilizing computer aided detection (CAD). COMPARISON: Comparison is made with prior examinations. FINDINGS: Masses/Architectural Distortion: No suspicious masses or areas of architectural distortion are present. Microcalcifications: No suspicious pleomorphic-type are seen. Skin Thickening/Nipple Retraction: None. IMPRESSION: 1. No significant interval change with no specific features of malignancy noted. 2. Unless there is more urgent need, screening mammography is recommended, as per [place] [employer] guidelines. BI-RADS Category 1 - Negative Breast Density - Category B - There are scattered areas of fibroglandular density. Breast density Category C or D implies that the patient has dense breast tissue. Dense breast tissue can make it harder to find cancer on a mammogram. Dense breast tissue is also associated with an increased risk of breast cancer. This information about the result of the mammogram report was provided to the patient to raise their awareness. Use this report when you speak with the patient about their risks for breast cancer, which includes their family history. At that time, you may recommend additional screening tests (Ultrasound or MRI) as these tests may add significant information. A negative radiographic report should not delay biopsy if a dominant or clinically suspicious mass is present. Up to ten percent of cancers are not identified on mammography. A negative report may reinforce clinical impression. Adenosis and dense breasts may obscure an underlying neoplasm. False positive reports average 6 to 10%. Patient will receive a letter notifying them of these results.
== END 2024-10-23 02:02 ==
LOC: DI 01:42
PROVIDERS: PCP Nurse Practitioner Family; Visit Provider Nurse Practitioner Family
DX: Z12.31 Encounter for screening mammogram for malignant neoplasm of breast (principal); R92.323 Mammographic fibroglandular density, bilateral breasts
CPT/HCPCS: 77063; 77067

== ENCOUNTER → 2024-10-29 14:00 | Outpatient (BNVA) | payer MEDICARE, MEDICAID, SELFPAY | PROVIDERS: PCP Nurse Practitioner Family; Referring Provider Nurse Practitioner Family; Visit Provider Psychiatry & Neurology Neurology | DX: G43.009 Migraine without aura, not intractable, without status migrainosus (principal); G40.319 Generalized idiopathic epilepsy and epileptic syndromes, intractable, without status epilepticus; G21.11 Neuroleptic induced parkinsonism; T43.505A Adverse effect of unspecified antipsychotics and neuroleptics, initial encounter; R20.2 Paresthesia of skin; G24.01 Drug induced subacute dyskinesia | CPT/HCPCS: 99214; 95909 ==

== ENCOUNTER 2024-11-29 11:13 | Outpatient (CLI) | payer MEDICARE, MEDICAID, SELFPAY ==
--- NOTE | 2024-11-29 11:00 | RT.EKG_ITS ---
APPROVED REPORT Exam: Resting ECG Reason for Exam: Medication management Patient Location: O HR:63 bpm ECG Measurements Heart Rate 63 AXIS HI 152 P 24 QRSd 103 QRS -11 QT 399 T 43 QTc 409 Conclusion Sinus rhythm...normal P axis, V-rate 50- 99 Normal Electrocardiogram
== END 2024-11-29 11:14 | disposition home or self-care (01) ==
LOC: DI.KIM 11:14
PROVIDERS: PCP Nurse Practitioner Family; Visit Provider Nurse Practitioner Family
DX: Z79.899 Other long term (current) drug therapy (principal)
CPT/HCPCS: 93010

== ENCOUNTER 2024-12-04 14:20 | Emergency (ER) | payer MEDICARE, MEDICAID, SELFPAY ==
[2024-12-04 14:28] VITALS: BP 131/78; PULSE 70; RESP 20; TEMP 36.5; O2SAT 96
--- NOTE | 2024-12-04 14:39 | DI.CT_ITS ---
Exam(s) CT HEAD WO EXAM: CT HEAD WO CLINICAL HISTORY: headache. TECHNIQUE: Imaging Protocol: Axial computed tomography images with coronal and sagittal reformatted images were created and reviewed COMPARISON: CT CT HEAD WO from 07/16/[address] BRAIN NECK CTA from 03/26/[address] HEAD WO from 04/23/2024 FINDINGS: Ventricles and Extra axial spaces: Normal in size and morphology for the patient's age. Hemorrhage: None. Cerebral parenchyma: There is a normal johnson-white matter differentiation. There is no evidence of an acute territorial infarct or mass effect. Midline shift: None. Brainstem/Cerebellum: Normal. Calvarium: Normal. Visualized Paranasal sinuses/Mastoids: Clear. Soft Tissues: Unremarkable. IMPRESSION: No acute intracranial process. RADIATION DOSE DELIVERED: 883.02mGy.cm Total DLP DATA REPOSITORY: All CT scans at this facility are submitted to the National Radiology Data Registry (NRDR) Dose Index Registry (DIR) with the [employer] (A[employer]). RADIATION OPTIMIZATION: All CT scans at this facility use at least one of these dose optimization techniques: automated exposure control; mA and/or kV adjustment per patient size (includes targeted exams where dose is matched to clinical indication); or iterative reconstruction.
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
[2024-12-04 15:55] LABS: Glucose Negative (Negative)
[2024-12-04 16:06] LABS: Abs Immature Grans 0.01 10^3/uL (0.0-0.06); HCT 39.4 % (36.0-46.0); HGB 13.0 g/dL (11.2-15.7); Immature Grans % 0.2 %; MCH 30.3 pg (27.0-33.0); MCHC 33.0 % (32.0-36.0); MCV 92 fL (80-95); MPV 10.1 fL (8.0-11.0); Platelet Count 285 10^3/uL (130-400); RBC 4.29 10^6/uL (3.93-5.22); RDW 12.4 % (11.7-14.6); RDW-SD 41.1 fL; WBC 5.85 10^3/uL (4.4-10.8)
[2024-12-04 16:15] LABS: C & S Indicated? No; RBC 0-2 HPF (0-2); WBC 0-2 HPF (0-5)
[2024-12-04 16:17] LABS: Cannabinoids THC Negative (Negative); METHADONE URINE SCREEN Negative (Negative)
[2024-12-04] MEDS: ACETAMINOPHEN 1,000 MG/100 ML BAG 400 MG IVPB (16:37)
[2024-12-04] MEDS: Prochlorperazine 10 MG/2 ML VIAL IVP (16:37)
[2024-12-04] MEDS: diphenhydrAMINE 50 MG/ML VIAL 12.5 MG IVP (16:38)
[2024-12-04 16:44] LABS: Salicylate < 2.8 mg/dL (<2.8)
[2024-12-04 16:50] LABS: ALT 30 U/L (14-59); AST 18 U/L (15-37); Albumin 3.9 g/dL (3.4-5.0); Alkaline Phosphatase 106 U/L (46-116); Anion Gap 4.3 mmol/L (3-11); BUN 22 mg/dL (7-18); Bilirubin, Total 0.3 mg/dL (0.2-1.0); CO2 32.7 mmol/L (21.0-32.0); Calcium 9.5 mg/dL (8.5-10.1); Chloride 104 mmol/L (98-107); Estimated GFR 51.50 (mL/min/1.73m2); Glucose 96 mg/dL (74-106); Potassium 3.8 mmol/L (3.5-5.1); Sodium 141 mmol/L (136-145); TSH (W/Ref FT4) 1.99 uIU/mL (0.36-3.74); Total Protein 8.0 g/dL (6.4-8.2)
[2024-12-04 16:56] LABS: Acetaminophen < 2 ug/mL (10-30)
[2024-12-04] MEDS: Ketorolac 15 MG/ML VIAL IVP (18:21)
== END 2024-12-04 23:12 | disposition home or self-care (01) ==
PROVIDERS: Emergency Provider Emergency Medicine; PCP Nurse Practitioner Family
DX: R44.0 Auditory hallucinations (principal); R44.1 Visual hallucinations; E03.9 Hypothyroidism, unspecified; E78.5 Hyperlipidemia, unspecified; I10 Essential (primary) hypertension; E11.9 Type 2 diabetes mellitus without complications; Z79.85 Long-term (current) use of injectable non-insulin antidiabetic drugs; Z87.891 Personal history of nicotine dependence
CPT/HCPCS: 80053; 80307; 96365; 96375; 99284; 70450; 80320; 80329; 81003; 81015; 84443; 85025; J0131; J0780; J1200; J1885

== ENCOUNTER 2024-12-06 01:06 | Outpatient (CLI) | payer MEDICARE, MEDICAID, SELFPAY ==
[2024-12-06 11:32] LABS: Hemoglobin A1C 5.9 % (<5.7)
[2024-12-06 12:22] LABS: Anion Gap 9.7 mmol/L (3-11); BUN 23 mg/dL (7-18); CO2 27.3 mmol/L (21.0-32.0); Calcium 9.6 mg/dL (8.5-10.1); Chloride 105 mmol/L (98-107); Estimated GFR 57.17 (mL/min/1.73m2); Glucose 119 mg/dL (74-106); Potassium 4.3 mmol/L (3.5-5.1); Sodium 142 mmol/L (136-145); TSH (W/Ref FT4) 2.16 uIU/mL (0.36-3.74)
== END 2024-12-06 01:07 | disposition home or self-care (01) ==
LOC: LBO 01:06
PROVIDERS: PCP Nurse Practitioner Family; Visit Provider Nurse Practitioner Family
DX: E11.9 Type 2 diabetes mellitus without complications (principal)
CPT/HCPCS: 36415; 80048; 83036; 84443

== ENCOUNTER 2024-12-11 13:45 | Emergency (ER) | payer MEDICARE, MEDICAID, SELFPAY ==
[2024-12-11 13:41] VITALS: BP 151/89; PULSE 68; RESP 18; TEMP 36.1; O2SAT 98
[2024-12-11 14:37] LABS: Abs Immature Grans 0.03 10^3/uL (0.0-0.06); HCT 42.3 % (36.0-46.0); HGB 14.0 g/dL (11.2-15.7); Immature Grans % 0.4 %; MCH 30.6 pg (27.0-33.0); MCHC 33.1 % (32.0-36.0); MCV 93 fL (80-95); MPV 9.9 fL (8.0-11.0); Platelet Count 343 10^3/uL (130-400); RBC 4.57 10^6/uL (3.93-5.22); RDW 12.5 % (11.7-14.6); RDW-SD 42.7 fL; WBC 7.07 10^3/uL (4.4-10.8)
[2024-12-11 14:38] LABS: BE (Venous) -5 mmol/L (-2-3); HCO3 (Venous) 21 mmol/L (23-28); TCO2 (Venous) 18 mmol/L (24-29); pCO2 (Venous) 37 mmHg (41-51); pO2 (Venous) 104 mmHg
[2024-12-11 14:40] LABS: O2 Sat (Venous) > 99 %
--- NOTE | 2024-12-11 14:41 | PDOC.MHPN2 ---
Date of service: 12/11/24 Time of Service: 12:50 PHQ-9 Over the last 2 weeks, how often have you been bothered by any of the following problems? 1. Little interest or pleasure in doing things: nearly every day 2. Feeling down, depressed, or hopeless: nearly every day 3. Trouble falling or staying asleep, or sleeping too much: nearly every day 4. Feeling tired or having little energy: nearly every day 5. Poor appetite or overeating: nearly every day 6. Feeling bad about yourself - or that you are a failure or have let yourself and your family down: nearly every day 7. Trouble concentrating on things, such as reading the newspaper or watching television: nearly every day 8. Moving or speaking so slowly that other people could have noticed? - Or the opposite - being so fidgety or restless that you have been moving around a lot more than usual: nearly every day 9. Thoughts that you would be better off or of hurting yourself in some way: nearly every day Total score: 27 If you checked off any problems, how difficult have these problems made it for you to do your work, take care of things at home, or get along with other people?: extremely difficult PHQ-9 Results: Positive Source: Developed by Drs. Franck Lagos, Leora Cramer, Hector Palmer and colleagues, with an educational terence from [employer]. Suicide Severity Rate CSSRS Have you wished you were or wished you could go to sleep and not wake up?: Yes Have you actually had any thoughts of killing yourself?: Yes CSSRS2 Have you been thinking about how you might do this?: No Have you had these thoughts and had some intention of acting on them?: Yes Have you started to work out or worked out the details of how to kill yourself? Do you intend to carry out this plan?: Yes CSSRS3 Have you ever done anything, started to do anything or prepared to do anything to end your life?: Yes CSSRS4 Was this within the past three months?: Yes Screening Score Total Score: 8 Screening: Positive Mental Health Emergency Note Release HS release signed:: Yes Reason for Visit Mrs Coronel is a 59 year old female who lives at [facility] assisted living situation. The client reports having had auditory hallucinations commanding her to hurt herself or others. The client reports that she has been experiencing these auditory hallucinations for three or four weeks now. This clinician assessed the client at [facility] on 12/02/24 and the client has attempted to utilize coping skills as previously the auditory hallucinations come in waves and go away. The client's medication provider states that in patient treatment would be helpful as they can be more aggressive with medications changes in in patient treatment than out patient can. The client also states needing in patient treatment. The client scores maximum on the PHQ9 depression scale. The client has had access to sharps and medications at her living facility removed from her. The client reports attempting to use nail clippers to hurt herself and drinking shampoo to harm herself. The client reports not feeling safe being transported by her lining caser due to the auditory hallucinations The client was transported by ambulance to [facility]. 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) Well Housed: Yes Non Suicidal Self Injury Current: Yes, Attempts to scratch History: yes, Attempts to harm self with nail clippers and drinking shampoo Asssessment/Mental Status Appearance: Unremarkable Attitude: Cooperative and Friendly Behavior: Unremarkable Speech: Soft and Slow Affect: Normal Mood: Stressed Hallucinations: yes, Auditory Delusions: No Attention: Unremarkable Perception: Not impaired Orientation: Fully orientated Memory: Intact Insight: Fair Judgement: Fair Neurovegetative Symptoms Sleep: Decrease Appetitie: Decrease Interests: Decrease Energy: Decrease Libido: Not applicable Substance Use: Do you use nicotine?: No Have you used substances in the last 7 days?: No Additional Issues: Assaultive/Threatening Behavior: No Medical Concerns: Yes Client engaged in active self harm w/weapon: No Threatening to run away: No Child reported abuse/neglect: No Voluntarily presenting for services: Yes Domestic violence is a concern: No Extreme Psychosis or extreme behavior is present: Yes Impression Mrs Coronel is a 59 year old female who lives at [facility] living situation. The client reports having had auditory hallucinations commanding her to hurt herself or others. The client reports that she has been experiencing these auditory hallucinations for three or four weeks now. This clinician assessed the client at [facility] on 12/02/24 and the client has attempted to utilize coping skills as previously the auditory hallucinations come in waves and go away. The client's medication provider states that in patient treatment would be helpful as they can be more aggressive with medications changes in in patient treatment than out patient can. The client also states needing in patient treatment. The client scores maximum on the PHQ9 depression scale. The client has had access to sharps and medications at her living facility removed from her. The client reports attempting to use nail clippers to hurt herself and drinking shampoo to harm herself. The client reports not feeling safe being transported by her lining caser due to the auditory hallucinations The client was transported by ambulance to [facility]. Plan/Disposition Recommended Disposition: Hospitalization facilities contacted. Plan: Waiting in zone b for in patient treatment. Facilities contacted if Applicable [facility] Not [facility], Other [facility] Not accepted, Other [facility] Not accepted, Other, [facility] Not accepted, Other [facility] Not accepted, Other Reports/communication Outcome discussed with: ED/Personnel
[2024-12-11 14:46] LABS: Cannabinoids THC Negative (Negative); METHADONE URINE SCREEN Negative (Negative)
[2024-12-11 14:59] LABS: Glucose Negative (Negative)
[2024-12-11 15:00] LABS: Acetaminophen < 2 ug/mL (10-30); Salicylate < 2.8 mg/dL (<2.8)
[2024-12-11 15:22] LABS: ALT 30 U/L (14-59); AST 19 U/L (15-37); Albumin 4.1 g/dL (3.4-5.0); Alkaline Phosphatase 111 U/L (46-116); Anion Gap 12.5 mmol/L (3-11); BUN 19 mg/dL (7-18); Bilirubin, Total 0.3 mg/dL (0.2-1.0); CO2 22.5 mmol/L (21.0-32.0); Calcium 10.0 mg/dL (8.5-10.1); Chloride 104 mmol/L (98-107); Estimated GFR 57.17 (mL/min/1.73m2); Glucose 105 mg/dL (74-106); Potassium 4.3 mmol/L (3.5-5.1); Sodium 139 mmol/L (136-145); TSH (W/Ref FT4) 2.22 uIU/mL (0.36-3.74); Total Protein 8.5 g/dL (6.4-8.2)
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
[2024-12-11] MEDS: Acetaminophen 500 MG TAB 1000 MG PO (16:12)
--- NOTE | 2024-12-11 16:52 | CMSP_ITS ---
Date of service: 12/11/24 Time of Service: 16:52 Care Management Safety Plan Status Status: Voluntary Reason for Wait Reason for Wait: Inpatient Admission Safety Plan Safety Plan: VOLUNTARY FOR INPATIENT PSYCHIATRIC STABILIZATION.? Patient is appropriate in all interactions since arriving at [facility]; Pt has demonstrated appropriate coping and communication skills, has articulated his or her needs and concerns and is fully engaged during staff interactions. Safety plan has been established with patient, and care team, to adhere to patient goals, identify restrictions based on behavioral status, address nutrition, and determine allowed personal belongings, tools for hygiene and personal care. Determine level of activity including ambulation, level of superv ision, visitors, and determine privileges based on behaviors and level of engagement by pt. VOLUNTARY SAFETY PLAN: 1. Will remain on suicide precautions, in paper clothes 2. Will remain in Zone B under direct supervision of one-on-one staff at all times provided by [employer]; VIOLETA, DIRECTOR ENERGY encyclopedia research worker. 3. May have paper cups, plates, finger foods as well as a cardboard spoon with which to eat meals. 4. Follow [facility] Management of the Admitted Behavioral Health Patient policy. 5. Shower available in Zone B without restriction. 6. Personal belongings-soft items permitted at RN discretion. 7. Visitors- supportive visitors, at RN discretion. 8. Activities: soft cart items, hospital tablets (Netflix/[place]+/music) approved per RN discretion. 9.? Bathroom available in Zone B without restriction. 10. Phone: limited to [facility] cordless phone at RN discretion. Due to VOLUNTARY status, if patient wishes to leave [facility], staff will contact [facility] Crisis Screener ([phone]) and Supervisor Cell Maintenance ([phone]) as soon as possible. In the event of elopement, notify [facility] Police ([phone]). Patient is currently voluntarily at [facility] and seeking inpatient admission when a bed becomes available. [facility] Frontline Education And Development Manager will continue seeking placement. Please contact the Supervisor Cell Maintenance ([phone]) and [facility] Education And Development Manager ([phone]) for any needed changes in the Safety Plan. Safety plan has been provided to interdepartmental care team.
--- NOTE | 2024-12-11 16:52 | PDOC.CMSAFE ---
Date of service: 12/11/24 Time of Service: 16:52 Care Management Safety Plan Status Status: Voluntary Reason for Wait Reason for Wait: Inpatient Admission Safety Plan Safety Plan: VOLUNTARY FOR INPATIENT PSYCHIATRIC STABILIZATION.? Patient is appropriate in all interactions since arriving at [facility]; Pt has demonstrated appropriate coping and communication skills, has articulated his or her needs and concerns and is fully engaged during staff interactions. Safety plan has been established with patient, and care team, to adhere to patient goals, identify restrictions based on behavioral status, address nutrition, and determine allowed personal belongings, tools for hygiene and personal care. Determine level of activity including ambulation, level of supervision, visitors, and determine privileges based on behaviors and level of engagement by pt. VOLUNTARY SAFETY PLAN: 1. Will remain on suicide precautions, in paper clothes 2. Will remain in Zone B under direct supervision of one-on-one staff at all times provided by [employer]; VIOLETA, MENTAL MEASUREMENTS TEACHER process line operator. 3. May have paper cups, plates, finger foods as well as a cardboard spoon with which to eat meals. 4. Follow [facility] Management of the Admitted Behavioral Health Patient policy. 5. Shower available in Zone B without restriction. 6. Personal belongings-soft items permitted at RN discretion. 7. Visitors- supportive visitors, at RN discretion. 8. Activities: soft cart items, hospital tablets (Netflix/[place]+/music) approved per RN discretion. 9.? Bathroom available in Zone B without restriction. 10. Phone: limited to [facility] cordless phone at RN discretion. Due to VOLUNTARY status, if patient wishes to leave [facility], staff will contact [facility] Crisis Screener ([phone]) and Volcanologist ([phone]) as soon as possible. In the event of elopement, notify [facility] Police ([phone]). Patient is currently voluntarily at [facility] and seeking inpatient admission when a bed becomes available. [facility] Frontline Roaster Supervisor will continue seeking placement. Please contact the Volcanologist ([phone]) and [facility] Roaster Supervisor ([phone]) for any needed changes in the Safety Plan. Safety plan has been provided to interdepartmental care team.
--- NOTE | 2024-12-11 18:21 | ED.PROG_ITS ---
Date of service: 12/11/24 Time of Service: 18:21 Medical Decision Making I received signout on this 59-year-old female with auditory hallucinations. Patient is voluntary. Medically cleared. Home medications ordered. Will sign patient out to overnight provider and update documentation as clinically warranted. 10:18 PM No active behavioral issues. Patient signed out to Dr. Hansen. Quality:[facility] Health Related Social Needs: Health related social needs details Transport, psychol ogical stress and functioning, disability, risk of homelessness Discharge Plan Discharge Details Chief Complaint: PsychEval Clinical Impression: Auditory hallucination Primary Care Provider: Anna Dial ED Provider: Davin Valdes [place] Meds and New Rx's Prescriptions: No Action cholecalciferol (vitamin D3) 50 mcg (2,000 unit) capsule 50 mcg PO DAILY Qty: 90 3RF magnesium oxide 250 mg magnesium tablet 250 mg PO QHS Qty: 90 3RF valbenazine 40 mg capsule 40 mg PO DAILY Qty: 30 5RF topiramate 100 mg tablet 100 mg PO BID Qty: 180 3RF lamotrigine 150 mg tablet 150 mg PO BID Qty: 180 3RF olanzapine 10 mg tablet PO QHS olanzapine 2.5 mg tablet 2.5 mg PO QHS meloxicam 15 mg tablet 15 mg PO DAILY Qty: 90 3RF Rx Instructions: take after breakfast Mounjaro 2.5 mg/0.5 mL pen injector 2.5 mg subcut QWEEK Qty: 2 0RF Rx Instructions: for 4 weeks hydrocortisone [Cortisone (hydrocortisone)] 1 % cream 1 applic topical TID PRN (Reason: skin irritation- abdomen) Qty: 28.35 1RF (DME) CTS splints See Rx Instructions .Route .MEDSUPPLY Qty: 2 0RF Rx Instructions: As directed (DME) lancets 33 gauge misc 1 ea Miscellaneous DIRECTED folic acid 1 mg tablet 1 mg PO DAILY atorvastatin 10 mg tablet 10 mg PO DAILY Qty: 90 3RF multivitamin Tablet 1 tab PO DAILY Qty: 90 3RF amoxicillin 500 mg capsule 2,000 mg PO ONCE PRN (Reason: prior to dental work) Qty: 4 0RF Rx Instructions: prior to dental work levothyroxine 100 mcg tablet 100 mcg PO DAILY Qty: 90 3RF simethicone 80 mg tablet,chewable See Rx Instructions .ROUTE .COMPLEX Qty: 90 3RF Dose Instruction: CHEW & SWALLOW 1 TABLET AT BEDTIME Rx Instructions: CHEW & SWALLOW 1 TABLET AT BEDTIME acetaminophen 500 mg tablet See Rx Instructions .ROUTE .COMPLEX Qty: 112 2RF Dose Instruction: TAKE 2 TABLETS BY MOUTH TWICE A DAY Rx Instructions: TAKE 2 TABLETS BY MOUTH TWICE A DAY polyethylene glycol 3350 17 gram Powder In Packet 17 g PO BID PRN PRN (Reason: Constipation) Qty: 0 0RF (DME) FreeStyle Lite Strips Strip MISCELLANEOUS Patient Comments: TEST BLOOD GLUCOSE TWICE DAILY (DME) blood-glucose meter [FreeStyle Lite Meter] Kit MISCELLANEOUS Patient Comments: TEST TWICE DAILY DIRECTED (DME) lancets [FreeStyle Lancets] 28 gauge misc MISCELLANEOUS Patient Comments: TEST TWICE DAILY
--- NOTE | 2024-12-11 19:51 | NUR.NOTE ---
Nate reached out to ask about the level of independence this patient has around performing her ADL's as she lives in assisted living and they are unsure if they have the ability to take her if she is high needs. I discussed this with the patient. She is continent mostly, is able to get up and move around on her own. She does have an shuffling gait, but does not use soto or furniture to get around. She does use a cane when walking longer distances. The patient is able to feed and dress herself. She does need some help with wiping her bottom after toileting. Otherwise, is able to perform other toileting tasks on her own. The patient did inform me that she is able to shower mostly independently, but does need help with her back, feet and hair. This information was relayed to Nate, who requested a formal note in the chart. Pt is a fall risk based on history and shuffling gait, but is failry independent and performs much of her ADLs without issue. HENRI WilkinsonN, RN Nursing Note:
[2024-12-11] MEDS: Magnesium Oxide 400 MG TAB 200 MG PO (20:11)
[2024-12-11] MEDS: lamoTRIgine 100 MG TAB 150 MG PO (20:11)
[2024-12-11] MEDS: Topiramate 100 MG TAB PO (20:11)
[2024-12-11] MEDS: OLANZapine 2.5 MG TAB PO (20:12)
--- NOTE | 2024-12-12 00:23 | NUR.NOTE ---
Nursing Note: pt has stated that the voices are really loud right now, they are telling her to hurt herself and she would like to strangle herself. Pt stated that her mom and dad aren't here anymore so why should I be. at this time resources were offered, pt stated that nothing helps her.
[2024-12-12 05:48] VITALS: BP 164/88
[2024-12-12] MEDS: Levothyroxine 100 MCG TAB PO (06:22)
[2024-12-12] MEDS: Cholecalciferol (Vitamin D3) 1,000 UNIT TAB 2000 UNITS PO (08:16)
[2024-12-12] MEDS: Topiramate 100 MG TAB PO ×2 (08:16→20:29)
[2024-12-12] MEDS: Multivitamin TAB 1 TAB PO (08:16)
[2024-12-12] MEDS: Atorvastatin 10 MG TAB PO (08:16)
[2024-12-12] MEDS: lamoTRIgine 100 MG TAB 150 MG PO ×2 (08:16→20:28)
[2024-12-12] MEDS: Folic Acid 1 MG TAB PO (08:16)
[2024-12-12] MEDS: Meloxicam 15 MG TAB PO (08:17)
[2024-12-12 08:28] VITALS: BP 150/78; PULSE 85; RESP 16; TEMP 35.8; O2SAT 94
--- NOTE | 2024-12-12 12:30 | CMSP_ITS ---
Date of service: 12/12/24 Time of Service: 12:30 Care Management Safety Plan Status Status: Voluntary Reason for Wait Reason for Wait: Inpatient Admission Safety Plan Safety Plan: VOLUNTARY FOR INPATIENT PSYCHIATRIC STABILIZATION.? Patient is appropriate in all interactions since arriving at [facility]; Pt has demonstrated appropriate coping and communication skills, has articulated his or her needs and concerns and is fully engaged during staff interactions. Safety plan has been established with patient, and care team, to adhere to patient goals, identify restrictions based on behavioral status, address nutrition, and determine allowed personal belongings, tools for hygiene and personal care. Determine level of activity including ambulation, level of superv ision, visitors, and determine privileges based on behaviors and level of engagement by pt. VOLUNTARY SAFETY PLAN: 1. Will remain on suicide precautions, in paper clothes 2. Will remain in Zone B under direct supervision of one-on-one staff at all times provided by [employer]; VIOLETA, SENIOR ADVISOR driving school instructor. 3. May have paper cups, plates, finger foods as well as a cardboard spoon with which to eat meals. 4. Follow [facility] Management of the Admitted Behavioral Health Patient policy. 5. Shower available in Zone B without restriction. 6. Personal belongings-soft items permitted at RN discretion. 7. Visitors- supportive visitors, at RN discretion. 8. Activities: soft cart items, hospital tablets (Netflix/[place]+/music) approved per RN discretion. 9.? Bathroom available in Zone B without restriction. 10. Phone: limited to [facility] cordless phone at RN discretion. Due to VOLUNTARY status, if patient wishes to leave [facility], staff will contact [facility] Crisis Screener ([phone]) and Consulting Business Developer ([phone]) as soon as possible. In the event of elopement, notify [facility] Police ([phone]). Patient is currently voluntarily at [facility] and seeking inpatient admission when a bed becomes available. [facility] Frontline Regional Director will continue seeking placement. Please contact the Consulting Business Developer ([phone]) and [facility] Regional Director ([phone]) for any needed changes in the Safety Plan. Safety plan has been provided to interdepartmental care team.
--- NOTE | 2024-12-12 12:30 | PDOC.CMSAFE ---
Date of service: 12/12/24 Time of Service: 12:30 Care Management Safety Plan Status Status: Voluntary Reason for Wait Reason for Wait: Inpatient Admission Safety Plan Safety Plan: VOLUNTARY FOR INPATIENT PSYCHIATRIC STABILIZATION.? Patient is appropriate in all interactions since arriving at [facility]; Pt has demonstrated appropriate coping and communication skills, has articulated his or her needs and concerns and is fully engaged during staff interactions. Safety plan has been established with patient, and care team, to adhere to patient goals, identify restrictions based on behavioral status, address nutrition, and determine allowed personal belongings, tools for hygiene and personal care. Determine level of activity including ambulation, level of supervision, visitors, and determine privileges based on behaviors and level of engagement by pt. VOLUNTARY SAFETY PLAN: 1. Will remain on suicide precautions, in paper clothes 2. Will remain in Zone B under direct supervision of one-on-one staff at all times provided by [employer]; VIOLETA, MANAGER ENT drilling foreman. 3. May have paper cups, plates, finger foods as well as a cardboard spoon with which to eat meals. 4. Follow [facility] Management of the Admitted Behavioral Health Patient policy. 5. Shower available in Zone B without restriction. 6. Personal belongings-soft items permitted at RN discretion. 7. Visitors- supportive visitors, at RN discretion. 8. Activities: soft cart items, hospital tablets (Netflix/[place]+/music) approved per RN discretion. 9.? Bathroom available in Zone B without restriction. 10. Phone: limited to [facility] cordless phone at RN discretion. Due to VOLUNTARY status, if patient wishes to leave [facility], staff will contact [facility] Crisis Screener ([phone]) and Test Deskman ([phone]) as soon as possible. In the event of elopement, notify [facility] Police ([phone]). Patient is currently voluntarily at [facility] and seeking inpatient admission when a bed becomes available. [facility] Frontline Owner Operator will continue seeking placement. Please contact the Test Deskman ([phone]) and [facility] Owner Operator ([phone]) for any needed changes in the Safety Plan. Safety plan has been provided to interdepartmental care team.
--- NOTE | 2024-12-12 12:31 | CMPROGNOTE_ITS ---
Date of service: 12/12/24 Time of Service: 12:31 Care Management Progress Note Progress Note Text Progress Note Text: CM huddled with [facility] and [facility] staff regarding Celina's plan of care. Per report, she has been engaging minimally and has not had any behavioral concerns. Per RN, when walking she is not using a cane or walker, which appears to be better than her baseline. Per [facility], Celina continues to report SI and increased voices telling her to harm herself. Celina is voluntary, seeking inpatient psychiatric treatment. Referrals were sent to [facility], [facility] and [facility]. Nate declined the referral; all others are still reviewing. Safety plan in place; CM will continue to follow. Social Determinants of Health Screening Will the Patient Participate in the Screening?: Declined to provide
--- NOTE | 2024-12-12 16:49 | ED.PSYCHBOAR ---
Date of service: 12/12/24 Time of Service: 16:49 Psychiatric Border Handoff Update Brief Story: Patient is here for auditory hallucinations asking her to slice her throat. Patient has remained stable. She is taking her medications. Pending placement. Status: voluntary Able to leave: would need physician/JOHANNY and crisis evaluation prior to leaving Behavioral Concerns: None Potential Disposition: Pending Medical Concerns: None Mediation Reconciliation performed: Yes Code Status ordered: Yes Diet ordered: Yes Discharge Plan Discharge Details Chief Complaint: PsychEval Clinical Impression: Auditory hallucination Primary Care Provider: Anna Dial ED Provider: Erwin [facility]ton Home Meds and New Rx's Prescriptions: No Action cholecalciferol (vitamin D3) 50 mcg (2,000 unit) capsule 50 mcg PO DAILY Qty: 90 3RF magnesium oxide 250 mg magnesium tablet 250 mg PO QHS Qty: 90 3RF valbenazine 40 mg capsule 40 mg PO DAILY Qty: 30 5RF topiramate 100 mg tablet 100 mg PO BID Qty: 180 3RF lamotrigine 150 mg tablet 150 mg PO BID Qty: 180 3RF olanzapine 10 mg tablet PO QHS olanzapine 2.5 mg tablet 2.5 mg PO QHS meloxicam 15 mg tablet 15 mg PO DAILY Qty: 90 3RF Rx Instructions: take after breakfast Mounjaro 2.5 mg/0.5 mL pen injector 2.5 mg subcut QWEEK Qty: 2 0RF Rx Instructions: for 4 weeks hydrocortisone [Cortisone (hydrocortisone)] 1 % cream 1 applic topical TID PRN (Reason: skin irritation- abdomen) Qty: 28.35 1RF (DME) CTS splints See Rx Instructions .Route .MEDSUPPLY Qty: 2 0RF Rx Instructions: As directed (DME) lancets 33 gauge misc 1 ea Miscellaneous DIRECTED folic acid 1 mg tablet 1 mg PO DAILY atorvastatin 10 mg tablet 10 mg PO DAILY Qty: 90 3RF multivitamin Tablet 1 tab PO DAILY Qty: 90 3RF amoxicillin 500 mg capsule 2,000 mg PO ONCE PRN (Reason: prior to dental work) Qty: 4 0RF Rx Instructions: prior to dental work levothyroxine 100 mcg tablet 100 mcg PO DAILY Qty: 90 3RF simethicone 80 mg tablet,chewable See Rx Instructions .ROUTE .COMPLEX Qty: 90 3RF Dose Instruction: CHEW & SWALLOW 1 TABLET AT BEDTIME Rx Instructions: CHEW & SWALLOW 1 TABLET AT BEDTIME acetaminophen 500 mg tablet See Rx Instructions .ROUTE .COMPLEX Qty: 112 2RF Dose Instruction: TAKE 2 TABLETS BY MOUTH TWICE A DAY Rx Instructions: TAKE 2 TABLETS BY MOUTH TWICE A DAY polyethylene glycol 3350 17 gram Powder In Packet 17 g PO BID PRN PRN (Reason: Constipation) Qty: 0 0RF (DME) FreeStyle Lite Strips Strip MISCELLANEOUS Patient Comments: TEST BLOOD GLUCOSE TWICE DAILY (DME) blood-glucose meter [FreeStyle Lite Meter] Kit MISCELLANEOUS Patient Comments: TEST TWICE DAILY DIRECTED (DME) lancets [FreeStyle Lancets] 28 gauge misc MISCELLANEOUS Patient Comments: TEST TWICE DAILY
--- NOTE | 2024-12-12 17:04 | PDOC.MHPN2 ---
Date of service: 12/12/24 Time of Service: 11:24 Mental Health Emergency Note Release [facility] release signed:: Yes Reason for Visit Client remains in Zone B after seeking inpatient hospitalization post Mobile Crisis Evaluation yesterday. In the last 2 weeks has the pt presented for ES prior to today?: No Impression Client is presently in Zone B of the [facility] Emergency Room where she is voluntarily seeking in-patient hospital psychiatric treatment, as was recommended by a Mobile Crisis Evaluation yesterday. She continues to report that she's experiencing Command Auditory Hallucinations telling her to harm people, as well as to kill herself. She reports that the longer these voices persist that they are becoming harder to resist. She states that since being in the Emergency Room that she continues to have Suicidal Ideation, Intent, and a plan to use her hands to strangle herself. She is unable to participate in Safety Planning at this time. Plan/Disposition Recommended Disposition: Hospitalization facilities contacted. Plan: Client will remain in Zone B of the [facility] Emergency Room until appropriate hospital placement is secured. Person reported agreement to plan: Yes Reports/communication Outcome discussed with: ED/Personnel (Neymar completed with [facility] staff)
[2024-12-12] MEDS: Magnesium Oxide 400 MG TAB 200 MG PO (20:28)
[2024-12-12] MEDS: OLANZapine 2.5 MG TAB PO (20:29)
[2024-12-12 20:47] VITALS: BP 154/98; PULSE 75; TEMP 36.9; O2SAT 96
[2024-12-13] MEDS: Acetaminophen 500 MG TAB 1000 MG PO ×3 (00:20→18:24)
[2024-12-13] MEDS: Levothyroxine 100 MCG TAB PO (07:06)
[2024-12-13 07:07] VITALS: BP 168/90; PULSE 82; RESP 18; TEMP 35.9; O2SAT 96
[2024-12-13] MEDS: lamoTRIgine 100 MG TAB 150 MG PO ×2 (08:20→20:20)
[2024-12-13] MEDS: Meloxicam 15 MG TAB PO (08:20)
[2024-12-13] MEDS: Cholecalciferol (Vitamin D3) 1,000 UNIT TAB 2000 UNITS PO (08:20)
[2024-12-13] MEDS: Multivitamin TAB 1 TAB PO (08:21)
[2024-12-13] MEDS: Folic Acid 1 MG TAB PO (08:21)
[2024-12-13] MEDS: Topiramate 100 MG TAB PO ×2 (08:21→20:20)
[2024-12-13] MEDS: Atorvastatin 10 MG TAB PO (08:42)
--- NOTE | 2024-12-13 09:02 | CMPROGNOTE_ITS ---
Date of service: 12/13/24 Time of Service: 09:03 Care Management Progress Note Progress Note Text Progress Note Text: Per RN report, Celina has been doing well. She seems better than she has in the past, but continues with auditory hallucinations. [facility] and [facility], and also to [facility] and [place]. Nate declined the referral; all others are still reviewing. Safety plan in place; CM will continue to follow. Discharge Plan: . MH Services (Omit if N/A) Current MH Services: [facility] Status Status: Voluntary Reason for Wait: Inpatient Admission Social Determinants of Health Screening Will the Patient Participate in the Screening?: Declined to provide
--- NOTE | 2024-12-13 09:07 | CMSP_ITS ---
Date of service: 12/13/24 Time of Service: 09:07 Care Management Safety Plan Status Status: Voluntary Reason for Wait Reason for Wait: Inpatient Admission Safety Plan Safety Plan: VOLUNTARY FOR INPATIENT PSYCHIATRIC STABILIZATION.? Patient is appropriate in all interactions since arriving at [facility]; Pt has demonstrated appropriate coping and communication skills, has articulated his or her needs and concerns and is fully engaged during staff interactions. Safety plan has been established with patient, and care team, to adhere to patient goals, identify restrictions based on behavioral status, address nutrition, and determine allowed personal belongings, tools for hygiene and personal care. Determine level of activity including ambulation, level of supervision, visitors, and determine privileges based on behaviors and level of engagement by pt. VOLUNTARY SAFETY PLAN: 1. Will remain on suicide precautions, in paper clothes 2. Will remain in Zone B under direct supervision of one-on-one staff at all times provided by [employer]; VIOLETA, FOUNDRY FINISHER quality assurance supervisor. 3. May have paper cups, plates, finger foods as well as a cardboard spoon with which to eat meals. 4. Follow [facility] Management of the Admitted Behavioral Health Patient policy. 5. Shower available in Zone B without restriction. 6. Personal belongings-soft items permitted at RN discretion. 7. Visitors- supportive visitors, at RN discretion. 8. Activities: soft cart items, hospital tablets (Netflix/[place]+/music) approved per RN discretion. 9.? Bathroom available in Zone B without restriction. 10. Phone: limited to [facility] cordless phone at RN discretion. Due to VOLUNTARY status, if patient wishes to leave [facility], staff will contact [facility] Crisis Screener ([phone]) and Stevedoring Superintendent ([phone]) as soon as possible. In the event of elopement, notify [facility] Police ([phone]).
--- NOTE | 2024-12-13 09:42 | ED.PSYCHBOAR ---
Date of service: 12/13/24 Time of Service: 09:42 Psychiatric Border Handoff Update Brief Story: 59-year-old female who is currently under inpatient psychiatric bed search voluntarily due to command hallucinations with suicidal ideations. No acute events overnight. Patient is having some diarrhea as provided dimeticone for some anal irritation. Status: voluntary Able to leave: would need physician/JOHANNY and crisis evaluation prior to leaving Behavioral Concerns: Command hallucinations and SI Potential Disposition: Inpatient psychiatric bed search Barriers to Disposition: Bed search Medical Concerns: Asymptomatic high blood pressure, anal irritation due to loose stool Mediation Reconciliation performed: Yes Code Status ordered: Yes Diet ordered: Yes Future to do Items: Follow-up bed search Discharge Plan Discharge Details Chief Complaint: PsychEval Clinical Impression: Auditory hallucination Primary Care Provider: Anna Dial ED Provider: Jorge L Poe [place] Meds and New Rx's Prescriptions: No Action cholecalciferol (vitamin D3) 50 mcg (2,000 unit) capsule 50 mcg PO DAILY Qty: 90 3RF magnesium oxide 250 mg magnesium tablet 250 mg PO QHS Qty: 90 3RF valbenazine 40 mg capsule 40 mg PO DAILY Qty: 30 5RF topiramate 100 mg tablet 100 mg PO BID Qty: 180 3RF lamotrigine 150 mg tablet 150 mg PO BID Qty: 180 3RF olanzapine 10 mg tablet PO QHS olanzapine 2.5 mg tablet 2.5 mg PO QHS meloxicam 15 mg tablet 15 mg PO DAILY Qty: 90 3RF Rx Instructions: take after breakfast Mounjaro 2.5 mg/0.5 mL pen injector 2.5 mg subcut QWEEK Qty: 2 0RF Rx Instructions: for 4 weeks hydrocortisone [Cortisone (hydrocortisone)] 1 % cream 1 applic topical TID PRN (Reason: skin irritation- abdomen) Qty: 28.35 1RF (DME) CTS splints See Rx Instructions .Route .MEDSUPPLY Qty: 2 0RF Rx Instructions: As directed (DME) lancets 33 gauge misc 1 ea Miscellaneous DIRECTED folic acid 1 mg tablet 1 mg PO DAILY atorvastatin 10 mg tablet 10 mg PO DAILY Qty: 90 3RF multivitamin Tablet 1 tab PO DAILY Qty: 90 3RF amoxicillin 500 mg capsule 2,000 mg PO ONCE PRN (Reason: prior to dental work) Qty: 4 0RF Rx Instructions: prior to dental work levothyroxine 100 mcg tablet 100 mcg PO DAILY Qty: 90 3RF simethicone 80 mg tablet,chewable See Rx Instructions .ROUTE .COMPLEX Qty: 90 3RF Dose Instruction: CHEW & SWALLOW 1 TABLET AT BEDTIME Rx Instructions: CHEW & SWALLOW 1 TABLET AT BEDTIME acetaminophen 500 mg tablet See Rx Instructions .ROUTE .COMPLEX Qty: 112 2RF Dose Instruction: TAKE 2 TABLETS BY MOUTH TWICE A DAY Rx Instructions: TAKE 2 TABLETS BY MOUTH TWICE A DAY polyethylene glycol 3350 17 gram Powder In Packet 17 g PO BID PRN PRN (Reason: Constipation) Qty: 0 0RF (DME) FreeStyle Lite Strips Strip MISCELLANEOUS Patient Comments: TEST BLOOD GLUCOSE TWICE DAILY (DME) blood-glucose meter [FreeStyle Lite Meter] Kit MISCELLANEOUS Patient Comments: TEST TWICE DAILY DIRECTED (DME) lancets [FreeStyle Lancets] 28 gauge misc MISCELLANEOUS Patient Comments: TEST TWICE DAILY
--- NOTE | 2024-12-13 18:15 | DI.RAD_ITS ---
Exam(s) XR KNEE RT 3V AP,LAT,TOBI EXAM: XR KNEE RT 3V AP,LAT,TOBI CLINICAL HISTORY: hx replacement, worsening pain and swelling. TECHNIQUE: 2D digital imaging was performed. Three images were obtained. AP, lateral and AP tunnel views were obtained. COMPARISON: CR XR KNEE RT 2V AP,LAT from 12/20/2023 FINDINGS: BONES: There are stable post operative changes of a right total knee arthroplasty present. No fracture or dislocation. JOINTS: The orthopedic hardware is in good position. No evidence of hardware loosening. SOFT TISSUE: Normal. IMPRESSION: 1. Stable right total knee arthroplasty. 2. There is no acute abnormality. DATA REPOSITORY: RADIATION DOSE DELIVERED:
[2024-12-13] MEDS: Ibuprofen 600 MG TAB PO (18:24)
[2024-12-13 19:11] VITALS: BP 141/90; PULSE 71; RESP 18; TEMP 35.9; O2SAT 95
[2024-12-13] MEDS: Magnesium Oxide 400 MG TAB 200 MG PO (20:19)
[2024-12-13] MEDS: OLANZapine 2.5 MG TAB PO (20:20)
--- NOTE | 2024-12-13 23:09 | ED.PSYCHBOAR ---
Date of service: 12/13/24 Time of Service: 17:00 Psychiatric Border Handoff Update Brief Story: 59-year-old female patient presenting for suicidal ideations with command hallucinations, boarding in our emergency department voluntarily. On my shift the patient complained of some ongoing chronic knee pain, an x-ray was obtained given some swelling, no acute findings. Tylenol and ibuprofen have been ordered. Danny Olsen MD Status: voluntary Able to leave: would need physician/JOHANNY and crisis evaluation prior to leaving Mediation Reconciliation performed: Yes Code Status ordered: Yes Diet ordered: Yes Discharge Plan Discharge Details Chief Complaint: PsychEval Clinical Impression: Auditory hallucination Primary Care Provider: Anna Dial ED Provider: Jen Olsen Home Meds and New Rx's Prescriptions: No Action cholecalciferol (vitamin D3) 50 mcg (2,000 unit) capsule 50 mcg PO DAILY Qty: 90 3RF magnesium oxide 250 mg magnesium tablet 250 mg PO QHS Qty: 90 3RF valbenazine 40 mg capsule 40 mg PO DAILY Qty: 30 5RF topiramate 100 mg tablet 100 mg PO BID Qty: 180 3RF lamotrigine 150 mg tablet 150 mg PO BID Qty: 180 3RF olanzapine 10 mg tablet PO QHS olanzapine 2.5 mg tablet 2.5 mg PO QHS meloxicam 15 mg tablet 15 mg PO DAILY Qty: 90 3RF Rx Instructions: take after breakfast Mounjaro 2.5 mg/0.5 mL pen injector 2.5 mg subcut QWEEK Qty: 2 0RF Rx Instructions: for 4 weeks hydrocortisone [Cortisone (hydrocortisone)] 1 % cream 1 applic topical TID PRN (Reason: skin irritation- abdomen) Qty: 28.35 1RF (DME) CTS splints See Rx Instructions .Route .MEDSUPPLY Qty: 2 0RF Rx Instructions: As directed (DME) lancets 33 gauge misc 1 ea Miscellaneous DIRECTED folic acid 1 mg tablet 1 mg PO DAILY atorvastatin 10 mg tablet 10 mg PO DAILY Qty: 90 3RF multivitamin Tablet 1 tab PO DAILY Qty: 90 3RF amoxicillin 500 mg capsule 2,000 mg PO ONCE PRN (Reason: prior to dental work) Qty: 4 0RF Rx Instructions: prior to dental work levothyroxine 100 mcg tablet 100 mcg PO DAILY Qty: 90 3RF simethicone 80 mg tablet,chewable See Rx Instructions .ROUTE .COMPLEX Qty: 90 3RF Dose Instruction: CHEW & SWALLOW 1 TABLET AT BEDTIME Rx Instructions: CHEW & SWALLOW 1 TABLET AT BEDTIME acetaminophen 500 mg tablet See Rx Instructions .ROUTE .COMPLEX Qty: 112 2RF Dose Instruction: TAKE 2 TABLETS BY MOUTH TWICE A DAY Rx Instructions: TAKE 2 TABLETS BY MOUTH TWICE A DAY polyethylene glycol 3350 17 gram Powder In Packet 17 g PO BID PRN PRN (Reason: Constipation) Qty: 0 0RF (DME) FreeStyle Lite Strips Strip MISCELLANEOUS Patient Comments: TEST BLOOD GLUCOSE TWICE DAILY (DME) blood-glucose meter [FreeStyle Lite Meter] Kit MISCELLANEOUS Patient Comments: TEST TWICE DAILY DIRECTED (DME) lancets [FreeStyle Lancets] 28 gauge misc MISCELLANEOUS Patient Comments: TEST TWICE DAILY
[2024-12-14] MEDS: LORazepam 1 MG TAB PO (03:53)
[2024-12-14] MEDS: Acetaminophen 500 MG TAB 1000 MG PO (03:56)
[2024-12-14] MEDS: Folic Acid 1 MG TAB PO (07:25)
[2024-12-14] MEDS: Levothyroxine 100 MCG TAB PO (07:25)
[2024-12-14] MEDS: lamoTRIgine 100 MG TAB 150 MG PO (07:25)
[2024-12-14] MEDS: Atorvastatin 10 MG TAB PO (07:25)
[2024-12-14] MEDS: Multivitamin TAB 1 TAB PO (07:25)
[2024-12-14] MEDS: Meloxicam 15 MG TAB PO (07:26)
[2024-12-14] MEDS: Cholecalciferol (Vitamin D3) 1,000 UNIT TAB 2000 UNITS PO (07:26)
[2024-12-14] MEDS: Topiramate 100 MG TAB PO (07:26)
[2024-12-14] MEDS: Ibuprofen 600 MG TAB PO (07:33)
--- NOTE | 2024-12-14 07:39 | ED.PSYCHBOAR ---
Date of service: 12/14/24 Time of Service: 07:39 Psychiatric Border Handoff Update Brief Story: This is a 59-year-old female with a past medical history of Lyme disease, pseudoseizures, GERD, hypothyroidism, high cholesterol, hypertension, schizophrenia, cognitive developmental delay, with a past medical history of auditory visual hallucinations who presented on the 24 for auditory hallucinations. Patient stated that for the last few days she has been hearing voices that are telling her to kill herself. She states that they are telling her to slit her throat with a sharp knife. She denies any homicidal ideations. It is unclear if she is regularly taking her medications. Patient has been here awaiting placement voluntarily. She has been complaining of knee pain and has been receiving Tylenol and ibuprofen for this. She continues to complain of this this morning after being reseen and reexamined by me. She has had a significant amount of acetaminophen in the last 24 hours and will be given a dose of ibuprofen. No recent injuries. No signs of infection. Patient does have a history of knee pain and this does seem consistent with previous. Status: voluntary Discharge Plan Discharge Details Chief Complaint: PsychEval Clinical Impression: Auditory hallucination Primary Care Provider: Anna Dial ED Provider: Erwin Sevilla Home Meds and New Rx's Prescriptions: No Action cholecalciferol (vitamin D3) 50 mcg (2,000 unit) capsule 50 mcg PO DAILY Qty: 90 3RF magnesium oxide 250 mg magnesium tablet 250 mg PO QHS Qty: 90 3RF valbenazine 40 mg capsule 40 mg PO DAILY Qty: 30 5RF topiramate 100 mg tablet 100 mg PO BID Qty: 180 3RF lamotrigine 150 mg tablet 150 mg PO BID Qty: 180 3RF olanzapine 10 mg tablet PO QHS olanzapine 2.5 mg tablet 2.5 mg PO QHS meloxicam 15 mg tablet 15 mg PO DAILY Qty: 90 3RF Rx Instructions: take after breakfast Mounjaro 2.5 mg/0.5 mL pen injector 2.5 mg subcut QWEEK Qty: 2 0RF Rx Instructions: for 4 weeks hydrocortisone [Cortisone (hydrocortisone)] 1 % cream 1 applic topical TID PRN (Reason: skin irritation- abdomen) Qty: 28.35 1RF (DME) CTS splints See Rx Instructions .Route .MEDSUPPLY Qty: 2 0RF Rx Instructions: As directed (DME) lancets 33 gauge misc 1 ea Miscellaneous DIRECTED folic acid 1 mg tablet 1 mg PO DAILY atorvastatin 10 mg tablet 10 mg PO DAILY Qty: 90 3RF multivitamin Tablet 1 tab PO DAILY Qty: 90 3RF amoxicillin 500 mg capsule 2,000 mg PO ONCE PRN (Reason: prior to dental work) Qty: 4 0RF Rx Instructions: prior to dental work levothyroxine 100 mcg tablet 100 mcg PO DAILY Qty: 90 3RF simethicone 80 mg tablet,chewable See Rx Instructions .ROUTE .COMPLEX Qty: 90 3RF Dose Instruction: CHEW & SWALLOW 1 TABLET AT BEDTIME Rx Instructions: CHEW & SWALLOW 1 TABLET AT BEDTIME acetaminophen 500 mg tablet See Rx Instructions .ROUTE .COMPLEX Qty: 112 2RF Dose Instruction: TAKE 2 TABLETS BY MOUTH TWICE A DAY Rx Instructions: TAKE 2 TABLETS BY MOUTH TWICE A DAY polyethylene glycol 3350 17 gram Powder In Packet 17 g PO BID PRN PRN (Reason: Constipation) Qty: 0 0RF (DME) FreeStyle Lite Strips Strip MISCELLANEOUS Patient Comments: TEST BLOOD GLUCOSE TWICE DAILY (DME) blood-glucose meter [FreeStyle Lite Meter] Kit MISCELLANEOUS Patient Comments: TEST TWICE DAILY DIRECTED (DME) lancets [FreeStyle Lancets] 28 gauge misc MISCELLANEOUS Patient Comments: TEST TWICE DAILY
[2024-12-14 07:50] VITALS: BP 158/94; PULSE 85; RESP 16; TEMP 35.5; O2SAT 95
--- NOTE | 2024-12-14 07:50 | CMSP_ITS ---
Date of service: 12/14/24 Time of Service: 07:52 Care Management Safety Plan Status Status: Voluntary Reason for Wait Reason for Wait: Inpatient Admission Safety Plan Safety Plan: VOLUNTARY FOR INPATIENT PSYCHIATRIC STABILIZATION.? Patient is appropriate in all interactions since arriving at [facility]; Pt has demonstrated appropriate coping and communication skills, has articulated his or her needs and concerns and is fully engaged during staff interactions. Safety plan has been established with patient, and care team, to adhere to patient goals, identify restrictions based on behavioral status, address nutrition, and determine allowed personal belongings, tools for hygiene and personal care. Determine level of activity including ambulation, level of supervision, visitors, and determine privileges based on behaviors and level of engagement by pt. VOLUNTARY SAFETY PLAN: 1. Will remain on suicide precautions, in paper clothes 2. Will remain in Zone B under direct supervision of one-on-one staff at all times provided by [employer]; VIOLETA, BOILERMAKER PIPE FITTER fence making machine operator. 3. May have paper cups, plates, finger foods as well as a cardboard spoon with which to eat meals. 4. Follow [facility] Management of the Admitted Behavioral Health Patient policy. 5. Shower available in Zone B without restriction. 6. Personal belongings-soft items permitted at RN discretion. 7. Visitors- supportive visitors, at RN discretion. 8. Activities: soft cart items, hospital tablets (Netflix/Farrell+/music) approved per RN discretion. 9.? Bathroom available in Zone B without restriction. 10. Phone: limited to [facility] cordless phone at RN discretion. Due to VOLUNTARY status, if patient wishes to leave [facility], staff will contact [facility] Crisis Screener ([phone]) and Fiction Writer ([phone]) as soon as possible. In the event of elopement, notify [facility] Police ([phone]).
--- NOTE | 2024-12-14 07:50 | PDOC.CMPRO ---
Date of service: 12/14/24 Time of Service: 10:12 Care Management Progress Note Progress Note Text Progress Note Text: CM discussed Celina's plan of care with [facility] [place] and [facility] b staff. Per report, Celina has been accepted by [facility] and will transport there later today. Transportation will be coordinated by night warehouse manager. CM will continue to follow. Status Status: Voluntary Reason for Wait: Inpatient Admission Social Determinants of Health Screening Will the Patient Participate in the Screening?: Declined to provide
== END 2024-12-14 12:10 | disposition other institution (70) ==
PROVIDERS: Student in an Organized Health Care Education/Training Program; Emergency Provider Emergency Medicine; PCP Nurse Practitioner Family
DX: F20.9 Schizophrenia, unspecified (principal); R45.851 Suicidal ideations; R19.7 Diarrhea, unspecified; I10 Essential (primary) hypertension
CPT/HCPCS: 99285 ×3; 36415; 36416; 82962; 00123; 73562; 80053; 80307; 82805; 96127; G0378; 80320; 80329; 81003; 84443; 85025

== ENCOUNTER 2025-01-07 10:41 | Outpatient (REF) | payer MEDICARE, MEDICAID, SELFPAY ==
[2025-01-07 17:39] LABS: Anion Gap 9.4 mmol/L (3-11); BUN 20 mg/dL (7-18); CO2 25.6 mmol/L (21.0-32.0); Calcium 9.1 mg/dL (8.5-10.1); Chloride 109 mmol/L (98-107); Estimated GFR 57.17 (mL/min/1.73m2); Glucose 108 mg/dL (74-106); NT-proBNP 636 pg/mL (<300); Potassium 3.8 mmol/L (3.5-5.1); Sodium 144 mmol/L (136-145)
== END 2025-01-07 10:42 | disposition home or self-care (01) ==
LOC: LBN 10:41
PROVIDERS: PCP Nurse Practitioner Family; Visit Provider Nurse Practitioner Family
DX: R60.0 Localized edema (principal); R06.02 Shortness of breath
CPT/HCPCS: 80048; 83880

== ENCOUNTER → 2025-01-08 10:59 | Outpatient (BNVA) | payer MEDICARE, MEDICAID, SELFPAY | PROVIDERS: PCP Nurse Practitioner Family; Referring Provider Nurse Practitioner Family; Visit Provider Psychiatry & Neurology Neurology | DX: G43.009 Migraine without aura, not intractable, without status migrainosus (principal); G40.319 Generalized idiopathic epilepsy and epileptic syndromes, intractable, without status epilepticus; G21.11 Neuroleptic induced parkinsonism; T43.505A Adverse effect of unspecified antipsychotics and neuroleptics, initial encounter; G24.01 Drug induced subacute dyskinesia; F45.8 Other somatoform disorders | CPT/HCPCS: 99214 ==

== ENCOUNTER 2025-01-10 03:10 | Outpatient (CLI) | payer MEDICARE, MEDICAID, SELFPAY ==
--- NOTE | 2025-01-10 10:05 | DI.RAD_ITS ---
Exam(s) XR CHEST 2V PA LATERAL EXAM: XR CHEST 2V PA LATERAL CLINICAL HISTORY: ? CHF,WT GAIN,SOB,BILAT LOW EXT EDEMA ,R60.0,R06.02 TECHNIQUE: 2D digital imaging was performed. Two views. COMPARISON: CT CT CHEST PE CTA from 10/05/2023 CR,XR XR CHEST 2V PA LATERAL from 10/05/2023 CR XR CHEST 2V PA LATERAL from 05/27/2024 CR XR CHEST 2V PA LATERAL from 06/04/2024 FINDINGS: HEART: Enlarged. Aorta: Not dilated. PULMONARY VASCULATURE: Normal. MEDIASTINUM: Unremarkable. LUNGS: Mildly increased interstitial markings. PLEURAL SPACE: No pleural effusion or pneumothorax. BONE:Unremarkable for age. SOFT TISSUES: Unremarkable. IMPRESSION: Cardiomegaly and mildly increased interstitial markings. The findings could represent mild CHF. DATA REPOSITORY: RADIATION DOSE DELIVERED:
== END 2025-01-10 03:30 ==
LOC: DI 03:11
PROVIDERS: PCP Nurse Practitioner Family; Visit Provider Nurse Practitioner Family
DX: R63.5 Abnormal weight gain (principal); R06.02 Shortness of breath; R60.0 Localized edema
CPT/HCPCS: 71046

== ENCOUNTER → 2025-01-29 09:50 | Outpatient (CLI) | payer MEDICARE, MEDICAID, SELFPAY ==
--- NOTE | 2025-01-29 10:53 | DI.RAD_ITS ---
Exam(s) XR TIB/FIB RT EXAM: XR TIB/FIB RT CLINICAL HISTORY: fall this am, pain knee/hip/amaya, W19.XXXA. TECHNIQUE: 2D digital imaging was performed. Two views. COMPARISON: CR XR STANDING ALIGNMENT from 04/17/2023 FINDINGS: BONES: No acute fracture is present. No bony destructive lesion is seen. Joints: A knee prosthesis is present which appears unchanged. The ankle is unremarkable. SOFT TISSUE: Normal. IMPRESSION: No acute abnormality. DATA REPOSITORY: RADIATION DOSE DELIVERED:
--- NOTE | 2025-01-29 10:56 | DI.RAD_ITS ---
Exam(s) XR HIP RT COMPLETE AP PELVIS EXAM: XR HIP RT COMPLETE AP PELVIS CLINICAL HISTORY: right hip pain, fall, W19.XXXA. TECHNIQUE: 2D digital imaging was performed. Two views COMPARISON: No exams were available for comparison FINDINGS: BONES: No acute fracture is present. No bony destructive lesion is seen. JOINTS: No dislocation present. Hip joint spaces are maintained. There is mild bilateral acetabular spurring. SI joints are unremarkable. SOFT TISSUE: Normal. IMPRESSION: Mild degenerative changes of both hips. DATA REPOSITORY: RADIATION DOSE DELIVERED:
--- NOTE | 2025-01-29 10:56 | DI.RAD_ITS ---
Exam(s) XR KNEE RT 3V AP,LAT,TOBI EXAM: XR KNEE RT 3V AP,LAT,TOBI CLINICAL HISTORY: right knee pain, fall, W19.XXXA. TECHNIQUE: 2D digital imaging was performed. Three views. COMPARISON: CR XR KNEE RT 3V AP,LAT,TOBI from 12/13/2024 FINDINGS: BONES: No acute fracture is present. No bony destructive lesion is seen. JOINTS: Stable alignment of right total knee prosthesis. No joint effusion is seen. SOFT TISSUE: Normal. IMPRESSION: Stable appearance of total knee prosthesis. DATA REPOSITORY: RADIATION DOSE DELIVERED:
== END ==
LOC: DI 09:51
PROVIDERS: PCP Nurse Practitioner Family; Visit Provider Nurse Practitioner Family
DX: W19.XXXA Unspecified fall, initial encounter (principal); Z96.651 Presence of right artificial knee joint
CPT/HCPCS: 73562; 73502; 73590

== ENCOUNTER → 2025-01-31 03:06 | Outpatient (CLI) | payer MEDICARE, MEDICAID, SELFPAY ==
--- NOTE | 2025-01-31 13:30 | DI.US_ITS ---
APPROVED REPORT EXAM: Comprehensive 2D, Doppler, and color-flow Echocardiogram Patient Location: Out-Patient Farm Management Supervisor: Oscar Herrera RDCS (AE) Indications: SOB, edema, evidence of HF, elevated BNP Other Information Study Quality: Poor. Technically limited study due to body habitus. Conclusion Technically difficult and suboptimal study Normal left ventricular wall thickness and chamber size. Ejection fraction is 55%. No wall motion abnormalities are observed Normal right ventricular size and function Both atria are normal in size There is no structural or hemodynamically significant valvular disease Estimated right ventricular systolic pressure is 38 mmHg Wall motion Left Ventricle The left ventricle is normal size. The left ventricular systolic function is normal. The left ventricular ejection fraction is within the normal range. There is normal left ventricular wall thickness. There is normal LV segmental wall motion. There is no ventricular septal defect visualized. LVEF is 55%. Right Ventricle The right ventricle is normal size. The right ventricular systolic function is normal. Atria The left atrium size is normal. The right atrium size is normal. The interatrial septum is intact with no evidence for an atrial septal defect. Aortic Valve The aortic valve is normal in structure. There is no aortic valvular stenosis. No aortic regurgitation is present. Mitral Valve The mitral valve is normal in structure. No evidence of mitral valve stenosis. Trace mitral regurgitation. Tricuspid Valve The tricuspid valve is normal in structure. There is no tricuspid valve stenosis. Trace tricuspid regurgitation. The RVSP is 38 mmHg. Pulmonic Valve The pulmonary valve is normal in structure. There is no pulmonic valvular stenosis. Mild to moderate pulmonic regurgitation. Great Vessels The aortic root is normal in size. The ascending aorta is normal in size. IVC is normal in size and collapses >50% with inspiration. Pericardium There is no pericardial effusion. 2D Dimensions IVSD d PLAX 0.77 cm F: 0.6-1.0 Ao Root d 2.09 cm F: 2.7 - 3.3 LVPW d PLAX 0.76 cm F: 0.6 - 1.0 Ao Asc Diam d 2.60 cm F: 2.3 - 3.1 LVID d PLAX 5.08 cm F: 3.8 - 5.2 LVDs 4.10 cm F: 2.2 - 3.5 LV EF Teichholz 39.7 % FS 19.39 % LV EDV (Teich) 122.9 mL LV ESV (Teich) 74.1 mL Stroke Vol Index (Teich) 23.90 LA Volume LA Length A4C 4.9 cm LA Length A2C LA Area A4C s 13.08 cm2 LA Area A2C s LA Vol A4C A-L 29.41 mL LA Vol A2C A-L LA Vol Biplane A-L LA Vol A4C MOD 27.2 mL LA Vol A2C MOD LA Vol BP MOD LV Diastology MV E' medial 0.082 (>0.07 m/s) MV E Vmax 0.95 (0.4-1.3 m/s) MV E/E' MED 11.60 (<14) MV A Vmax 0.65 (0.4-1.3 m/s) MV E' lateral 0.093 (>0.1 m/s) E/A Ratio 1.5 MV E/E' LAT 10.29 (<14) MV E' Average 0.087 m/s MV E/E'(average) 10.91 Aortic Valve AoV Vmax 1.51 m/s LVOT Vmax 1.21 m/s AoV Peak Grad 9.2 mmHg LVOT Peak Grad 5.9 mmHg AoV Area (Vmax) 1.77 cm2 LVOT VTI 0.277 m AoV VTI 0.405 m LVOT Mean Grad 3.4 mmHg AoV Mean Pietro. 1.09 m/s LVOT SV 61.28 mL AoV Mean Grad 5.3 mmHg LVOT Diam s 1.65 cm AoV Area (VTI) 1.51 cm2 AV Regurg Peak Gr. 9.18 mmHg Velocity Ratio 0.80 Mitral Valve MV DT 222 (160-240 msec) Pulmonary Valve PV Vmax 1.25 (0.5-1.5 m/s) RVOT Vmax 1.15 m/s PV Peak Grad 6.2 mmHg RVOT Peak Gr. 5.3 mmHg PV Mean Pietro 0.84 m/s RVOT VTI 0.222 m PV Mean Grad 3.2 mmHg RVOT Mean Gr. 2.0 mmHg Tricuspid Valve RA Pressure 3.00 mmHg TR Vmax 2.95 m/s TR Peak Grad 34.8 mmHg RVSP (TR) 37.9 mmHg
== END ==
LOC: DI 03:06
PROVIDERS: PCP Nurse Practitioner Family; Visit Provider Nurse Practitioner Family
DX: R60.0 Localized edema (principal); R06.02 Shortness of breath
CPT/HCPCS: 93306

== ENCOUNTER 2025-02-03 07:54 | Outpatient (CLI) | payer MEDICARE, MEDICAID, SELFPAY ==
--- NOTE | 2025-02-03 07:45 | RT.EKG_ITS ---
APPROVED REPORT Exam: Resting ECG Reason for Exam: SOB Patient Location: O HR:66 bpm ECG Measurements Heart Rate 66 AXIS TX 145 P 30 QRSd 108 QRS -15 QT 396 T 51 QTc 415 Conclusion Sinus rhythm...normal P axis, V-rate 50- 99 Normal Electrocardiogram
== END 2025-02-03 07:55 | disposition home or self-care (01) ==
LOC: DI.CARD 07:55
PROVIDERS: PCP Nurse Practitioner Family; Visit Provider Registered Nurse
DX: R06.02 Shortness of breath (principal); I10 Essential (primary) hypertension
CPT/HCPCS: 93010

== ENCOUNTER → 2025-02-03 11:08 | Outpatient (BNVA) | payer MEDICARE, MEDICAID, SELFPAY | PROVIDERS: PCP Nurse Practitioner Family; Referring Provider Nurse Practitioner Family; Visit Provider Registered Nurse | DX: R06.02 Shortness of breath (principal); I10 Essential (primary) hypertension; R07.9 Chest pain, unspecified | CPT/HCPCS: 99215; 93005 ==

== ENCOUNTER → 2025-02-10 02:14 | Outpatient (CLI) | payer MEDICARE, MEDICAID, SELFPAY ==
--- NOTE | 2025-02-10 07:30 | DI.NM_ITS ---
APPROVED REPORT Exam: Pharmacologic Patient Location: Out-Patient Room/Bed: Stress Nurse: Karoline Hooper RN Ordering Provider:BLAKE WATSON, Contact Number: BMI: 44.39 Baseline Rhythm: Sinus Bradycardia Indications: chest pain, SOB Medical History Medical History: schizophrenia, DORYS, tardive dyskinesia, DM, epilepsy, cognitive developmental delay, heart murmur, insomnia, lyme disease, GERD, hypothyroid, HLD, HTN, depression with SI Cardiac Medications: atorvastatin, levothyroxine, magnesium oxide, topiramate, fluoxetine, olanzapine, mounjaro, furosemide, valbenazine, lamotrigine Allergies: codeine, hydrocodone bitartrate Cardiac Risk Factors: diabetes, htn, hld, obesity Previous Cardiac Procedures: n/a Pretest Chest Pain Characteristics: No chest pain Exercise History: Sedentary Physical Disabilities: Knees Lung Sounds: Clear to auscultation Heart Sounds: Murmur Stress Test Details Test: Pharmacologic stress testing performed using 0.4 mg of regadenoson per 5 mL given IV over 10 seconds. Reason for pharmacologic stress test: physical limitation. Nuclear Acquisition: Rest Tc-99m/Stress Tc-99m 1 day Rest Isotope: Tc-99m Sestamibi. Dose: 10.0 Date: 02/10/2025 Injection Time: 1115 Stress Isotope: Tc-99m Sestamibi. Dose: 30.0 Date: 02/10/2025 Injection Time: 1313 HR Resting HR Supine: 56 bpm Max Heart Rate (APMHR): 159 bpm Target HR (85% APMHR): 135 bpm Max HR Achieved: 76 bpm % of APMHR: 48 Recovery HR: 74 bpm BP Resting BP Supine: 110/60 mmHg Max BP: 130/66 mmHg Recovery BP: 110/60 mmHg ECG Resting ECG: Sinus Bradycardia Ectopy: rare PAC Stress ECG: Sinus Rhythm ST Change: Nondiagnostic low heart rate Arrhythmia: rare PAC Recovery ECG: Sinus Rhythm Recovery ST Change: Nondiagnostic low heart rate Recovery Arrhythmia: rare PAC Clinical Stress Symptoms: Dyspnea, Abdominal discomfort Angina Score: None Rate Pressure Product: 9880 Stress ECG Conclusion 1. Resting electrocardiogram is normal 2. Patient underwent testing using pharmacologic stress with regadenoson 3. Peak heart rate achieved was 48% of maximal predicted for age 4. Electrocardiographic portion of the test was nondiagnostic 5. See MPI report Stress Test Summary STAGE HR BP SpO2 Symptoms NOTES Supine 56 110/60 1 min post Lexiscan injection 63 110/80 97 moderate SOB 3 min post Lexiscan injection 74 130/66 97 moderate SOB 6 min post Lexiscan injection 74 110/60 96 abdominal discomfort Laying lexiscan test performed due to patient's ambulatory status (walker/wheelchair dependent.) Pt c/o moderate SOB and mild abdominal discomfort during test, all symptoms resolved by test end. Pt left in no acute distress. MPI Conclusion Myocardial perfusion was normal. There was no ischemia or evidence of prior infarction Ejection fraction was 55% with normal wall motion
[2025-02-10] MEDS: Regadenoson 0.4 MG/5 ML SYR IVP (13:13)
== END ==
LOC: DI 02:14
PROVIDERS: PCP Nurse Practitioner Family; Visit Provider Registered Nurse
DX: R07.9 Chest pain, unspecified (principal)
CPT/HCPCS: 78452; 93016; 93018; 93017; J2785

== ENCOUNTER → 2025-02-17 12:30 | Outpatient (BNVA) | payer MEDICARE, MEDICAID, SELFPAY | PROVIDERS: PCP Nurse Practitioner Family; Referring Provider Nurse Practitioner Family; Visit Provider Psychiatry & Neurology Neurology | DX: G43.009 Migraine without aura, not intractable, without status migrainosus (principal); G40.319 Generalized idiopathic epilepsy and epileptic syndromes, intractable, without status epilepticus; G21.11 Neuroleptic induced parkinsonism; T43.505A Adverse effect of unspecified antipsychotics and neuroleptics, initial encounter; G24.01 Drug induced subacute dyskinesia; F45.8 Other somatoform disorders | CPT/HCPCS: 99214 ==

== ENCOUNTER 2025-02-25 01:21 | Outpatient (CLI) | payer MEDICARE, MEDICAID, SELFPAY ==
[2025-02-25 13:23] LABS: Anion Gap 9.9 mmol/L (3-11); BUN 20 mg/dL (9-23); CO2 28.1 mmol/L (20.0-31.0); Calcium 9.3 mg/dL (8.3-10.6); Chloride 105 mmol/L (98-107); Glucose 83 mg/dL (74-106); Potassium 4.0 mmol/L (3.5-5.1); Sodium 143 mmol/L (136-145)
[2025-02-25 13:26] LABS: Ferritin 46 ng/mL (7-271)
[2025-02-25 13:45] LABS: Iron 22 ug/dL (50-170); Total Iron Binding Capacity 345 ug/dL (250-425); Transferrin Sat 6 % (15-50)
== END 2025-02-25 01:22 | disposition home or self-care (01) ==
LOC: LBO 01:21
PROVIDERS: PCP Nurse Practitioner Family; Visit Provider Nurse Practitioner Family
DX: R79.9 Abnormal finding of blood chemistry, unspecified (principal); R63.5 Abnormal weight gain; R06.02 Shortness of breath; R53.83 Other fatigue
CPT/HCPCS: 36415; 80048; 82728; 83540; 83550